=== PATIENT | male | born 1965 | race Caucasian/White ===

== ENCOUNTER 2020-04-19 10:26 | Outpatient (REF) | payer OTHER, SELFPAY ==
[2020-04-19 11:30] LABS: MANUAL DIFF FLAG NO
[2020-04-19 11:51] LABS: Basophils Percent Auto 0.1 % (0-2); Eosinophils Absolute Auto 0.1 X10*3/uL (0.0-0.4); Eosinophils Percent Auto 1.4 % (0-4); Hematocrit 49.8 % (42-52); Hemoglobin 15.8 g/dl (14.0-18.0); Imm Gran Abs Auto 0.02 X10*3/uL (0.00-0.03); Imm Gran Pct Auto 0.3 % (0.0-0.4); Lymphocytes Absolute Auto 1.7 X10*3/uL (1.2-4.9); Lymphocytes Percent Auto 22.6 % (20-40); Mean Corpuscular HGB Conc 31.7 g/dl (31.0-36.0); Mean Corpuscular Hemoglobin 29.2 pg (27.0-33.0); Mean Corpuscular Volume 92.1 fL (80-98); Mean Platelet Volume 9.7 fL (9.4-12.4); Monocytes Absolute Auto 0.6 X10*3/uL (0.1-1.2); Monocytes Percent Auto 7.6 % (2-11); Neutrophils Absolute Auto 5.2 X10*3/uL (2.0-8.3); Platelet Count 284 X10*3/uL (160-400); Red Blood Count 5.41 X10*6/uL (4.60-5.80); Red Cell Distribution Width 12.2 % (11.0-16.0); White Blood Count 7.6 X10*3/uL (4.8-10.8)
[2020-04-19 12:09] LABS: Carbon Dioxide 34 mmol/L (22-29); Chloride 99 mmol/L (96-108); Potassium 4.6 mmol/l (3.3-5.1); Sodium 143 mmol/L (135-145)
[2020-04-19 12:10] LABS: Alanine Aminotransferase 18 U/L (0-40); Albumin Level 4.7 g/dL (3.5-5.0); Alkaline Phosphatase 68 U/L (39-117); Anion Gap 15 (12-20); Aspartate Amino Transferase 19 U/L (5-37); Bilirubin Total 0.6 mg/dL (0.0-1.0); Blood Urea Nitrogen 17 mg/dL (9-16); Calcium 9.8 mg/dL (8.4-10.2); Cholesterol 154 mg/dL; Estimated Glomerular Filt Rate > 60; Glucose Fasting 105 mg/dL (60-99); HDL Cholesterol 36 mg/dL; LDL Cholesterol Calculated 100 mg/dl; Total Protein 7.4 g/dL (6.5-8.0); Triglycerides 94 mg/dL
== END 2020-04-19 10:27 | disposition home or self-care (01) ==
LOC: HO.LAB 10:26
PROVIDERS: PCP Internal Medicine; Visit Provider Internal Medicine
DX: R25.1 Tremor, unspecified (principal)
CPT/HCPCS: 36415; 80053; 80061; 85025

== ENCOUNTER 2021-02-10 11:17 | Outpatient (REF) | payer MEDICARE, SELFPAY ==
[2021-02-10 11:32] LABS: MANUAL DIFF FLAG NO
[2021-02-10 11:49] LABS: Basophils Percent Auto 0.1 % (0-2); Eosinophils Percent Auto 0.5 % (0-4); Hematocrit 48.4 % (42-52); Hemoglobin 15.8 g/dl (14.0-18.0); Imm Gran Abs Auto 0.04 X10*3/uL (0.00-0.03); Imm Gran Pct Auto 0.5 % (0.0-0.4); Lymphocytes Absolute Auto 1.1 X10*3/uL (1.2-4.9); Lymphocytes Percent Auto 12.9 % (20-40); Mean Corpuscular HGB Conc 32.6 g/dl (31.0-36.0); Mean Corpuscular Hemoglobin 29.6 pg (27.0-33.0); Mean Corpuscular Volume 90.8 fL (80-98); Mean Platelet Volume 9.8 fL (9.4-12.4); Monocytes Absolute Auto 0.6 X10*3/uL (0.1-1.2); Monocytes Percent Auto 7.5 % (2-11); Neutrophils Absolute Auto 6.6 X10*3/uL (2.0-8.3); Neutrophils Percent Auto 78.5 % (45-73); Platelet Count 255 X10*3/uL (160-400); Red Blood Count 5.33 X10*6/uL (4.60-5.80); Red Cell Distribution Width 12.5 % (11.0-16.0); White Blood Count 8.4 X10*3/uL (4.8-10.8)
[2021-02-10 12:06] LABS: Alanine Aminotransferase 26 U/L (0-40); Albumin Level 4.5 g/dL (3.5-5.0); Alkaline Phosphatase 61 U/L (39-117); Anion Gap 12 (12-20); Aspartate Amino Transferase 21 U/L (5-37); Bilirubin Total 0.3 mg/dL (0.0-1.0); Blood Urea Nitrogen 15 mg/dL (9-16); Calcium 10.2 mg/dL (8.4-10.2); Carbon Dioxide 32 mmol/L (22-29); Chloride 101 mmol/L (96-108); Cholesterol 219 mg/dL; Estimated Glomerular Filt Rate > 60; Glucose Fasting 135 mg/dL (60-99); HDL Cholesterol 41 mg/dL; LDL Cholesterol Calculated 161 mg/dl; Potassium 4.4 mmol/L (3.3-5.1); Sodium 141 mmol/L (135-145); Total Protein 7.3 g/dL (6.5-8.0); Triglycerides 86 mg/dL
== END 2021-02-10 11:18 | disposition home or self-care (01) ==
LOC: HO.LAB 11:17
PROVIDERS: PCP Internal Medicine; Visit Provider Internal Medicine
DX: Z00.00 Encounter for general adult medical examination without abnormal findings (principal); E11.9 Type 2 diabetes mellitus without complications; E03.9 Hypothyroidism, unspecified
CPT/HCPCS: 36415; 80053; 80061; 84443; 85025

== ENCOUNTER 2021-03-14 10:34 | Outpatient (REF) | payer MEDICARE, SELFPAY ==
--- NOTE | 2021-03-16 10:47 | MHC.AU.AHA ---
Adult Audiological Evaluation Date of Visit: 03/14/21 Reason for Appointment: History of hearing loss. Patient arrives today to determine if there has been a change in hearing. Previous Hearing Test Results: At this clinic on 12/22/2019- Mild sloping to moderate sensorineural hearing loss bilaterally Ear History: Recent Ear Drainage: None Reported Recent Ear Pain: None Reported Recent Ear Infections: None Reported History of Ear Wax Buildup: Both Ears Medical History: Medical History: Asthma, Developmental Disorder/Delay Hearing Instrument History- Right Ear: Lead Nitrate Processor: Phonak Model: CabbyGo B50-P Serial Number: [id number] Battery Size: 13 Repair Warranty: 04/15/2021 Loss and Damage Warranty: 04/15/2021 Dispensed By: [facility] Date of Fittin01/24/2018 Hearing Instrument History- Left Ear: Lead Nitrate Processor: Phonak Model: Mobyparkero B50-P Serial Number: [id number] Battery Size: 13 Warranty: 04/15/2021 Loss and Damage Warranty: 04/15/2021 Dispensed By: [facility] Date of Fittin01/24/2018 Otoscopy: Right Ear: Partially occluded with cerumen Left Ear: Partially occluded with cerumen Hearing Evaluation: Transducer(s) Used: Insert Earphones Method: Conventional Audiometry Stimuli Used: Pure Tones Right Ear: Description of Hearing: Mild to moderate sensorineural hearing loss Left Ear: Description of Hearing: Mild to moderate sensorineural hearing loss Speech Recognition Threshold (SRT): Method Used: Recorded Lists Stimuli Used: Spondee Words Right Ear: 30 dBHL Left Ear: 30 dBHL Word Discrimination: Method: Recorded Lists Word Lists Used: W-22 Right Ear: 88% at 70 dBHL Left Ear: 92% at 70 dBHL Most Comfortable Level (MCL): Right Ear: 70 dBHL Left Ear: 70 dBHL Comparison: Compared to the most recent evaluation: Hearing is stable. Recommendations: Audiological re-evaluation in one year. See Hearing Aid Follow-Up note for more information. Cerumen removal was performed prior to today's testing with a lighted disposable curette. No complications noted. Diagnosis: Primary Diagnosis: H90.3 Bilateral Sensorineural Hearing Loss Signature: Provider: Syeda Alcala, [facility]
--- NOTE | 2021-03-16 10:49 | MHC.AU.HFU ---
Hearing Instrument Follow-Up- Binaural Date of Visit: 03/14/21 Right Ear: Agricultural Services Director: Phonak Model: Bolero B50-P Serial Number: [id number] Repair Warranty: 04/15/2021 Loss and Damage Warranty: 04/15/2021 Battery Size: 13 Color: Silver Tubing: Size 2 slim tubes Type of Mold: Slim Tip #[id number] Dispensed By: [facility] Date of Fittin01/24/2018 Left Ear: Agricultural Services Director: Phonak Model: Bolero B50-P Serial Number: [id number] Repair Warranty: 04/15/2021 Loss and Damage Warranty: 04/15/2021 Battery Size: 13 Color: Silver Tubing: Size 2 slim tubes Type of Mold: Slim Tip #[id number] Dispensed By: [facility] Date of Fittin01/24/2018 Follow-Up Summary: Patient was seen for audiological evaluation (see separate report for details). Hearing aid maintenance performed. Slim tubes were clogged w/wax. Slim tubes were replaced and molds were cleaned. Microphones vacuumed. Battery compartments cleaned. Hearing aids are amplifying clearly after maintenance. No programming changes made today. Cerumen removal performed prior to today's evaluation. Both canals were partially occluded. A lighted disposable curette was used to remove cerumen bilaterally without incident. Recommendations: Recommendations: Hearing instrument follow-up or maintenance as needed. Diagnosis Code(s): Primary Diagnosis: H90.3 Bilateral Sensorineural Hearing Loss Signature: Provider: Syeda Alcala, [facility]
== END 2021-03-14 10:35 | disposition home or self-care (01) ==
LOC: HO.SH 10:34
PROVIDERS: Visit Provider Internal Medicine
DX: H90.3 Sensorineural hearing loss, bilateral (principal)
CPT/HCPCS: 92557; 92593; V5266

== ENCOUNTER 2021-12-30 13:50 | Outpatient (REF) | payer MEDICARE, SELFPAY ==
[2021-12-30 14:15] LABS: MANUAL DIFF FLAG NO
[2021-12-30 15:22] LABS: Basophils Percent Auto 0.2 % (0-2); Eosinophils Absolute Auto 0.1 X10*3/uL (0.0-0.4); Eosinophils Percent Auto 1.1 % (0-4); Hematocrit 47.6 % (42.0-52.0); Hemoglobin 15.5 g/dl (14.0-18.0); Imm Gran Abs Auto 0.02 X10*3/uL (0.00-0.03); Imm Gran Pct Auto 0.2 % (0.0-0.4); Lymphocytes Absolute Auto 1.4 X10*3/uL (1.2-4.9); Lymphocytes Percent Auto 17.8 % (20-40); Mean Corpuscular HGB Conc 32.6 g/dl (31.0-36.0); Mean Corpuscular Hemoglobin 29.4 pg (27.0-33.0); Mean Corpuscular Volume 90.2 fL (80.0-98.0); Mean Platelet Volume 10.5 fL (9.4-12.4); Monocytes Absolute Auto 0.7 X10*3/uL (0.1-1.2); Monocytes Percent Auto 8.2 % (2-11); Neutrophils Absolute Auto 5.9 x10*3/uL (2.0-8.3); Neutrophils Percent Auto 72.5 % (45-73); Platelet Count 255 X10*3/uL (160-400); Red Blood Count 5.28 X10*6/uL (4.60-5.80); Red Cell Distribution Width 12.8 % (11.0-16.0); White Blood Count 8.1 X10*3/uL (4.8-10.8)
[2021-12-30 15:37] LABS: Alanine Aminotransferase 15 U/L (0-40); Albumin Level 4.5 g/dL (3.5-5.0); Alkaline Phosphatase 53 U/L (39-117); Anion Gap 15 (12-20); Aspartate Amino Transferase 19 U/L (5-37); Bilirubin Total 0.6 mg/dL (0.0-1.0); Blood Urea Nitrogen 19 mg/dL (9-16); Calcium 9.6 mg/dL (8.4-10.2); Carbon Dioxide 31 mmol/L (22-29); Chloride 101 mmol/L (96-108); Cholesterol 209 mg/dL; Estimated Glomerular Filt Rate > 60; Glucose Fasting 108 mg/dL (60-99); HDL Cholesterol 41 mg/dL; LDL Cholesterol Calculated 155 mg/dl; Potassium 4.2 mmol/L (3.3-5.1); Sodium 143 mmol/L (135-145); Total Protein 7.3 g/dL (6.5-8.0); Triglycerides 69 mg/dL
[2021-12-30 15:40] LABS: Estimated Average Glucose 126 mg/dL
[2021-12-30 15:57] LABS: Thyroid Stimulating Hormone 0.87 uIU/mL (0.32-4.0)
== END 2021-12-30 13:51 | disposition home or self-care (01) ==
LOC: HO.LAB 13:50
PROVIDERS: PCP Internal Medicine; Visit Provider Internal Medicine
DX: Z00.00 Encounter for general adult medical examination without abnormal findings (principal); Z13.0 Encounter for screening for diseases of the blood and blood-forming organs and certain disorders involving the immune mechanism; E03.9 Hypothyroidism, unspecified; E11.9 Type 2 diabetes mellitus without complications
CPT/HCPCS: 36415; 80053; 80061; 83036; 84443; 85025

== ENCOUNTER 2022-01-05 16:04 | Emergency (ER) | payer MEDICARE, SELFPAY ==
[2022-01-05 16:36] VITALS: BP 202/108; PULSE 115; RESP 18; TEMP 36.9; O2SAT 98; BMI 34.9
[2022-01-05 22:34] VITALS: BP 145/106; PULSE 120; RESP 20; TEMP 35.9; O2SAT 92
--- NOTE | 2022-01-05 22:34 | ED_ITS ---
HPI - Male Genitourinary General Chief complaint: Urogenital-Male Stated complaint: unable to urinate Time Seen by Provider: 01/05/22 22:34 Source: patient Mode of arrival: ambulatory Limitations: no limitations History of Present Illness HPI Narrative: Patient is 56 years old with history of cognitive developmental delay, asthma, obesity, hyperlipidemia, white coat syndrome comes here for 2 days of dysuria and frequency, post voidal bladder scan done in the ER showed 173 cc of urine patient denies any fever or chills no cough no abdominal pain no hematuria Related Data Home Medications Medication Instructions Recorded Confirmed aripiprazole lauroxil 882 mg/3.2 mg IM 06/06/21 09/30/21 mL suspension, ext.rel. IM syringe (Aristada) paroxetine HCl 10 mg/5 mL oral mg PO 06/06/21 09/30/21 suspension (Paxil) Previous Rx's Medication Instructions Recorded atorvastatin 20 mg tablet 20 mg PO BEDTIME 90 days #90 tabs 09/30/21 blood sugar diagnostic (FreeStyle #100 ea 09/30/21 Test strips) blood-glucose meter (First Rate Medical TransportationTouch #1 ea 09/30/21 Ultra2 Meter) dulaglutide 0.75 mg/0.5 mL 0.75 mg (0.5 mL) subcut QWEEK #2 mL 09/30/21 subcutaneous [facility]or [facility]) fluticasone 250 mcg-salmeterol 50 1 inh inhalation Q12H #60 ea 09/30/21 mcg/dose blistr powdr for inhalation (Wixela Inhub) blood sugar diagnostic (OneTouch #50 ea 10/03/21 Ultra Test strips) lancets (First Rate Medical TransportationTouch UltraSoft #100 ea 10/18/21 Lancets) phenazopyridine 200 mg tablet 200 mg PO TID 2 days #5 tabs 01/05/22 (Pyridium) Allergies Allergy/AdvReac Type Severity Reaction Status Date / Time penicillin V Allergy Unknown vomiting Verified 09/30/21 13:45 Penicillins [PENICILLINS] Allergy Unknown vomitting Verified 09/30/21 13:45 Review of Systems Review of Systems: Yes all other systems are reviewed and are negative PMFSH Past Medical History Medical History Asthma Cognitive developmental delay Hyperlipidemia Obesity Surgical History History of foot surgery Meatal stenosis S/P TURP (status post transurethral resection of prostate) Family History Family History Father Cancer Mother COPD (chronic obstructive pulmonary disease) Hypertension Maternal Aunt Liver cancer Social History Social History Housing: Apartment Alcohol intake: never Patient Tobacco Use Status: Never used Tobacco e-Cigarette/Vaping Use: Never Used Second Hand Smoke Exposure: No Use of substances other than those prescribed or required for medical reasons: No Advance Directives: No Advance Directives Information Provided: No service: No Current occupational status: employed Cognitive needs: No Hearing needs: Yes (hearing aide) Vision needs: Yes (glasses) Physical Exam Vital Signs: Vital Signs: Last Vital Signs Temp 96.6 F L 01/05/22 22:34 Pulse 120 H 01/05/22 22:34 Resp 20 01/05/22 22:34 BP 145/106 H 01/05/22 22:34 Pulse Ox 92 01/05/22 22:34 O2 Del Method 01/05/22 22:34 BMI result Body Mass Index 34.9 Appearance: Alert. Oriented X3. No acute distress. Obese Eyes: PERRLA, ENT: Pharynx normal. Oral Mucosa moist Neck: Normal inspection. Neck supple. CVS: Normal heart rate and rhythm. Pulses normal. Respiratory: No respiratory distress. Equal air entry bilateral, no wheezing/rales/rhonchi Abdomen: Soft and nontender. Bowel sounds are present, no mass palpable, no CVA tenderness Skin: Skin warm and dry. Normal skin color. Normal skin turgor. Extremities: No lower extremity edema. No calf tenderness Neuro: Oriented X 3. No motor deficit. MDM - Male Genitourinary MDM Narrative Medical decision making narrative: UA is negative , PV bladder scan <200 cc likely patient dysuria of discharge patient on Pyridium Differential Diagnosis Differential diagnosis: Likely urinary tract infection Lab Data Attestation: I reviewed the patient's lab results. Labs: Lab Results 01/05/22 Range/Units 22:57 Urine Color Yellow Urine Appearance Clear Urine pH 5.5 (5.0-8.0) Ur Specific [place] <= 1.005 (1.005-1.025) Urine Protein Negative (Neg-Trace) mg/dL Urine Glucose (UA) Negative (Negative) mg/dL Urine Ketones Negative (Negative) mg/dL Urine Blood Negative (Negative) Urine Nitrite Negative (Negative) Ur Leukocyte Esterase Negative (Negative) Discharge Plan Discharge Clinical Impression: Dysuria Patient Disposition: Home, Self-Care Instructions: Dysuria (ED) Additional Instructions: No infection was seen in the urine Take medication for comfort as prescribed Drink plenty of fluids Follow with PCP if not better Prescriptions: New phenazopyridine [Pyridium] 200 mg tablet 200 mg PO TID 2 Days Qty: 5 0RF No Action (DME) OneTouch Ultra Test Strip See Rx Instructions .Route Qty: 50 0RF Rx Instructions: check blood glucose once a day ac (DME) lancets [OneTouch UltraSoft Lancets] Misc See Rx Instructions .Route Qty: 100 0RF Rx Instructions: check bood sugar once a day ac atorvastatin 20 mg tablet 20 mg PO BEDTIME 90 Days Qty: 90 3RF (DME) FreeStyle Test Strip See Rx Instructions .Route Qty: 100 8RF Rx Instructions: to check blood sugars once a day Trulicity 0.75 mg/0.5 mL pen injector 0.75 mg subcut QWEEK Qty: 2 8RF fluticasone propion-salmeterol [Wixela Inhub] 250-50 mcg/dose blister with device 1 inh inhalation Q12H Qty: 60 8RF (DME) blood-glucose meter [OneTouch Ultra2 Meter] Misc See Rx Instructions .ROUTE .MEDSUPPLY Qty: 1 0RF Rx Instructions: As directed paroxetine HCl [Paxil] 10 mg/5 mL suspension PO Aristada 882 mg/3.2 mL suspension,extended rel syring IM
--- NOTE | 2022-01-05 22:44 | PC.NURSE ---
Bladder scan was completed, Marilee was aware. Patient is cln culture.
[2022-01-05 23:11] LABS: Appearance Urine Clear; Color Urine Yellow; Glucose Urine UA Negative (Negative); Leukocyte Esterase Urine Negative (Negative); Nitrite Urine Negative (Negative); PH 5.5 (5.0-8.0); Specific Gravity - Urine <= 1.005 (1.005-1.025); Urine Blood Negative (Negative); Urine Ketones Negative (Negative); Urine Protein Negative (Neg-Trace)
[2022-01-05] MEDS: Phenazopyridine HCL 200 MG TABLET PO (23:42)
== END 2022-01-05 23:49 | disposition home or self-care (01) ==
PROVIDERS: Emergency Provider Internal Medicine; PCP Internal Medicine
DX: R30.0 Dysuria (principal); E78.5 Hyperlipidemia, unspecified; Z79.02 Long term (current) use of antithrombotics/antiplatelets; E66.9 Obesity, unspecified; Z68.34 Body mass index [BMI] 34.0-34.9, adult
CPT/HCPCS: 51798; 81003; 99283; 99284

== ENCOUNTER 2022-05-03 09:12 | Outpatient (REF) | payer MEDICARE, SELFPAY ==
[2022-05-03 09:23] LABS: MANUAL DIFF FLAG NO
[2022-05-03 09:40] LABS: Basophils Percent Auto 0.4 % (0-2); Eosinophils Absolute Auto 0.1 X10*3/uL (0.0-0.4); Eosinophils Percent Auto 1.4 % (0-4); Hemoglobin 15.6 g/dl (14.0-18.0); Imm Gran Abs Auto 0.02 X10*3/uL (0.00-0.03); Imm Gran Pct Auto 0.3 % (0.0-0.4); Lymphocytes Absolute Auto 2.2 X10*3/uL (1.2-4.9); Lymphocytes Percent Auto 30.3 % (20-40); Mean Corpuscular HGB Conc 31.8 g/dl (31.0-36.0); Mean Corpuscular Hemoglobin 29.3 pg (27.0-33.0); Mean Corpuscular Volume 92.1 fL (80.0-98.0); Mean Platelet Volume 9.8 fL (9.4-12.4); Monocytes Absolute Auto 0.7 X10*3/uL (0.1-1.2); Monocytes Percent Auto 9.7 % (2-11); Neutrophils Absolute Auto 4.2 x10*3/uL (2.0-8.3); Neutrophils Percent Auto 57.9 % (45-73); Platelet Count 260 X10*3/uL (160-400); Red Blood Count 5.32 X10*6/uL (4.60-5.80); Red Cell Distribution Width 12.7 % (11.0-16.0); White Blood Count 7.2 X10*3/uL (4.8-10.8)
[2022-05-03 11:27] LABS: Alanine Aminotransferase 19 U/L (0-40); Albumin Level 4.4 g/dL (3.5-5.0); Alkaline Phosphatase 58 U/L (39-117); Anion Gap 13 (12-20); Aspartate Amino Transferase 19 U/L (5-37); Bilirubin Total 0.6 mg/dL (0.0-1.0); Blood Urea Nitrogen 27 mg/dL (9-16); Calcium 10.1 mg/dL (8.4-10.2); Carbon Dioxide 32 mmol/L (22-29); Chloride 103 mmol/L (96-108); Cholesterol 198 mg/dL; Estimated Glomerular Filt Rate > 60; Glucose Fasting 135 mg/dL (60-99); HDL Cholesterol 37 mg/dL; LDL Cholesterol Calculated 143 mg/dl; Potassium 4.6 mmol/L (3.3-5.1); Prostate Specific Antigen Scr 1.66 ng/mL (<0.05-4.0); Sodium 143 mmol/L (135-145); Triglycerides 92 mg/dL
== END 2022-05-03 09:13 | disposition home or self-care (01) ==
LOC: HO.LAB 09:12
PROVIDERS: PCP Internal Medicine; Visit Provider Internal Medicine
DX: Z00.00 Encounter for general adult medical examination without abnormal findings (principal); Z13.0 Encounter for screening for diseases of the blood and blood-forming organs and certain disorders involving the immune mechanism; Z12.5 Encounter for screening for malignant neoplasm of prostate; N39.0 Urinary tract infection, site not specified; E78.5 Hyperlipidemia, unspecified; I10 Essential (primary) hypertension
CPT/HCPCS: 36415; 80053; 80061; 84153; 85025; 87086

== ENCOUNTER 2022-10-27 11:34 | Outpatient (REF) | payer MEDICARE, SELFPAY ==
[2022-10-27 13:37] LABS: Alanine Aminotransferase 14 U/L (0-40); Albumin Level 4.2 g/dL (3.5-5.0); Alkaline Phosphatase 59 U/L (39-117); Anion Gap 14 (12-20); Aspartate Amino Transferase 17 U/L (5-37); Bilirubin Total 0.7 mg/dL (0.0-1.0); Blood Urea Nitrogen 19 mg/dL (9-16); Calcium 9.9 mg/dL (8.4-10.2); Carbon Dioxide 31 mmol/L (22-29); Chloride 103 mmol/L (96-108); Cholesterol 202 mg/dL; Estimated Glomerular Filt Rate > 60; Glucose Fasting 112 mg/dL (60-99); HDL Cholesterol 38 mg/dL; LDL Cholesterol Calculated 148 mg/dl; Potassium 3.9 mmol/L (3.3-5.1); Sodium 144 mmol/L (135-145); Total Protein 7.2 g/dL (6.5-8.0); Triglycerides 80 mg/dL
[2022-10-27 13:38] LABS: Estimated Average Glucose 123 mg/dL; Hemoglobin A1c % 5.9 %
== END 2022-10-27 11:35 | disposition home or self-care (01) ==
LOC: HO.LAB 11:34
PROVIDERS: Visit Provider Internal Medicine
DX: R73.9 Hyperglycemia, unspecified (principal); N28.9 Disorder of kidney and ureter, unspecified; E78.5 Hyperlipidemia, unspecified
CPT/HCPCS: 36415; 80053; 80061; 83036

== ENCOUNTER 2023-04-30 09:23 | Outpatient (REF) | payer MEDICARE, SELFPAY ==
[2023-04-30 10:31] LABS: Estimated Average Glucose 131 mg/dL; Hemoglobin A1c % 6.2 % (<6.0)
[2023-04-30 10:32] LABS: Cholesterol 220 mg/dL (<200); Glucose Fasting 168 mg/dL (60-99); HDL Cholesterol 35 mg/dL (>40); LDL Cholesterol Calculated 160 mg/dL (<100); Triglycerides 126 mg/dL (<150)
== END 2023-04-30 09:24 | disposition home or self-care (01) ==
LOC: HO.LAB 09:23
PROVIDERS: PCP Internal Medicine; Visit Provider Internal Medicine
DX: E78.5 Hyperlipidemia, unspecified (principal); R73.9 Hyperglycemia, unspecified
CPT/HCPCS: 36415; 80061; 82947; 83036

== ENCOUNTER 2023-05-08 11:34 | Outpatient (AMB) | payer MEDICARE, SELFPAY ==
[2023-05-08 11:35] VITALS: BP 142/90; PULSE 127; O2SAT 94; BMI 36.4
--- NOTE | 2023-05-08 11:35 | A.OFFPC_ITS ---
Vital Signs 05/08/23 11:35 Height 5 ft 5 in Weight 219 lb 0.6 oz BMI 36.4 BP 142/90 H Blood Pressure Location Lt brachial Position Sitting Pulse 127 H Pulse Source Pulse Oximeter Pulse Oximetry (%) 94 Oxygen Delivery Method Room Air Intake Visit Reasons: 6mth f/u Food Tray Assembler Required: No Allergies penicillin V Allergy (Unknown, Verified 05/08/23 11:35) vomiting Penicillins [PENICILLINS] Allergy (Unknown, Verified 05/08/23 11:35) vomitting Medication List - Last Reconciled 05/08/23 by Tony Patton MD aripiprazole lauroxil ER (Aristada) mg IM atorvastatin 20 mg PO BEDTIME 90 days blood sugar diagnostic (FreeStyle Test strips) to check blood sugars once a day blood sugar diagnostic (OneTouch Ultra Test strips) USE 1 STRIP TO CHECK BLOOD GLUCOSE ONCE A DAY BEFORE A MEAL blood-glucose meter (OneTouch Ultra2 Meter) USE DIRECTED TO CHECK BLOOD GLUCOSE carbamide peroxide 6.5% (Murine Ear Wax Removal System) 5 drps otic (ear) left DAILY 4 days dulaglutide (Trulicity) 0.75 mg (0.5 mL) subcut QWEEK fluticasone propion-salmeterol 250-50 mcg/dose (Wixela Inhub) 1 inh inhalation Q12H isopropyl alcohol in glycerin 95-5 % (Debrox Swimmer's Ear) 5 drps otic (ears) DAILY lancets check bood sugar once a day ac lancets (FreeStyle Lancets) test daily paroxetine HCl (Paxil) mg PO paroxetine HCl 10 mg PO DAILY phenazopyridine (Pyridium) 200 mg PO TID 2 days Tobacco use date assessed: 05/08/23 HPI 6mth f/u HPI Details dm hyperlip and asthma; stable; doing well PFSH Medical History Asthma Cognitive developmental delay Hyperlipidemia Obesity Surgical History History of foot surgery Meatal stenosis S/P TURP (status post transurethral resection of prostate) Family History Father Cancer Mother COPD (chronic obstructive pulmonary disease) Hypertension Maternal Aunt Liver cancer Social History Housing: Apartment Alcohol intake: never Patient Tobacco Use Status: Never used Tobacco e-Cigarette/Vaping Use: Never Used Second Hand Smoke Exposure: No service: No Current occupational status: employed Cognitive needs: No Hearing needs: Yes (hearing aide) Vision needs: Yes (glasses) Questionnaire PHQ-9 Over the last 2 weeks, how often have you been bothered by any of the following problems? 1. Little interest or pleasure in doing things: not at all 2. Feeling down, depressed, or hopeless: not at all 3. Trouble falling or staying asleep, or sleeping too much: not at all 4. Feeling tired or having little energy: not at all 5. Poor appetite or overeating: not at all 6. Feeling bad about yourself - or that you are a failure or have let yourself or your family down: not at all 7. Trouble concentrating on things, such as reading the newspaper or watching television: not at all 8. Moving or speaking so slowly that other people could have noticed. Or the opposite - being so fidgety or restless that you have been moving around a lot more than usual: not at all 9. Thoughts that you would be better off or of hurting yourself in some way: not at all Total score: 0 Depression Screening Interpretation: Negative Depression Screening Done: Yes Source: Developed by Drs. Alexandre Navarro, Angela Hannah, Palomo Hill and colleagues, with an educational julio from [employer]. Thrive Questionnaire Date Thrive assessed: 05/08/23 I am a: Patient What is your living situation today?: I have a steady place to live Within the past 12 months, did the food you bought not last and you didn't have the money to get more?: Never true Within the past 12 months, did you worry whether your food would run out before you got money to buy more?: Never true Do you have trouble paying for medicines?: No Do you have trouble getting transportation to medical appointments?: No Do you have trouble paying your heating and electricity bill?: No Do you have trouble taking care of your child, family member or friend?: No Do you have trouble with day-to-day activities such as bathing, preparing meals, shopping, managing finances, etc.?: No Are you currently unemployed and looking for a job?: No Are you interested in more education?: No AUDIT C Alcohol Use Questionnaire (AUDIT-C) 1. How often do you have a drink containing alcohol?: Never Total Score: 0 Score Reviewed/Action Taken: No MAR-7 AMB Questionnaire MAR-7 Date MAR - 7 assessed: 05/08/23 Feeling nervous, anxious, or on edge: 0 = Not at all Not being able to stop or control worryin = Not at all Worrying too much about different things: 0 = Not at all Trouble relaxin = Not at all Being so restless that it is hard to sit still: 0 = Not at all Becoming easily annoyed or irritable: 0 = Not at all Feeling afraid as if something awful might happen: 0 = Not at all Total MAR-7 score (0-4 normal; 5-9 mild; 10-14 moderate; 15-21 severe): 0 Source: Developed by Drs. Alexandre Navarro, Angela Hannah, Palomo Hill and colleagues, with an educational julio from [employer]. Review of Systems Const Denies chills, Denies headache(s) and Denies weight loss ENT Denies headache(s) Card Denies chest pain, Denies syncope, Denies irregular heart rhythm and Denies dyspnea Resp Denies chest congestion, Denies cough and Denies dyspnea GI Denies abdominal pain, Denies change in stool character, Denies nausea and Denies vomiting Musc Denies deformity and Denies joint swelling Neuro Denies syncope and Denies headache(s) Physical exam (Primary Care) Vital Signs: Last Vital Signs Pulse 127 H 05/08/23 11:35 BP 142/90 H 05/08/23 11:35 Pulse Ox 94 05/08/23 11:35 Oxygen Delivery Method Room Air 05/08/23 11:35 BMI result Body Mass Index 36.4 Tobacco/Smoking Status: Tobacco use Status Tobacco use date assessed 05/08/23 05/08/23 11:37 Patient Tobacco Use Status Never used Tobacco 05/08/23 11:37 e-Cigarette/Vaping Use Never Used 05/08/23 11:37 PHQ-9: PHQ-9 Score PHQ-9: Total score 0 05/08/23 11:37 Depression Screening Interpretation: Negative Thrive Assessment: Date of Thrive Assessment Date Thrive assessed 05/08/23 05/08/23 11:37 Const General: cooperative, comfortable, no acute distress and alert Neck Neck: Yes no lymphadenopathy Thyroid: Thyroid normal Resp Effort & Inspection: normal respiratory effort Auscultation: clear to auscultation bilaterally Percussion: percussion normal Cardio Jugular venous distension: no JVD Palpation: normal PMI Rate: regular rate Rhythm: regular rhythm Heart sounds: S1 normal heart sound present and S2 normal heart sound present GI Inspection: Yes normal to inspection Palpation (GI): No hepatosplenomegaly present Skin General skin exam: no rashes or lesions noted Extrem General: Yes no clubbing, cyanosis or edema Assessment and Plan Assessment & Plan (1) Type 2 diabetes mellitus with hyperlipidemia: Code(s): E11.69 - Type 2 diabetes mellitus with other specified complication; E78.5 - Hyperlipidemia, unspecified Plan: stable; same rx (2) Asthma: Code(s): J45.909 - Unspecified asthma, uncomplicated Plan: stable ;same rx (3) Hyperlipidemia: Code(s): E78.5 - Hyperlipidemia, unspecified Plan: stable; same rx Orders: Orders Influenza [id number] Immunization Today Z23 - Encounter for immunization Microalbumin, Random (w Creat) Today E11.69 - Type 2 diabetes mellitus with other specified complication, E66.01 - Morbid (severe) obesity due to excess calories Lipid Panel Today E78.5 - Hyperlipidemia, unspecified Comprehensive [place]. Panel Fast Today N28.9 - Disorder of kidney and ureter, unspecified Complete Blood Count Auto Diff Today D64.9 - Anemia, unspecified Hemoglobin A1c Today R73.9 - Hyperglycemia, unspecified Medications: New flu vacc [id number] 6mos up(PF) 0.5 mL IM ONCE 0.5 mL 0RF Z23 - Encounter for immunization Coding Level of Care Code Est Pt Level 4 (32908) Diagnoses Type 2 diabetes mellitus with hyperlipidemia E11.69; E78.5 Asthma J45.909 Hyperlipidemia E78.5
== END 2023-05-08 11:59 | disposition home or self-care (01) ==
PROVIDERS: PCP Internal Medicine; Visit Provider Internal Medicine
DX: E11.69 Type 2 diabetes mellitus with other specified complication (principal); E78.5 Hyperlipidemia, unspecified; J45.909 Unspecified asthma, uncomplicated; Z23 Encounter for immunization
CPT/HCPCS: 90471; 90686; 99214

== ENCOUNTER 2023-10-24 09:14 | Outpatient (REF) | payer MEDICARE, SELFPAY ==
[2023-10-24 09:23] LABS: MANUAL DIFF FLAG NO
[2023-10-24 10:04] LABS: Basophils Percent Auto 0.3 % (0-2); Eosinophils Absolute Auto 0.1 X10*3/uL (0.0-0.4); Eosinophils Percent Auto 1.1 % (0-4); Hematocrit 48.6 % (42.0-52.0); Hemoglobin 16.2 g/dl (14.0-18.0); Imm Gran Abs Auto 0.02 X10*3/uL (0.00-0.03); Imm Gran Pct Auto 0.3 % (0.0-0.4); Lymphocytes Percent Auto 30.5 % (20-40); Mean Corpuscular HGB Conc 33.3 g/dl (31.0-36.0); Mean Corpuscular Hemoglobin 29.7 pg (27.0-33.0); Mean Platelet Volume 9.8 fL (9.4-12.4); Monocytes Absolute Auto 0.7 X10*3/uL (0.1-1.2); Monocytes Percent Auto 10.7 % (2-11); Neutrophils Absolute Auto 3.7 x10*3/uL (2.0-8.3); Neutrophils Percent Auto 57.1 % (45-73); Platelet Count 259 X10*3/uL (160-400); Red Blood Count 5.46 X10*6/uL (4.60-5.80); Red Cell Distribution Width 12.9 % (11.0-16.0); White Blood Count 6.5 X10*3/uL (4.8-10.8)
[2023-10-24 10:15] LABS: Estimated Average Glucose 131 mg/dL; Hemoglobin A1c % 6.2 % (<6.0)
[2023-10-24 10:39] LABS: Alanine Aminotransferase 18 U/L (0-40); Albumin Level 4.3 g/dL (3.5-5.0); Alkaline Phosphatase 59 U/L (39-117); Anion Gap 16 (12-20); Aspartate Amino Transferase 16 U/L (5-37); Bilirubin Total 0.4 mg/dL (0.0-1.0); Blood Urea Nitrogen 23 mg/dL (9-16); Calcium 9.8 mg/dL (8.4-10.2); Carbon Dioxide 27 mmol/L (22-29); Chloride 103 mmol/L (96-108); Cholesterol 189 mg/dL (<200); Estimated Glomerular Filt Rate > 60; Glucose Fasting 142 mg/dL (60-99); HDL Cholesterol 38 mg/dL (>40); LDL Cholesterol Calculated 131 mg/dL (<100); Sodium 142 mmol/L (135-145); Total Protein 7.3 g/dL (6.5-8.0); Triglycerides 101 mg/dL (<150)
[2023-10-24 13:17] LABS: Creatinine Urine 78.78 mg/dL; Microalbum/Creatinine Ratio Ur 10.1 ug/mg cr (<30)
== END 2023-10-24 09:15 | disposition home or self-care (01) ==
LOC: HO.LAB 09:14
PROVIDERS: PCP Internal Medicine; Visit Provider Internal Medicine
DX: N28.9 Disorder of kidney and ureter, unspecified (principal); E66.01 Morbid (severe) obesity due to excess calories; E78.5 Hyperlipidemia, unspecified; D64.9 Anemia, unspecified; R73.9 Hyperglycemia, unspecified
CPT/HCPCS: 36415; 80053; 80061; 82043; 82570; 83036; 85025

== ENCOUNTER 2023-11-08 13:24 | Outpatient (AMB) | payer MEDICARE, SELFPAY ==
[2023-11-08 13:31] VITALS: BP 130/78; PULSE 105; O2SAT 98; BMI 34.4
--- NOTE | 2023-11-08 13:31 | MHC.PC.OV ---
Vital Signs 11/08/23 13:31 Height 5 ft 5 in Weight 207 lb BMI 34.4 BP 130/78 Blood Pressure Location Lt brachial Position Sitting Pulse 105 H Pulse Source Pulse Oximeter Pulse Oximetry (%) 98 Oxygen Delivery Method Room Air Intake Visit Reasons: follow up (see comments) Commercial Leasing Manager Required: No Cytopathologist: Not Required per policy Accompanied by: Self / Same As Patient Allergies penicillin V Allergy (Unknown, Verified 11/08/23 13:31) vomiting Penicillins [PENICILLINS] Allergy (Unknown, Verified 11/08/23 13:31) vomitting Medication List - Last Reconciled 11/08/23 by Tony Patton MD aripiprazole lauroxil ER (Aristada) mg IM atorvastatin 20 mg PO BEDTIME 90 days blood sugar diagnostic (FreeStyle Test strips) to check blood sugars once a day blood sugar diagnostic (OneTouch Ultra Test strips) USE 1 STRIP TO CHECK BLOOD GLUCOSE ONCE A DAY BEFORE A MEAL blood-glucose meter (TeliAppTouch Ultra2 Meter) USE DIRECTED TO CHECK BLOOD GLUCOSE carbamide peroxide 6.5% (Murine Ear Wax Removal System) 5 drps otic (ear) left DAILY 4 days dulaglutide (Trulicity) 0.75 mg (0.5 mL) subcut QWEEK fluticasone propion-salmeterol 250-50 mcg/dose (Wixela Inhub) 1 inh inhalation Q12H isopropyl alcohol in glycerin 95-5 % (Debrox Swimmer's Ear) 5 drps otic (ears) DAILY lancets (FreeStyle Lancets) test daily lancets check bood sugar once a day ac paroxetine HCl (Paxil) mg PO paroxetine HCl 10 mg PO DAILY phenazopyridine (Pyridium) 200 mg PO TID 2 days Tobacco use date assessed: 11/08/23 Dental Screening Dental Screen Date: 11/08/23 Did you have a dental visit in the last 12 months?: No Did you have a dental problem in the last 6 months where you did not have access to dental care?: No Was dental information given to patient?: Patient has dentist HPI follow up (see comments) HPI Details asthma hyperlipidemia and diabetes; A1C ok; compliant with regimen PFSH Medical History Asthma Cognitive developmental delay Hyperlipidemia Obesity Surgical History History of foot surgery Meatal stenosis S/P TURP (status post transurethral resection of prostate) Family History Father Cancer Mother COPD (chronic obstructive pulmonary disease) Hypertension Maternal Aunt Liver cancer Social History Housing: Apartment Alcohol intake: never Patient Tobacco Use Status: Never used Tobacco e-Cigarette/Vaping Use: Never Used Second Hand Smoke Exposure: No service: No Current occupational status: employed Cognitive needs: No Hearing needs: Yes (hearing aide) Vision needs: Yes (glasses) Questionnaire PHQ-9 Over the last 2 weeks, how often have you been bothered by any of the following problems? 1. Little interest or pleasure in doing things: not at all 2. Feeling down, depressed, or hopeless: not at all 3. Trouble falling or staying asleep, or sleeping too much: not at all 4. Feeling tired or having little energy: not at all 5. Poor appetite or overeating: not at all 6. Feeling bad about yourself - or that you are a failure or have let yourself or your family down: not at all 7. Trouble concentrating on things, such as reading the newspaper or watching television: not at all 8. Moving or speaking so slowly that other people could have noticed. Or the opposite - being so fidgety or restless that you have been moving around a lot more than usual: not at all 9. Thoughts that you would be better off or of hurting yourself in some way: not at all Total score: 0 Depression Screening Interpretation: Negative Depression Screening Done: Yes Source: Developed by Drs. Alexandre Navarro, Angela Hannah, Palomo Hill and colleagues, with an educational julio from [employer]. Thrive Questionnaire Date Thrive assessed: 11/08/23 I am a: Patient What is your living situation today?: I have a steady place to live Within the past 12 months, did the food you bought not last and you didn't have the money to get more?: Never true Within the past 12 months, did you worry whether your food would run out before you got money to buy more?: Never true Do you have trouble paying for medicines?: No Do you have trouble getting transportation to medical appointments?: No Do you have trouble paying your heating and electricity bill?: No Do you have trouble taking care of your child, family member or friend?: No Do you have trouble with day-to-day activities such as bathing, preparing meals, shopping, managing finances, etc.?: No Are you currently unemployed and looking for a job?: No Are you interested in more education?: No Please select the resources that you would like help with: None THRIVE Score: 0 AUDIT C Alcohol Use Questionnaire (AUDIT-C) 1. How often do you have a drink containing alcohol?: Never Total Score: 0 Score Reviewed/Action Taken: No MAR-7 AMB Questionnaire MAR-7 Date MAR - 7 assessed: 11/08/23 Feeling nervous, anxious, or on edge: 0 = Not at all Not being able to stop or control worryin = Not at all Worrying too much about different things: 0 = Not at all Trouble relaxin = Not at all Being so restless that it is hard to sit still: 0 = Not at all Becoming easily annoyed or irritable: 0 = Not at all Feeling afraid as if something awful might happen: 0 = Not at all Total MAR-7 score (0-4 normal; 5-9 mild; 10-14 moderate; 15-21 severe): 0 Source: Developed by Drs. Alexandre Navarro, Angela Hannah, Palomo Hill and colleagues, with an educational julio from [employer]. Review of Systems Const Denies chills, Denies headache(s) and Denies weight loss ENT Denies headache(s) Card Denies chest pain, Denies syncope, Denies irregular heart rhythm and Denies dyspnea Resp Denies chest congestion, Denies cough and Denies dyspnea GI Denies abdominal pain, Denies change in stool character, Denies nausea and Denies vomiting Musc Denies deformity and Denies joint swelling Neuro Denies syncope and Denies headache(s) Physical exam (Primary Care) Vital Signs: Last Vital Signs Pulse 105 H 11/08/23 13:31 BP 130/78 11/08/23 13:31 Pulse Ox 98 11/08/23 13:31 Oxygen Delivery Method Room Air 11/08/23 13:31 BMI result Body Mass Index 34.4 Tobacco/Smoking Status: Tobacco use Status Tobacco use date assessed 11/08/23 11/08/23 13:32 Patient Tobacco Use Status Never used Tobacco 11/08/23 13:32 e-Cigarette/Vaping Use Never Used 11/08/23 13:32 PHQ-9: PHQ-9 Score PHQ-9: Total score 0 11/08/23 13:32 Depression Screening Interpretation: Negative Thrive Assessment: Date of Thrive Assessment Date Thrive assessed 11/08/23 11/08/23 13:32 Const General: cooperative, comfortable, no acute distress and alert Neck Neck: Yes no lymphadenopathy Thyroid: Thyroid normal Resp Effort & Inspection: normal respiratory effort Auscultation: clear to auscultation bilaterally Percussion: percussion normal Cardio Jugular venous distension: no JVD Palpation: normal PMI Rate: regular rate Rhythm: regular rhythm Heart sounds: S1 normal heart sound present and S2 normal heart sound present GI Inspection: Yes normal to inspection Palpation (GI): No hepatosplenomegaly present Skin General skin exam: no rashes or lesions noted Extrem General: Yes no clubbing, cyanosis or edema Assessment and Plan Assessment & Plan (1) Type 2 diabetes mellitus with hyperlipidemia: Code(s): E11.69 - Type 2 diabetes mellitus with other specified complication; E78.5 - Hyperlipidemia, unspecified Plan: stable; same rx (2) Hyperlipidemia: Code(s): E78.5 - Hyperlipidemia, unspecified Plan: stable; same rx (3) Asthma: Code(s): J45.909 - Unspecified asthma, uncomplicated Plan: stable; same rx Orders: Orders Lipid Panel Today Z13.220 - Encounter for screening for lipoid disorders Glucose Fasting Today R73.9 - Hyperglycemia, unspecified Hemoglobin A1c Today R73.9 - Hyperglycemia, unspecified Coding Level of Care Code Tele Est Pt Level 4 (28216) Diagnoses Type 2 diabetes mellitus with hyperlipidemia E11.69; E78.5 Hyperlipidemia E78.5 Asthma J45.909
== END 2023-11-08 13:44 | disposition home or self-care (01) ==
PROVIDERS: PCP Internal Medicine; Visit Provider Internal Medicine
DX: E11.69 Type 2 diabetes mellitus with other specified complication (principal); E78.5 Hyperlipidemia, unspecified; J45.909 Unspecified asthma, uncomplicated
CPT/HCPCS: 99214

== ENCOUNTER 2023-11-22 13:39 | Outpatient (AMB) | payer MEDICARE, SELFPAY ==
--- NOTE | 2023-11-22 13:40 | A.OFFPC_ITS ---
Vital Signs 11/22/23 13:42 Height 5 ft 1 in Weight 208 lb 6 oz BMI 39.4 BP 130/80 Blood Pressure Location Lt brachial Position Sitting Pulse 109 H Pulse Source Pulse Oximeter Pulse Oximetry (%) 94 Oxygen Delivery Method Room Air Intake Visit Reasons: ANNUAL Intake Note: Patient is here today for a physical. Avionics Electronics Technician Required: No Probation And Parole Officer: Not Required per policy Accompanied by: Self / Same As Patient Allergies penicillin V Allergy (Unknown, Verified 11/22/23 13:41) vomiting Penicillins [PENICILLINS] Allergy (Unknown, Verified 11/22/23 13:41) vomitting Medication List - Last Reconciled 11/26/23 by Tony Patton MD aripiprazole lauroxil ER (Aristada) mg IM atorvastatin 20 mg PO BEDTIME 90 days blood sugar diagnostic (FreeStyle Test strips) to check blood sugars once a day blood sugar diagnostic (OneTouch Ultra Test strips) USE 1 STRIP TO CHECK BLOOD GLUCOSE ONCE A DAY BEFORE A MEAL blood-glucose meter ([place]Touch Ultra2 Meter) USE DIRECTED TO CHECK BLOOD GLUCOSE carbamide peroxide 6.5% (Murine Ear Wax Removal System) 5 drps otic (ear) left DAILY 4 days dulaglutide (Trulicity) 0.75 mg (0.5 mL) subcut QWEEK fluticasone propion-salmeterol 250-50 mcg/dose (Wixela Inhub) 1 inh inhalation Q12H isopropyl alcohol in glycerin 95-5 % (Debrox Swimmer's Ear) 5 drps otic (ears) DAILY lancets (FreeStyle Lancets) test daily lancets check bood sugar once a day ac paroxetine HCl (Paxil) mg PO paroxetine HCl 10 mg PO DAILY phenazopyridine (Pyridium) 200 mg PO TID 2 days Tobacco use date assessed: 11/22/23 Dental Screening Dental Screen Date: 11/08/23 HPI ANNUAL HPI Details DM hyperlipidemia and cognitive delay; compliant and doing well [facility] Medical History Asthma Cognitive developmental delay Hyperlipidemia Obesity Surgical History Meatal stenosis S/P TURP (status post transurethral resection of prostate) History of foot surgery Family History Father Cancer Mother COPD (chronic obstructive pulmonary disease) Hypertension Maternal Aunt Liver cancer Social History Housing: Apartment Alcohol intake: never Patient Tobacco Use Status: Never used Tobacco e-Cigarette/Vaping Use: Never Used Second Hand Smoke Exposure: No service: No Current occupational status: employed Cognitive needs: No Hearing needs: Yes (hearing aide) Vision needs: Yes (glasses) Questionnaire Thrive Questionnaire Date Thrive assessed: 11/08/23 MAR-7 AMB Questionnaire MAR-7 Date MAR - 7 assessed: 11/08/23 Source: Developed by Drs. Alexandre Navarro, Angela Hannah, Palomo Hill and colleagues, with an educational julio from [employer]. Review of Systems Const Denies chills, Denies fatigue, Denies headache(s) and Denies weight loss Eyes Denies change in vision, Denies diplopia and Denies eye pain ENT Denies vertigo, Denies dizziness, Denies headache(s) and Denies nasal discharge Card Denies chest pain, Denies rapid heart rate and Denies dyspnea on exertion Resp Denies chest congestion, Denies cough, Denies pain with cough and Denies dyspnea on exertion GI Denies abdominal pain, Denies hematochezia and Denies change in bowel habits Musc Denies myalgias, Denies arthralgias and Denies joint swelling Skin/Breast Denies lesions and Denies unusual bruising Neuro Denies vertigo, Denies dizziness, Denies headache(s) and Denies focal weakness Endo Denies fatigue Physical exam (Primary Care) Vital Signs: Last Vital Signs Pulse 109 H 11/22/23 13:42 BP 130/80 11/22/23 13:42 Pulse Ox 94 11/22/23 13:42 Oxygen Delivery Method Room Air 11/22/23 13:42 BMI result Body Mass Index 39.4 Tobacco/Smoking Status: Tobacco use Status Tobacco use date assessed 11/22/23 11/22/23 13:45 Patient Tobacco Use Status Never used Tobacco 11/22/23 13:45 e-Cigarette/Vaping Use Never Used 11/22/23 13:45 Thrive Assessment: Date of Thrive Assessment Date Thrive assessed 11/08/23 11/22/23 13:45 Const General: cooperative, healthy appearing and no acute distress Orientation/consciousness: oriented to person, oriented to place and oriented to time HENMT Head: Yes normal to inspection, Yes normocephalic and Yes atraumatic Mouth: Normal oral and palatal mucosa present and tongue normal Throat: Yes posterior oropharynx normal and Yes uvula midline Eyes General: appearance normal, both eyes and all related structures Neck Neck: Yes normal visual inspection, Yes full ROM and Yes no lymphadenopathy Thyroid: Thyroid normal Carotids: normal carotid upstroke Chest Chest palpation & inspection: normal inspection of the chest Resp Effort & Inspection: normal respiratory effort and able to speak in complete sentences Auscultation: clear to auscultation bilaterally Cardio Jugular venous distension: no JVD Palpation: normal PMI Rate: regular rate Rhythm: regular rhythm Heart sounds: S1 normal heart sound present and S2 normal heart sound present GI Inspection: Yes normal to inspection Palpation (GI): Soft to palpation and No hepatosplenomegaly present Auscultation: normal bowel sounds General: Yes no CVA tenderness Back/Spine/Pelvis Back: no CVA tenderness Skin General skin exam: no rashes or lesions noted Neuro General: oriented to person, oriented to place and oriented to time Extrem General: Yes normal to inspection and Yes full ROM Assessment and Plan Assessment & Plan (1) Physical exam: Code(s): Z00.00 - Encounter for general adult medical examination without abnormal findings Plan: stable; do labs (2) Hyperlipidemia: Code(s): E78.5 - Hyperlipidemia, unspecified Plan: stable; do labs (3) Type 2 diabetes mellitus with hyperlipidemia: Code(s): E11.69 - Type 2 diabetes mellitus with other specified complication; E78.5 - Hyperlipidemia, unspecified Plan: stable; smae rx Coding Level of Care Code Est Pt Prev Care 40-64y(74920) Diagnoses Physical exam Z00.00 Hyperlipidemia E78.5 Type 2 diabetes mellitus with hyperlipidemia E11.69; E78.5
[2023-11-22 13:42] VITALS: BP 130/80; PULSE 109; O2SAT 94; BMI 39.4
== END 2023-11-22 13:56 | disposition home or self-care (01) ==
PROVIDERS: PCP Internal Medicine; Visit Provider Internal Medicine
DX: Z00.00 Encounter for general adult medical examination without abnormal findings (principal); E78.5 Hyperlipidemia, unspecified; E11.69 Type 2 diabetes mellitus with other specified complication
CPT/HCPCS: 99396

== ENCOUNTER 2023-12-06 18:35 | Emergency (ER) | payer MEDICARE, SELFPAY ==
--- NOTE | ~2023-12-06 | XR_ITS ---
EXAMINATION: CHEST 2 VIEWS CLINICAL INFORMATION: low O2 saturation. COMPARISON: 01/31/2019. TECHNIQUE: PA and lateral views of the chest obtained. FINDINGS: The lungs are hypoexpanded. No focal infiltrate, effusion, edema, or pneumothorax. Cardiac and mediastinal silhouettes are within normal limits for technique. No acute bony abnormality seen XR/XR chest 2V IMPRESSION: Hypoexpanded but otherwise no evidence of acute disease.
[2023-12-06 18:39] VITALS: BP 177/116; PULSE 141; RESP 18; TEMP 36.9; O2SAT 92; BMI 40.8
--- NOTE | 2023-12-06 18:40 | ED_ITS ---
HPI - Eye Problem General Chief complaint: General Medical Stated complaint: Left eye irritation Time Seen by Provider: 12/06/23 18:39 Source: patient Mode of arrival: ambulatory Limitations: no limitations History of Present Illness ED Provider: prateek EDMONDS Narrative: Patient comes here for 2 days of redness of the eyes with purulent discharge left more than the right no history of recurrent infection in the past patient noted to have high blood pressure on arrival later blood pressure improved Related Data Home Medications ?Medication ?Instructions ?Recorded ?Confirmed aripiprazole lauroxil 882 mg/3.2 mg IM 06/06/21 11/26/23 mL suspension, ext.rel. IM syringe (Aristada) paroxetine HCl 10 mg/5 mL oral mg PO 06/06/21 11/26/23 suspension (Paxil) Previous Rx's ?Medication ?Instructions ?Recorded fluticasone 250 mcg-salmeterol 50 1 inh inhalation Q12H #60 ea 09/30/21 mcg/dose blistr powdr for inhalation (Wixela Inhub) phenazopyridine 200 mg tablet 200 mg PO TID 2 days #5 tabs 01/05/22 (Pyridium) blood-glucose meter (OneTouch #1 ea 08/17/22 Ultra2 Meter) isopropyl alcohol 95 % in glycerin 5 drp otic (ears) DAILY #30 mL 10/30/22 5 % ear drops (Debrox Swimmer's Ear) carbamide peroxide 6.5 % ear drops 5 drp otic (ear) left DAILY 4 days 11/01/22 (Murine Ear Wax Removal System) #15 mL lancets 28 gauge (FreeStyle #100 ea 11/07/22 Lancets) blood sugar diagnostic (FreeStyle #100 ea 11/08/22 Test strips) paroxetine HCl 10 mg tablet 10 mg PO DAILY #60 tabs 05/04/23 atorvastatin 20 mg tablet 20 mg PO BEDTIME 90 days #90 tabs 11/02/23 dulaglutide 0.75 mg/0.5 mL 0.75 mg (0.5 mL) subcut QWEEK #2 mL 11/02/23 subcutaneous pen injector (Trulicity) blood sugar diagnostic (OneTouch #50 ea 11/07/23 Ultra Test strips) lancets #100 ea 11/07/23 tobramycin 0.3 % eye drops 2 drp ophthalmic (eye) Q4H #5 mL 12/06/23 Allergies Allergy/AdvReac Type Severity Reaction Status Date / Time penicillin V Allergy Unknown vomiting Verified 12/06/23 18:44 Penicillins [PENICILLINS] Allergy Unknown vomitting Verified 12/06/23 18:44 Review of Systems 2 Review of Systems: Yes all other systems are reviewed and are negative [facility] Past Medical History Medical History Cognitive developmental delay Obesity Asthma Hyperlipidemia Surgical History Meatal stenosis S/P TURP (status post transurethral resection of prostate) History of foot surgery Family History Family History Father Cancer Mother COPD (chronic obstructive pulmonary disease) Hypertension Maternal Aunt Liver cancer Social History Social History Housing: Apartment Alcohol intake: never Patient Tobacco Use Status: Never used Tobacco e-Cigarette/Vaping Use: Never Used Second Hand Smoke Exposure: No Advance Directives: Yes Advance Directives Information Provided: No Advance Directives on File: No Do you have a plan to hurt others: No Plan service: No Current occupational status: employed Cognitive needs: No Hearing needs: Yes (hearing aide) Vision needs: Yes (glasses) Physical Exam 2 Vital Signs: Vital Signs: Last Vital Signs Temp 97.8 F 12/06/23 20:41 Pulse 113 H 12/06/23 20:41 Resp 18 12/06/23 20:41 BP 144/90 H 12/06/23 20:41 Pulse Ox 92 12/06/23 20:41 O2 Del Method Room Air 12/06/23 20:41 BMI result Body Mass Index 40.8 Appearance: Alert. Oriented X3. No acute distress. Obese Eyes: Bilateral inflamed conjunctiva with purulent discharge anterior chamber normal ENT: Pharynx normal. Oral Mucosa moist Neck: Normal inspection. Neck supple. CVS: Normal heart rate and rhythm. Pulses normal. Respiratory: No respiratory distress. Equal air entry bilateral, Abdomen: Soft and nontender. Bowel sounds are present, no mass palpable, no CVA tenderness Skin: Skin warm and dry. Normal skin color. Normal skin turgor. Extremities: No lower extremity edema. No calf tenderness Neuro: Oriented X 3. Course Course Course Narrative: This is a rapid medical exam performed by Urszula Minor NP: Additional HPI, ROS, PE not included below will be deferred to primary provider. Patient is a 58-year-old male with history of T2DM, cognitive developmental delay, elevated BP with dx of HTN, asthma presenting to the ED with complaint of bilateral eye redness, itching and thick drainage. Patient noted to be tachycardic to 140 in triage with initial BP over 200 systolic, oxygen 92%ra. Plan: EKG, labs, CXR, visual acuity Medications Administered Discontinued Medications Generic Name Dose Route Start Last Admin Trade Name Freq PRN Reason Stop Dose Admin Tobramycin Sulfate 2 drop 12/06/23 21:32 12/06/23 22:04 Tobramycin Sulfate 0.3% Ruth Op 5 Ml Btl EYE-BOTH 12/06/23 21:33 2 drop ONCE ONE Administration Medical Decision Making Medical Decision Making [facility] Narrative: Patient with purulent conjunctivitis will prescribe tobramycin advised to follow with PCP regarding the blood pressure control likely white coat hypertension Lab Data [facility] Lab Attestation statement: I reviewed the patient's lab results. 12/06/23 19:16 12/06/23 19:16 Labs: Lab Results 12/06/23 Range/Units 19:16 WBC 9.4 (4.8-10.8) X10*3/uL RBC 5.53 (4.60-5.80) X10*6/uL Hgb 16.3 (14.0-18.0) g/dl Hct 48.6 (42.0-52.0) % MCV 87.9 (80.0-98.0) fL MCH 29.5 (27.0-33.0) pg MCHC 33.5 (31.0-36.0) g/dl RDW 12.7 (11.0-16.0) % Plt Count 282 (160-400) X10*3/uL MPV 9.5 (9.4-12.4) fL Immature Gran % (Auto) 0.3 (0.0-0.4) % Neut % (Auto) 72.0 (45-73) % Lymph % (Auto) 18.4 L (20-40) % [place] % (Auto) 8.6 (2-11) % Eos % (Auto) 0.5 (0-4) % Baso % (Auto) 0.2 (0-2) % Lymph # (Auto) 1.7 (1.2-4.9) X10*3/uL [place] # (Auto) 0.8 (0.1-1.2) X10*3/uL Eos # (Auto) 0.1 (0.0-0.4) X10*3/uL Baso # (Auto) 0.0 (0.0-0.2) X10*3/uL Abs Immat Gran (auto) 0.03 (0.00-0.03) X10*3/uL Absolute Neuts (auto) 6.8 (2.0-8.3) x10*3/uL Absolute Nucleated RBC 0.000 (0.0-0.012) X10*3/uL Nucleated RBC % (auto) 0.0 (0.0-0.2) /100WBC Sodium 146 H (135-145) mmol/L Potassium 3.8 (3.3-5.1) mmol/L Chloride 104 (96-108) mmol/L Carbon Dioxide 29 (22-29) mmol/L Anion Gap 17 (12-20) BUN 24 H (9-16) mg/dL Creatinine 1.17 (0.5-1.4) mg/dL Estim Creat Clear Calc 66.9 Estimated GFR > 60 Random Glucose 140 H (60-115) mg/dL Calcium 9.9 (8.4-10.2) mg/dL Total Bilirubin 0.4 (0.0-1.0) mg/dL AST 15 (5-37) U/L ALT 19 (0-40) U/L Alkaline Phosphatase 68 (39-117) U/L Troponin I High Sens 6.7 (<3.5-35.0) ng/L Total Protein 7.6 (6.5-8.0) g/dL Albumin 4.5 (3.5-5.0) g/dL Influenza Type A (PCR) NEGATIVE (Negative) Influenza Type B (PCR) NEGATIVE (Negative) RSV RNA Qual (PCR) NEGATIVE (Negative) SARS-CoV-2 RNA (RT-PCR) NEGATIVE (Negative) Discharge Plan Discharge Clinical Impression: Acute bacterial conjunctivitis Patient Disposition: Home, Self-Care Instructions: Conjunctivitis (ED) Additional Instructions: Use eyedrops as prescribed until gets better Report to PCP/ED if not better Prescriptions: New tobramycin 0.3 % drops 2 drp ophthalmic (eye) Q4H Qty: 5 0RF No Action (DME) blood-glucose meter [OneTouch Ultra2 Meter] Misc See Rx Instructions .ROUTE .COMPLEX Qty: 1 0RF Dose Instruction: USE DIRECTED TO CHECK BLOOD GLUCOSE Rx Instructions: USE DIRECTED TO CHECK BLOOD GLUCOSE Murine Ear Wax Removal System 6.5 % drops 5 drp otic (ear) left DAILY 4 Days Qty: 15 2RF (DME) FreeStyle Test Strip See Rx Instructions .Route Qty: 100 8RF Rx Instructions: to check blood sugars once a day paroxetine HCl 10 mg tablet 10 mg PO DAILY Qty: 60 8RF atorvastatin 20 mg tablet 20 mg PO BEDTIME 90 Days Qty: 90 3RF Trulicity 0.75 mg/0.5 mL pen injector 0.75 mg subcut QWEEK Qty: 2 0RF (DME) OneTouch Ultra Test Strip See Rx Instructions .ROUTE .COMPLEX Qty: 50 0RF Dose Instruction: USE 1 STRIP TO CHECK BLOOD GLUCOSE ONCE A DAY BEFORE A MEAL Rx Instructions: USE 1 STRIP TO CHECK BLOOD GLUCOSE ONCE A DAY BEFORE A MEAL (DME) lancets Misc See Rx Instructions .Route Qty: 100 0RF Rx Instructions: check bood sugar once a day ac phenazopyridine [Pyridium] 200 mg tablet 200 mg PO TID 2 Days Qty: 5 0RF fluticasone propion-salmeterol [Wixela Inhub] 250-50 mcg/dose blister with device 1 inh inhalation Q12H Qty: 60 8RF paroxetine HCl [Paxil] 10 mg/5 mL suspension PO Aristada 882 mg/3.2 mL suspension,extended rel syring IM Debrox Swimmer's Ear 95-5 % drops 5 drp otic (ears) DAILY Qty: 30 0RF (DME) lancets [FreeStyle Lancets] 28 gauge misc See Rx Instructions .MEDSUPPLY Qty: 100 2RF Rx Instructions: test daily Print Language: Syriac
--- NOTE | 2023-12-06 18:43 | ECG_ITS ---
Test Reason : IRRITATION Blood Pressure : / mmHG Vent. Rate : 125 BPM Atrial Rate : 125 BPM P-R Int : 162 ms QRS Dur : 090 ms QT Int : 312 ms P-R-T Axes : 055 -45 060 degrees QTc Int : 450 ms Sinus tachycardia Possible Left atrial enlargement Left anterior fascicular block Left ventricular hypertrophy ( R in aVL , Johnnie product ) Abnormal ECG When compared with ECG of 18-NOV-2018 22:39, No significant change was found Referred By: Renetta Minor Electronically Signed By:ESSIE REICH
[2023-12-06 19:20] VITALS: BP 186/111; PULSE 113; RESP 18; TEMP 36.6; O2SAT 95
[2023-12-06 19:21] LABS: MANUAL DIFF FLAG NO
[2023-12-06 19:22] LABS: Basophils Percent Auto 0.2 % (0-2); Eosinophils Absolute Auto 0.1 X10*3/uL (0.0-0.4); Eosinophils Percent Auto 0.5 % (0-4); Hematocrit 48.6 % (42.0-52.0); Hemoglobin 16.3 g/dl (14.0-18.0); Imm Gran Abs Auto 0.03 X10*3/uL (0.00-0.03); Imm Gran Pct Auto 0.3 % (0.0-0.4); Lymphocytes Absolute Auto 1.7 X10*3/uL (1.2-4.9); Lymphocytes Percent Auto 18.4 % (20-40); Mean Corpuscular HGB Conc 33.5 g/dl (31.0-36.0); Mean Corpuscular Hemoglobin 29.5 pg (27.0-33.0); Mean Corpuscular Volume 87.9 fL (80.0-98.0); Mean Platelet Volume 9.5 fL (9.4-12.4); Monocytes Absolute Auto 0.8 X10*3/uL (0.1-1.2); Monocytes Percent Auto 8.6 % (2-11); Neutrophils Absolute Auto 6.8 x10*3/uL (2.0-8.3); Platelet Count 282 X10*3/uL (160-400); Red Blood Count 5.53 X10*6/uL (4.60-5.80); Red Cell Distribution Width 12.7 % (11.0-16.0); White Blood Count 9.4 X10*3/uL (4.8-10.8)
[2023-12-06 19:49] LABS: Troponin-I High Sensitivity 6.7 ng/L (<3.5-35.0)
[2023-12-06 19:50] LABS: Alanine Aminotransferase 19 U/L (0-40); Albumin Level 4.5 g/dL (3.5-5.0); Alkaline Phosphatase 68 U/L (39-117); Anion Gap 17 (12-20); Aspartate Amino Transferase 15 U/L (5-37); Bilirubin Total 0.4 mg/dL (0.0-1.0); Blood Urea Nitrogen 24 mg/dL (9-16); Calcium 9.9 mg/dL (8.4-10.2); Carbon Dioxide 29 mmol/L (22-29); Chloride 104 mmol/L (96-108); Creatinine Clr Calc Pharmacy 66.9; Estimated Glomerular Filt Rate > 60; Glucose Random 140 mg/dL (60-115); Potassium 3.8 mmol/L (3.3-5.1); Sodium 146 mmol/L (135-145); Total Protein 7.6 g/dL (6.5-8.0)
[2023-12-06 20:03] LABS: Influenza A PCR NEGATIVE (Negative); Influenza B PCR NEGATIVE (Negative); Resp Syncy Virus RNA Qual PCR NEGATIVE (Negative); SARS COV2 PCR INHOUSE NEGATIVE (Negative)
[2023-12-06 20:41] VITALS: BP 144/90; PULSE 113; RESP 18; TEMP 36.6; O2SAT 92
[2023-12-06] MEDS: Tobramycin Sulfate 0.3% Sol Op 5 ML BTL 2 DROP EYE-BOTH (22:04)
--- NOTE | 2023-12-06 23:45 | PC.NURSE ---
PTs friend Chesher cameto pickpt up. Pt walked out to car per ED staff, pt in no acute distress.
== END 2023-12-06 23:46 | disposition home or self-care (01) ==
PROVIDERS: Registered Nurse Emergency; Emergency Provider Internal Medicine
DX: H10.32 Unspecified acute conjunctivitis, left eye (principal); R00.0 Tachycardia, unspecified; Z03.818 Encounter for observation for suspected exposure to other biological agents ruled out; Z79.899 Other long term (current) drug therapy
CPT/HCPCS: 0241U; 36415; 71046; 80053; 84484; 85025; 93005; 99283; 99284

== ENCOUNTER → 2023-12-06 18:43 | Outpatient (BNV) | payer MEDICARE, SELFPAY | PROVIDERS: Emergency Provider Internal Medicine; Visit Provider Internal Medicine | DX: R00.0 Tachycardia, unspecified (principal); I44.4 Left anterior fascicular block; R94.31 Abnormal electrocardiogram [ECG] [EKG] | CPT/HCPCS: 93010 ==

== ENCOUNTER 2024-03-07 09:29 | Outpatient (REF) | payer MEDICARE, SELFPAY ==
[2024-03-07 10:26] LABS: Estimated Average Glucose 131 mg/dL; Hemoglobin A1c % 6.2 % (<6.0); Total Hemoglobin (HGBA1C) 3997.6189 umol/L
[2024-03-07 10:44] LABS: Cholesterol 216 mg/dL (<200); Glucose Fasting 153 mg/dL (60-99); HDL Cholesterol 39 mg/dL (>40); LDL Cholesterol Calculated 152 mg/dL (<100); Triglycerides 129 mg/dL (<150)
== END 2024-03-07 09:30 | disposition home or self-care (01) ==
LOC: HO.LAB 09:29
PROVIDERS: PCP Internal Medicine; Visit Provider Internal Medicine
DX: Z13.220 Encounter for screening for lipoid disorders (principal); R73.9 Hyperglycemia, unspecified
CPT/HCPCS: 36415; 80061; 82947; 83036

== ENCOUNTER 2024-03-17 09:40 | Outpatient (AMB) | payer MEDICARE, SELFPAY ==
--- NOTE | 2024-03-17 10:07 | A.OFFPC_ITS ---
Vital Signs 03/17/24 10:09 Height 5 ft Weight 213 lb BMI 41.6 BP 144/90 H Blood Pressure Location Lt brachial Position Sitting Pulse 112 H Pulse Source Pulse Oximeter Pulse Oximetry (%) 90 L Oxygen Delivery Method Room Air Intake Visit Reasons: 4mth f/u Intake Note: Patient is here to follow up on DM, Asthma, HLD. Informatics Coordinator Required: No Studio Artist: Not Required per policy Accompanied by: Self / Same As Patient Allergies penicillin V Allergy (Unknown, Verified 03/17/24 10:08) vomiting Penicillins [PENICILLINS] Allergy (Unknown, Verified 03/17/24 10:08) vomitting Medication List - Last Reconciled 03/17/24 by Tony Patton MD aripiprazole lauroxil ER (Aristada) mg IM atorvastatin 20 mg PO BEDTIME 90 days blood sugar diagnostic (FreeStyle Test strips) to check blood sugars once a day blood sugar diagnostic (OneTouch Ultra Test strips) USE 1 STRIP TO CHECK BLOOD GLUCOSE ONCE A DAY BEFORE A MEAL blood-glucose meter ([employer]Touch Ultra2 Meter) USE DIRECTED TO CHECK BLOOD GLUCOSE carbamide peroxide 6.5% (Murine Ear Wax Removal System) 5 drps otic (ear) left DAILY 4 days dulaglutide (Trulicity) 0.75 mg (0.5 mL) subcut QWEEK fluticasone propion-salmeterol 250-50 mcg/dose (Wixela Inhub) 1 inh inhalation Q12H isopropyl alcohol in glycerin 95-5 % (Debrox Swimmer's Ear) 5 drps otic (ears) DAILY lancets (FreeStyle Lancets) test daily lancets check bood sugar once a day ac paroxetine HCl (Paxil) mg PO paroxetine HCl 10 mg PO DAILY phenazopyridine (Pyridium) 200 mg PO TID 2 days tobramycin 0.3% 2 drps ophthalmic (eye) Q4H Tobacco use date assessed: 03/17/24 Dental Screening Dental Screen Date: 11/08/23 HPI 4mth f/u HPI Details DM in good control; compliant [facility] Medical History Cognitive developmental delay Obesity Asthma Hyperlipidemia Surgical History Meatal stenosis S/P TURP (status post transurethral resection of prostate) History of foot surgery Family History Father Cancer Mother COPD (chronic obstructive pulmonary disease) Hypertension Maternal Aunt Liver cancer Social History Housing: Apartment Alcohol intake: never Patient Tobacco Use Status: Never used Tobacco e-Cigarette/Vaping Use: Never Used Second Hand Smoke Exposure: No service: No Current occupational status: employed Cognitive needs: No Hearing needs: Yes (hearing aide) Vision needs: Yes (glasses) Questionnaire Thrive Questionnaire Date Thrive assessed: 11/08/23 MAR-7 AMB Questionnaire MAR-7 Date MAR - 7 assessed: 11/08/23 Source: Developed by Drs. Alexandre Navarro, Angela Hannah, Palomo Hill and colleagues, with an educational julio from [employer]. Review of Systems Const Denies chills, Denies headache(s) and Denies weight loss ENT Denies headache(s) Card Denies chest pain, Denies syncope, Denies irregular heart rhythm and Denies dyspnea Resp Denies chest congestion, Denies cough and Denies dyspnea GI Denies abdominal pain, Denies change in stool character, Denies nausea and Denies vomiting Musc Denies deformity and Denies joint swelling Neuro Denies syncope and Denies headache(s) Physical exam (Primary Care) Vital Signs: Last Vital Signs Pulse 112 H 03/17/24 10:09 BP 144/90 H 03/17/24 10:09 Pulse Ox 90 L 03/17/24 10:09 Oxygen Delivery Method Room Air 03/17/24 10:09 BMI result Body Mass Index 41.6 Tobacco/Smoking Status: Tobacco use Status Tobacco use date assessed 03/17/24 03/17/24 10:15 Patient Tobacco Use Status Never used Tobacco 03/17/24 10:15 e-Cigarette/Vaping Use Never Used 03/17/24 10:15 Thrive Assessment: Date of Thrive Assessment Date Thrive assessed 11/08/23 03/17/24 10:15 Const General: cooperative, comfortable, no acute distress and alert Neck Neck: Yes no lymphadenopathy Thyroid: Thyroid normal Resp Effort & Inspection: normal respiratory effort Auscultation: clear to auscultation bilaterally Percussion: percussion normal Cardio Jugular venous distension: no JVD Palpation: normal PMI Rate: regular rate Rhythm: regular rhythm Heart sounds: S1 normal heart sound present and S2 normal heart sound present GI Inspection: Yes normal to inspection Palpation (GI): No hepatosplenomegaly present Skin General skin exam: no rashes or lesions noted Extrem General: Yes no clubbing, cyanosis or edema Coding Level of Care Code Est Pt Level 3 (61677) Diagnoses Type 2 diabetes mellitus with hyperlipidemia E11.69; E78.5 Assessment & Plan Assessment & Plan (1) Type 2 diabetes mellitus with hyperlipidemia: Code(s): E11.69 - Type 2 diabetes mellitus with other specified complication; E78.5 - Hyperlipidemia, unspecified Category: Medical Plan: stable; same rx Orders: Orders Lipid Panel Today Z13.220 - Encounter for screening for lipoid disorders Thyroid Stimulating Hormone Today Z13.29 - Encounter for screening for other suspected endocrine disorder Complete Blood Count Auto Diff Today Z13.0 - Encounter for screening for diseases of the blood and blood-forming organs and certain disorders involving the immune mechanism Comprehensive Chrisney. Panel Fast Today Z13.9 - Encounter for screening, unspecified Hemoglobin A1c Today R73.9 - Hyperglycemia, unspecified
[2024-03-17 10:09] VITALS: BP 144/90; PULSE 112; O2SAT 90; BMI 41.6
== END 2024-03-17 10:24 | disposition home or self-care (01) ==
LOC: HO.HMCH 09:40
PROVIDERS: Visit Provider Internal Medicine
DX: E11.69 Type 2 diabetes mellitus with other specified complication (principal); E78.5 Hyperlipidemia, unspecified; Z23 Encounter for immunization

== ENCOUNTER → 2024-03-17 09:40 | Outpatient (BNVA) | payer MEDICARE, SELFPAY | PROVIDERS: Visit Provider Internal Medicine | DX: Z23 Encounter for immunization (principal); E11.69 Type 2 diabetes mellitus with other specified complication; E78.5 Hyperlipidemia, unspecified | CPT/HCPCS: 90471; 90656; 99212 ==

== ENCOUNTER 2024-05-05 11:00 | Outpatient (AMB) | payer MEDICARE, SELFPAY ==
[2024-05-05 11:04] VITALS: BP 152/100; PULSE 126; O2SAT 94; BMI 39.6
--- NOTE | 2024-05-05 11:04 | A.OFFPC_ITS ---
Vital Signs 05/05/24 11:04 Height 5 ft Weight 203 lb BMI 39.6 BP 152/100 H Blood Pressure Location Lt brachial Position Sitting Pulse 126 H Pulse Source Pulse Oximeter Pulse Oximetry (%) 94 Oxygen Delivery Method Room Air Intake Visit Reasons: ear wax removal Allergies penicillin V Allergy (Unknown, Verified 05/05/24 13:14) vomiting Penicillins [PENICILLINS] Allergy (Unknown, Verified 05/05/24 13:14) vomitting Medication List - Last Reconciled 05/06/24 by Tony Patton MD aripiprazole lauroxil ER (Aristada) mg IM atorvastatin 20 mg PO BEDTIME 90 days blood sugar diagnostic (FreeStyle Test strips) to check blood sugars once a day blood sugar diagnostic (OneTouch Ultra Test strips) USE 1 STRIP TO CHECK BLOOD GLUCOSE ONCE A DAY BEFORE A MEAL blood-glucose meter ([employer] Ultra2 Meter) USE DIRECTED TO CHECK BLOOD GLUCOSE carbamide peroxide 6.5% (Murine Ear Wax Removal System) 5 drps otic (ear) left DAILY 4 days dulaglutide (Trulicity) 0.75 mg (0.5 mL) subcut QWEEK fluticasone propion-salmeterol 250-50 mcg/dose (Wixela Inhub) 1 inh inhalation Q12H isopropyl alcohol in glycerin 95-5 % (Debrox Swimmer's Ear) 5 drps otic (ears) DAILY lancets (FreeStyle Lancets) test daily lancets check bood sugar once a day ac paroxetine HCl (Paxil) mg PO paroxetine HCl 10 mg PO DAILY phenazopyridine (Pyridium) 200 mg PO TID 2 days tobramycin 0.3% 2 drps ophthalmic (eye) Q4H Tobacco use date assessed: 03/17/24 Dental Screening Dental Screen Date: 11/08/23 HPI ear wax removal HPI Details has cerumen impactions; has already been referred to ENT and has appt; patient unaware of this [facility] Medical History Cognitive developmental delay Obesity Asthma Hyperlipidemia Surgical History Meatal stenosis S/P TURP (status post transurethral resection of prostate) History of foot surgery Family History Father Cancer Mother COPD (chronic obstructive pulmonary disease) Hypertension Maternal Aunt Liver cancer Social History Housing: Apartment Alcohol intake: never Patient Tobacco Use Status: Never used Tobacco e-Cigarette/Vaping Use: Never Used Second Hand Smoke Exposure: No service: No Current occupational status: employed Cognitive needs: No Hearing needs: Yes (hearing aide) Vision needs: Yes (glasses) Questionnaire Thrive Questionnaire Date Thrive assessed: 11/08/23 MAR-7 AMB Questionnaire MAR-7 Date MAR - 7 assessed: 11/08/23 Source: Developed by Drs. Alexandre Navarro, Angela Hannah, Palomo Hill and colleagues, with an educational julio from [employer]. Review of Systems Const Denies chills, Denies headache(s) and Denies weight loss ENT Denies headache(s) Card Denies chest pain, Denies syncope, Denies irregular heart rhythm and Denies dyspnea Resp Denies chest congestion, Denies cough and Denies dyspnea GI Denies abdominal pain, Denies change in stool character, Denies nausea and Denies vomiting Musc Denies deformity and Denies joint swelling Neuro Denies syncope and Denies headache(s) Physical exam (Primary Care) Vital Signs: Last Vital Signs Pulse 126 H 05/05/24 11:04 BP 152/100 H 05/05/24 11:04 Pulse Ox 94 05/05/24 11:04 Oxygen Delivery Method Room Air 05/05/24 11:04 BMI result Body Mass Index 39.6 Tobacco/Smoking Status: Tobacco use Status Tobacco use date assessed 03/17/24 05/05/24 11:08 Patient Tobacco Use Status Never used Tobacco 05/05/24 11:08 e-Cigarette/Vaping Use Never Used 05/05/24 11:08 Thrive Assessment: Date of Thrive Assessment Date Thrive assessed 11/08/23 05/05/24 11:08 Const General: cooperative, comfortable, no acute distress and alert HENMT Other: bilat cerumen impactions Neck Neck: Yes no lymphadenopathy Thyroid: Thyroid normal Resp Effort & Inspection: normal respiratory effort Auscultation: clear to auscultation bilaterally Percussion: percussion normal Cardio Jugular venous distension: no JVD Palpation: normal PMI Rate: regular rate Rhythm: regular rhythm Heart sounds: S1 normal heart sound present and S2 normal heart sound present GI Inspection: Yes normal to inspection Palpation (GI): No hepatosplenomegaly present Skin General skin exam: no rashes or lesions noted Extrem General: Yes no clubbing, cyanosis or edema Coding Level of Care Code Est Pt Level 3 (72328) Diagnoses Impacted cerumen of both ears H61.23 Assessment & Plan Assessment & Plan (1) Impacted cerumen of both ears: Code(s): H61.23 - Impacted cerumen, bilateral Category: Medical Plan: to see ent
== END 2024-05-05 11:17 | disposition home or self-care (01) ==
PROVIDERS: Visit Provider Internal Medicine
DX: H61.23 Impacted cerumen, bilateral (principal)

== ENCOUNTER → 2024-05-05 11:00 | Outpatient (BNVA) | payer MEDICARE, SELFPAY | PROVIDERS: Visit Provider Internal Medicine | DX: H61.23 Impacted cerumen, bilateral (principal) | CPT/HCPCS: 69209; 99212 ==

== ENCOUNTER 2024-05-05 12:26 | Outpatient (AMB) | payer MEDICARE, SELFPAY ==
--- OUTSIDE RECORDS SUMMARY | 2024-05-05 12:28 | XMS_ITS ---
Author Organization [facility] Address [address] [facility] [place] [address] Care Team Providers Care Fur Ironer Name Role Phone Tony Patton MD Primary Care Provider Unavaila Alberto Hopkins Unavailable [phone] Allergies Allergen (clinical drug ingredient) Drug/Non Drug Allergy documented on EMR Reaction Allergy Type Onset Date Status Environmental (uncoded) watery eyes, congestion Allergy Active risperidone RisperDAL rash Drug Allergy Activ e Substance with penicillin structure and antibacterial mechanism of action (substance) Penicillins rash Drug Allergy Active REASON FOR VISIT At Risk Footcare, Painful Nail(s) aggrevated by shoes and causing difficulty standing/walking, Wart(s), Skin problem(s) Medications Medication SIG (Take, Route, Frequency, Duration) Notes Start Date End Date Status WartSTICK 40 % as directed External ly daily under occlusion for 30 days 08/28/2023 Active Atorvastatin Calcium 20 MG 1 tablet Oral ly Once a day Active Extra Depth Orthopedic Shoes, (1) Pair With (3) Pair Custom Heat Molded Multidensity Innersoles Dx: NIDDM/PVD(E11.51), Hammertoe Foot Deformity(M20.41,M20.42), Preulcerative Skin Lesion(s)(L85.1) Wear Daily for 365 days 08/28/2023 Active Subcutaneous Infusion Set Active Trulicity 0.75 MG/0.5ML as directed Subcutaneous Active Ammonium Lactate 12 % 1 application Exte rnally to feet except for between the toes Twice a day for 30 days Active Carbamide Peroxide 6.5 % 5 drops into af fected ear Otic Twice a day Active PARoxetine HCl 10 MG 1 tablet in the mor nirmala Orally Once a day Active Phenazopyridine HCl 200 MG 1 tablet afte r meals Orally Three times a day Active Blood Glucose Meter Active Social History Tobacco Use: Social History Observation Description Date Details (start date - stop date) Never Smoker NA - NA Tobacco Use/Smoking Question Answer Notes Are you a: nonsmoker Additional Findings: Tobacco Non-User Current no n-smoker Tobacco use other than smoking: Question Answer Notes Are you an other tobacco user? No Vital Signs Height 5ft2in in 01/15/2024 Weight 205 lbs 01/15/2024 BMI 37.49 kg/m2 01/15/2024 Procedures Procedure Date Ordered Date Performed Result Body Sit e 13434-STVGDTD NAIL, 6 OR MORE 01/15/2024 N/A 39477-Aiey Destruction, 1-14 01/15/2024 N/A 70948-IHSS SKIN LESIONS, 2 TO 4 01/15/2024 N/A Encounters Encounter Location Date Provider Diagnosis [facility] [address] [place] [address] 01/15/2024 Alberto Zambrano Type 2 diabetes mellitus with diabetic peripheral angiopathy without gangrene E11.51 ; Plantar wart B07.0 ; Tinea unguium B35.1 ; Pain in right toe(s) M79.674 ; Pain in left toe(s) M79.675 ; Left foot pain M79.672 and Xerosis of skin L85.3 Assessments Encounter Date Diagnosis (ICD Code) Assessment Notes Treatment Notes Treatment Clinical Notes Section Notes 01/15/2024 Type 2 diabetes mellitus with diabetic peripheral angiopathy without gangrene (ICD-10 - E11.51) 01/15/2024 Plantar wart (ICD-10 - B07.0) 01/15/2024 Tinea unguium (ICD-10 - B35.1) 01/15/2024 Pain in right toe(s) (ICD-10 - M79.674) 01/15/2024 Pain in left toe(s) (ICD-10 - M79.675) 01/15/2024 Left foot pain (ICD-10 - M79.672) 01/15/2024 Xerosis of skin (ICD-10 - L85.3) 01/15/2024 Other Plan Of Treatment Medication Medication Name Sig Start Date Stop Date Notes Ammonium Lactate 12 % 1 application Exte rnally to feet except for between the toes Twice a day for 30 days Pending Test Test Name Order Date 59580-ZXJTSAB NAIL, 6 OR MORE 01/15/2024 39552-Qtnk Destruction, 1-14 01/15/2024 66680-VFDO SKIN LESIONS, 2 TO 4 01/15/20 24 Next Appt Details Follow Up: 2 Months, Reason: Provider Name:Alberto Zambrano , 06/10/2024 10:00:00 AM, [address] [place], [address], Procedure Notes * Category Sub-Category Detail Notes Wart Treatment Procedure Verrucae were de brided to pin-point bleeding margins with sterile 15 surgical blade, silver nitrate chemocautery applied, recomm. immune-boosting meds such as zinc, recomm. follow up with topical chemosurgical agents, Pt defers any other forms of tx (22330) , recomm. pt to increase use of Wartstick 40 percent Salicylic acid application under occlusion as directed Debride Nail 6-10 Nail debridement Performance o f this nail treatment by a nonprofessional would put this patients foot and overall health at risk. Therefore, nail debridement was performed extensively to reduce/remove overall nail length, girth, thickness, subungual debris, and necrotic tissue, by manual and/or electrical means through the use of a nail nipper and/or dremel-type crystal flat grinder, to a more viable healthy nail plate or bed tissue 6-10. Silver nitrate used for any petechial bleeding as necessary. Definitive antifungal treatment options have been reviewed and discussed with the patient. The patient chooses, no pharmaceutical tx - 02080 Keratoma Treatment Parring or Cutting o f Benign Hyperkeratotic Lesion(s) 85351 ( 2-4 Lesions ) - The Benign hyperkeratotic lesions, as described above were pared, and/or cut utilizing a sterile 15 blade, tissue nippers, and/or dremel , Q8 Progress Notes * Be REYESDOB:1964 (58 yo M)Acc No.[id number]:01/15/2024 Progress Note Patient:?Be Reyes Provider:?Alberto Zambrano DPM :1965???Age:58 Y???Sex:Male Kevon e:01/15/2024 Address:[address], [address], [place] Pcp:Tony Patton MD Subjective: * Chief Complaints: * ???At Risk FootcarePainful N ail(s) aggrevated by shoes and causing difficulty standing/walkingWart(s)Skin problem(s) * HPI: ???At Risk footcare:?Pt States Last PCP Visit:?Date?12/21/2023 ???Skin problems:?Nature:?dryness , scaling.?Location:?B/L .?Duration:?several days.?Course:?worse.? * ROS:?General/Constitutional:?Nausea?denies.?Vomiting?denies.?Hunger Thirst?denies.?Loss appetite?denies.?Chills?denies.?Fatigue?denies.?Fever?denies.?Night Sweats?denies.?Unexplained weight loss?denies.?Unexplained weight gain?denies.?HEENTM:?Dentures?denies.?Dizziness?denies.?Glasses/contacts?admits.?Retinopathy?de nies.?Blurred/double vision?denies.?TMJ?denies.?Discharge/drainage?denies.?Implants?denies.?Sore throat?denies.?Dental implants?denies.?Hard of hearing ?denies.?Difficulty chewing/swallowing/speaking?denies.?Nose bleeds?denies.?Sore mouth?denies.?Respiratory:?On Oxygen?denies.?Pneumonia/pleurisy?denies.?Bronchitis?denies.?Emphysema?denies.?C oughing?denies.?Cough blood?denies.?Shortness of breath?denies.?Wheezing?denies.?Cardiovascular:?Pacemaker?denies.?MVP?denies.?WPW?denies.?CHF?denies.?Heart attack?denies.?Septal defect?denies.?Rapid beat?denies.?Chest pain ?denies.?Atrial Fib.?denies.?Murmur/Palpitations?denies.?Gastrointestinal:?Hemorrhoids?denies.?Stomach/Abdominal pain?denies.?Dark blood stool?denies.?Irritable bowel ?denies.?Constipation?denies.?Diarrhea?denies.?Hematology:?Swelling?denies.?Clots?denies.?Varicose Veins?admits.?Bruising?denies.?Bleeding problem?denies.?Genitourinary:?Blood urine?denies.?Frequent/Painfu/urination/bladder control?denies.?Kidney stones?denies.?Infection (UTI)?denies.?Nephropathy?denies.?sex trans dis (STD)?denies.?Prostate?denies.?Musculoskeletal:?Hammertoes?admits.?Bunions?denies.?Back Pain?denies.?Muscle Cramps/ Resting?denies.?Muscle cramps / walking?denies.?Generalized aches and pains?denies.?Weakness?denies.?Integ.:?Turpin?denies.?Scars?denies.?Corns/calluses?admits.?Ingrown nails?admits.?Painful nails?admits.?Open Sores?denies.?Rashes?denies.?Neurologic:?Difficulty sleeping?denies.?Brain disorder?denies.?Numbness?denies.?Balance trouble?denies.?Confusion?denies.?Fainting/blackouts?denies.?Tingling?denies.?Tr emors?denies.? * Medical History:? * Surgical History:?Denies Pas t Surgical History * Hospitalization/Major Diagno stic Procedure:?Denies Past Hospitalization * Family History:?Mother: dece ased.?Father: .? * Social History:?Tobacco Use:?Tobacco Use/Smoking?Are you a:?nonsmoker ?Additional Findings: Tobacco Non-User?Current non-smoker ?Tobacco use other than smoking?Are you an other tobacco user??No ???Miscellaneous:?Caffeine: yes, frequency: 1 soda per day. ?Exercise: bowling. ?Marital status: . ?Occupation: [employer]. * Medications:?TakingBlood Glu cose Meter Phenazopyridine HCl 200 MG Tablet 1 tablet after meals Orally Three times a dayCarbamide Peroxide 6.5 % Solution 5 drops into affected ear Otic Twice a dayPARoxetine HCl 10 MG Tablet 1 tablet in the morning Orally Once a daySubcutaneous Infusion Set Trulicity 0.75 MG/0.5ML Solution Pen-injector as directed Subcutaneous Atorvastatin Calcium 20 MG Tablet 1 tablet Orally Once a dayExtra Depth Orthopedic Shoes, (1) Pair With (3) Pair Custom Heat Molded Multidensity Innersoles . Dx: NIDDM/PVD(E11.51), Hammertoe Foot Deformity(M20.41,M20.42), Preulcerative Skin Lesion(s)(L85.1) Wear DailyWartSTICK 40 % Stick as directed Externally daily under occlusionMedication List reviewed and reconciled with the patientTaking Blood Glucose Meter Taking Phenazopyridine HCl 200 MG Tablet 1 tablet after meals Orally Three times a dayTaking Carbamide Peroxide 6.5 % Solution 5 drops into affected ear Otic Twice a dayTaking PARoxetine HCl 10 MG Tablet 1 tablet in the morning Orally Once a dayTaking Subcutaneous Infusion Set Taking Trulicity 0.75 MG/0.5ML Solution Pen-injector as directed Subcutaneous Taking Atorvastatin Calcium 20 MG Tablet 1 tablet Orally Once a dayTaking Extra Depth Orthopedic Shoes, (1) Pair With (3) Pair Custom Heat Molded Multidensity Innersoles . Dx: NIDDM/PVD(E11.51), Hammertoe Foot Deformity(M20.41,M20.42), Preulcerative Skin Lesion(s)(L85.1) Wear DailyTaking WartSTICK 40 % Stick as directed Externally daily under occlusionMedication List reviewed and reconciled with the patient * Allergies:?Penicillins: rash RisperDAL: rashEnvironmental: watery eyes, congestionyes[Allergies Verified] Objective: * Vitals:?Ht: 5ft2in, Wt:205, BMI:37.49, Shoe size: 9.5, BS: not taken, Ht-cm: 157.48 cm, Wt-k.99 kg. * ???Past Orders: ???Lab:HEMOGLOBIN A1C (GLYCO HEMOGLOBIN) (Order Date - 08/28/2023) (Collection Date - 06/14/2023) ? Value Reference Range ?HEMOGLOBIN A1C (HH) 7.0 * Examination: ???Vascular: ?DP PULSES:? 0/4, B/L.?PT PULSES:? 0/4, B/L.?CAPILLARY FILL TIME:? delayed, all digits, B/L.?SKIN TEMPERTURE GRADIENT OF THE LOWER EXTERMITIES:? decreased, cool to cool, proximal to distal, B/L.?HAIR GROWTH/TEXTURE/ELASTICITY/TURGOR:? decreased, B/L.?EDEMA:?absent, B/L.?CLAUDICATION:?denies, B/L.?REST PAIN:?denies, B/L.?Nails: ?NAILS are:?Elongated, overgrown, dystrophic, lytic, greater than 3mm thick, discolored and friable with crumbly malodorous subungual debris, with pain on palpation , 1-5 B/L.?Dermatologic: ?SKIN FINDINGS:?Skin exam reveals Keratotic lesion(s) located at , SUB MTH (s), 1, B/L, Heel(s) , B/L , Skin shows sign(s) of, dryness, scaling, in a stocking fashion, no fissure(s) present, B/L.?VERRUCA:?Reveals a Single , multi-loculated , mosaic-patterned, round, raised, flat-topped, petechial bleeding papule(s), with cauliflower appearance and interruption of skin lines, pain to lateral compression, and size estimated at 4mm diameter , plantar Forefoot , LEFT - relates inconsistent application of 40% Jh Acid.? Assessment: * Assessment: 1.?Type 2 diabetes mellitus with diabetic peripheral angiopathy without gangrene - E11.51?2.?Plantar wart - B07.0 (Primary), LEFT?3.?Tinea unguium - B35.1?4.?Pain in right toe(s) - M79.674?5.?Pain in left toe(s) - M79.675?6.?Left foot pain - M79.672?7.?Xerosis of skin - L85.3, Acute problem, Uncomplicated (3),Rx Management (4)? Plan: * Treatment: 2.?Type 2 diabetes mellitus with diabetic peripheral angiopathy without gangrene?Procedure: 75646-DRIZ SKIN LESIONS, 2 TO 4 3.?Tinea unguium?Procedure: 97855-INTSACG NAIL, 6 OR MORE 4.?Xerosis of skin? Start Ammonium Lactate Cream, 12 %, 1 application, Externally to feet except for between the toes, Twice a day, 30 days, 60, Refills 2.?? * Procedures:?Debride Nail 6-10:?Nail debridement?Performance of this nail treatment by a nonprofessional would put this patients foot and overall health at risk. Therefore, nail debridement was performed extensively to reduce/remove overall nail length, girth, thickness, subungual debris, and necrotic tissue, by manual and/or electrical means through the use of a nail nipper and/or dremel-type crystal flat grinder, to a more viable healthy nail plate or bed tissue 6-10. Silver nitrate used for any petechial bleeding as necessary. Definitive antifungal treatment options have been reviewed and discussed with the patient. The patient chooses, no pharmaceutical tx - 78649.?Keratoma Treatment:?Parring or Cutting of Benign Hyperkeratotic Lesion(s)?52408 ( 2-4 Lesions ) - The Benign hyperkeratotic lesions, as described above were pared, and/or cut utilizing a sterile 15 blade, tissue nippers, and/or dremel , Q8.?Wart Treatment:?Procedure?Verrucae were debrided to pin-point bleeding margins with sterile 15 surgical blade, silver nitrate chemocautery applied, recomm. immune-boosting meds such as zinc, recomm. follow up with topical chemosurgical agents, Pt defers any other forms of tx (98233) , recomm. pt to increase use of Wartstick 40 percent Salicylic acid application under occlusion as directed.? * Procedure Codes:?52384 DEBRI DE NAIL, 6 OR MORE, Modifiers: XS 33834 Wart Destruction, 1-14, Modifiers: XS 06997 TRIM SKIN LESIONS, 2 TO 4, Modifiers: XS , Q8 * Preventive Medicine:? ??Counseling:?Discussion:?-13: Office or other outpatient visit for the evaluation and management of an established patient, which required a medically appropriate history and/or examination and LOW level of DECISION MAKING for: 1 STABLE ACUTE UNCOMPLICATED PROBLEM, 2 OR MORE MINOR PROBLEMS, OR 1 STABLE CHRONIC PROBLEM, THAT POSE(S) A LOW RISK FOR MORBIDITY/MORTALITY. The visit on the day of the encounter encompassed interpreting the data and educating the patient as to the nature of their condition, treatment options available according to their individual PMH, meds, allergies, and overall health/living conditions, as well as any potential risks or complications that may occur from a failure to adhere to, and participate in, the recommended course of therapy. The discussion included a complete verbal, and/or written explanation of the examination results, any x-rays taken, the proposed diagnosis, and outline of the treatment plan. A schedule for future care needs was also explained. The patient verbalized an understanding of the instructions at this time and agreed to be an active participant in their treatment. If the patient should think of any questions or concerns after the visit, I have encouraged the patient to call the office.?Shoe Gear Counseling:?Patient to obtain shoes hopefully soon.?Xerosis:?The patient was counseled on the diagnosis, potential etiologies, and treatment options for their skin condition. We discussed the risks and benefits of each option from performing no treatment, to utilizing OTC topical skin creams/ointments, to utilizing prescription topical creams/ointments, to utilizing customized compounded topical medications and use of nocturnal occlusion with any/all previously detailed therapies. We discussed the advantages and disadvantages of each possible treatment and importance for adherence to all the recommended therapies for optimum success and avoid potential complications such as open sore/infection/possible hospitalization. We discussed the potential effectiveness of each topical preparation as well as each ones possible side effects and/or patient medication interactions. Patient questions re: use, dosage, successful outcomes, and application consistency were reviewed and the patient verbalized that all answers were clearly understood. The patient has decided to apply Rx skin creams to their feet save the interspaces while paying special attention to the heels. Such was sent to their pharmacy at the time of visit.? * Follow Up:?2 Months * Images: * Sign off status: Completed true * Provider:?Alberto Zambrano DPM Date:?2023 Generated for Willie west/Krista/Mohamud on:?05/05/2024 12:28 PM EST History and Physical Notes * HPI (History of Present Illness) Category Sub-Category Detail Notes Category Not es Skin problems Nature: dryness , scaling Location: B/L Duration: several days Course: worse At Risk footcare Pt States Last PCP Visit: Date: 4 Examination Category Sub-Category Detail Notes Category Not es Dermatologic SKIN FINDINGS: Skin exam reveal s Keratotic lesion(s) located at , SUB MTH (s), 1, B/L, Heel(s) , B/L , Skin shows sign(s) of, dryness, scaling, in a stocking fashion, no fissure(s) present, B/L VERRUCA: Reveals a Single , m ulti-loculated , mosaic-patterned, round, raised, flat-topped, petechial bleeding papule(s), with cauliflower appearance and interruption of skin lines, pain to lateral compression, and size estimated at 4mm diameter , plantar Forefoot , LEFT - relates inconsistent application of 40% Jh Acid Vascular DP PULSES (B): 0/4, B/L PT PULSES (B): 0/4, B/L CAPILLARY FILL TIME: delayed, all digits , B/L TEMPERTURE GRADIENT (C): decreased, cool to cool, proximal to distal, B/L TROPHIC CONDITION-TEXTURE/ELASTICITY/TURGOR/HAIR GROWTH (B): decreased, B/L EDEMA (C): absent, B/L CLAUDICATION (C): denies, B/L REST PAIN: denies, B/L Nails NAILS are: Elongated, overg rown, dystrophic, lytic, greater than 3mm thick, discolored and friable with crumbly malodorous subungual debris, with pain on palpation , 1-5 B/L
--- OUTSIDE RECORDS SUMMARY | 2024-05-05 12:28 | XMS_ITS ---
Author Organization [facility] Address [address] [place] [address] Care Team Providers Care Research Associate Quality Control Qc Name Role Phone Tony Patton MD Primary Care Provider Alberto Grissom Unavailable [phone] REASON FOR VISIT r/s 04/08 Encounters Encounter Location Date Provider Diagnosis [address] [address] 03/25/2024 Alberto Zambrano Plan Of Treatment Next Appt Details Provider Name:Alberto Zambrano , 06/10/2024 10:00:00 AM, [address] [place], [address], Progress Notes * Be REYESDOB:1964 (58 yo M)Acc No.[id number]:03/25/2024 Patient:?Be REYES :1965???Age:58 Y???Sex:Male Address:[address], [address], [place], [address] * true * Date:? Generated for Printi ng/Faxing/eTransmitting on:?05/05/2024 12:28 PM EST
--- OUTSIDE RECORDS SUMMARY | 2024-05-05 12:28 | XMS_ITS | Patient Health Record ---
Author Organization [facility] Address [address] [place] [address] Care Team Providers Care Ward Supervisor Name Role Phone Abdi HENDERSON, Tony Primary Care Provider Unavaila Alberto Hopkins Unavailable [phone] Allergies Allergen (clinical drug ingredient) Drug/Non Drug Allergy documented on EMR Reaction Allergy Type Onset Date Status Environmental (uncoded) watery eyes, congestion Allergy Active risperidone RisperDAL rash Drug Allergy Activ e Substance with penicillin structure and antibacterial mechanism of action (substance) Penicillins rash Drug Allergy Active Results Component Value Reference Range Notes HEMOGLOBIN A1C (GLYCOHEMOGLO BIN) Reviewed date:08/28/2023 10:36:09 AM Interpretation: Performing Lab: Notes/Report: HEMOGLOBIN A1C (HH) 7.0 Reason For Referral No Information Medications Medication SIG (Take, Route, Frequency, Duration) Notes Start Date End Date Status WartSTICK 40 % as directed External ly daily under occlusion for 30 days 08/28/2023 Active Ammonium Lactate 12 % 1 application Exte rnally to feet except for between the toes Twice a day for 30 days Active Atorvastatin Calcium 20 MG 1 tablet Oral ly Once a day Active Extra Depth Orthopedic Shoes, (1) Pair With (3) Pair Custom Heat Molded Multidensity Innersoles Dx: NIDDM/PVD(E11.51), Hammertoe Foot Deformity(M20.41,M20.42), Preulcerative Skin Lesion(s)(L85.1) Wear Daily for 365 days 08/28/2023 Active Subcutaneous Infusion Set Active Trulicity 0.75 MG/0.5ML as directed Subcutaneous Active Carbamide Peroxide 6.5 % 5 drops into af fected ear Otic Twice a day Active PARoxetine HCl 10 MG 1 tablet in the mor nirmala Orally Once a day Active Phenazopyridine HCl 200 MG 1 tablet afte r meals Orally Three times a day Active Blood Glucose Meter Active Immunizations Vaccine Route Administration Date Status Comme nts Influenza Unknown 01/12/2023 Administered Social History Tobacco Use: Social History Observation Description Date Details (start date - stop date) Never Smoker NA - NA Tobacco Use/Smoking Question Answer Notes Are you a: nonsmoker Additional Findings: Tobacco Non-User Current no n-smoker Alcohol Screen Question Answer Notes Did you have a drink containing alcohol in the p ast year? No Points 0 Interpretation Negative Tobacco use other than smoking: Question Answer Notes Are you an other tobacco user? No Problems Problem Type SNOMED Code ICD Code Onset Dates Problem Status W/U Status Risk Notes Problem Acquired hammer toe of right foot (62182583486836 05) Other hammer toe(s) (acquired), right foot (M20.41) Active confirmed Problem Type 2 diabetes mellitus with peripheral angiopathy (726253547) Type 2 diabetes mellitus with diabetic peripheral angiopathy without gangrene (E11.51) Active confirmed Problem Acquired hammer toe of left foot (08248510257890 03) Other hammer toe(s) (acquired), left foot (M20.42) Active confirmed Problem Plantar wart (81361401) Plantar wart (B07.0) Active confirmed Vital Signs Height 5ft2in in 01/15/2024 Weight 205 lbs 01/15/2024 BMI 37.49 kg/m2 01/15/2024 Procedures Procedure Date Ordered Date Performed Result Body Sit e 47230-QHRTGRM NAIL, 6 OR MORE 08/28/2023 N/A 51615-Riko Destruction, 1-14 08/28/2023 N/A 19889-TERD SKIN LESIONS, 2 TO 4 08/28/2023 N/A 56563-SBTFULF NAIL, 6 OR MORE 11/06/2023 N/A 40615-Rojq Destruction, 1-14 11/06/2023 N/A 07360-LPYY SKIN LESIONS, 2 TO 4 11/06/2023 N/A 57482-HPTIZKN NAIL, 6 OR MORE 01/15/2024 N/A 90678-Fkwh Destruction, 1-14 01/15/2024 N/A 98050-ZVVG SKIN LESIONS, 2 TO 4 01/15/2024 N/A Encounters Encounter Location Date Provider Diagnosis [address] [address] 08/28/2023 Alberto Zambrano Type 2 diabetes mellitus with diabetic peripheral angiopathy without gangrene E11.51 ; Plantar wart B07.0 ; Tinea unguium B35.1 ; Pain in right toe(s) M79.674 ; Pain in left toe(s) M79.675 ; Left foot pain M79.672 ; Other hammer toe(s) (acquired), right foot M20.41 and Other hammer toe(s) (acquired), left foot M20.[address] [address] 11/06/2023 Alberto Zambrano Type 2 diabetes mellitus with diabetic peripheral angiopathy without gangrene E11.51 ; Plantar wart B07.0 ; Tinea unguium B35.1 ; Pain in right toe(s) M79.674 ; Pain in left toe(s) M79.675 and Left foot pain M79.[address] [address] 01/15/2024 Alberto Zambrano Type 2 diabetes mellitus with diabetic peripheral angiopathy without gangrene E11.51 ; Plantar wart B07.0 ; Tinea unguium B35.1 ; Pain in right toe(s) M79.674 ; Pain in left toe(s) M79.675 ; Left foot pain M79.672 and Xerosis of skin L85.[address] [address] 03/25/2024 Alberto Zambrano Assessments Encounter Date Diagnosis (ICD Code) Assessment Notes Treatment Notes Treatment Clinical Notes Section Notes 08/28/2023 Type 2 diabetes mellitus with diabetic peripheral angiopathy without gangrene (ICD-10 - E11.51) 08/28/2023 Plantar wart (ICD-10 - B07.0) 11/06/2023 Type 2 diabetes mellitus with diabetic peripheral angiopathy without gangrene (ICD-10 - E11.51) 11/06/2023 Plantar wart (ICD-10 - B07.0) 01/15/2024 Type 2 diabetes mellitus with diabetic peripheral angiopathy without gangrene (ICD-10 - E11.51) 01/15/2024 Plantar wart (ICD-10 - B07.0) 01/15/2024 Tinea unguium (ICD-10 - B35.1) 11/06/2023 Tinea unguium (ICD-10 - B35.1) 08/28/2023 Tinea unguium (ICD-10 - B35.1) 08/28/2023 Pain in right toe(s) (ICD-10 - M79.674) 11/06/2023 Pain in right toe(s) (ICD-10 - M79.674) 01/15/2024 Pain in right toe(s) (ICD-10 - M79.674) 01/15/2024 Pain in left toe(s) (ICD-10 - M79.675) 08/28/2023 Pain in left toe(s) (ICD-10 - M79.675) 11/06/2023 Pain in left toe(s) (ICD-10 - M79.675) 11/06/2023 Left foot pain (ICD-10 - M79.672) 08/28/2023 Left foot pain (ICD-10 - M79.672) 01/15/2024 Left foot pain (ICD-10 - M79.672) 08/28/2023 Other hammer toe(s) (acquired), right foot (ICD-10 - M20.41) Patient Educated with: DIABETIC FOOT CARE INSTRUCTIONS.p df (DIABETIC FOOT CARE INSTRUCTIONS.p df) 01/15/2024 Xerosis of skin (ICD-10 - L85.3) 08/28/2023 Other hammer toe(s) (acquired), left foot (ICD-10 - M20.42) 11/06/2023 Other 01/15/2024 Other Plan Of Treatment Pending Test Test Name Order Date 99970-BOHGHQU NAIL, 6 OR MORE 08/28/2023 86853-UWFGWRA NAIL, 6 OR MORE 11/06/2023 91737-EBAYKBG NAIL, 6 OR MORE 01/15/2024 35784-Bcgf Destruction, 1-14 01/15/2024 52307-Ywgw Destruction, 1-14 11/06/2023 64852-Dcie Destruction, 1-14 08/28/2023 32126-XTVD SKIN LESIONS, 2 TO 4 08/28/19 57265-KARX SKIN LESIONS, 2 TO 4 11/06/19 52857-FZFT SKIN LESIONS, 2 TO 4 01/15/20 Next Appt Details Provider Name:Alberto Zambrano , 06/10/2024 10:00:00 AM, [address] [place], [address], Insurance Providers Payer Name Payer Address Payer Phone Subscriber Number Group Number Insured Name Patient Relationship to Insured Coverage Start Date Coverage End Date [facility] CCA SCO Claims [address] [place] [address] [id number] Be Minaya Self - patient is the insured Medical (General) History Medical History History ICD Code asthma High blood pressure Hyperlipidemia Cognitive developmental delay Obesity Surgical History Surgery Date(Month/Year)
--- NOTE | 2024-05-05 13:12 | MHC.OFFWIV ---
Intake Vital Signs 05/05/24 13:13 Weight 210 lb BP 150/100 H Blood Pressure Location Lt brachial Position Sitting Pulse 124 H Pulse Source Pulse Oximeter Pulse Oximetry (%) 90 L Oxygen Delivery Method Room Air Intake Visit Reasons: EP-ear wax removal Intake Note: Patient here for bilat ear blockage Patient Tobacco Use Status: Never used Tobacco Allergies penicillin V Allergy (Unknown, Verified 05/05/24 13:14) vomiting Penicillins [PENICILLINS] Allergy (Unknown, Verified 05/05/24 13:14) vomitting Do you need a note to return to daycare/school/sports/work: No HPI HPI Comments History of Present Illness Details History of Present Illness The patient is a 59-year-old male presenting with impacted cerumen in both ears. He reports the condition has persisted for a couple of weeks. The patient is scheduled for a hearing test at [facility], which he was unable to attend last due to this issue. He notes an absence of pain or fever, and the impacted cerumen affects both ears. There has been no prior attempt to remove the wax by the patient himself. There are no associated symptoms such as hearing loss or dizziness reported by the patient up to the time of consultation. Physical Exam General: Cooperative, healthy appearing, comfortable, no acute distress and well developed Orientation: Patient oriented x3 Limitations: No limitations Head: Normal to inspection Ears: TM blocked by cerumen bilaterally, hearing grossly normal bilaterally Nose: Normal external nose present Face and sinus: Normal facial exam Eyes: Appearance normal, both eyes and all related structures Neck: Normal visual inspection and Yes full ROM Respiratory: Normal respiratory effort and able to speak in complete sentences. Skin: No rashes or lesions noted Neuro: Patient oriented x3 Extremities: Normal to inspection [facility] Medical History Cognitive developmental delay Obesity Asthma Hyperlipidemia Surgical History Meatal stenosis S/P TURP (status post transurethral resection of prostate) History of foot surgery Family History Father Cancer Mother COPD (chronic obstructive pulmonary disease) Hypertension Maternal Aunt Liver cancer Social History (Reviewed 11/04/24 @ 10:08 by GIOVANNY Gomez Housing: Apartment Alcohol intake: never Patient Tobacco Use Status: Never used Tobacco e-Cigarette/Vaping Use: Never Used Second Hand Smoke Exposure: No service: No Current occupational status: employed Cognitive needs: No Hearing needs: Yes (hearing aide) Vision needs: Yes (glasses) Review of Systems Const All systems reviewed & are unremarkable except as noted in HPI and below Physical Exam Vital Signs: Last Vital Signs Pulse 124 H 05/05/24 13:13 BP 150/100 H 05/05/24 13:13 Pulse Ox 90 L 05/05/24 13:13 Oxygen Delivery Method Room Air 05/05/24 13:13 Office Procedures Cerumen Removal From which ear canal was the cerumen removed: bilateral Removal: irrigation Notes: patient tolerated procedure well, no complications and ear canal clear 75252-Cgt Irrigation/Lavage Assessment & Plan Assessment & Plan (1) Impacted cerumen of both ears: Code(s): H61.23 - Impacted cerumen, bilateral Plan: Plan - Impacted cerumen bilaterally, cleared with flushing Patient was informed and verbally consented to the use of an ambient scribe for clinic note documentation during this visit. Coding Level of Care Code Est Pt Level 4 (04117) Diagnoses Impacted cerumen of both ears H61.23 CPT Codes Office Procedure - CPT: 48988-Oyz Irrigation/Lavage ([id number])
[2024-05-05 13:13] VITALS: BP 150/100; PULSE 124; O2SAT 90
== END 2024-05-05 13:59 | disposition home or self-care (01) ==
PROVIDERS: Visit Provider Physician Assistant
DX: H61.23 Impacted cerumen, bilateral (principal)

== ENCOUNTER 2024-07-04 09:46 | Outpatient (REF) | payer MEDICARE, SELFPAY ==
[2024-07-04 10:04] LABS: MANUAL DIFF FLAG NO
--- OUTSIDE RECORDS SUMMARY | 2024-07-04 10:29 | XMS_ITS | Patient Health Record ---
Author Organization [facility] Address [address] [place] [address] Care Team Providers Care Flying Squad Salesperson Name Role Phone Abdi HENDERSON, Tony Primary Care Provider Unavaila Alberto Hopkins Unavailable [phone] Allergies Allergen (clinical drug ingredient) Drug/Non Drug Allergy documented on EMR Reaction Allergy Type Onset Date Status Environmental (uncoded) watery eyes, congestion Allergy Active risperidone RisperDAL rash Drug Allergy Activ e Substance with penicillin structure and antibacterial mechanism of action (substance) Penicillins rash Drug Allergy Active Results Component Value Reference Range Notes HEMOGLOBIN A1C (GLYCOHEMOGLO BIN) Reviewed date:06/10/2024 10:33:00 AM Interpretation: Performing Lab: Notes/Report: HEMOGLOBIN A1C % (HH) 7.0 HEMOGLOBIN A1C (GLYCOHEMOGLO BIN) Reviewed date:08/28/2023 10:36:09 AM Interpretation: Performing Lab: Notes/Report: HEMOGLOBIN A1C (HH) 7.0 Reason For Referral No Information Medications Medication SIG (Take, Route, Frequency, Duration) Notes Start Date End Date Status Subcutaneous Infusion Set Active PARoxetine HCl 10 MG 1 tablet in the mor nirmala Orally Once a day Active Atorvastatin Calcium 20 MG 1 tablet Oral ly Once a day Active Trulicity 0.75 MG/0.5ML as directed Subcutaneous Active WartSTICK 40 % as directed External ly daily under occlusion for 30 days 08/28/2023 Active Extra Depth Orthopedic Shoes, (1) Pair With (3) Pair Custom Heat Molded Multidensity Innersoles Dx: NIDDM/PVD(E11.51), Hammertoe Foot Deformity(M20.41,M20.42), Preulcerative Skin Lesion(s)(L85.1) Wear Daily for 365 days 08/28/2023 Active Ammonium Lactate 12 % 1 application Exte rnally to feet except for between the toes Twice a day for 30 days Active Blood Glucose Meter Active Carbamide Peroxide 6.5 % 5 drops into af fected ear Otic Twice a day Active Virasal 27.5 % 1 application to aff ected area Externally Once a day for 30 days 06/10/2024 Active Phenazopyridine HCl 200 MG 1 tablet afte r meals Orally Three times a day Active Immunizations Vaccine Route Administration Date Status Comme nts Influenza Unknown 01/12/2023 Administered Social History Tobacco Use: Social History Observation Description Date Details (start date - stop date) Never Smoker NA - NA Tobacco use other than smoking: Question Answer Notes Are you an other tobacco user? No Tobacco Control (Standard) Question Answer Notes Tobacco use: Nonsmoker Additional Findings: Tobacco non-user Current no nsmoker AUDIT-C (Standard) Question Answer Notes Did you have a drink containing alcohol in the p ast year? No Points 0 Interpretation Negative Problems Problem Type SNOMED Code ICD Code Onset Dates Problem Status W/U Status Risk Notes Problem Acquired hammer toe of right foot (29095184895934 05) Other hammer toe(s) (acquired), right foot (M20.41) Active confirmed Problem Type 2 diabetes mellitus with peripheral angiopathy (145233077) Type 2 diabetes mellitus with diabetic peripheral angiopathy without gangrene (E11.51) Active confirmed Problem Acquired hammer toe of left foot (93805155130362 03) Other hammer toe(s) (acquired), left foot (M20.42) Active confirmed Problem Plantar wart (25796600) Plantar wart (B07.0) Active confirmed Vital Signs Height 5ft2in in 06/10/2024 Weight 205 lbs 06/10/2024 BMI 37.49 kg/m2 06/10/2024 Procedures Procedure Date Ordered Date Performed Result Body Sit e 02707-FKESGQV NAIL, 6 OR MORE 08/28/2023 N/A 21529-Ddxj Destruction, 1-14 08/28/2023 N/A 30138-EVVC SKIN LESIONS, 2 TO 4 08/28/2023 N/A 61792-MCLPHJP NAIL, 6 OR MORE 11/06/2023 N/A 19812-Mheu Destruction, 1-14 11/06/2023 N/A 28233-THAF SKIN LESIONS, 2 TO 4 11/06/2023 N/A 79474-ATIGABV NAIL, 6 OR MORE 01/15/2024 N/A 15466-Vxcn Destruction, 1-14 01/15/2024 N/A 65868-VIXE SKIN LESIONS, 2 TO 4 01/15/2024 N/A 41916-RLHMIUJ NAIL, 6 OR MORE 06/10/2024 N/A 17954-Eedq Destruction, 1-14 06/10/2024 N/A 89966-NCNO SKIN LESIONS, 2 TO 4 06/10/2024 N/A Encounters Encounter Location Date Provider Diagnosis [address] [address] 08/28/2023 Alberto Weinsteinunier Type 2 diabetes mellitus with diabetic peripheral angiopathy without gangrene E11.51 ; Plantar wart B07.0 ; Tinea unguium B35.1 ; Pain in right toe(s) M79.674 ; Pain in left toe(s) M79.675 ; Left foot pain M79.672 ; Other hammer toe(s) (acquired), right foot M20.41 and Other hammer toe(s) (acquired), left foot M20.[address] [address] 11/06/2023 Alberto Weinsteinunier Type 2 diabetes mellitus with diabetic peripheral angiopathy without gangrene E11.51 ; Plantar wart B07.0 ; Tinea unguium B35.1 ; Pain in right toe(s) M79.674 ; Pain in left toe(s) M79.675 and Left foot pain M79.[address] [address] 01/15/2024 Albertochester Weinstein[place]ya Type 2 diabetes mellitus with diabetic peripheral angiopathy without gangrene E11.51 ; Plantar wart B07.0 ; Tinea unguium B35.1 ; Pain in right toe(s) M79.674 ; Pain in left toe(s) M79.675 ; Left foot pain M79.672 and Xerosis of skin L85.[address] [address] 06/10/2024 Alberto Zambrano Type 2 diabetes mellitus with diabetic peripheral angiopathy without gangrene E11.51 ; Plantar wart B07.0 ; Tinea unguium B35.1 ; Pain in right toe(s) M79.674 ; Pain in left toe(s) M79.675 ; Left foot pain M79.672 and Xerosis of skin L85.[address] [address] 03/25/2024 Alberto Zambrano Assessments Encounter Date Diagnosis [...] E11.51) 01/15/2024 Plantar wart (ICD-10 - B07.0) 06/10/2024 Type 2 diabetes mellitus with diabetic peripheral angiopathy without gangrene (ICD-10 - E11.51) 06/10/2024 Plantar wart (ICD-10 - B07.0) 06/10/2024 Tinea unguium (ICD-10 - B35.1) 01/15/2024 Tinea unguium (ICD-10 - B35.1) 11/06/2023 Tinea unguium (ICD-10 - B35.1) 08/28/2023 Tinea unguium (ICD-10 - B35.1) 08/28/2023 Pain in right toe(s) (ICD-10 - M79.674) 11/06/2023 Pain in right toe(s) (ICD-10 - M79.674) 01/15/2024 Pain in right toe(s) (ICD-10 - M79.674) 06/10/2024 Pain in right toe(s) (ICD-10 - M79.674) 06/10/2024 Pain in left toe(s) (ICD-10 - M79.675) 01/15/2024 Pain in left toe(s) (ICD-10 - M79.675) 08/28/2023 Pain in left toe(s) (ICD-10 - M79.675) 11/06/2023 Pain in left toe(s) (ICD-10 - M79.675) 11/06/2023 Left foot pain (ICD-10 - M79.672) 08/28/2023 Left foot pain (ICD-10 - M79.672) 01/15/2024 Left foot pain (ICD-10 - M79.672) 06/10/2024 Left foot pain (ICD-10 - M79.672) 06/10/2024 Xerosis of skin (ICD-10 - L85.3) 08/28/2023 Other hammer toe(s) (acquired), right foot (ICD-10 - M20.41) Patient Educated with: DIABETIC FOOT CARE INSTRUCTIONS.p df (DIABETIC FOOT CARE INSTRUCTIONS.p df) 01/15/2024 Xerosis of skin (ICD-10 - L85.3) 08/28/2023 Other hammer toe(s) (acquired), left foot (ICD-10 - M20.42) 11/06/2023 Other 01/15/2024 Other 06/10/2024 Other Plan Of Treatment Pending Test Test Name Order Date 06629-KGWEDOW NAIL, 6 OR MORE 08/28/2023 14377-ZUGCOLT NAIL, 6 OR MORE 11/06/2023 48252-NASGJWT NAIL, 6 OR MORE 01/15/2024 47861-WTLTYCP NAIL, 6 OR MORE 06/10/2024 77969-Bzic Destruction, 1-14 06/10/2024 83278-Qnra Destruction, 1-14 01/15/2024 34157-Euef Destruction, 1-14 11/06/2023 02998-Kqgg Destruction, 1-14 08/28/2023 13927-GWVW SKIN LESIONS, 2 TO 4 08/28/19 24 66566-RSPB SKIN LESIONS, 2 TO 4 11/06/19 24 43129-KWPS SKIN LESIONS, 2 TO 4 01/15/20 24 46627-HMIC SKIN LESIONS, 2 TO 4 06/10/19 Next Appt Details Provider Name:Alberto Zambrano , 09/12/2024 11:00:00 AM, [address] [place] [address], [address], Insurance Providers Payer Name Payer Address Payer Phone Subscriber Number Group Number Insured Name Patient Relationship to Insured Coverage Start Date Coverage End Date [facility] [employer] SCO Claims [address] [place] [address] [phone] [id number] Be Minaya Self - patient is the insured Medical (General) History Medical History History ICD Code asthma High blood pressure Hyperlipidemia Cognitive developmental delay Obesity Surgical History Surgery Date(Month/Year)
--- OUTSIDE RECORDS SUMMARY | 2024-07-04 10:30 | XMS_ITS ---
Author Organization [facility] Address [address] [place] [address] Care Team Providers Care Travel Trailer Components Assembler Name Role Phone Abdi HENDERSON, Tony Primary Care Provider Unavaila Alberto Hopkins Unavailable [phone] Encounters Encounter Location Date Provider Diagnosis [facility] [address] [place] [address] 04/08/2024 Alberto Zambrano Plan Of Treatment Next Appt Details Provider Name:Alberto Zambrano , 09/12/2024 11:00:00 AM, [address] [place], [address], Progress Notes * Be REYESDOB:1964 (59 yo M)Acc No.[id number]:04/08/2024 Progress Note Patient:?Be REYES Provider:?Alberto Zambrano DPM :1965???Age:58 Y???Sex:Male Kevon e:04/08/2024 Address:[address], [place] Pcp:Tony Patton MD Subjective: * Chief Complaints: * ??? * Medical History:? Objective: * Vitals:? Assessment: Plan: * Treatment: * Images: * The named appointment provid er may or may not be the originator of this progress note, and it is not deemed complete until electronically signed by the appointment provider. Sign off status: Pending * Provider:?Alberto Zambrano DPM Date:?2023 Generated for Willie west/Krista/Mohamud on:?07/04/2024 10:29 AM EST
--- OUTSIDE RECORDS SUMMARY | 2024-07-04 10:30 | XMS_ITS ---
Author Organization [facility] Address [address] [place] [address] Care Team Providers Care Emergency Room Technician Name Role Phone Tony Patton MD Primary Care Provider Unavaila Alberto Hopkins Unavailable [phone] Allergies Allergen (clinical drug ingredient) Drug/Non Drug [...] mor nirmala Orally Once a day Active Trulicity 0.75 MG/0.5ML as directed Subcutaneous Active Carbamide Peroxide 6.5 % 5 drops into af fected ear Otic Twice a day Active Phenazopyridine HCl 200 MG 1 tablet afte r meals Orally Three times a day Active WartSTICK 40 % as directed External [...] 30 days Active Blood Glucose Meter Active Virasal 27.5 % 1 application to aff ected area Externally Once a day for 30 days 06/10/2024 Active Atorvastatin Calcium 20 MG 1 tablet Oral ly Once a day Active Social History Tobacco Use: Social History [...] ast year? No Points 0 Interpretation Negative Vital Signs Height 5ft2in in 06/10/2024 Weight 205 lbs 06/10/2024 BMI 37.49 kg/m2 06/10/2024 Procedures Procedure Date Ordered Date Performed Result Body Sit e 89651-[id number] NAIL, 6 OR MORE 06/10/2024 N/A 04557-Xfnz Destruction, 1-14 06/10/2024 N/A 03667-UTIQ SKIN LESIONS, 2 TO 4 06/10/2024 N/A Encounters Encounter Location Date Provider Diagnosis [facility] [address] [place] [address] 06/10/2024 Alberto Zambrano Type 2 diabetes mellitus with diabetic peripheral angiopathy without gangrene E11.51 ; Plantar wart B07.0 ; Tinea unguium B35.1 ; Pain in right toe(s) M79.674 ; Pain in left toe(s) M79.675 ; Left foot pain M79.672 and Xerosis of skin L85.3 Assessments Encounter Date Diagnosis (ICD Code) Assessment Notes Treatment Notes Treatment Clinical Notes Section Notes 06/10/2024 Type 2 diabetes mellitus with diabetic peripheral angiopathy without gangrene (ICD-10 - E11.51) 06/10/2024 Plantar wart (ICD-10 - B07.0) 06/10/2024 Tinea unguium (ICD-10 - B35.1) 06/10/2024 Pain in right toe(s) (ICD-10 - M79.674) 06/10/2024 Pain in left toe(s) (ICD-10 - M79.675) 06/10/2024 Left foot pain (ICD-10 - M79.672) 06/10/2024 Xerosis of skin (ICD-10 - L85.3) 06/10/2024 Other Plan Of Treatment Medication Medication Name Sig Start Date Stop Date Notes Virasal 27.5 % 1 application to aff ected area Externally Once a day for 30 days 06/10/2024 Pending Test Test Name Order Date 31904-FUILFRC NAIL, 6 OR MORE 06/10/2024 70965-Ndbh Destruction, 1-14 06/10/2024 91130-QVWP SKIN LESIONS, 2 TO 4 06/10/19 25 Next Appt Details Follow Up: 3 Months, Reason: Provider Name:Alberto Zambrano , 09/12/2024 11:00:00 AM, [address] [place] [address], [id number], Procedure Notes * Category Sub-Category Detail Notes Wart Treatment Procedure Verruca, as desc ribed in exam, were debrided to pin-point bleeding margins with sterile 15 surgical blade, silver nitrate chemocautery applied, recomm. immune-boosting meds such as zinc, recomm. follow up with topical chemosurgical agents, recomm. Rx Virasal Salicylic acid application under occlusion as directed, Pt defers any other forms of tx - 38974 Debride Nail 6-10 Nail debridement Due to the cl inical pathology outlined in the exam findings, performance of this nail treatment is medically necessary as its management by an unskilled/untrained nonprofessional would put this patients foot and overall health at risk. Therefore, debridement to affected nail(s), as described in exam ( TA, T1, T2, T3, T4, T5, T6, T7, T8, T9 ), was performed exclusively by the physician of record to reduce/remove overall nail length, girth, thickness, subungual debris, and necrotic tissue, by manual and/or electrical means through the use of a nail nipper and/or dremel-type white lead grinder, to a more viable healthy nail plate or bed tissue 6-10 nails in total. Silver nitrate was used for any petechial bleeding as necessary. Definitive antifungal treatment options, both pharmaceutical and surgical, have been reviewed and discussed with the patient. The patient solely prefers the use of intermittent/as needed professional debridement services for their nail condition and understands the need for additional periodic treatments to maintain effectiveness in symptomatic relief - 98141 Keratoma Treatment Parring or Cutting o f Benign Hyperkeratotic Lesion(s) (-56) 2-4 Lesions - Due to the at risk nature of the patients medical condition as documented in the exam findings, performance of this keratoderma treatment is medically necessary as its management by an unskilled/untrained nonprofessional would put this patients foot and overall health at risk. Therefore, the benign hyperkeratotic lesions, ( 4 ) in total, locations as stated and described in the exam ( SUB MTH (s), 1, B/L, Plantar, Heel(s) , B/L ), were pared, and/or cut utilizing a sterile 15 blade, tissue nippers, and/or power dremel instrumentation by the physician of record - 06426, Q8 Progress Notes * Be REYESDOB:1964 (59 yo M)Acc No.[id number]:06/10/2024 Progress Note Patient:?Be REYES Provider:?Alberto Zambrano DPM :1965???Age:59 Y???Sex:Male Kevon e:06/10/2024 Address: [address], [address], [facility] Pcp:Tony Patton MD Subjective: * Chief Complaints: * ???At Risk FootcarePainful N ail(s) aggrevated by shoes and causing difficulty standing/walkingWart(s)Skin problem(s) * HPI: ???At Risk footcare:?Pt States Last PCP Visit:?Date?12/21/2023 ???Skin problems:?Treatments:?medication ( AM Lactin ), states adherence to recommended treatment application.? * ROS:?General/Constitutional:?Nausea?denies.?Vomiting?denies.?Hunger Thirst?denies.?Loss appetite?denies.?Chills?denies.?Fatigue?denies.?Fever?denies.?Night Sweats?denies.?Unexplained weight loss?denies.?Unexplained weight gain?denies.?HEENTM:?Dentures?denies.?Dizziness?denies.?Glasses/contacts?admits.?Retinopathy?den ies.?Blurred/double vision?denies.?TMJ?denies.?Discharge/drainage?denies.?Implants?denies.?Sore throat?denies.?Dental implants?denies.?Hard of hearing ?denies.?Difficulty chewing/swallowing/speaking?denies.?Nose bleeds?denies.?Sore mouth?denies.?Respiratory:?On O xygen?denies.?Pneumonia/pleurisy?denies.?Bronchitis?denies.?Emphysema?denies.?Co ughing?denies.?Cough blood?denies.?Shortness of breath?denies.?Wheezing?denies.?Cardiovascular:?Pacemaker?denies.?MVP?denies.?WPW?denies.?CHF?denies.?Heart attack?denies.?Septal defect?denies.?Rapid beat?denies.?Chest pain ?denies.?Atrial Fib.?denies.?Murmur/Palpitations?denies.?Gastrointestinal:?Hemorrhoids?denies.?Stomach/Abdominal pain?denies.?Dark blood stool?denies.?Irritable bowel ?denies.?Constipation?denies.?Diarrhea?denies.?Hematology:?Swelling?denies.?Clots?denies.?Varicose Veins?admits.?Bruising?denies.?Bleeding problem?denies.?Genitourinary:?Blood urine?denies.?Frequent/Painfu/urination/bladder control?denies.?Kidney stones?denies.?Infection (UTI)?denies.?Nephropathy?denies.?sex trans dis (STD)?denies.?Prostate?denies.?Musculoskeletal:?Hammertoes?admits.?Bunions?denies.?Back Pain?denies.?Muscle Cramps/ Resting?denies.?Muscle cramps / walking?denies.?Generalized aches and pains?denies.?Weakness?denies.?Integ.:?Turpin?denies.?Scars?denies.?Corns/calluses?admits.?Ingrown nails?admits.?Painful nails?admits.?Open Sores?denies.?Rashes?denies.?Neurologic:?Difficulty sleeping?denies.?Brain disorder?denies.?Numbness?denies.?Balance t rouble?denies.?Confusion?denies.?Fainting/blackouts?denies.?Tingling?denies.?Tomer mors?denies.? * Medical History:? * Surgical History:?Denies Pas t Surgical History * Hospitalization/Major Diagno stic Procedure:?Denies Past Hospitalization * Family History:?Mother: dece ased.?Father: .? * Social History:?Tobacco Use:?Tobacco use other than smoking?Are you an other tobacco user??No ?Tobacco Control (Standard)?Tobacco use:?Nonsmoker ?Additional Findings: Tobacco non-user?Current nonsmoker ???Drugs/Alcohol:?Drugs?Have you used drugs other than those for medical reasons in the past 12 months??No ???Miscellaneous:?Caffeine: yes, frequency: 1 soda per day. ?Exercise: bowling. ?Marital status: . ?Occupation: [employer]. ???Drug/Alcohol:?AUDIT-C (Standard)?Did you have a drink containing alcohol in the past year??No ?Points?0 ?Interpretation?Negative * Medications:?TakingBlood Glu cose Meter Phenazopyridine HCl 200 MG Tablet 1 tablet after meals Orally Three times a day Carbamide Peroxide 6.5 % Solution 5 drops into affected ear Otic Twice a day PARoxetine HCl 10 MG Tablet 1 tablet in the morning Orally Once a day Subcutaneous Infusion Set Trulicity 0.75 MG/0.5ML Solution Pen-injector as directed Subcutaneous Atorvastatin Calcium 20 MG Tablet 1 tablet Orally Once a day Extra Depth Orthopedic Shoes, (1) Pair With (3) Pair Custom Heat Molded Multidensity Innersoles . Dx: NIDDM/PVD(E11.51), Hammertoe Foot Deformity(M20.41,M20.42), Preulcerative Skin Lesion(s)(L85.1) Wear Daily WartSTICK 40 % Stick as directed Externally daily under occlusion Ammonium Lactate 12 % Cream 1 application Externally to feet except for between the toes Twice a day Medication List reviewed and reconciled with the patientTaking Blood Glucose Meter Taking Phenazopyridine HCl 200 MG Tablet 1 tablet after meals Orally Three times a day Taking Carbamide Peroxide 6.5 % Solution 5 drops into affected ear Otic Twice a day Taking PARoxetine HCl 10 MG Tablet 1 tablet in the morning Orally Once a day Taking Subcutaneous Infusion Set Taking Trulicity 0.75 MG/0.5ML Solution Pen-injector as directed Subcutaneous Taking Atorvastatin Calcium 20 MG Tablet 1 tablet Orally Once a day Taking Extra Depth Orthopedic Shoes, (1) Pair With (3) Pair Custom Heat Molded Multidensity Innersoles . Dx: NIDDM/PVD(E11.51), Hammertoe Foot Deformity(M20.41,M20.42), Preulcerative Skin Lesion(s)(L85.1) Wear Daily Taking WartSTICK 40 % Stick as directed Externally daily under occlusion Taking Ammonium Lactate 12 % Cream 1 application Externally to feet except for between the toes Twice a day Medication List reviewed and reconciled with the patient * Allergies:?Penicillins: rash RisperDAL: rashEnvironmental: watery eyes, congestionyes[Allergies Verified] Objective: * Vitals:?Ht:5ft2in, Wt:205, B PA:37.49, Shoe size:9.5, BS:126, Ht-cm: 157.48 cm, Wt-k.99 kg. * ???Past Orders: ???Lab:HEMOGLOBIN A1C (GLYCO HEMOGLOBIN) (Order Date - 10/15/2023) (Collection Date & Time - 04/14/2024 10:31 AM) ? Value Reference Range ?HEMOGLOBIN A1C % (HH) 7.0 * Examination: ???Ophthalmology Referral: ?DIABETES EYE EXAM?Vascular: ?DP PULSES (B):? 0/4, B/L.?PT PULSES (B):? 0/4, B/L.?CAPILLARY FILL TIME:? delayed, all digits, B/L.?TROPHIC CONDITION-TEXTURE/ELASTICITY/TURGOR/HAIR GROWTH (B):? decreased,?with sparse to absent hair growth, B/L.?TEMPERTURE GRADIENT (C):? decreased, cool to cool, proximal to distal, B/L.?PIGMENTATION:?rubrous, B/L.?EDEMA (C):?1/4, non-pitting, without aching pain, Leg(s), Ankle(s), B/L.?CLAUDICATION (C):?denies, B/L.?REST PAIN:?denies, B/L.?Nails: ?NAILS are:?Elongated, overgrown, dystrophic, lytic, greater than 3mm thick, discolored and friable with crumbly malodorous subungual debris, with pain on palpation, TA, T1, T2, T3, T4, T5, T6, T7, T8, T9.?Dermatologic: ?SKIN FINDINGS:?Skin exam reveals Keratotic lesion(s) located at , SUB MTH (s), 1, B/L, Plantar, Heel(s) , B/L , Skin shows approximately 50 percent LESS, sign(s) of, dryness, scaling, in a stocking fashion, no fissure(s) present, B/L.?VERRUCA:?Reveals a Single , multi-loculated , mosaic-patterned, round, raised, flat-topped, petechial bleeding papule(s), with cauliflower appearance and interruption of skin lines, pain to lateral compression, and size estimated at 4mm diameter , plantar Forefoot , TA,?LEFT - relates inconsistent application of 40% Jh Acid.? Assessment: * Assessment: 1.?Type 2 diabetes mellitus with diabetic peripheral angiopathy without gangrene - E11.51???2.?Plantar wart - B07.0 (Primary)???Specify :LEFT???3.?Tinea unguium - B35.1???4.?Pain in right toe(s) - M79.674???5.?Pain in left toe(s) - M79.675???6.?Left foot pain - M79.672???7.?Xerosis of skin - L85.3???Specify :Acute problem, Stable Response to treatment - Improvement??? Plan: * Treatment: 2.?Type 2 diabetes mellitus with diabetic peripheral angiopathy without gangrene?Procedure: 53756-AUKC SKIN LESIONS, 2 TO 4 3.?Tinea unguium?Procedure: 42110-TMBGAWB NAIL, 6 OR MORE * Procedures:?Debride Nail 6-10:?Nail debridement?Due to the clinical pathology outlined in the exam findings, performance of this nail treatment is medically necessary as its management by an unskilled/untrained nonprofessional would put this patients foot and overall health at risk. Therefore, debridement to affected nail(s), as described in exam (?TA, T1, T2, T3, T4, T5, T6, T7, T8, T9?), was performed exclusively by the physician of record to reduce/remove overall nail length, girth, thickness, subungual debris, and necrotic tissue, by manual and/or electrical means through the use of a nail nipper and/or dremel-type white lead grinder, to a more viable healthy nail plate or bed tissue 6- 10 nails in total. Silver nitrate was used for any petechial bleeding as necessary. Definitive antifungal treatment options, both pharmaceutical and surgical, have been reviewed and discussed with the patient. The patient solely prefers the use of intermittent/as needed professional debridement services for their nail condition and understands the need for additional periodic treatments to maintain effectiveness in symptomatic relief - 99523.?Keratoma Treatment:?Parring or Cutting of Benign Hyperkeratotic Lesion(s)?(-56) 2-4 Lesions - Due to the at risk nature of the patients medical condition as documented in the exam findings, performance of this keratoderma treatment is medically necessary as its management by an unskilled/untrained nonprofessional would put this patients foot and overall health at risk. Therefore, the benign hyperkeratotic lesions, ( 4 ) in total, locations as stated and described in the exam (?SUB MTH (s),?1,?B/L,?Plantar,?Heel(s)?,?B/L?), were pared, and/or cut utilizing a sterile 15 blade, tissue nippers, and/or power dremel instrumentation by the physician of record - 21716, Q8.?Wart Treatment:?Procedure?Verruca, as described in exam, were debrided to pin-point bleeding margins with sterile 15 surgical blade, silver nitrate chemocautery applied, recomm. immune-boosting meds such as zinc, recomm. follow up with topical chemosurgical agents, recomm. Rx Virasal Salicylic acid application under occlusion as directed, Pt defers any other forms of tx - 37845.? * Procedure Codes:?91574 DEBRI DE NAIL, 6 OR MORE, Modifiers: XS 69150 Wart Destruction, 1-14, Modifiers: XS 41378 TRIM SKIN LESIONS, 2 TO 4, Modifiers: XS , Q8 * Preventive Medicine:? ??Counseling:?Discussion:?-12: Office or other outpatient visit for the evaluation and management of an established patient, which required a medically appropriate history and/or examination and STRAIGHTFORWARD level of MEDICAL DECISION MAKING, 1 SELF-LIMITED OR MINOR PROBLEM, MINIMAL- NO AMOUNT/COMPLEXITY OF DATA TO BE REVIEWED/ANALYZED, AND MINIMAL RISK OF COMPLICATION/MORBIDITY. The visit on the day of the [...] have encouraged the patient to call the office.?Xerosis:?Given recent successful results to treatment, The patient is to cont the rx cream as directed.? ??Screening/Special Tests:?Fall Risk?Screening:?No falls in the past year ?FALLS: Screening for Future Fall Risk?Have you had any falls with injury in the past year??No * Follow Up:?3 Months * Images: * Sign off status: Completed true * Provider:?Alberto Zambrano DPM Date:?2024 Generated for Willie west/Krista/Yiselsmitting on:?07/04/2024 10:30 AM EST History and Physical Notes * HPI (History of Present Illness) Category Sub-Category Detail Notes Category Not es Skin problems Treatments: medication ( AM Lactin ), states adherence to recommended treatment application At Risk footcare Pt States Last PCP Visit: Date: 12/21/2023 Examination Category Sub-Category Detail Notes Category Not es Dermatologic SKIN FINDINGS: Skin exam reveal s Keratotic lesion(s) located at , SUB MTH (s), 1, B/L, Plantar, Heel(s) , B/L , Skin shows approximately 50 percent LESS, sign(s) of, dryness, scaling, in a stocking fashion, no fissure(s) present, B/L VERRUCA: Reveals a Single , m ulti-loculated , mosaic-patterned, round, raised, flat-topped, petechial bleeding papule(s), with cauliflower appearance and interruption of skin lines, pain to lateral compression, and size estimated at 4mm diameter , plantar Forefoot , TA, LEFT - relates inconsistent application of 40% Jh Acid Ophthalmology Referral DIABETES EYE EXAM Procedure Perform ed:: Yes ?Date of Exam Performed: 04/02/2024 Diabetic Retinopathy Screening:: Yes Findings of Diabetic Eye Exam:: no retin opathy Vascular DP PULSES (B): 0/4, B/L PT PULSES (B): 0/4, B/L CAPILLARY FILL TIME: delayed, all digits , B/L TEMPERTURE GRADIENT (C): decreased, cool to cool, proximal to distal, B/L TROPHIC CONDITION-TEXTURE/ELASTICITY/TURGOR/HAIR GROWTH (B): decreased, with sparse to absent hair gr owth, B/L EDEMA (C): 1/4, non-pitting, wi thout aching pain, Leg(s), Ankle(s), B/L CLAUDICATION (C): denies, B/L REST PAIN: denies, B/L PIGMENTATION: rubrous, B/L Nails NAILS are: Elongated, overg rown, dystrophic, lytic, greater than 3mm thick, discolored and friable with crumbly malodorous subungual debris, with pain on palpation, TA, T1, T2, T3, T4, T5, T6, T7, T8, T9
--- OUTSIDE RECORDS SUMMARY | 2024-07-04 10:30 | XMS_ITS | Clinical Summary ---
[facility] Organization [facility] Address [address] [place] [address] Care Team Providers Care Topology Professor Name Role Phone Becky Lobo DO Primary Care Provider + Medical History Medical History Date Comments Diabetes mellitus type 2, co ntrolled, with complications (CMS/HCC) DX:Diabetes mellitus type 2, controlled, with complications (HCC) Essential hypertension DX:Essent ial hypertension Asthma DX:Asthma Sleep apnea DX:Sleep apnea Hypercholesterolemia DX:Hypercho lesterolemia Family History Relation Name Status Comments Mother Social History Tobacco Use Types Packs/Day Years Used Date Smoking Tobacco: Never Alcohol Use Standard Drinks/Week Comments Not Asked 0 (1 standard drink = 0.6 oz pur e alcohol) Sex and Gender Information Value Date Recorded Sex Assigned at Not on file Legal Sex Male 1:17 PM EST Gender Identity Not on file Sexual Orientation Not on file Obstetrics History Plan of Treatment Health Maintenance Due Date Last Done Comments Diabetes: Annual GFR (Glomer ular Filtration Rate) 1966 Diabetes: Annual Foot Exam 1976 Diabetes: Annual Retina Eye Exam 1976 DTaP,Tdap,and Td Vaccines (1 - Tdap) 1985 Hepatitis B Vaccines (1 of 3 - 19+ 3-dose series) 1985 Pneumococcal Vaccine: 50+ Ye ars (1 of 2 - PCV) 1985 Pneumococcal Vaccine: Pediat rics (0 to 5 Years) and At-Risk Patients (6 to 64 Years) (1 of 2 - PCV) 1985 Zoster Vaccines (1 of 2) 2016 Cholesterol Screening (Lipid Panel) 04/11/2022 Colorectal Cancer Screening: Colonoscopy 04/11/2022 Depression Screening 04/11/2022 HIV Screening 04/11/2022 Hepatitis C Screening 04/11/2022 Social Influencers of Health Screening 04/11/2022 Diabetes: Annual Urine Albumin-Creatinine Ratio (uACR) 04/19/2022 Diabetes: Blood Sugar Contro l Test (HGBA1C) 04/19/2022 Hypertension/CHF/CAD Annual BMP Blood Test 04/19/2022 COVID-19 Vaccine ( - 2023-2 5 season) 2024 Influenza Vaccine (#1) 2024 HIB Vaccines Aged Out No longer eligi ble based on patient's age to complete this topic HPV Vaccines Aged Out No longer eligi ble based on patient's age to complete this topic Hepatitis A Vaccines Aged Out No long er eligible based on patient's age to complete this topic IPV Vaccines Aged Out No longer eligi ble based on patient's age to complete this topic MMR Vaccines Aged Out No longer eligi ble based on patient's age to complete this topic Meningococcal ACWY Vaccine Aged Out N o longer eligible based on patient's age to complete this topic Meningococcal B Vacine Aged Out No lo nger eligible based on patient's age to complete this topic RSV Immunization Patients Un shadia 20 months Aged Out No longer eligible b ased on patient's age to complete this topic Varicella Vaccines Aged Out No longer eligible based on patient's age to complete this topic Advance Directives Documents on File Type Date Recorded Patient Transportation Operations Manager Expl anation Health Care Decision (hx) 01/25/2016 AD HILL DIRECTIVE Health Care Decision (hx) 01/25/2016 AD HILL DIRECTIVE Care Teams Topology Professor Relationship Specialty Start Date End Date Becky Lobo DO [address] [facility] [address] [place] [address] PCP - General 10/04/15
--- OUTSIDE RECORDS SUMMARY | 2024-07-04 10:30 | XMS_ITS ---
Author Organization [facility] Address [address] [place] [address] Care Team Providers Care Collar Baster Name Role Phone Tony Patton MD Primary Care Provider Alberto Grissom Unavailable [phone] REASON FOR VISIT r/s 04/08 Encounters Encounter Location Date Provider Diagnosis [address] [address] 03/25/2024 Alberto Zambrano Plan Of Treatment Next Appt Details Provider Name:Alberto Zambrano , 09/12/2024 11:00:00 AM, [address] [place], [address], Progress Notes * Be REYESDOB:1964 (58 yo M)Acc No.[id number]:03/25/2024 Patient:?Be REYES :1965???Age:58 Y???Sex:Male Address:[address], [address], [place], [address] * true * Date:? Generated for Printi ng/Fajessicag/eTransmitting on:?07/04/2024 10:29 AM EST
[2024-07-04 10:34] LABS: Basophils Percent Auto 0.3 % (0-2); Eosinophils Absolute Auto 0.1 X10*3/uL (0.0-0.4); Eosinophils Percent Auto 1.3 % (0-4); Hematocrit 48.1 % (42.0-52.0); Hemoglobin 15.6 g/dl (14.0-18.0); Imm Gran Abs Auto 0.02 X10*3/uL (0.00-0.03); Imm Gran Pct Auto 0.3 % (0.0-0.4); Lymphocytes Absolute Auto 2.2 X10*3/uL (1.2-4.9); Lymphocytes Percent Auto 28.5 % (20-40); Mean Corpuscular HGB Conc 32.4 g/dl (31.0-36.0); Mean Corpuscular Hemoglobin 29.2 pg (27.0-33.0); Mean Corpuscular Volume 89.9 fL (80.0-98.0); Mean Platelet Volume 9.8 fL (9.4-12.4); Monocytes Absolute Auto 0.6 X10*3/uL (0.1-1.2); Monocytes Percent Auto 7.5 % (2-11); Neutrophils Absolute Auto 4.7 x10*3/uL (2.0-8.3); Neutrophils Percent Auto 62.1 % (45-73); Platelet Count 276 X10*3/uL (160-400); Red Blood Count 5.35 X10*6/uL (4.60-5.80); Red Cell Distribution Width 12.6 % (11.0-16.0); White Blood Count 7.6 X10*3/uL (4.8-10.8)
[2024-07-04 10:45] LABS: Estimated Average Glucose 134 mg/dL; Hemoglobin A1C 184.1614 umol/L; Hemoglobin A1c % 6.3 % (<6.0); Total Hemoglobin (HGBA1C) 4084.9434 umol/L
[2024-07-04 11:23] LABS: Alanine Aminotransferase 22 U/L (0-40); Albumin Level 4.2 g/dL (3.5-5.0); Alkaline Phosphatase 69 U/L (39-117); Anion Gap 12 (12-20); Aspartate Amino Transferase 22 U/L (5-37); Bilirubin Total 0.3 mg/dL (0.0-1.0); Blood Urea Nitrogen 19 mg/dL (9-16); Calcium 10.3 mg/dL (8.4-10.2); Carbon Dioxide 29 mmol/L (22-29); Chloride 104 mmol/L (96-108); Cholesterol 207 mg/dL (<200); Estimated Glomerular Filt Rate > 60; Glucose Fasting 153 mg/dL (60-99); HDL Cholesterol 39 mg/dL (>40); LDL Cholesterol Calculated 144 mg/dL (<100); Sodium 141 mmol/L (135-145); Thyroid Stimulating Hormone 1.12 uIU/mL (0.32-4.0); Total Protein 7.7 g/dL (6.5-8.0); Triglycerides 120 mg/dL (<150)
== END 2024-07-04 09:47 | disposition home or self-care (01) ==
LOC: HO.LAB 09:46
PROVIDERS: PCP Internal Medicine; Visit Provider Internal Medicine
DX: R73.9 Hyperglycemia, unspecified (principal); Z13.220 Encounter for screening for lipoid disorders; Z13.29 Encounter for screening for other suspected endocrine disorder; Z13.0 Encounter for screening for diseases of the blood and blood-forming organs and certain disorders involving the immune mechanism; Z13.6 Encounter for screening for cardiovascular disorders
CPT/HCPCS: 36415; 80053; 80061; 83036; 84443; 85025

== ENCOUNTER 2024-07-07 09:20 | Outpatient (AMB) | payer MEDICARE, SELFPAY ==
--- NOTE | 2024-07-07 09:32 | MHC.PC.OV ---
Vital Signs 07/07/24 09:34 Height 5 ft Weight 214 lb 6 oz BMI 41.9 BP 120/70 Blood Pressure Location Lt brachial Position Sitting Pulse 114 H Pulse Source Pulse Oximeter Temp 97.7 F Temp Source Temporal Artery Scan Pulse Oximetry (%) 93 Oxygen Delivery Method Room Air Intake Visit Reasons: Follow up Intake Note: Patient is here to follow up on DM, HLD, Asthma. Paper Reel Operator Required: No Level Glass Vial Filler: Not Required per policy Accompanied by: Self / Same As Patient Allergies penicillin V Allergy (Unknown, Verified 07/07/24 09:34) vomiting Penicillins [PENICILLINS] Allergy (Unknown, Verified 07/07/24 09:34) vomitting Medication List - Last Reconciled 07/07/24 by Tony Patton MD aripiprazole lauroxil ER (Aristada) mg IM atorvastatin 20 mg PO BEDTIME 90 days blood sugar diagnostic (FreeStyle Test strips) to check blood sugars once a day blood sugar diagnostic (OneTouch Ultra Test strips) USE 1 STRIP TO CHECK BLOOD GLUCOSE ONCE A DAY BEFORE A MEAL blood-glucose meter (Nerium BiotechnologyTouch Ultra2 Meter) USE DIRECTED TO CHECK BLOOD GLUCOSE carbamide peroxide 6.5% (Murine Ear Wax Removal System) 5 drps otic (ear) left DAILY 4 days dulaglutide (Trulicity) 0.75 mg (0.5 mL) subcut QWEEK fluticasone propion-salmeterol 250-50 mcg/dose (Wixela Inhub) 1 inh inhalation Q12H isopropyl alcohol in glycerin 95-5 % (Debrox Swimmer's Ear) 5 drps otic (ears) DAILY lancets (FreeStyle Lancets) test daily lancets check bood sugar once a day ac paroxetine HCl (Paxil) mg PO paroxetine HCl 10 mg PO DAILY phenazopyridine (Pyridium) 200 mg PO TID 2 days tobramycin 0.3% 2 drps ophthalmic (eye) Q4H Tobacco use date assessed: 07/07/24 Dental Screening Dental Screen Date: 07/07/24 Did you have a dental visit in the last 12 months?: Yes Did you have a dental problem in the last 6 months where you did not have access to dental care?: No Was dental information given to patient?: Patient has dentist HPI Follow up HPI Details developmental delay; has asthma; stable PFSH Medical History Cognitive developmental delay Obesity Asthma Hyperlipidemia Surgical History Meatal stenosis S/P TURP (status post transurethral resection of prostate) History of foot surgery Family History Father Cancer Mother COPD (chronic obstructive pulmonary disease) Hypertension Maternal Aunt Liver cancer Social History Housing: Apartment Alcohol intake: never Patient Tobacco Use Status: Never used Tobacco e-Cigarette/Vaping Use: Never Used Second Hand Smoke Exposure: No service: No Current occupational status: employed Cognitive needs: No Hearing needs: Yes (hearing aide) Vision needs: Yes (glasses) Questionnaire PHQ-9 Over the last 2 weeks, how often have you been bothered by any of the following problems? 1. Little interest or pleasure in doing things: not at all 2. Feeling down, depressed, or hopeless: not at all 3. Trouble falling or staying asleep, or sleeping too much: not at all 4. Feeling tired or having little energy: not at all 5. Poor appetite or overeating: not at all 6. Feeling bad about yourself - or that you are a failure or have let yourself or your family down: not at all 7. Trouble concentrating on things, such as reading the newspaper or watching television: not at all 8. Moving or speaking so slowly that other people could have noticed. Or the opposite - being so fidgety or restless that you have been moving around a lot more than usual: not at all 9. Thoughts that you would be better off or of hurting yourself in some way: not at all Total score: 0 Depression Screening Interpretation: Negative Depression Screening Done: Yes Source: Developed by Drs. Alexandre Navarro, Angela Hannah, Palomo Hill and colleagues, with an educational julio from [employer]. Thrive Questionnaire Date Thrive assessed: 07/07/24 I am a: Patient What is your living situation today?: I have a steady place to live Within the past 12 months, did the food you bought not last and you didn't have the money to get more?: Never true Within the past 12 months, did you worry whether your food would run out before you got money to buy more?: Never true Do you have trouble paying for medicines?: No Do you have trouble getting transportation to medical appointments?: No Do you have trouble paying your heating and electricity bill?: No Do you have trouble taking care of your child, family member or friend?: No Do you have trouble with day-to-day activities such as bathing, preparing meals, shopping, managing finances, etc.?: No Are you currently unemployed and looking for a job?: No Are you interested in more education?: No Please select the resources that you would like help with: None Currently or been in a relationship where the following occur: No concerns reported THRIVE Score: 0 AUDIT C Alcohol Use Questionnaire (AUDIT-C) 1. How often do you have a drink containing alcohol?: Never Total Score: 0 MAR-7 AMB Questionnaire MAR-7 Date MAR - 7 assessed: 07/07/24 Feeling nervous, anxious, or on edge: 0 = Not at all Not being able to stop or control worryin = Not at all Worrying too much about different things: 0 = Not at all Trouble relaxin = Not at all Being so restless that it is hard to sit still: 0 = Not at all Becoming easily annoyed or irritable: 0 = Not at all Feeling afraid as if something awful might happen: 0 = Not at all Total MAR-7 score (0-4 normal; 5-9 mild; 10-14 moderate; 15-21 severe): 0 Source: Developed by Drs. Alexandre Navarro, Angela Hannah, Palomo Hill and colleagues, with an educational julio from [employer]. Review of Systems Const Denies chills, Denies headache(s) and Denies weight loss ENT Denies headache(s) Card Denies chest pain, Denies syncope, Denies irregular heart rhythm and Denies dyspnea Resp Denies chest congestion, Denies cough and Denies dyspnea GI Denies abdominal pain, Denies change in stool character, Denies nausea and Denies vomiting Musc Denies deformity and Denies joint swelling Neuro Denies syncope and Denies headache(s) Physical exam (Primary Care) Vital Signs: Last Vital Signs Temp 97.7 F 07/07/24 09:34 Pulse 114 H 07/07/24 09:34 BP 120/70 07/07/24 09:34 Pulse Ox 93 07/07/24 09:34 Oxygen Delivery Method Room Air 07/07/24 09:34 BMI result Body Mass Index 41.9 Tobacco/Smoking Status: Tobacco use Status Tobacco use date assessed 07/07/24 07/07/24 09:39 Patient Tobacco Use Status Never used Tobacco 07/07/24 09:39 e-Cigarette/Vaping Use Never Used 07/07/24 09:39 PHQ-9: PHQ-9 Score PHQ-9: Total score 0 07/07/24 09:39 Depression Screening Interpretation: Negative Thrive Assessment: Date of Thrive Assessment Date Thrive assessed 07/07/24 07/07/24 09:39 Currently or been in a relationship where the following occur: No concerns reported Const General: cooperative, comfortable, no acute distress and alert Neck Neck: Yes no lymphadenopathy Thyroid: Thyroid normal Resp Effort & Inspection: normal respiratory effort Auscultation: clear to auscultation bilaterally Percussion: percussion normal Cardio Jugular venous distension: no JVD Palpation: normal PMI Rate: regular rate Rhythm: regular rhythm Heart sounds: S1 normal heart sound present and S2 normal heart sound present GI Inspection: Yes normal to inspection Palpation (GI): No hepatosplenomegaly present Skin General skin exam: no rashes or lesions noted Extrem General: Yes no clubbing, cyanosis or edema Coding Level of Care Code Est Pt Level 3 (10527) Diagnoses Asthma J45.909 Type 2 diabetes mellitus with hyperlipidemia E11.69; E78.5 Assessment & Plan Assessment & Plan (1) Asthma: Code(s): J45.909 - Unspecified asthma, uncomplicated Category: Medical Plan: stable; same rx (2) Type 2 diabetes mellitus with hyperlipidemia: Code(s): E11.69 - Type 2 diabetes mellitus with other specified complication; E78.5 - Hyperlipidemia, unspecified Category: Medical Plan: compliant; cont same rx
[2024-07-07 09:34] VITALS: BP 120/70; PULSE 114; TEMP 36.5; O2SAT 93; BMI 41.9
--- OUTSIDE RECORDS SUMMARY | 2024-07-07 09:59 | XMS_ITS | Clinical Summary ---
Author Organization [facility] Address [address] [place] [address] Care Team Providers Care Hogshead Stripper Name Role Phone Becky Lobo DO Primary [...] Documents on File Type Date Recorded Patient Vet Tech Expl anation Health Care Decision (hx) 01/25/2016 AD HILL DIRECTIVE Health Care Decision (hx) 01/25/2016 AD HILL DIRECTIVE Care Teams Hogshead Stripper Relationship Specialty Start Date End Date Becky Lobo DO [address] [facility] [address] [place] [address] PCP - General 10/04/15
== END 2024-07-07 09:50 | disposition home or self-care (01) ==
PROVIDERS: PCP Internal Medicine; Visit Provider Internal Medicine
DX: J45.909 Unspecified asthma, uncomplicated (principal); E11.69 Type 2 diabetes mellitus with other specified complication; E78.5 Hyperlipidemia, unspecified

== ENCOUNTER → 2024-07-07 09:20 | Outpatient (BNVA) | payer MEDICARE, SELFPAY | PROVIDERS: PCP Internal Medicine; Visit Provider Internal Medicine | DX: J45.909 Unspecified asthma, uncomplicated (principal); E11.69 Type 2 diabetes mellitus with other specified complication; E78.5 Hyperlipidemia, unspecified | CPT/HCPCS: 99212 ==

== ENCOUNTER 2024-09-08 15:41 | Outpatient (AMB) | payer MEDICARE, SELFPAY ==
--- NOTE | 2024-09-08 15:44 | MHC.OFFWIV ---
Intake Vital Signs 09/08/24 15:46 Weight 204 lb BP 140/98 H Blood Pressure Location Rt brachial Position Sitting Pulse 129 H Pulse Source Pulse Oximeter Pulse Oximetry (%) 92 Oxygen Delivery Method Room Air Intake Visit Reasons: EP face swollen on LT side and red Intake Note: Patient here for left side of face red and swelling that has been present for 1 day. Patient Tobacco Use Status: Never used Tobacco Allergies penicillin V Allergy (Unknown, Verified 09/08/24 15:47) vomiting Penicillins [PENICILLINS] Allergy (Unknown, Verified 09/08/24 15:47) vomitting Do you need a note to return to daycare/school/sports/work: No HPI HPI Comments History of Present Illness Details History of Present Illness - The patient is a 59-year-old male presenting with redness and discharge from the left eye. - The issue began that morning after waking, with redness localized to the left side. - There is noticeable green, goopy discharge, and crustiness noted upon waking. Not painful, no change in vision - The patient did not report any pain or contact lens use and has not attempted any treatment prior to this consultation. Physical Exam General: Cooperative, healthy appearing, comfortable, no acute distress and well developed Orientation: Patient oriented x3 Limitations: No limitations Head: Normal to inspection Ears: Hearing grossly normal bilaterally Nose: Normal External nose present Face and sinus: Normal facial exam Eyes: left eye injection, with green fluid noted, EOM intact Neck: Normal visual inspection and Yes full ROM Respiratory: Normal respiratory effort and able to speak in complete sentences. Skin: No rashes or lesions noted Neuro: Patient oriented x3 Extremities: Normal to inspection [facility] Medical History Cognitive developmental delay Obesity Asthma Hyperlipidemia Surgical History Meatal stenosis S/P TURP (status post transurethral resection of prostate) History of foot surgery Family History Father Cancer Mother COPD (chronic obstructive pulmonary disease) Hypertension Maternal Aunt Liver cancer Social History Housing: Apartment Alcohol intake: never Patient Tobacco Use Status: Never used Tobacco e-Cigarette/Vaping Use: Never Used Second Hand Smoke Exposure: No service: No Current occupational status: employed Cognitive needs: No Hearing needs: Yes (hearing aide) Vision needs: Yes (glasses) Review of Systems Const All systems reviewed & are unremarkable except as noted in HPI and below Physical Exam Vital Signs: Last Vital Signs Pulse 129 H 09/08/24 15:46 BP 140/98 H 09/08/24 15:46 Pulse Ox 92 09/08/24 15:46 Oxygen Delivery Method Room Air 09/08/24 15:46 Assessment & Plan Assessment & Plan (1) Bacterial conjunctivitis of left eye: Code(s): H10.9 - Unspecified conjunctivitis Plan: I have diagnosed the patient with bacterial conjunctivitis, based on the presentation of green discharge and redness in the left eye. Treatment will involve the application of an ophthalmic ointment, administered four times daily, which should be collected from the patient's selected [facility] pharmacy. Emphasis was placed on appropriate application technique and hand hygiene to prevent contralateral eye involvement. The expected outcome is improvement with consistent medication use. Patient was informed and verbally consented to the use of an ambient scribe for clinic note documentation during this visit. Medications: New erythromycin Apply to left eye 4 times a day while awake 0.5 inches ophthalmic (eye) QID 3.5 grams 0RF Coding Level of Care Code Est Pt Level 3 (93217) Diagnoses Bacterial conjunctivitis of left eye H10.9
[2024-09-08 15:46] VITALS: BP 140/98; PULSE 129; O2SAT 92
--- OUTSIDE RECORDS SUMMARY | 2024-09-08 18:28 | XMS_ITS ---
Author Organization [facility] Address [address] [place] [address] Care Team Providers Care Hand Router Operator Name Role Phone Tony Patton MD Primary Care Provider Alberto Grissom Unavailable [phone] REASON FOR VISIT r/s 04/08 Encounters Encounter Location Date Provider Diagnosis [address] [address] 03/25/2024 Alberto Zambrano Plan Of Treatment Next Appt Details Provider Name:Alberto Zambrano , 10/03/2024 10:15:00 AM, [address] [place], [address], Progress Notes * Be REYESDOB:1964 (58 yo M)Acc No.[id number]:03/25/2024 Patient:?Be REYES :1965???Age:58 Y???Sex:Male Address:[address], [address], [place], [address] * true * Date:? Generated for Printi ng/Faxing/eTransmitting on:?09/08/2024 06:28 PM EDT
--- OUTSIDE RECORDS SUMMARY | 2024-09-08 18:28 | XMS_ITS | Patient Health Record ---
Author Organization [facility] Address [address] [place] [address] Care Team Providers Care Catalyst Supervisor Name Role Phone Abdi HENDERSON, Tony Primary Care Provider Unavaila Alberto Hopkins Unavailable [phone] Allergies Allergen (clinical drug ingredient) Drug/Non Drug [...] Lab: Notes/Report: HEMOGLOBIN A1C % (HH) 7.0 Reason For Referral No Information [...] Problem Acquired hammer toe of right foot (37661934549585 05) Other hammer toe(s) (acquired), right foot (M20.41) Active confirmed Problem Type 2 diabetes mellitus with peripheral angiopathy (266174522) Type 2 diabetes mellitus with diabetic peripheral angiopathy without gangrene (E11.51) Active confirmed Problem Acquired hammer toe of left foot (84654495767835 03) Other hammer toe(s) (acquired), left foot (M20.42) Active confirmed Problem Plantar wart (13980839) Plantar wart (B07.0) Active confirmed Vital Signs Height 5ft2in in 06/10/2024 Weight 205 lbs 06/10/2024 BMI 37.49 kg/m2 06/10/2024 Procedures Procedure Date Ordered Date Performed Result Body Sit e 84007-DWSPCTN NAIL, 6 OR MORE 11/06/2023 N/A 29633-Bitr Destruction, 1-14 11/06/2023 N/A 83153-UGZY SKIN LESIONS, 2 TO 4 11/06/2023 N/A 74849-HNOQGUJ NAIL, 6 OR MORE 01/15/2024 N/A 34216-Iwqy Destruction, 1-14 01/15/2024 N/A 77169-TVWQ SKIN LESIONS, 2 TO 4 01/15/2024 N/A 48847-DXKIGNL NAIL, 6 OR MORE 06/10/2024 N/A 02769-Jjke Destruction, 1-14 06/10/2024 N/A 17203-TUXP SKIN LESIONS, 2 TO 4 06/10/2024 N/A Encounters Encounter Location Date Provider Diagnosis [address] [address] 11/06/2023 Alberto Zambrano Type 2 diabetes mellitus with diabetic peripheral angiopathy without gangrene E11.51 ; Plantar wart B07.0 ; Tinea unguium B35.1 ; Pain in right toe(s) M79.674 ; Pain in left toe(s) M79.675 and Left foot pain M79.[address] [address] 01/15/2024 Alberto Zambrano Type 2 diabetes mellitus with diabetic peripheral angiopathy without gangrene E11.51 ; Plantar wart B07.0 ; Tinea unguium B35.1 ; Pain in right toe(s) M79.674 ; Pain in left toe(s) M79.675 ; Left foot pain M79.672 and Xerosis of skin L85.[address] [address] 06/10/2024 Alberto Zambrano Type 2 diabetes mellitus with diabetic peripheral angiopathy without gangrene E11.51 ; Plantar wart B07.0 ; Tinea unguium B35.1 ; Pain in right toe(s) M79.674 ; Pain in left toe(s) M79.675 ; Left foot pain M79.672 and Xerosis of skin L85.[address] [address] 03/25/2024 Alberto Zambrano Assessments Encounter Date Diagnosis (ICD Code) Assessment Notes Treatment Notes Treatment Clinical Notes Section Notes 11/06/2023 Type 2 diabetes mellitus with diabetic peripheral angiopathy without gangrene (ICD-10 - E11.51) 11/06/2023 Plantar wart (ICD-10 - B07.0) 06/10/2024 Type 2 diabetes mellitus with diabetic peripheral angiopathy without gangrene (ICD-10 - E11.51) 06/10/2024 Plantar wart (ICD-10 - B07.0) 01/15/2024 Type 2 diabetes mellitus with diabetic peripheral angiopathy without gangrene (ICD-10 - E11.51) 01/15/2024 Plantar wart (ICD-10 - B07.0) 01/15/2024 Tinea unguium (ICD-10 - B35.1) 06/10/2024 Tinea unguium (ICD-10 - B35.1) 11/06/2023 Tinea unguium (ICD-10 - B35.1) 11/06/2023 Pain in right toe(s) (ICD-10 - M79.674) 06/10/2024 Pain in right toe(s) (ICD-10 - M79.674) 01/15/2024 Pain in right toe(s) (ICD-10 - M79.674) 01/15/2024 Pain in left toe(s) (ICD-10 - M79.675) 06/10/2024 Pain in left toe(s) (ICD-10 - M79.675) 11/06/2023 Pain in left toe(s) (ICD-10 - M79.675) 11/06/2023 Left foot pain (ICD-10 - M79.672) 06/10/2024 Left foot pain (ICD-10 - M79.672) 01/15/2024 Left foot pain (ICD-10 - M79.672) 06/10/2024 Xerosis of skin (ICD-10 - L85.3) 01/15/2024 Xerosis of skin (ICD-10 - L85.3) 11/06/2023 Other 01/15/2024 Other 06/10/2024 Other Plan Of Treatment Pending Test Test Name Order Date 86223-PVXPPLT NAIL, 6 OR MORE 08/28/2023 13814-JDFTYAI NAIL, 6 OR MORE 01/15/2024 58548-TGPEYTM NAIL, 6 OR MORE 06/10/2024 63699-FEVOIJD NAIL, 6 OR MORE 11/06/2023 36481-Jyqh Destruction, 1-14 11/06/2023 41438-Qkby Destruction, 1-14 06/10/2024 35678-Dtki Destruction, 1-14 01/15/2024 67399-Rgdx Destruction, 1-14 08/28/2023 19729-JIHZ SKIN LESIONS, 2 TO 4 08/28/19 21859-CWVH SKIN LESIONS, 2 TO 4 01/15/20 69507-STXF SKIN LESIONS, 2 TO 4 06/10/19 11066-XJIJ SKIN LESIONS, 2 TO 4 11/06/19 Next Appt Details Provider Name:Alberto Lisa Zambrano , 10/03/2024 10:15:00 AM, [address] [place] [address], [address], Insurance Providers Payer Name Payer Address Payer Phone Subscriber Number Group Number Insured Name Patient Relationship to Insured Coverage Start Date Coverage End Date [facility] [employer] Claims [address] [place] [id number] Be Minaya Self - patient is the insured Medical (General) History Medical History History ICD Code asthma High blood pressure Hyperlipidemia Cognitive developmental delay Obesity Surgical History Surgery Date(Month/Year)
--- OUTSIDE RECORDS SUMMARY | 2024-09-08 18:29 | XMS_ITS ---
Author Organization [facility] Address [address] [place] [address] Care Team Providers Care Landscaper Helper Name Role Phone Abdi HENDERSON, Tony Primary Care Provider Unavaila Alberto Hopkins Unavailable [phone] Encounters Encounter Location Date Provider Diagnosis [facility] [address] [place] [address] 04/08/2024 Alberto Zambrano Plan Of Treatment Next Appt Details Provider Name:Alberto Zambrano , 10/03/2024 10:15:00 AM, [address] [place], [address], Progress Notes * Be REYESDOB:1964 (59 yo M)Acc No.[id number]:04/08/2024 Progress Note Patient:?Be REYES Provider:?Alberto Zambrano DPM :1965???Age:58 Y???Sex:Male Kevon e:04/08/2024 Address:[address], [phone] Pcp:Tony Patton MD Subjective: * Chief Complaints: * ??? * Medical History:? Objective: * Vitals:? Assessment: Plan: * Treatment: * Images: * The named appointment provid er may or may not be the originator of this progress note, and it is not deemed complete until electronically signed by the appointment provider. Sign off status: Pending * Provider:?Alberto Zambraon DPM Date:?2023 Generated for Willie west/Krista/Mohamud on:?09/08/2024 06:28 PM EDT
--- OUTSIDE RECORDS SUMMARY | 2024-09-08 18:29 | XMS_ITS | Clinical Summary ---
Author Organization [facility] ity Address [address] [place] [address] Care Team Providers Care Director Of Business Services Name Role Phone Becky Lobo DO Primary Care Provider + Medical History Medical History Date Comments Diabetes mellitus type 2, co ntrolled, with complications (CMS/HCC V24, CMS/HCC V28) DX:Diabetes m ellitus type 2, controlled, with complications (HCC) Essential [...] Annual BMP Blood Test 04/19/2022 COVID-19 Vaccine (2023-2 5 season) 2024 Influenza Vaccine (Season Ended) 2025 HIB Vaccines Aged Out No longer eligi [...] age to complete this topic Meningococcal B Vaccine Aged Out No l onger eligible based on patient's age to complete this topic RSV Immunization Patients Un shadia 20 months Aged Out No longer eligible b ased on patient's age to complete this topic Varicella Vaccines Aged Out No longer eligible based on patient's age to complete this topic Advance Directives Documents on File Type Date Recorded Patient Rubber Goods Inspector Expl anation Health Care Decision (hx) 01/25/2016 AD HILL DIRECTIVE Health Care Decision (hx) 01/25/2016 AD HILL DIRECTIVE Care Teams Director Of Business Services Relationship Specialty Start Date End Date Becky Lobo DO [address] [facility] [address] [place] [address] PCP - General 10/04/15
--- OUTSIDE RECORDS SUMMARY | 2024-09-08 18:29 | XMS_ITS ---
Author Organization [facility] Address [address] [place] [address] Care Team Providers Care Personal Lines Account Executive Name Role Phone Tony Patton MD Primary Care Provider Unavaila Alberto Hopkins Unavailable [phone] Allergies Allergen (clinical drug ingredient) Drug/Non Drug [...] Ordered Date Performed Result Body Sit e 51570-IDJKRTE NAIL, 6 OR MORE 06/10/2024 N/A 36905-Mnyf Destruction, 1-14 06/10/2024 N/A 37993-UAOB SKIN LESIONS, 2 TO 4 06/10/2024 N/A Encounters Encounter Location Date Provider Diagnosis [facility] [place] [address] [place] [address] 06/10/2024 Alberto Zambrano Type 2 diabetes mellitus [...] 06/10/2024 Pending Test Test Name Order Date 03514-DUJMBWH NAIL, 6 OR MORE 06/10/2024 34561-Bjkw Destruction, 1-14 06/10/2024 11813-OVDV SKIN LESIONS, 2 TO 4 06/10/19 25 Next Appt Details Follow Up: 3 Months, Reason: Provider Name:Alberto Zambrano , 10/03/2024 10:15:00 AM, [address] [place] [address], [address], Procedure Notes * Category Sub-Category Detail Notes Wart Treatment Procedure Verruca, as desc ribed in exam, were debrided to pin-point bleeding margins with sterile 15 surgical blade, silver nitrate chemocautery applied, recomm. immune-boosting meds such as zinc, recomm. follow up with topical chemosurgical agents, recomm. Rx Virasal Salicylic acid application under occlusion as directed, Pt defers any other forms of tx - 95520 Debride Nail 6-10 Nail debridement Due to [...] use of a nail nipper and/or dremel-type grinder hand, to a more viable healthy nail plate [...] to maintain effectiveness in symptomatic relief - 30484 Keratoma Treatment Parring or Cutting o f [...] instrumentation by the physician of record - 14677, Q8 Progress Notes * Be REYESDOB:1964 (59 yo M)Acc No.[id number]:06/10/2024 Progress Note Patient:?Be REYES Provider:?Alberto Zambrano DPM :1965???Age:59 Y???Sex:Male Kevon e:06/10/2024 Address: [address], [facility] Pcp:Tony Patton MD Subjective: * Chief Complaints: [...] congestionyes[Allergies Verified] Objective: * Vitals:?Ht:5ft2in, Wt:205, B NV:37.49, Shoe size:9.5, BS:126, Ht-cm: 157.48 cm, Wt-k.99 kg. * ???Past Orders: ???Lab:HEMOGLOBIN A1C (GLYCO HEMOGLOBIN) (Order Date - 10/15/2023) (Collection Date & Time - 04/14/2024 10:31 AM) ? Value Reference Range ?HEMOGLOBIN A1C % (HH) 7.0 * Examination: ???Ophthalmology Referral: ?DIABETES EYE EXAM?Procedure Performed:?Yes ?Date of Exam Performed?04/02/2024 ?Diabetic Retinopathy Screening:?Yes ?Findings of Diabetic Eye Exam:?no retinopathy?Vascular: ?DP PULSES (B):? 0/4, B/L.?PT PULSES (B):? [...] mellitus with diabetic peripheral angiopathy without gangrene?Procedure: 45352-YLAE SKIN LESIONS, 2 TO 4 3.?Tinea unguium?Procedure: 63224-QYQGYBT NAIL, 6 OR MORE * Procedures:?Debride Nail [...] use of a nail nipper and/or dremel-type grinder hand, to a more viable healthy nail plate [...] to maintain effectiveness in symptomatic relief - 86794.?Keratoma Treatment:?Parring or Cutting of Benign Hyperkeratotic Lesion(s)?(-56) [...] instrumentation by the physician of record - 16501, Q8.?Wart Treatment:?Procedure?Verruca, as described in exam, were debrided to pin-point bleeding margins with sterile 15 surgical blade, silver nitrate chemocautery applied, recomm. immune-boosting meds such as zinc, recomm. follow up with topical chemosurgical agents, recomm. Rx Virasal Salicylic acid application under occlusion as directed, Pt defers any other forms of tx - 86830.? * Procedure Codes:?30840 DEBRI DE NAIL, 6 OR MORE, Modifiers: XS 90741 Wart Destruction, 1-14, Modifiers: XS 60534 TRIM SKIN LESIONS, 2 TO 4, Modifiers: [...] Provider:?Alberto Zambrano DPM Date:?2024 Generated for Willie west/Krista/Mohamud on:?09/08/2024 06:28 PM EDT History and Physical Notes * HPI (History [...]
== END 2024-09-08 16:18 | disposition home or self-care (01) ==
PROVIDERS: PCP Internal Medicine; Visit Provider Physician Assistant
DX: H10.9 Unspecified conjunctivitis (principal)

== ENCOUNTER → 2024-09-08 15:41 | Outpatient (BNVA) | payer OTHER, SELFPAY | PROVIDERS: PCP Internal Medicine; Visit Provider Physician Assistant | DX: H10.9 Unspecified conjunctivitis (principal) | CPT/HCPCS: 99212 ==

== ENCOUNTER 2024-09-25 09:50 | Inpatient (IN) | payer OTHER, SELFPAY ==
[2024-09-25] VITALS (12 sets, daily range): BP systolic 135–174; BP diastolic 80–121; PULSE 111–140; RESP 18–28; TEMP 36.3–36.8; O2SAT 90–98; BMI 33.3
--- NOTE | ~2024-09-25 | XR_ITS ---
EXAMINATION: XR CHEST CLINICAL INFORMATION: sob COMPARISON: 12/06/2023. TECHNIQUE: Frontal view of the chest was obtained. FINDINGS: The cardiac, hilar, and mediastinal contours are normal. The lungs are clear bilaterally. No pneumothorax or effusion. No focal osseous or soft tissue abnormality. XR/XR chest 1V IMPRESSION: No active pulmonary disease. Electronically signed by: Rosendo Priest MD 09/25/2024 10:44 AM EDT
--- NOTE | 2024-09-25 10:12 | ECG_ITS ---
Test Reason : TACHY Blood Pressure : */* mmHG Vent. Rate : 128 BPM Atrial Rate : 128 BPM P-R Int : 156 ms QRS Dur : 88 ms QT Int : 304 ms P-R-T Axes : 72 -54 78 degrees QTcB Int : 443 ms Sinus tachycardia Biatrial enlargement Pulmonary disease pattern Left anterior fascicular block Abnormal ECG When compared with ECG of 06-Dec-2023 19:03, No significant change was found Referred By: Generic ED Physician Electronically Signed By: PARIS ALONZO MD
--- NOTE | 2024-09-25 10:39 | ED_ITS ---
HPI - General Adult General Chief complaint: General Medical Stated complaint: ulcer shoulder l Time Seen by Provider: 09/25/24 10:39 Source: patient, RN notes reviewed and old records reviewed Mode of arrival: ambulatory History of Present Illness ED Provider: Enma Gasca PA-C HPI narrative: 59-year-old male with a past medical history of cognitive developmental delay, obesity, asthma, HLD presenting to the ED complaining of stage II pressure ulcer to left shoulder per Business Department Chair. History obtained from rn case management who states there was concern that patient has been waking up with pus/drainage on pillow. Patient reports some SOB. Denies cough, chest pain, pedal edema, fever, sick contacts. Patient is poor historian Related Data Home Medications ?Medication ?Instructions ?Recorded ?Confirmed albuterol sulfate 90 mcg/actuation 2 puff inhalation Q4H PRN SOB 09/25/24 09/25/24 aerosol inhaler aripiprazole lauroxil 882 mg/3.2 882 mg IM Q28D 09/25/24 09/25/24 mL suspension, ext.rel. IM syringe ([place]) dulaglutide 0.75 mg/0.5 mL 0.75 mg subcut WE 09/25/24 09/25/24 subcutaneous [facility] escitalopram oxalate 5 mg/5 mL 5 mg PO DAILY 09/25/24 09/25/24 oral solution Previous Rx's ?Medication ?Instructions ?Recorded fluticasone 250 mcg-salmeterol 50 1 inh inhalation Q12H #60 ea 09/30/21 mcg/dose blistr powdr for inhalation ([facility]) blood-glucose meter (OneTouch #1 ea 08/17/22 Ultra2 Meter) lancets 28 gauge (FreeStyle #100 ea 11/07/22 Lancets) blood sugar diagnostic (FreeStyle #100 ea 11/08/22 Test strips) atorvastatin 20 mg tablet 20 mg PO BEDTIME 90 days #90 tabs 11/02/23 blood sugar diagnostic (OneTouch #50 ea 11/07/23 Ultra Test strips) lancets #100 ea 11/07/23 Allergies Allergy/AdvReac Type Severity Reaction Status Date / Time penicillin V Allergy Unknown vomiting Verified 09/25/24 10:08 Penicillins [PENICILLINS] Allergy Unknown vomitting Verified 09/25/24 10:08 Review of Systems 2 Review of Systems: Yes all other systems are reviewed and are negative Constitutional: Constitutional: Reports as per [facility] Past Medical History Attestation statement: The following information was validated with the patient. Source: old records reviewed Medical History Cognitive developmental delay Obesity Asthma Hyperlipidemia Surgical History Meatal stenosis S/P TURP (status post transurethral resection of prostate) History of foot surgery Family History Family History Father Cancer Mother COPD (chronic obstructive pulmonary disease) Hypertension Maternal Aunt Liver cancer Social History Social History Housing: Apartment Alcohol intake: never Patient Tobacco Use Status: Never used Tobacco Smoked in Last 30 Days: No e-Cigarette/Vaping Use: Never Used Second Hand Smoke Exposure: No Use of substances other than those prescribed or required for medical reasons: No Advance Directives: No Advance Directives Information Provided: Yes service: No Current occupational status: employed Cognitive needs: No Hearing needs: Yes (hearing aide) Vision needs: Yes (glasses) Physical Exam ED Vital Signs: Vital Signs - 24 hr 09/25/24 10:06 09/25/24 10:20 09/25/24 10:33 Temperature 97.4 F 97.9 F Pulse Rate 140 H 129 H 120 H Respiratory Rate 18 28 H 22 H Blood Pressure 174/121 H 162/96 H 152/96 H Pulse Oximetry 92 90 L 96 Oxygen Delivery Method Room Air Room Air Nasal Cannula Nasal Cannula Oxygen Flow Rate 3 09/25/24 11:01 09/25/24 12:21 Temperature 97.7 F Pulse Rate 121 H 113 H Respiratory Rate 19 22 H Blood Pressure 168/94 H Pulse Oximetry 98 Oxygen Delivery Method Nasal Cannula Oxygen Flow Rate 3 BMI result Body Mass Index 33.3 Const General: cooperative, healthy appearing and no acute distress Orientation/consciousness: patient oriented x3 Limitations: no limitations HENMT Head: Yes normal to inspection and Yes atraumatic Ears: hearing grossly normal bilaterally General nose exam: Normal external nose present Face and sinus: Yes normal facial exam Eyes General: appearance normal, both eyes and all related structures EOM: EOMs intact bilaterally Neck Neck: Yes normal visual inspection and Yes no meningeal signs Resp Effort & Inspection: labored, no respiratory distress and tachypneic Auscultation: wheezes expiratory wheezes, inspiratory wheezes and throughout Cardio Rate: regular rate and tachycardic Heart sounds: S1 normal heart sound present and S2 normal heart sound present GI Inspection: Yes normal to inspection Palpation (GI): Soft to palpation, nontender, no guarding and not rigid General: Yes no CVA tenderness Back/Spine/Pelvis Back: no CVA tenderness Skin Other: Please refer to image above of superficial ulcer to left shoulder. No warmth. Nontender. No fluctuance/induration or active drainage. Rashes: no rashes Neuro General: patient oriented x3, tone normal and no meningeal signs Cranial nerves: Yes CN's II-XII intact bilaterally Gait exam (Neuro): Normal gait present Extrem General: Yes normal to inspection, Yes no pedal edema and Yes no calf tenderness Course Course Course Narrative: -1116--no leukocytosis. BUN chronically elevated. Lactic acid elevated 2.9 > likely from work of breathing XR chest 1V IMPRESSION: No active pulmonary disease. -1218--labs otherwise reassuring. On re-evaluation patient is still with diffuse expiratory wheeze. Will give IV magnesium and additional breathing treatment -viral testing negative > plan to admit for further management. 1315--case discussed with hospitalist Medications Administered Generic Name Dose Route Start Last Admin Trade Name Freq PRN Reason Stop Dose Admin Enoxaparin Sodium 40 mg 09/25/24 14:15 09/25/24 15:14 Enoxaparin Sodium 40 Mg/0.4 Ml Syringe SUBCUT 40 mg Q24H ALIYA Administration Insulin Human Lispro 0 unit 09/25/24 16:30 09/25/24 17:31 Insulin Lispro 100 Unit/Ml 3 Ml Vial SUBCUT 6 unit QIDACHS ALIYA Administration Protocol Sodium Chloride 3 ml 09/25/24 16:00 09/25/24 17:32 0.9 % Sodium Chloride Flush 3 Ml Syringe IVFLUSH 3 ml QSHIFT ALIYA Administration Discontinued Medications Generic Name Dose Route Start Last Admin Trade Name Freq PRN Reason Stop Dose Admin Ceftriaxone Sodium 1 gm 09/25/24 10:47 09/25/24 11:17 Ceftriaxone Sodium 1 Gm Vial IVPUSH 09/25/24 10:48 1 gm ONCE ONE Administration Sodium Chloride 1,000 mls @ 999 mls/hr 09/25/24 10:45 09/25/24 11:18 Ns IV 09/25/24 11:45 999 mls/hr .Q1H1M ALIYA Administration Magnesium Sulfate 2 gm in 50 mls @ 25 mls/hr 09/25/24 12:18 09/25/24 12:50 Magnesium Sulfate/H2o IV 09/25/24 14:17 25 mls/hr ONCE ONE Administration Levalbuterol HCl 2.5 mg 09/25/24 11:00 09/25/24 11:06 Levalbuterol Hcl 1.25 Mg/3 Ml Vial.Neb INHALE 09/25/24 11:01 2.5 mg ONCE ONE Administration Methylprednisolone Sodium Succinate 60 mg 09/25/24 10:45 09/25/24 11:17 Methylprednisolone Sod Succ 125 Mg Vial IVPUSH 09/25/24 10:46 60 mg ONCE ONE Administration Medical Decision Making Medical Decision Making MDM Narrative: 59-year-old male with a past medical history of cognitive developmental delay, obesity, asthma, HLD presenting to the ED complaining of stage II pressure ulcer to left shoulder per Business Department Chair. Patient reports some SOB. On exam hypertensive, tachycardic, tachypneic, diffuse inspiratory and expiratory wheeze appreciated. Pressure ulcer as depicted in picture above. Concern for asthma exacerbation vs viral illness vs pneumonia. Pressure ulcer superficial and without evidence of acute infection or abscess formation. Lower suspicion for ACS, CHF, dissection or osteomyelitis Plan: EKG, labs, CXR, viral testing, ED bronch protocol, IV Solu-Medrol, empiric Rocephin, re-evaluate, ED bronch protocol Please refer to course for remaining clinical decision making, interpretation of labs/imaging results, and discussions with consultants and/or family members. Differential Diagnosis Differential Diagnoses: The differential diagnosis associated with the presentation includes As above Admission/Observation Consideration of admission/observation: Escalation of care including admission/observation considered Lab Data [facility] Lab Attestation statement: I reviewed the patient's lab results. 09/25/24 10:32 09/25/24 10:32 Labs: Lab Results 09/25/24 09/25/24 09/25/24 Range/Units 10:32 11:01 11:12 WBC 10.2 (4.8-10.8) X10*3/uL RBC 5.87 H (4.60-5.80) X10*6/uL Hgb 17.2 (14.0-18.0) g/dl Hct 52.1 H (42.0-52.0) % MCV 88.8 (80.0-98.0) fL MCH 29.3 (27.0-33.0) pg MCHC 33.0 (31.0-36.0) g/dl RDW 12.6 (11.0-16.0) % Plt Count 277 (160-400) X10*3/uL MPV 10.1 (9.4-12.4) fL Immature Gran % (Auto) 0.5 H (0.0-0.4) % Neut % (Auto) 70.7 (45-73) % Lymph % (Auto) 21.2 (20-40) % Tate % (Auto) 6.3 (2-11) % Eos % (Auto) 1.1 (0-4) % Baso % (Auto) 0.2 (0-2) % Lymph # (Auto) 2.2 (1.2-4.9) X10*3/uL Tate # (Auto) 0.6 (0.1-1.2) X10*3/uL Eos # (Auto) 0.1 (0.0-0.4) X10*3/uL Baso # (Auto) 0.0 (0.0-0.2) X10*3/uL Abs Immat Gran (auto) 0.05 H (0.00-0.03) X10*3/uL Absolute Neuts (auto) 7.2 (2.0-8.3) x10*3/uL Absolute Nucleated RBC 0.000 (0.0-0.012) X10*3/uL Nucleated RBC % (auto) 0.0 (0.0-0.2) /100WBC PT 12.0 (10.9-12.4) SEC INR 1.0 (0.9-1.1) Sodium 144 (135-145) mmol/L Potassium 3.6 (3.3-5.1) mmol/L Chloride 103 (96-108) mmol/L Carbon Dioxide 28 (22-29) mmol/L Anion Gap 17 (12-20) BUN 24 H (9-16) mg/dL Creatinine 1.14 (0.5-1.4) mg/dL Estim Creat Clear Calc 73.1 Estimated GFR > 60 Random Glucose 199 H (60-115) mg/dL Lactic Acid 2.9 H* (0.5-2.0) mmol/L Lactic Acid F/U @ 2Hr (0.5-2.0) mmol/L Calcium 10.3 H (8.4-10.2) mg/dL Magnesium 1.7 (1.6-2.6) mg/dL Total Bilirubin 0.7 (0.0-1.0) mg/dL AST 32 (5-37) U/L ALT 33 (0-40) U/L Alkaline Phosphatase 66 (39-117) U/L Troponin I High Sens < 2.7 D (<3.5-35.0) ng/L B-Natriuretic Peptide < 10 (<100) pg/mL Total Protein 7.7 (6.5-8.0) g/dL Albumin 4.5 (3.5-5.0) g/dL Influenza Type A (PCR) NEGATIVE (Negative) Influenza Type B (PCR) NEGATIVE (Negative) RSV RNA Qual (PCR) NEGATIVE (Negative) SARS-CoV-2 RNA (RT-PCR) NEGATIVE (Negative) 09/25/24 Range/Units 14:07 WBC (4.8-10.8) X10*3/uL RBC (4.60-5.80) X10*6/uL Hgb (14.0-18.0) g/dl Hct (42.0-52.0) % MCV (80.0-98.0) fL MCH (27.0-33.0) pg MCHC (31.0-36.0) g/dl RDW (11.0-16.0) % Plt Count (160-400) X10*3/uL MPV (9.4-12.4) fL Immature Gran % (Auto) (0.0-0.4) % Neut % (Auto) (45-73) % Lymph % (Auto) (20-40) % Tate % (Auto) (2-11) % Eos % (Auto) (0-4) % Baso % (Auto) (0-2) % Lymph # (Auto) (1.2-4.9) X10*3/uL Tate # (Auto) (0.1-1.2) X10*3/uL Eos # (Auto) (0.0-0.4) X10*3/uL Baso # (Auto) (0.0-0.2) X10*3/uL Abs Immat Gran (auto) (0.00-0.03) X10*3/uL Absolute Neuts (auto) (2.0-8.3) x10*3/uL Absolute Nucleated RBC (0.0-0.012) X10*3/uL Nucleated RBC % (auto) (0.0-0.2) /100WBC PT (10.9-12.4) SEC INR (0.9-1.1) Sodium (135-145) mmol/L Potassium (3.3-5.1) mmol/L Chloride (96-108) mmol/L Carbon Dioxide (22-29) mmol/L Anion Gap (12-20) BUN (9-16) mg/dL Creatinine (0.5-1.4) mg/dL Estim Creat Clear Calc Estimated GFR Random Glucose (60-115) mg/dL Lactic Acid (0.5-2.0) mmol/L Lactic Acid F/U @ 2Hr 2.3 H* (0.5-2.0) mmol/L Calcium (8.4-10.2) mg/dL Magnesium (1.6-2.6) mg/dL Total Bilirubin (0.0-1.0) mg/dL AST (5-37) U/L ALT (0-40) U/L Alkaline Phosphatase (39-117) U/L Troponin I High Sens (<3.5-35.0) ng/L B-Natriuretic Peptide (<100) pg/mL Total Protein (6.5-8.0) g/dL Albumin (3.5-5.0) g/dL Influenza Type A (PCR) (Negative) Influenza Type B (PCR) (Negative) RSV RNA Qual (PCR) (Negative) SARS-CoV-2 RNA (RT-PCR) (Negative) Independent Interpretation I performed an independent interpretation of an: EKG and Plain X-Ray Radiology Impression Discussion of test interpretation with radiology: I have reviewed the radiologist's reading. Independent Historian Clinical information obtained from an independent historian. History obtained from or confirmed by: Other External Record Review External record reviewed: Inpatient record, Office record, Outpatient record, Prior outpatient labs, Prior outpatient radiology, Primary care record and Outside ED record Tests considered The following testing was considered but not selected: As above Prescription Management I considered prescription management with: Antibiotic and Other Chronic Conditions Patient?s care impacted by: Other Social Determinants Patient?s care significantly limited by Social Determinants of Health including: Other Social Determinant of Health Critical Care Time Critical Care Time Critical Care Time: Yes Total Critical Care Time: 45 Attestation: I have personally provided critical care time exclusive of time spent on separately billable procedures. Time includes review of lab data, radiology results, discussion with consultants, and monitoring for potential decompensation. Intervention performed as documented. Discharge Plan Discharge Clinical Impression: Pressure ulcer Asthma exacerbation Qualifiers: Asthma severity: unspecified severity Asthma persistence: unspecified Qualified Code(s): J45.901 - Unspecified asthma with (acute) exacerbation Patient Disposition: Admitted As Inpatient
[2024-09-25 10:44] LABS: MANUAL DIFF FLAG NO
[2024-09-25 10:54] LABS: Basophils Percent Auto 0.2 % (0-2); Eosinophils Absolute Auto 0.1 X10*3/uL (0.0-0.4); Eosinophils Percent Auto 1.1 % (0-4); Hematocrit 52.1 % (42.0-52.0); Hemoglobin 17.2 g/dl (14.0-18.0); Imm Gran Abs Auto 0.05 X10*3/uL (0.00-0.03); Imm Gran Pct Auto 0.5 % (0.0-0.4); Lymphocytes Absolute Auto 2.2 X10*3/uL (1.2-4.9); Lymphocytes Percent Auto 21.2 % (20-40); Mean Corpuscular Hemoglobin 29.3 pg (27.0-33.0); Mean Corpuscular Volume 88.8 fL (80.0-98.0); Mean Platelet Volume 10.1 fL (9.4-12.4); Monocytes Absolute Auto 0.6 X10*3/uL (0.1-1.2); Monocytes Percent Auto 6.3 % (2-11); Neutrophils Absolute Auto 7.2 x10*3/uL (2.0-8.3); Neutrophils Percent Auto 70.7 % (45-73); Platelet Count 277 X10*3/uL (160-400); Red Blood Count 5.87 X10*6/uL (4.60-5.80); Red Cell Distribution Width 12.6 % (11.0-16.0); White Blood Count 10.2 X10*3/uL (4.8-10.8)
[2024-09-25 11:06] LABS: Alanine Aminotransferase 33 U/L (0-40); Albumin Level 4.5 g/dL (3.5-5.0); Alkaline Phosphatase 66 U/L (39-117); Anion Gap 17 (12-20); Aspartate Amino Transferase 32 U/L (5-37); Bilirubin Total 0.7 mg/dL (0.0-1.0); Blood Urea Nitrogen 24 mg/dL (9-16); Calcium 10.3 mg/dL (8.4-10.2); Carbon Dioxide 28 mmol/L (22-29); Chloride 103 mmol/L (96-108); Creatinine Clr Calc Pharmacy 73.1; Estimated Glomerular Filt Rate > 60; Glucose Random 199 mg/dL (60-115); Potassium 3.6 mmol/L (3.3-5.1); Sodium 144 mmol/L (135-145); Total Protein 7.7 g/dL (6.5-8.0)
[2024-09-25] MEDS: levalbuterol HCL 1.25 MG/3 ML VIAL.NEB 2.5 MG INHALE (11:06)
[2024-09-25 11:09] LABS: Lactic Acid 2.9 mmol/L (0.5-2.0)
[2024-09-25] MEDS: cefTRIAXone sodium 1 GM VIAL IVPUSH (11:17)
[2024-09-25 11:18] LABS: Troponin-I High Sensitivity < 2.7 ng/L (<3.5-35.0)
[2024-09-25] MEDS: 0.9 % Sodium Chloride 1,000 ML 999 ML IV (11:18)
[2024-09-25 11:21] LABS: Magnesium 1.7 mg/dL (1.6-2.6)
[2024-09-25 11:27] LABS: B Type Natriuretic Peptide < 10 pg/mL (<100)
[2024-09-25 11:58] LABS: Influenza A PCR NEGATIVE (Negative); Influenza B PCR NEGATIVE (Negative); Resp Syncy Virus RNA Qual PCR NEGATIVE (Negative); SARS COV2 PCR INHOUSE NEGATIVE (Negative)
--- OUTSIDE RECORDS SUMMARY | 2024-09-25 12:23 | XMS_ITS | Clinical Summary ---
Author Organization [employer] [facility] ity Address [address] [place] [address] Care Team Providers Care Velvet Cutter Name Role Phone Becky Lobo DO Primary [...] Documents on File Type Date Recorded Patient Cafe Operator Expl anation Health Care Decision (hx) 01/25/2016 AD HILL DIRECTIVE Health Care Decision (hx) 01/25/2016 AD HILL DIRECTIVE Care Teams Velvet Cutter Relationship Specialty Start Date End Date Becky Lobo DO [address] [facility] [address] [place] [address] PCP - General 10/04/15
--- OUTSIDE RECORDS SUMMARY | 2024-09-25 12:23 | XMS_ITS ---
Author Organization [facility] Address [address] [facility] [place] [address] Care Team Providers Care Elevator Technician Name Role Phone Tony Patton MD Primary Care Provider Unavaila Alberto Hopkins Unavailable [phone] Allergies Allergen (clinical drug ingredient) Drug/Non Drug [...] Ordered Date Performed Result Body Sit e 21087-YSTFRRS NAIL, 6 OR MORE 06/10/2024 N/A 06197-Qvgv Destruction, 1-14 06/10/2024 N/A 27935-BWBA SKIN LESIONS, 2 TO 4 06/10/2024 N/A Encounters Encounter Location Date Provider Diagnosis [facility] [place] [address] [place] [address] 06/10/2024 Alberto Zambrano Type 2 diabetes mellitus [...] 06/10/2024 Pending Test Test Name Order Date 46824-TUXURRV NAIL, 6 OR MORE 06/10/2024 13977-Icka Destruction, 1-14 06/10/2024 14466-KNAC SKIN LESIONS, 2 TO 4 06/10/19 25 Next Appt Details Follow Up: 3 Months, Reason: Provider Name:Alberto Zambrano , 10/03/2024 10:15:00 AM, [address] [place] [address], [address], Procedure Notes * Category Sub-Category Detail Notes Wart Treatment Procedure Verruca, as desc ribed in exam, were debrided to pin-point bleeding margins with sterile 15 surgical blade, silver nitrate chemocautery applied, recomm. immune-boosting meds such as zinc, recomm. follow up with topical chemosurgical agents, recomm. Rx Virasal Salicylic acid application under occlusion as directed, Pt defers any other forms of tx - 99260 Debride Nail 6-10 Nail debridement Due to [...] use of a nail nipper and/or dremel-type level vial inside grinder, to a more viable healthy nail [...] to maintain effectiveness in symptomatic relief - 08763 Keratoma Treatment Parring or Cutting o f [...] instrumentation by the physician of record - 35925, Q8 Progress Notes * Be REYESDOB:1964 (59 yo M)Acc No.[id number]:06/10/2024 Progress Note Patient:?Be REYES Provider:?Alberto Zambrano DPM :1965???Age:59 Y???Sex:Male Kevon e:06/10/2024 Address: [address], [facility] Pcp:Tony Patton MD Subjective: * Chief Complaints: [...] congestionyes[Allergies Verified] Objective: * Vitals:?Ht:5ft2in, Wt:205, B ND:37.49, Shoe size:9.5, BS:126, Ht-cm: 157.48 cm, Wt-k.99 [...] mellitus with diabetic peripheral angiopathy without gangrene?Procedure: 74991-VXGS SKIN LESIONS, 2 TO 4 3.?Tinea unguium?Procedure: 92319-LPFMLHE NAIL, 6 OR MORE * Procedures:?Debride Nail [...] use of a nail nipper and/or dremel-type level vial inside grinder, to a more viable healthy nail [...] to maintain effectiveness in symptomatic relief - 73632.?Keratoma Treatment:?Parring or Cutting of Benign Hyperkeratotic Lesion(s)?(-56) [...] instrumentation by the physician of record - 89623, Q8.?Wart Treatment:?Procedure?Verruca, as described in exam, were debrided to pin-point bleeding margins with sterile 15 surgical blade, silver nitrate chemocautery applied, recomm. immune-boosting meds such as zinc, recomm. follow up with topical chemosurgical agents, recomm. Rx Virasal Salicylic acid application under occlusion as directed, Pt defers any other forms of tx - 53511.? * Procedure Codes:?89166 DEBRI DE NAIL, 6 OR MORE, Modifiers: XS 05598 Wart Destruction, 1-14, Modifiers: XS 39789 TRIM SKIN LESIONS, 2 TO 4, Modifiers: [...] Zambrano DPM Date:?2024 Generated for Willie west/Krista/Mohamud on:?09/25/2024 12:22 PM EDT History and Physical Notes * [...]
--- OUTSIDE RECORDS SUMMARY | 2024-09-25 12:23 | XMS_ITS | Patient Health Record ---
Author Organization [facility] Address [address] [place] [address] Care Team Providers Care Shaker Operator Name Role Phone Abdi HENDERSON, Tony Primary Care Provider Unavaila Alberto Hopkins Unavailable [phone] Allergies Allergen (clinical drug ingredient) Drug/Non Drug [...] Problem Acquired hammer toe of right foot (36446393573233 05) Other hammer toe(s) (acquired), right foot (M20.41) Active confirmed Problem Type 2 diabetes mellitus with peripheral angiopathy (828513875) Type 2 diabetes mellitus with diabetic peripheral angiopathy without gangrene (E11.51) Active confirmed Problem Acquired hammer toe of left foot (52390625156072 03) Other hammer toe(s) (acquired), left foot (M20.42) Active confirmed Problem Plantar wart (35266799) Plantar wart (B07.0) Active confirmed Vital Signs Height 5ft2in in 06/10/2024 Weight 205 lbs 06/10/2024 BMI 37.49 kg/m2 06/10/2024 Procedures Procedure Date Ordered Date Performed Result Body Sit e 39656-KOFBFNL NAIL, 6 OR MORE 11/06/2023 N/A 74636-Ipdv Destruction, 1-14 11/06/2023 N/A 66180-QUFM SKIN LESIONS, 2 TO 4 11/06/2023 N/A 62978-NSNULNT NAIL, 6 OR MORE 01/15/2024 N/A 92134-Uvyg Destruction, 1-14 01/15/2024 N/A 45476-BUUO SKIN LESIONS, 2 TO 4 01/15/2024 N/A 28273-HORGELY NAIL, 6 OR MORE 06/10/2024 N/A 51349-Pqyu Destruction, 1-14 06/10/2024 N/A 96754-RYKZ SKIN LESIONS, 2 TO 4 06/10/2024 N/A Encounters Encounter Location Date Provider Diagnosis [address] [address] 11/06/2023 Alberto Zambrano Type 2 diabetes mellitus with diabetic peripheral angiopathy without gangrene E11.51 ; Plantar wart B07.0 ; Tinea unguium B35.1 ; Pain in right toe(s) M79.674 ; Pain in left toe(s) M79.675 and Left foot pain M79.[address] [address] 01/15/2024 Alberto Zambrano Type 2 diabetes mellitus with diabetic peripheral angiopathy without gangrene E11.51 ; Plantar wart B07.0 ; Tinea unguium B35.1 ; Pain in right toe(s) M79.674 ; Pain in left toe(s) M79.675 ; Left foot pain M79.672 and Xerosis of skin L85.[address] [address] 06/10/2024 Alberto Zambrano Type 2 diabetes mellitus with diabetic peripheral angiopathy without gangrene E11.51 ; Plantar wart B07.0 ; Tinea unguium B35.1 ; Pain in right toe(s) M79.674 ; Pain in left toe(s) M79.675 ; Left foot pain M79.672 and Xerosis of skin L85.[address] [address] 03/25/2024 Alberto Zambrano Assessments Encounter Date Diagnosis [...] 11/06/2023 Left foot pain (ICD-10 - M79.672) 01/15/2024 Left foot pain (ICD-10 - M79.672) 06/10/2024 Left foot pain (ICD-10 - M79.672) 06/10/2024 Xerosis of skin (ICD-10 - L85.3) 01/15/2024 Xerosis of skin (ICD-10 - L85.3) 11/06/2023 Other 01/15/2024 Other 06/10/2024 Other Plan Of Treatment Pending Test Test Name Order Date 29935-AOQIFME NAIL, 6 OR MORE 08/28/2023 33352-ZDLTQZB NAIL, 6 OR MORE 11/06/2023 46701-TVWTRJK NAIL, 6 OR MORE 01/15/2024 86421-VJAUQCK NAIL, 6 OR MORE 06/10/2024 51010-Yfun Destruction, 1-14 06/10/2024 66961-Tzgb Destruction, 1-14 01/15/2024 74130-Zxoc Destruction, 1-14 11/06/2023 14948-Csab Destruction, 1-14 08/28/2023 97029-KSNZ SKIN LESIONS, 2 TO 4 08/28/19 62287-CTOA SKIN LESIONS, 2 TO 4 11/06/19 54062-DXEO SKIN LESIONS, 2 TO 4 01/15/20 24568-HNTN SKIN LESIONS, 2 TO 4 06/10/19 Next Appt Details Provider Name:Alberto Zambrano , 10/03/2024 10:15:00 AM, [address] [place] [address], [phone], Insurance Providers Payer Name Payer Address Payer Phone Subscriber Number Group Number Insured Name Patient Relationship to Insured Coverage Start Date Coverage End Date [facility] [employer] Claims [address] [place] [id number] Be Minaya Self - patient is the insured Medical (General) History Medical History History ICD Code asthma High blood pressure Hyperlipidemia Cognitive developmental delay Obesity Surgical History Surgery Date(Month/Year)
--- OUTSIDE RECORDS SUMMARY | 2024-09-25 12:23 | XMS_ITS ---
Author Organization [facility] Address [address] [place] [address] Care Team Providers Care Manager Of Community Relations Name Role Phone Abdi HENDERSON, Tony Primary Care Provider Unavaila Alberto Hopkins Unavailable [phone] Encounters Encounter Location Date Provider Diagnosis [facility] [address] [place] [address] 04/08/2024 Alberto Zambrano Plan Of Treatment Next Appt Details Provider Name:Alberto Zambrano , 10/03/2024 10:15:00 AM, [address] [place], [address], Progress Notes * Be REYESDOB:1964 (59 yo M)Acc No.[id number]:04/08/2024 Progress Note Patient:?Be REYES Provider:?Alberto Zambrano DPM :1965???Age:58 Y???Sex:Male Kevon e:04/08/2024 Address:[address], [place] Pcp:Tony Patton MD Subjective: * Chief Complaints: [...] Zambrano DPM Date:?2023 Generated for Willie west/Krista/Mohamud on:?09/25/2024 12:22 PM EDT
--- OUTSIDE RECORDS SUMMARY | 2024-09-25 12:23 | XMS_ITS ---
Author Organization [facility] Address [address] [place] [address] Care Team Providers Care Dobby Loom Chain Pegger Name Role Phone Abdi HENDERSON, Tony Primary Care Provider Unavaila Alberto Hopkins Unavailable [phone] Grewal Encounters Encounter Location Date Provider Diagnosis [address] [address] 09/12/2024 Alberto Zambrano Plan Of Treatment Next Appt Details Provider Name:Alberto Zambrano , 10/03/2024 10:15:00 AM, [address] [place], [address], Progress Notes * Be REYESDOB:1964 (59 yo M)Acc No.[id number]:09/12/2024 Progress Note Patient:?Be REYES Provider:?Alberto Zambrano DPM :1965???Age:59 Y???Sex:Male Kevon e:09/12/2024 Address:[address], [id number] Pcp:Tony Patton MD Subjective: * Chief Complaints: * ???1. Dr Grewal. * Medical History:? Objective: * Vitals:? Assessment: Plan: * Treatment: * Images: * The named appointment provid er may or may not be the originator of this progress note, and it is not deemed complete until electronically signed by the appointment provider. Sign off status: Pending * Provider:?Alberto Zambrano DPM Date:?2024 Generated for Willie west/Krista/Mohamud on:?09/25/2024 12:22 PM EDT
[2024-09-25 12:41] LABS: Reflex Lactate? Lactic Acid Added
[2024-09-25] MEDS: Magnesium Sulfate/H2O 2 GM/50 ML PIGGYBACK IV (12:50)
--- NOTE | 2024-09-25 14:08 | P.HPHOSP_ITS ---
History of Present Illness Date of Service: 09/25/24 <Pretty Jimenez DNP - Last Filed: 09/25/24 15:23> Attending physician on admission: Miguel Dooley <Pretty Jimenez DNP - Last Filed: 09/25/24 15:23> Chief Complaint: Admission H&P <Pretty Jimenez DNP - Last Filed: 09/25/24 15:23> 59-year-old male with a past medical history of cognitive developmental delay, obesity, asthma and hyperlipidemia initially presented to the ED reporting a stage II pressure ulcer to his left shoulder, found to be in asthma exacerbation. His WBC is 10.4, no anemia, magnesium level 1.7. Negative flu, RSV and COVID. Chest x-ray demonstrates no active disease. Lactic acid 2.9, repeat pending. Liver function within normal limits. Ca+ 10.3, similar in Jun. Random glucose level 199. BUN 24/1.14. In the ED he received a L of normal saline, Solu-Medrol, a dose of Rocephin, Xopenex inhaler as well as a dose of magnesium. On exam he is hypertensive, tachycardic, slightly tachypneic, but he reports that he is feeling slightly better. Wears 02 at home at night per his report. Lives alone in apartment with caregivers. <Pretty Jimenez DNP - Last Filed: 09/25/24 15:23> Review of Systems 2 Review of Systems: Reports mild shortness of breath, No chest pain, dizziness, lightheadedness, abdominal pain or discomfort, nausea vomiting or diarrhea <Pretty Jimenez DNP - Last Filed: 09/25/24 15:23> [facility] Medical History: Medical History Cognitive developmental delay Obesity Asthma Hyperlipidemia <Pretty Jimenez DNP - Last Filed: 09/25/24 15:23> Family History: Family History Father Cancer Mother COPD (chronic obstructive pulmonary disease) Hypertension Maternal Aunt Liver cancer <Pretty Jimenez DNP - Last Filed: 09/25/24 15:23> Surgical History: Surgical History Meatal stenosis S/P TURP (status post transurethral resection of prostate) History of foot surgery <Pretty Jimenez DNP - Last Filed: 09/25/24 15:23> Social History: Social History Housing: Apartment Alcohol intake: never Patient Tobacco Use Status: Never used Tobacco Smoked in Last 30 Days: No e-Cigarette/Vaping Use: Never Used Second Hand Smoke Exposure: No Use of substances other than those prescribed or required for medical reasons: No Advance Directives: No Advance Directives Information Provided: Yes service: No Current occupational status: employed Cognitive needs: No Hearing needs: Yes (hearing aide) Vision needs: Yes (glasses) <Pretty Jimenez DNP - Last Filed: 09/25/24 15:23> Meds Allergies/Adverse reactions: Allergies Allergy/AdvReac Type Severity Reaction Status Date / Time penicillin V Allergy Unknown vomiting Verified 09/25/24 10:08 Penicillins [PENICILLINS] Allergy Unknown vomitting Verified 09/25/24 10:08 <Pretty Jimenez DNP - Last Filed: 09/25/24 15:23> Active Medications: Current Medications Magnesium Sulfate (Magnesium Sulfate/H2o) 2 gm in 50 mls @ 25 mls/hr IV ONCE ONE Stop: 09/25/24 14:17 Last Admin: 09/25/24 12:50 Dose: 25 mls/hr <Pretty Jimenez DNP - Last Filed: 09/25/24 15:23> Home medications: Home Medications ?Medication ?Instructions ?Recorded ?Confirmed ?Last Taken ?Type albuterol sulfate 90 mcg/actuation 2 puff inhalation Q4H PRN SOB 09/25/24 09/25/24 Unknown History aerosol inhaler aripiprazole lauroxil 882 mg/3.2 882 mg IM Q28D 09/25/24 09/25/24 09/05/24 History mL suspension, ext.rel. IM syringe (Aristada) dulaglutide 0.75 mg/0.5 mL 0.75 mg subcut WE 09/25/24 09/25/24 09/24/24 History subcutaneous pen injector (Trulicity) escitalopram oxalate 5 mg/5 mL 5 mg PO DAILY 09/25/24 09/25/2425 History oral solution <Pretty Jimenez DNP - Last Filed: 09/25/24 15:23> Physical Exam 2 Vital Signs and Narrative: Vital Signs: Last Vital Signs Temp 97.7 F 09/25/24 12:21 Pulse 113 H 09/25/24 12:21 Resp 22 H 09/25/24 12:21 BP 168/94 H 09/25/24 12:21 Pulse Ox 98 09/25/24 12:21 O2 Del Method Nasal Cannula 09/25/24 12:21 O2 Flow Rate 3 09/25/24 12:21 BMI result Body Mass Index 33.3 <Pretty Jimenez DNP - Last Filed: 09/25/24 15:23> Alert and oriented X3, able to give good history. Neuro: CN II-X11 intact, no deficits, visual acuity intact EYES: PERRLA, EOM intact ENT: hearing intact Cardiac: S1 S2 RRR, no edema in Lower ext Pulmonary: Bilateral lungs with inspiratory and expiratory wheezing throughout. Slight increase WOB, speaking in full sentences. . Abdominal: BS active in all 4 quadrants, no guarding, tenderness, rebounding, obesity MSK: Strength 5/5 upper and lower extremities : no CVA tenderness no bladder distension Extremities: no edema in lower extremities Psych: mood stable, cooperative alert Skin: Warm and dry, no cyanosis. Small open area to shoulder, no warmth, no redness. Wound base pink. No drainage. <Pretty Jimenez DNP - Last Filed: 09/25/24 15:23> Results Labs CBC and Chem 7: 09/25/24 10:32 09/25/24 10:32 <Pretty Jimenez DNP - Last Filed: 09/25/24 15:23> Labs: Laboratory Results - last 24 hr 09/25/24 09/25/24 09/25/24 10:32 11:01 11:12 MCV 88.8 MCH 29.3 MCHC 33.0 RDW 12.6 Plt Count 277 MPV 10.1 Immature Gran % (Auto) 0.5 H Neut % (Auto) 70.7 Lymph % (Auto) 21.2 [place] % (Auto) 6.3 Eos % (Auto) 1.1 Baso % (Auto) 0.2 Lymph # (Auto) 2.2 [place] # (Auto) 0.6 Eos # (Auto) 0.1 Baso # (Auto) 0.0 Abs Immat Gran (auto) 0.05 H Absolute Neuts (auto) 7.2 Absolute Nucleated RBC 0.000 Nucleated RBC % (auto) 0.0 PT 12.0 INR 1.0 Anion Gap 17 Estim Creat Clear Calc 73.1 Estimated GFR > 60 Random Glucose 199 H Lactic Acid 2.9 H* Calcium 10.3 H Magnesium 1.7 Total Bilirubin 0.7 AST 32 ALT 33 Alkaline Phosphatase 66 B-Natriuretic Peptide < 10 Total Protein 7.7 Albumin 4.5 Influenza Type A (PCR) NEGATIVE Influenza Type B (PCR) NEGATIVE RSV RNA Qual (PCR) NEGATIVE SARS-CoV-2 RNA (RT-PCR) NEGATIVE <Pretty Jimenez DNP - Last Filed: 09/25/24 15:23> Imaging Radiologist's Impressions: Impressions Chest X-Ray 09/25/24 10:35 IMPRESSION: No active pulmonary disease. Electronically signed by: Rosendo Priest MD 09/25/2024 10:44 AM EDT RP <Pretty Jimenez DNP - Last Filed: 09/25/24 15:23> Assessment and Plan (1) Asthma exacerbation: Qualifiers: Asthma persistence: unspecified Asthma severity: u nspecified severity Qualified Code(s): J45.901 - Unspecified asthma with (acute) exacerbation <Pretty Jimenez DNP - Last Filed: 09/25/24 15:23> Status: Acute <Pretty Jimenez DNP - Last Filed: 09/25/24 15:23> (2) Acute lactic acidosis: Status: Acute <Pretty Jimenez DNP - Last Filed: 09/25/24 15:23> (3) Hypercalcemia: Status: Acute <Pretty Jimenez DNP - Last Filed: 09/25/24 15:23> 59-year-old male initially presented to the ED for reports of left shoulder wound. Reported some shortness of breath and found to be in an asthma exacerbation. Acute hypoxic respiratory failure in setting of Asthma exacerbation Requiring oxygen to maintain Sats greater than 90%, not on 02 during the day at baseline. Continue oxygen per protocol Received a dose of Rocephin. Little to no concern for PNA, continue Zithromax for 3 days for pleiotrophic effect. Continue Solu-Medrol 40 mg b.i.d. Respiratory therapy to follow Duonebs Q 6hours while awake. Acute Lactic acidosis Most likely due to hypoxia, not sepsis. Received 1 Liter NS. Cognitive Developmental delay/Schizophrenia Continue with home medication regime Aristada Monthly, Escitalopram. Type 2 DM with HLD. Continue Trulicity, Lispro sliding scale Wound Left shoulder No evidence of infection. Wound nurse consult Patient requires inpatient stay due to hypoxic respiratory failure, asthma exacerbation. <Pretty Jimenez DNP - Last Filed: 09/25/24 15:23> 59-year-old male initially presented to the ED for reports of left shoulder wound. Reported some shortness of breath and found to be in an asthma exacerbation. Acute hypoxic respiratory failure in setting of Asthma exacerbation Requiring oxygen to maintain Sats greater than 90%, not on 02 during the day at baseline. Continue oxygen per protocol Received a dose of Rocephin. Little to no concern for PNA, continue Zithromax for 3 days for pleiotrophic effect. Continue Solu-Medrol 40 mg b.i.d. Respiratory therapy to follow Duonebs Q 6hours while awake. Acute Lactic acidosis Most likely due to hypoxia, not sepsis. Received 1 Liter NS. Cognitive Developmental delay/Schizophrenia Continue with home medication regime Aristada Monthly, Escitalopram. Type 2 DM with HLD. Continue Trulicity, Lispro sliding scale Wound Left shoulder No evidence of infection. Wound nurse consult DVT PPx lovenox <Miguel Dooley MD - Last Filed: 09/25/24 17:50> Quality Stroke Does the patient have a stroke diagnosis?: No <Pretty Jimenez DNP - Last Filed: 09/25/24 15:23> VTE Prior VTE?: No <Pretty Jimenez DNP - Last Filed: 09/25/24 15:23> VTE Risk Level:: Medical - moderate - high <Pretty Jimenez DNP - Last Filed: 09/25/24 15:23> VTE Device Contraindication: Treatment Not Indicated <Pretty Jimenez DNP - Last Filed: 09/25/24 15:23> VTE Drug Contraindication: N/A - Med Ordered <Pretty Jimenez DNP - Last Filed: 09/25/24 15:23>
[2024-09-25 14:38] LABS: ~Lactic Acid-LAB USE ONLY 2.3 mmol/L (0.5-2.0)
[2024-09-25 15:13] LABS: Cancel Lactic Acid Canceled
[2024-09-25] MEDS: Enoxaparin Sodium 40 MG/0.4 ML SYRINGE SUBCUT (15:14)
--- NOTE | 2024-09-25 16:18 | PHA.MEDREC ---
Addendum entered by Deana Dihllon RPh 09/25/24 16:44: reviewed by [facility]. Original Note: Pharmacy Consult ? Medication Reconciliation Pharmacy has completed the medication reconciliation. Spoke didn't know his medications so he called his behavioral health case manager to confirm med list. Spoke to patient behavioral health case manager Myles over the phone and he was able to confirm all of patient medications. Myles confirmed Aristada 822 mg q28 days, Atorvastatin 20 mg, Escitalopram 5 mg , Proair and Fluticasone 250 mcg-salmeterol 50 mcg, Trulicity 0.75 mg every Sunday , last dose 09/24/24.
[2024-09-25 16:45] LABS: Glucose, Whole Blood 259 mg/dL (60-115)
[2024-09-25] MEDS: Insulin Lispro 100 UNIT/ML 3 ML VIAL SUBCUT ×2 (17:31→21:29)
[2024-09-25] MEDS: 0.9 % Sodium Chloride Flush 3 ML SYRINGE IVFLUSH (17:32)
[2024-09-25] MEDS: levalbuterol HCL 1.25 MG, Ipratropium Bromide 0.5 MG INHALE (19:52)
[2024-09-25 21:14] LABS: Glucose, Whole Blood 275 mg/dL (60-115)
[2024-09-25] MEDS: Atorvastatin Calcium 20 MG TABLET PO (21:31)
[2024-09-25] MEDS: methylPREDNISolone Sod Succ 40 MG/ML VIAL IV (21:31)
[2024-09-26] VITALS (9 sets, daily range): BP systolic 123–143; BP diastolic 77–90; PULSE 83–140; RESP 16–118; TEMP 36.2–36.9; O2SAT 88–96; BMI 33.3
[2024-09-26] MEDS: 0.9 % Sodium Chloride Flush 3 ML SYRINGE IVFLUSH ×4 (05:08→22:32)
--- NOTE | 2024-09-26 05:26 | PC.NURSE ---
pt sleeping most of the evening, pt out of bed with assistance, no sign of distress.
--- NOTE | 2024-09-26 05:37 | PC.NURSE ---
per Dr. Gay, no repeat Lactic. no sign of respiratory distress. pt resting comfortable.
[2024-09-26 07:33] LABS: Glucose, Whole Blood 230 mg/dL (60-115)
[2024-09-26] MEDS: Insulin Lispro 100 UNIT/ML 3 ML VIAL SUBCUT ×4 (07:36→22:31)
[2024-09-26] MEDS: levalbuterol HCL 1.25 MG, Ipratropium Bromide 0.5 MG INHALE ×4 (07:46→19:36)
[2024-09-26] MEDS: methylPREDNISolone Sod Succ 40 MG/ML VIAL IV ×2 (08:37→22:32)
[2024-09-26] MEDS: Escitalopram Oxalate 5 MG TABLET PO (08:37)
[2024-09-26 08:52] LABS: Anion Gap 19 (12-20); Blood Urea Nitrogen 26 mg/dL (9-16); Calcium 9.7 mg/dL (8.4-10.2); Carbon Dioxide 27 mmol/L (22-29); Chloride 103 mmol/L (96-108); Creatinine Clr Calc Pharmacy 90.5; Estimated Glomerular Filt Rate > 60; Glucose Random 195 mg/dL (60-115); Magnesium 2.1 mg/dL (1.6-2.6); Potassium 3.8 mmol/L (3.3-5.1); Sodium 145 mmol/L (135-145)
[2024-09-26] MEDS: Azithromycin 500 MG TABLET PO (09:07)
[2024-09-26] MEDS: Fluticasone/Vilanterol 100/25 BLST.W.DEV 1 PUFF INHALE (10:06)
--- NOTE | 2024-09-26 10:23 | PC.NURSE ---
pt still wheezy, short of breath. Hospitalist removed O2 for trial. tech went to do ambulation trial and pt was 88% on RA. Tech put oxygen back on and did not trial ambulate pt.
--- NOTE | 2024-09-26 11:11 | ECG_ITS ---
Test Reason : tachycardia Blood Pressure : */* mmHG Vent. Rate : 108 BPM Atrial Rate : 108 BPM P-R Int : 168 ms QRS Dur : 90 ms QT Int : 344 ms P-R-T Axes : 61 -27 53 degrees QTcB Int : 460 ms Sinus tachycardia Minimal voltage criteria for LVH, may be normal variant ( R in aVL ) Borderline ECG When compared with ECG of 25-Sep-2024 10:16, No significant change was found Referred By: Miguel Dooley Electronically Signed By: PARIS ALONZO MD
--- NOTE | 2024-09-26 11:43 | MHC.EDTECH ---
Pt is admitted EKG done. Not able to ammend due to pt being admitted, RN aware.
[2024-09-26 13:13] LABS: Glucose, Whole Blood 234 mg/dL (60-115)
[2024-09-26] MEDS: Enoxaparin Sodium 40 MG/0.4 ML SYRINGE SUBCUT (14:14)
--- NOTE | 2024-09-26 15:19 | P.PNIM_ITS ---
Subjective Subjective Date of Service: 09/26/24 Interval History: Seen and evaluated this morning still wheezy, O2 drops to 80s on room air tachycardia no other events Review of Systems Review of Systems: Yes all other systems are reviewed and are negative Physical Exam 2 Vital Signs: Vital Signs: Last Vital Signs Temp 98.4 F 09/26/24 06:16 Pulse 109 H 09/26/24 11:19 Resp 19 09/26/24 11:19 BP 131/81 09/26/24 06:16 Pulse Ox 96 09/26/24 10:55 O2 Del Method Room Air 09/26/24 10:55 O2 Flow Rate 3 09/26/24 06:16 BMI result Body Mass Index 33.3 Const: Other: Constitutional : Awake, interactive, in mild respiratory distress Neck : Normal inspection, Supple Cardiovascular : RRR, no JVP, no lower extremity edema Respiratory : decreased bilateral air entry, no crackles, bilateral expiratory wheezes Gastrointestinal: soft, lax, Normal bowel sounds, Non tender Skin : Warm, Dry Neurological : Alert & oriented x3, No focal deficit Objective Data Active Medications Acetaminophen (Acetaminophen 325 Mg Tablet) 650 mg PO Q6H PRN PRN Reason: Pain, Mild 1-3,fever,headache Atorvastatin Calcium (Atorvastatin Calcium 20 Mg Tablet) 20 mg PO BEDTIME [facility] Last Admin: 09/25/24 21:31 Dose: 20 mg Documented By: GURJIT Azithromycin (Azithromycin 500 Mg Tablet) 500 mg PO Q24H [facility] Stop: 09/29/24 09:59 Last Admin: 09/26/24 09:07 Dose: 500 mg Documented By: JOSE Calcium Carbonate (Calcium Carbonate 750 Mg Tab.Chew) 750 mg PO Q4H PRN PRN Reason: Heartburn Levalbuterol HCl 1.25 mg/ (Ipratropium [place] 0.5 mg) 0 mg INHALE RQID [facility] Last Admin: 09/26/24 11:17 Dose: 1 dose Documented By: JULIANA Dextrose (Dextrose 50 % 25 Gm/50 Ml Syringe) 25 gm IVPUSH Q15M PRN; Protocol PRN Reason: per Hypoglycemia Standing Ord. Enoxaparin Sodium (Enoxaparin Sodium 40 Mg/0.4 Ml Syringe) 40 mg SUBCUT Q24H [facility] Last Admin: 09/26/24 14:14 Dose: 40 mg Documented By: JOSE Escitalopram Oxalate (Escitalopram Oxalate 5 Mg Tablet) 5 mg PO DAILY [facility] Last Admin: 09/26/24 08:37 Dose: 5 mg Documented By: JOSE Fluticasone/Vilanterol (Fluticasone/Vilanterol 100/25 Blst.W.Dev) 1 puff INHALE RDAILY [facility] Last Admin: 09/26/24 10:06 Dose: 1 puff Documented By: JOSE Glucose (Glucose Gel 15 Gm Gel..Gram.) 15 gm PO Q15M PRN; Protocol PRN Reason: per Hypoglycemia Standing Ord. Insulin Human Lispro (Insulin Lispro 100 Unit/Ml 3 Ml Vial) 0 unit SUBCUT QIDACHS [facility]; Protocol Last Admin: 09/26/24 12:57 Dose: 4 unit Documented By: JOSE Levalbuterol HCl (Levalbuterol Hcl 1.25 Mg/3 Ml Vial.Neb) 1.25 mg INHALE Q4H PRN PRN Reason: Shortness of Breath/Wheezing Magnesium Hydroxide (Milk Of Magnesia 30 Ml Oral.Susp) 30 ml PO DAILY PRN PRN Reason: Constipation Melatonin (Melatonin 3 Mg Tablet) 6 mg PO BEDTIME PRN PRN Reason: Insomnia Methylprednisolone Sodium Succinate (Methylprednisolone Sod Succ 40 Mg/Ml Vial) 40 mg IV BID [facility] Last Admin: 09/26/24 08:37 Dose: 40 mg Documented By: JOSE Sodium Chloride (0.9 % Sodium Chloride Flush 3 Ml Syringe) 3 ml IVFLUSH QSHIFT [facility] Last Admin: 09/26/24 08:38 Dose: 3 ml Documented By: JOSE Labs 09/25/24 10:32 09/26/24 07:35 Labs: Laboratory Results - last 24 hr 09/25/24 09/25/24 09/26/24 16:41 21:08 07:25 Anion Gap Estim Creat Clear Calc Estimated GFR POC Glucose 259 H 275 H 230 H Random Glucose Calcium Magnesium 09/26/24 09/26/24 07:35 11:57 Anion Gap 19 Estim Creat Clear Calc 90.5 Estimated GFR > 60 POC Glucose 234 H Random Glucose 195 H Calcium 9.7 Magnesium 2.1 Microbiology Microbiology Results: Microbiology 09/25/24 11:13 Blood Culture - Preliminary Blood - Venous No growth after 24 hours. 09/25/24 10:59 Blood Culture - Preliminary Blood - Venous No growth after 24 hours. Assessment and Plan (1) Hypercalcemia: Status: Acute (2) Acute lactic acidosis: Status: Acute (3) Asthma exacerbation: Status: Acute (4) Acute respiratory failure with hypoxia: Status: Acute Plan 59-year-old male initially presented to the ED for reports of left shoulder wound. Reported some shortness of breath and found to be in an asthma exacerbation. Acute hypoxic respiratory failure in setting of Asthma exacerbation dropped to 88% on RA Continue oxygen per protocol continue Zithromax for 3 days for pleiotrophic effect. Continue Solu-Medrol 40 mg b.i.d. Xopenex nebs Respiratory therapy to follow Sinus tachycardia reactive to hypoxia and nebulizers monitor Acute Lactic acidosis Most likely due to hypoxia, not sepsis. Received 1 Liter NS. Cognitive Developmental delay/Schizophrenia Continue with home medication regime Aristada Monthly, Escitalopram. Type 2 DM with HLD. Continue Trulicity, Lispro sliding scale Wound Left shoulder No evidence of infection. Wound nurse consult DVT PPx lovenox Quality Stroke Does the patient have a stroke diagnosis?: No VTE Prior VTE?: No VTE Risk Level:: Medical - moderate - high VTE Device Contraindication: Treatment Not Indicated VTE Drug Contraindication: N/A - Med Ordered
--- NOTE | 2024-09-26 16:14 | HO.WOUND ---
Wound Consult: Initial 59yr old? admitted to [facility] on 09/25/24 - See progress notes and H&P for detailed history.? Wound consult placed for Left Shoulder.?Chart reviewed and photo reviewed and topical recommendations made based on information. Left Shoulder Etiology: ?Unclear Etiology at this time ?Present on Admission Wound Bed: yellow wound bed Drainage / Odor: unknonw however wound edge is rolled and appears macerated in photo Edges: ? Epibole Dodie wound: maceration and dark hyperpigmentation Goals of Treatment: ? Moisture management with Durafiber AG Recommendations: 1. Turn and Reposition every 2 hours and as needed for patient comfort.? Use pillows or wedges to support off loading positions. 2. Off Load all bony prominences with use of pillows and heel boots if needed.? Apply Preventative foams where needed. ? 3. Monitor for incontinence and moisture control, use barrier creams when needed for prevention and treatment. 4. Provide adequate and supplemental nutrition.? 5. When applicable maintain blood glucose levels per Providers order. Left Shoulder - Off Load Pressure with Q2 hr turns and use of pillows Cleanse and irrigate with NS, Pat dry.? Apply barrier to periwound, lightly pack with Durafiber AG, be sure to leave a wick to easy removal.? Cover with Foam dressing.? Change every other day. Re-consult wound care Nurse for wound deterioration or wound changes.
[2024-09-26 17:28] LABS: Glucose, Whole Blood 208 mg/dL (60-115)
[2024-09-26 21:23] LABS: Glucose, Whole Blood 202 mg/dL (60-115)
[2024-09-26] MEDS: Atorvastatin Calcium 20 MG TABLET PO (22:31)
[2024-09-27] VITALS (10 sets, daily range): BP systolic 117–149; BP diastolic 60–95; PULSE 77–122; RESP 17–18; TEMP 36.3–37.3; O2SAT 91–97
[2024-09-27 07:12] LABS: Glucose, Whole Blood 202 mg/dL (60-115)
[2024-09-27] MEDS: levalbuterol HCL 1.25 MG, Ipratropium Bromide 0.5 MG INHALE ×4 (08:01→20:55)
[2024-09-27] MEDS: Fluticasone/Vilanterol 100/25 BLST.W.DEV 1 PUFF INHALE (08:03)
[2024-09-27] MEDS: 0.9 % Sodium Chloride Flush 3 ML SYRINGE IVFLUSH ×3 (08:25→23:44)
[2024-09-27] MEDS: Insulin Lispro 100 UNIT/ML 3 ML VIAL SUBCUT ×4 (08:26→22:11)
[2024-09-27] MEDS: methylPREDNISolone Sod Succ 40 MG/ML VIAL IV ×2 (08:28→22:10)
[2024-09-27] MEDS: Escitalopram Oxalate 5 MG TABLET PO (08:28)
[2024-09-27] MEDS: Azithromycin 500 MG TABLET PO (10:52)
--- NOTE | 2024-09-27 10:52 | MHC.CM.PN ---
arlen 09/27/24, Pt. lives in his own apt. and takes care of himself, and has administrative support manager to assist him, he said he has a nurse, and Myles, who helps him and will come pick him up at [place]. He is his own guardian, and said that his HCP is his uncle Maximus. He uses [facility], no other DME. His PCP was Dr. Patton, he said he has to find a new MD now. DCP: home, resume his supportive services. CM to follow for DC needs.
[2024-09-27 11:33] LABS: Glucose, Whole Blood 226 mg/dL (60-115)
--- NOTE | 2024-09-27 11:53 | HO.PM.IMPN ---
Subjective Subjective Date of Service: 09/27/24 Interval History: Seen and evaluated this morning still wheezy, O2 drops to 80s on room air tachycardia no other events Physical Exam Vital Signs: Vital Signs: Last Vital Signs Temp 98.9 F 09/27/24 11:31 Pulse 114 H 09/27/24 11:31 Resp 17 09/27/24 11:31 BP 145/82 H 09/27/24 11:31 Pulse Ox 94 09/27/24 11:31 O2 Del Method Room Air 09/27/24 11:31 O2 Flow Rate 3 09/27/24 07:43 BMI result Body Mass Index 33.3 Const: Other: Constitutional : Awake, interactive, in mild respiratory distress Neck : Normal inspection, Supple Cardiovascular : RRR, no JVP, no lower extremity edema, tachycardia Respiratory : decreased bilateral air entry, no crackles, bilateral expiratory wheezes on O2 supplement Gastrointestinal: soft, lax, Normal bowel sounds, Non tender Skin : Warm, Dry Neurological : Alert & oriented x3, No focal deficit Objective Data Active Medications Acetaminophen (Acetaminophen 325 Mg Tablet) 650 mg PO Q6H PRN PRN Reason: Pain, Mild 1-3,fever,headache Atorvastatin Calcium (Atorvastatin Calcium 20 Mg Tablet) 20 mg PO BEDTIME [facility] Last Admin: 09/26/24 22:31 Dose: 20 mg Documented By: AKANKSHA Azithromycin (Azithromycin 500 Mg Tablet) 500 mg PO Q24H [facility] Stop: 09/29/24 09:59 Last Admin: 09/27/24 10:52 Dose: 500 mg Documented By: SUSHIL Calcium Carbonate (Calcium Carbonate 750 Mg Tab.Chew) 750 mg PO Q4H PRN PRN Reason: Heartburn Levalbuterol HCl 1.25 mg/ (Ipratropium [place] 0.5 mg) 0 mg INHALE RQID [facility] Last Admin: 09/27/24 11:20 Dose: 1 dose Documented By: OSVALDO Dextrose (Dextrose 50 % 25 Gm/50 Ml Syringe) 25 gm IVPUSH Q15M PRN; Protocol PRN Reason: per Hypoglycemia Standing Ord. Enoxaparin Sodium (Enoxaparin Sodium 40 Mg/0.4 Ml Syringe) 40 mg SUBCUT Q24H [facility] Last Admin: 09/26/24 14:14 Dose: 40 mg Documented By: JOSE Escitalopram Oxalate (Escitalopram Oxalate 5 Mg Tablet) 5 mg PO DAILY [facility] Last Admin: 09/27/24 08:28 Dose: 5 mg Documented By: SUSHIL Fluticasone/Vilanterol (Fluticasone/Vilanterol 100/25 Blst.W.Dev) 1 puff INHALE RDAILY [facility] Last Admin: 09/27/24 08:03 Dose: 1 puff Documented By: OSVALDO Glucose (Glucose Gel 15 Gm Gel..Gram.) 15 gm PO Q15M PRN; Protocol PRN Reason: per Hypoglycemia Standing Ord. Insulin Human Lispro (Insulin Lispro 100 Unit/Ml 3 Ml Vial) 0 unit SUBCUT QIDACHS [facility]; Protocol Last Admin: 09/27/24 08:26 Dose: 4 unit Documented By: SUSHIL Levalbuterol HCl (Levalbuterol Hcl 1.25 Mg/3 Ml Vial.Neb) 1.25 mg INHALE Q4H PRN PRN Reason: Shortness of Breath/Wheezing Magnesium Hydroxide (Milk Of Magnesia 30 Ml Oral.Susp) 30 ml PO DAILY PRN PRN Reason: Constipation Melatonin (Melatonin 3 Mg Tablet) 6 mg PO BEDTIME PRN PRN Reason: Insomnia Methylprednisolone Sodium Succinate (Methylprednisolone Sod Succ 40 Mg/Ml Vial) 40 mg IV BID [facility] Last Admin: 09/27/24 08:28 Dose: 40 mg Documented By: SUSHIL Sodium Chloride (0.9 % Sodium Chloride Flush 3 Ml Syringe) 3 ml IVFLUSH QSHIFT [facility] Last Admin: 09/27/24 08:25 Dose: 3 ml Documented By: SUSHIL Labs 09/25/24 10:32 09/26/24 07:35 Labs: Laboratory Results - last 24 hr 09/26/24 09/26/24 09/26/24 11:57 17:23 21:10 POC Glucose 234 H 208 H 202 H 09/27/24 09/27/24 07:06 11:30 POC Glucose 202 H 226 H Microbiology Microbiology Results: Microbiology 09/25/24 11:13 Blood Culture - Preliminary Blood - Venous No growth after 24 hours. 09/25/24 10:59 Blood Culture - Preliminary Blood - Venous No growth after 24 hours. Assessment and Plan (1) Acute respiratory failure with hypoxia: Status: Acute (2) Hypercalcemia: Status: Acute (3) Acute lactic acidosis: Status: Acute (4) Asthma exacerbation: Status: Acute Plan 59-year-old male initially presented to the ED for reports of left shoulder wound. Reported some shortness of breath and found to be in an asthma exacerbation. Acute hypoxic respiratory failure in setting of Asthma exacerbation dropped to 88% on RA, tachycardia at 140s with minimal exertion Continue oxygen per protocol continue Zithromax for pleiotrophic effect. Continue Solu-Medrol 40 mg b.i.d. Xopenex nebs Respiratory therapy to follow Sinus tachycardia reactive to hypoxia and nebulizers monitor Acute Lactic acidosis Most likely due to hypoxia, not sepsis. Received 1 Liter NS. Cognitive Developmental delay/Schizophrenia Continue with home medication regime Aristada Monthly, Escitalopram. Type 2 DM with HLD. Continue Trulicity, Lispro sliding scale Wound Left shoulder No evidence of infection. Wound nurse consult DVT PPx lovenox The patient will need overnight hospital stay for treatment of hypoxia secondary to asthma exacerbation on IV steroids and nebulizers treatment Quality Stroke Does the patient have a stroke diagnosis?: No VTE Prior VTE?: No VTE Risk Level:: Medical - moderate - high VTE Device Contraindication: Treatment Not Indicated VTE Drug Contraindication: N/A - Med Ordered
--- OUTSIDE RECORDS SUMMARY | 2024-09-27 12:03 | XMS_ITS | Clinical Summary ---
Author Organization [facility] ity Address [address] [place] [address] Care Team Providers Care Animal Shelter Clerk Name Role Phone Becky Lobo DO Primary [...] Documents on File Type Date Recorded Patient Composition Weatherboard Applier Expl anation Health Care Decision (hx) 01/25/2016 AD HILL DIRECTIVE Health Care Decision (hx) 01/25/2016 AD HILL DIRECTIVE Care Teams Animal Shelter Clerk Relationship Specialty Start Date End Date Becky Lobo DO [address] [facility] [address] [place] [address] PCP - General 10/04/15
--- OUTSIDE RECORDS SUMMARY | 2024-09-27 12:03 | XMS_ITS ---
Author Organization [facility] Address [address] [place] [address] Care Team Providers Care Surveillance Monitor Name Role Phone Abdi HENDERSON, Tony Primary Care Provider Unavaila Alberto Hopkins Unavailable [phone] Encounters Encounter Location Date Provider Diagnosis [facility] [address] [place] [address] 04/08/2024 Alberto Zambrano Plan Of Treatment Next Appt Details Provider Name:Alberto Zambrano , 10/03/2024 10:15:00 AM, [address] [place], [address], Progress Notes * Be REYESDOB:1964 (59 yo M)Acc No.[id number]:04/08/2024 Progress Note Patient:?Be REYES Provider:?Alberto Zambrano DPM :1965???Age:58 Y???Sex:Male Kevon e:04/08/2024 Address:[address], [id number] Pcp:Tony Patton MD Subjective: * Chief Complaints: [...] Zambrano DPM Date:?2023 Generated for Willie west/Krista/Mohamud on:?09/27/2024 12:02 PM EDT
--- OUTSIDE RECORDS SUMMARY | 2024-09-27 12:03 | XMS_ITS ---
Author Organization [facility] Address [address] [place] [address] Care Team Providers Care Securities Dealer Name Role Phone Abdi HENDERSON, Tony Primary Care Provider Unavaila Alberto Hopkins Unavailable [phone] Grewal Encounters Encounter Location Date Provider Diagnosis [address] [address] 09/12/2024 Alberto Zambrano Plan Of Treatment Next Appt Details Provider Name:Alberto Zambrano , 10/03/2024 10:15:00 AM, [address] [place], [address], Progress Notes * Be REYESDOB:1964 (59 yo M)Acc No.[id number]:09/12/2024 Progress Note Patient:?Be REYES Provider:?Alberto Zambrano DPM :1965???Age:59 Y???Sex:Male Kevon e:09/12/2024 Address:[address], [id number] Pcp:Tony Patton MD Subjective: * Chief Complaints: [...] Zambrano DPM Date:?2024 Generated for Willie west/Krista/Mohamud on:?09/27/2024 12:02 PM EDT
--- OUTSIDE RECORDS SUMMARY | 2024-09-27 12:03 | XMS_ITS ---
Author Organization [facility] Address [address] [place] [address] Care Team Providers Care Data Collection Technician Name Role Phone Tony Patton MD Primary Care Provider Unavaila Alberto Hopkins Unavailable [phone] Allergies Allergen (clinical drug ingredient) Drug/Non Drug [...] Ordered Date Performed Result Body Sit e 46646-RUVOHJW NAIL, 6 OR MORE 06/10/2024 N/A 31066-Nrsf Destruction, 1-14 06/10/2024 N/A 62749-VEET SKIN LESIONS, 2 TO 4 06/10/2024 N/A Encounters Encounter Location Date Provider Diagnosis [facility] [address] [place] [address] 06/10/2024 Alberto Zambrano Type 2 diabetes mellitus [...] 06/10/2024 Pending Test Test Name Order Date 65449-[id number] NAIL, 6 OR MORE 06/10/2024 39216-Buzl Destruction, 1-14 06/10/2024 06354-IYOF SKIN LESIONS, 2 TO 4 06/10/19 25 Next Appt Details Follow Up: 3 Months, Reason: Provider Name:Alberto Zambrano , 10/03/2024 10:15:00 AM, [address] [place] [address], [address], Procedure Notes * Category Sub-Category Detail Notes Wart Treatment Procedure Verruca, as desc ribed in exam, were debrided to pin-point bleeding margins with sterile 15 surgical blade, silver nitrate chemocautery applied, recomm. immune-boosting meds such as zinc, recomm. follow up with topical chemosurgical agents, recomm. Rx Virasal Salicylic acid application under occlusion as directed, Pt defers any other forms of tx - 20584 Debride Nail 6-10 Nail debridement Due to [...] use of a nail nipper and/or dremel-type knife grinder, to a more viable healthy nail [...] to maintain effectiveness in symptomatic relief - 36475 Keratoma Treatment Parring or Cutting o f [...] instrumentation by the physician of record - 03933, Q8 Progress Notes * Be REYESDOB:1964 (59 yo M)Acc No.[id number]:06/10/2024 Progress Note Patient:?Be REYES Provider:?Alberto Zambrano DPM :1965???Age:59 Y???Sex:Male Kevon e:06/10/2024 Address: [address], [id number] Pcp:Tony Patton MD Subjective: * Chief Complaints: [...] congestionyes[Allergies Verified] Objective: * Vitals:?Ht:5ft2in, Wt:205, B ID:37.49, Shoe size:9.5, BS:126, Ht-cm: 157.48 cm, Wt-k.99 [...] mellitus with diabetic peripheral angiopathy without gangrene?Procedure: 71613-FQWH SKIN LESIONS, 2 TO 4 3.?Tinea unguium?Procedure: 12235-HSXZGGI NAIL, 6 OR MORE * Procedures:?Debride Nail [...] use of a nail nipper and/or dremel-type knife grinder, to a more viable healthy nail [...] to maintain effectiveness in symptomatic relief - 39564.?Keratoma Treatment:?Parring or Cutting of Benign Hyperkeratotic Lesion(s)?(-56) [...] instrumentation by the physician of record - 85968, Q8.?Wart Treatment:?Procedure?Verruca, as described in exam, were debrided to pin-point bleeding margins with sterile 15 surgical blade, silver nitrate chemocautery applied, recomm. immune-boosting meds such as zinc, recomm. follow up with topical chemosurgical agents, recomm. Rx Virasal Salicylic acid application under occlusion as directed, Pt defers any other forms of tx - 15661.? * Procedure Codes:?29435 DEBRI DE NAIL, 6 OR MORE, Modifiers: XS 58934 Wart Destruction, 1-14, Modifiers: XS 41466 TRIM SKIN LESIONS, 2 TO 4, Modifiers: [...] DPM Date:?2024 Generated for Willie west/Krista/Mohamud on:?09/27/2024 12:03 PM EDT History and Physical Notes * [...]
--- NOTE | 2024-09-27 13:38 | PC.NURSE ---
Ambulated on the hallway with the walker on 2L O2 via NC. HR 140 on ambulation , oxygen saturation 89-91% on ambulation. Pt denied SOB, no chest pain, DR Dooley was notified about the above
[2024-09-27] MEDS: Enoxaparin Sodium 40 MG/0.4 ML SYRINGE SUBCUT (14:08)
[2024-09-27 16:39] LABS: Glucose, Whole Blood 222 mg/dL (60-115)
[2024-09-27 20:36] LABS: Glucose, Whole Blood 192 mg/dL (60-115)
[2024-09-27] MEDS: Atorvastatin Calcium 20 MG TABLET PO (22:10)
[2024-09-28] VITALS (11 sets, daily range): BP systolic 128–159; BP diastolic 66–83; PULSE 85–130; RESP 16–20; TEMP 36.2–36.9; O2SAT 91–98
[2024-09-28 07:35] LABS: Glucose, Whole Blood 181 mg/dL (60-115)
[2024-09-28] MEDS: 0.9 % Sodium Chloride Flush 3 ML SYRINGE IVFLUSH ×3 (08:09→20:42)
[2024-09-28] MEDS: Insulin Lispro 100 UNIT/ML 3 ML VIAL SUBCUT ×4 (08:09→20:41)
[2024-09-28] MEDS: levalbuterol HCL 1.25 MG, Ipratropium Bromide 0.5 MG INHALE ×4 (08:26→19:43)
[2024-09-28] MEDS: Fluticasone/Vilanterol 100/25 BLST.W.DEV 1 PUFF INHALE (08:27)
[2024-09-28] MEDS: Escitalopram Oxalate 5 MG TABLET PO (09:23)
[2024-09-28] MEDS: Azithromycin 500 MG TABLET PO (09:23)
[2024-09-28] MEDS: methylPREDNISolone Sod Succ 40 MG/ML VIAL IV ×2 (09:23→20:41)
[2024-09-28 12:00] LABS: Glucose, Whole Blood 242 mg/dL (60-115)
--- NOTE | 2024-09-28 12:33 | PC.NURSE ---
heart rate 84 at rest , heart rate 105 at rest , heart rate 122 on ambulation. oxygen saturation 91 % on 1 l Nc at rest , oxygen saturation 88% on ambulation on 1 l nc , no SOB , no respiratory distress
[2024-09-28] MEDS: Enoxaparin Sodium 40 MG/0.4 ML SYRINGE SUBCUT (14:18)
--- NOTE | 2024-09-28 14:44 | P.PNIM_ITS ---
Subjective Subjective Date of Service: 09/28/24 Interval History: Seen and evaluated this morning still wheezy, O2 drops to 80s on room air with ambulation on Oxygen tachycardia in 120s no other events Review of Systems Review of Systems: Yes all other systems are reviewed and are negative Physical Exam 2 Vital Signs: Vital Signs: Last Vital Signs Temp 98 F 09/28/24 11:36 Pulse 105 H 09/28/24 12:50 Resp 20 09/28/24 12:50 BP 155/83 H 09/28/24 11:36 Pulse Ox 92 09/28/24 11:36 O2 Del Method Nasal Cannula 09/28/24 11:36 O2 Flow Rate 2 09/28/24 11:36 BMI result Body Mass Index 33.3 Const: Other: Constitutional : Awake, interactive, in mild respiratory distress Neck : Normal inspection, Supple Cardiovascular : RRR, no JVP, no lower extremity edema, tachycardia Respiratory : decreased bilateral air entry, no crackles, bilateral expiratory wheezes on O2 supplement, drops to 80s Gastrointestinal: soft, lax, Normal bowel sounds, Non tender Skin : Warm, Dry Neurological : Alert & oriented x3, No focal deficit Objective Data Active Medications Acetaminophen (Acetaminophen 325 Mg Tablet) 650 mg PO Q6H PRN PRN Reason: Pain, Mild 1-3,fever,headache Atorvastatin Calcium (Atorvastatin Calcium 20 Mg Tablet) 20 mg PO BEDTIME [facility] Last Admin: 09/27/24 22:10 Dose: 20 mg Documented By: SUZANNE Azithromycin (Azithromycin 500 Mg Tablet) 500 mg PO Q24H [facility] Stop: 09/29/24 09:59 Last Admin: 09/28/24 09:23 Dose: 500 mg Documented By: SUSHIL Calcium Carbonate (Calcium Carbonate 750 Mg Tab.Chew) 750 mg PO Q4H PRN PRN Reason: Heartburn Levalbuterol HCl 1.25 mg/ (Ipratropium [place] 0.5 mg) 0 mg INHALE RQID [facility] Last Admin: 09/28/24 12:48 Dose: 5 dose Documented By: IVET Dextrose (Dextrose 50 % 25 Gm/50 Ml Syringe) 25 gm IVPUSH Q15M PRN; Protocol PRN Reason: per Hypoglycemia Standing Ord. Enoxaparin Sodium (Enoxaparin Sodium 40 Mg/0.4 Ml Syringe) 40 mg SUBCUT Q24H [facility] Last Admin: 09/28/24 14:18 Dose: 40 mg Documented By: SUSHIL Escitalopram Oxalate (Escitalopram Oxalate 5 Mg Tablet) 5 mg PO DAILY [facility] Last Admin: 09/28/24 09:23 Dose: 5 mg Documented By: SUSHIL Fluticasone/Vilanterol (Fluticasone/Vilanterol 100/25 Blst.W.Dev) 1 puff INHALE RDAILY [facility] Last Admin: 09/28/24 08:27 Dose: 1 puff Documented By: IVET Glucose (Glucose Gel 15 Gm Gel..Gram.) 15 gm PO Q15M PRN; Protocol PRN Reason: per Hypoglycemia Standing Ord. Insulin Human Lispro (Insulin Lispro 100 Unit/Ml 3 Ml Vial) 0 unit SUBCUT QIDACHS [facility]; Protocol Last Admin: 09/28/24 12:19 Dose: 4 unit Documented By: SUSHIL Levalbuterol HCl (Levalbuterol Hcl 1.25 Mg/3 Ml Vial.Neb) 1.25 mg INHALE Q4H PRN PRN Reason: Shortness of Breath/Wheezing Magnesium Hydroxide (Milk Of Magnesia 30 Ml Oral.Susp) 30 ml PO DAILY PRN PRN Reason: Constipation Melatonin (Melatonin 3 Mg Tablet) 6 mg PO BEDTIME PRN PRN Reason: Insomnia Methylprednisolone Sodium Succinate (Methylprednisolone Sod Succ 40 Mg/Ml Vial) 40 mg IV BID [facility] Last Admin: 09/28/24 09:23 Dose: 40 mg Documented By: SUSHIL Sodium Chloride (0.9 % Sodium Chloride Flush 3 Ml Syringe) 3 ml IVFLUSH QSHIFT [facility] Last Admin: 09/28/24 14:19 Dose: 3 ml Documented By: SUSHIL Labs 09/25/24 10:32 09/26/24 07:35 Labs: Laboratory Results - last 24 hr 09/27/24 09/27/24 09/28/24 16:36 20:26 07:32 POC Glucose 222 H 192 H 181 H 09/28/24 11:56 POC Glucose 242 H Microbiology Microbiology Results: Microbiology 09/25/24 11:13 Blood Culture - Preliminary Blood - Venous No growth after 48 hours. 09/25/24 10:59 Blood Culture - Preliminary Blood - Venous No growth after 48 hours. Assessment and Plan (1) Acute respiratory failure with hypoxia: Status: Acute (2) Acute lactic acidosis: Status: Acute (3) Hypercalcemia: Status: Acute (4) Asthma exacerbation: Status: Acute Plan 59-year-old male initially presented to the ED for reports of left shoulder wound. Reported some shortness of breath and found to be in an asthma exacerbation. Acute hypoxic respiratory failure in setting of Asthma exacerbation improving slowly dropped to 88% on O2 with ambulation, tachycardia at 140s with minimal exertion Continue oxygen per protocol continue Zithromax for pleiotrophic effect. Continue Solu-Medrol 40 mg b.i.d. Xopenex nebs Respiratory therapy to follow Sinus tachycardia reactive to hypoxia and nebulizers monitor Acute Lactic acidosis Most likely due to hypoxia, not sepsis. Received 1 Liter NS. Cognitive Developmental delay/Schizophrenia Continue with home medication regime Aristada Monthly, Escitalopram. Type 2 DM with HLD. Continue Trulicity, Lispro sliding scale Wound Left shoulder No evidence of infection. Wound nurse consult DVT PPx lovenox The patient will need overnight hospital stay for treatment of hypoxia secondary to asthma exacerbation on IV steroids and nebulizers treatment Quality Stroke Does the patient have a stroke diagnosis?: No VTE Prior VTE?: No VTE Risk Level:: Medical - moderate - high VTE Device Contraindication: Treatment Not Indicated VTE Drug Contraindication: N/A - Med Ordered
[2024-09-28 15:35] LABS: Glucose, Whole Blood 233 mg/dL (60-115)
[2024-09-28 20:31] LABS: Glucose, Whole Blood 208 mg/dL (60-115)
[2024-09-28] MEDS: Atorvastatin Calcium 20 MG TABLET PO (20:41)
[2024-09-29 03:36] VITALS: BP 154/84; PULSE 98; RESP 18; TEMP 36.6; O2SAT 94
[2024-09-29 06:54] LABS: Anion Gap 12 (12-20); Blood Urea Nitrogen 28 mg/dL (9-16); Carbon Dioxide 28 mmol/L (22-29); Chloride 104 mmol/L (96-108); Creatinine Clr Calc Pharmacy 102.8; Estimated Glomerular Filt Rate > 60; Glucose Random 275 mg/dL (60-115); Potassium 4.1 mmol/L (3.3-5.1); Sodium 140 mmol/L (135-145)
[2024-09-29 07:22] LABS: Glucose, Whole Blood 212 mg/dL (60-115)
[2024-09-29 07:26] VITALS: BP 140/92; PULSE 82; RESP 17; TEMP 36.2; O2SAT 96
[2024-09-29] MEDS: Fluticasone/Vilanterol 100/25 BLST.W.DEV 1 PUFF INHALE (07:50)
[2024-09-29] MEDS: levalbuterol HCL 1.25 MG, Ipratropium Bromide 0.5 MG INHALE (07:50)
[2024-09-29 07:52] VITALS: PULSE 82; RESP 17; O2SAT 93
[2024-09-29] MEDS: Insulin Lispro 100 UNIT/ML 3 ML VIAL SUBCUT ×2 (08:00→12:11)
[2024-09-29] MEDS: methylPREDNISolone Sod Succ 40 MG/ML VIAL IV (08:00)
[2024-09-29] MEDS: 0.9 % Sodium Chloride Flush 3 ML SYRINGE IVFLUSH (08:00)
[2024-09-29] MEDS: Escitalopram Oxalate 5 MG TABLET PO (08:00)
[2024-09-29 11:11] VITALS: PULSE 105; PULSE 113; O2SAT 88; O2SAT 91
--- NOTE | 2024-09-29 11:12 | PC.RT ---
Pt does not qualify for O2, SATs >88% on RA resting and with ambulation.
[2024-09-29 12:11] LABS: Glucose, Whole Blood 254 mg/dL (60-115)
--- NOTE | 2024-09-29 12:36 | MHC.CM.PN ---
IMM DELIVERED TO BEDSIDE, PT MEDICALLY CLEARED FOR DC W/NEW COMFORT PLUS FOR CUSTODIAL FOR WOUND CARE/MED RECONCILLIATION, RESUMP OF [facility] ATTORNEY AND [facility] FOR DAILY MED REMINDERS. PT'S CECILIO CANDELARIA WILL TRNAPSORT AT APPROX 1:30PM
--- NOTE | 2024-09-29 13:28 | PM.DS ---
DS: Providers Provider Date of Service: 09/29/24 Date of admission: 09/25/24 14:31 Date of discharge: 09/29/24 Primary care physician: FLAKITO Meaz Consults: 09/25/24 15:19 Consult to Wound Care Routine Reason for consultation: Left shoulder wound DS: Diagnosis Discharge Diagnosis (1) Acute respiratory failure with hypoxia: Status: Acute (2) Acute lactic acidosis: Status: Acute (3) Hypercalcemia: Status: Acute (4) Asthma exacerbation: Status: Acute DS: Summary Hospital Course Hospital Course: Admission note HPI 59-year-old male with a past medical history of cognitive developmental delay, obesity, asthma and hyperlipidemia initially presented to the ED reporting a stage II pressure ulcer to his left shoulder, found to be in asthma exacerbation. His WBC is 10.4, no anemia, magnesium level 1.7. Negative flu, RSV and COVID. Chest x-ray demonstrates no active disease. Lactic acid 2.9, repeat pending. Liver function within normal limits. Ca+ 10.3, similar in Feb. Random glucose level 199. BUN 24/1.14. In the ED he received a L of normal saline, Solu-Medrol, a dose of Rocephin, Xopenex inhaler as well as a dose of magnesium. On exam he is hypertensive, tachycardic, slightly tachypneic, but he reports that he is feeling slightly better. Wears 02 at home at night per his report. Lives alone in apartment with caregivers. Hospital course # Acute hypoxic respiratory failure in setting of Asthma exacerbation. improved slowly over the course of hospital stay. dropped to 88% on O2 with ambulation, tachycardia at 140s with minimal exertion for few days during the hospital stay as he was treated with 5 days of Zithromax, Bronchodilator nebulizers and IV Solu-Medrol 40 mg b.i.d. Had home O2 evaluation and maintained O2 > 88%. Xopenex nebs prescribed on discharge. PRednisone tapering dose. To be followed by [facility] at home. # Sinus tachycardia reactive to hypoxia and nebulizers, monitored and improved. # Acute Lactic acidosis Most likely due to hypoxia and bronchodilators. # Cognitive Developmental delay/Schizophrenia. Continue with home medication regime of Aristada Monthly, Escitalopram. # Type 2 DM with HLD. Continue Trulicity, Lispro sliding scale # Wound Left shoulder pressure ulcer w No evidence of infection. Wound nurse consulted and recommended as below Discharge plan apply barrier to periwound, lightly pack with Durafiber AG, be sure to leave a wick to easy removal.? Cover with Foam dressing.? Change every other day. Time Attestation Discharge Coordination Time (in mins): 41 Quality: Safe Use of Opioids Does Pt have an Active Cancer Diagnosis on the Problem List?: No Quality: Stroke Does the patient have a stroke diagnosis?: No Physical Exam Vital Signs: Vital Signs: Last Vital Signs Temp 97.1 F 09/29/24 07:26 Pulse 82 09/29/24 07:52 Resp 17 09/29/24 07:52 BP 140/92 H 09/29/24 07:26 Pulse Ox 96 09/29/24 07:26 O2 Del Method Nasal Cannula 09/29/24 07:26 O2 Flow Rate 2 09/29/24 07:26 BMI result Body Mass Index 33.3 Const: Other: Constitutional : Awake, interactive, not in respiratory distress Neck : Normal inspection, Supple Cardiovascular : RRR, no JVP, no lower extremity edema, tachycardia Respiratory : improved bilateral air entry, no crackles, no significant wheezes bilaterally on O2 supplement Gastrointestinal: soft, lax, Normal bowel sounds, Non tender Skin : Warm, Dry, left shoulder pressure ulcer Neurological : Alert & oriented x3, No focal deficit DS: Data Data Completed and Pending Labs on day of discharge: Laboratory Results - last 24 hr 09/28/24 09/28/24 09/29/24 15:07 20:27 05:55 Sodium 140 Potassium 4.1 Chloride 104 Carbon Dioxide 28 Anion Gap 12 BUN 28 H Creatinine 0.81 Estim Creat Clear Calc 102.8 Estimated GFR > 60 POC Glucose 233 H 208 H Random Glucose 275 H Calcium 9.0 D 09/29/24 09/29/24 07:16 12:08 Sodium Potassium Chloride Carbon Dioxide Anion Gap BUN Creatinine Estim Creat Clear Calc Estimated GFR POC Glucose 212 H 254 H Random Glucose Calcium Preliminary micro results at discharge 09/25/24 11:13 Blood Culture - Preliminary Blood - Venous No growth after 48 hours. 09/25/24 10:59 Blood Culture - Preliminary Blood - Venous No growth after 48 hours. Imaging Chest x-ray: Radiologist's impression: ITS Impressions Chest X-Ray 09/25/24 10:35 IMPRESSION: No active pulmonary disease. Electronically signed by: Rosendo Priest MD 09/25/2024 10:44 AM EDT RP Additional Comments Additional comments: Wound care recommendations: 1. Turn and Reposition every 2 hours and as needed for patient comfort.? Use pillows or wedges to support off loading positions. 2. Off Load all bony prominences with use of pillows and heel boots if needed.? Apply Preventative foams where needed. ? 3. Monitor for incontinence and moisture control, use barrier creams when needed for prevention and treatment. 4. Provide adequate and supplemental nutrition.? 5. When applicable maintain blood glucose levels per Providers order. Left Shoulder - Off Load Pressure with Q2 hr turns and use of pillows Cleanse and irrigate with NS, Pat dry.? Apply barrier to periwound, lightly pack with Durafiber AG, be sure to leave a wick to easy removal.? Cover with Foam dressing.? Change every other day. Discharge Plan Discharge Anticipated Discharge Date/Time: 09/29/24 13:20 Patient Disposition: Home Health Service Discharge Diagnosis: Asthma exacerbation Pressure ulcer Referrals: [facility] [Other] - 1 Day (DAILY MED REMINDERS ) [facility] [Outside] - 1 Day (RESIDENTIAL) Crescencio Gary FNP-C [Primary Care Provider] - 1 Week Discharge Medications: New levalbuterol HCl 1.25 mg/3 mL Solution For Nebulization 1.25 mg inhalation Q4H PRN (Reason: Shortness Of Breath/Wheezing) Qty: 75 0RF prednisone 10 mg tablet See Taper PO DIRECTED Qty: 30 0RF Taper: Prednisone 40 mg daily for 3 Days and 0 Hour 30 mg daily for 3 Days and 0 Hour 20 mg daily for 3 Days and 0 Hour 10 mg daily for 3 Days and 0 Hour Rx Instructions: see taper instructions Continued (DME) blood-glucose meter [OneTouch Ultra2 Meter] [facility] See Rx Instructions .ROUTE .COMPLEX Qty: 1 0RF Dose Instruction: USE DIRECTED TO CHECK BLOOD GLUCOSE Rx Instructions: USE DIRECTED TO CHECK BLOOD GLUCOSE (DME) FreeStyle Test Strip See Rx Instructions .Route Qty: 100 8RF Rx Instructions: to check blood sugars once a day atorvastatin 20 mg tablet 20 mg PO BEDTIME 90 Days Qty: 90 3RF (DME) OneTouch Ultra Test Strip See Rx Instructions .ROUTE .COMPLEX Qty: 50 0RF Dose Instruction: USE 1 STRIP TO CHECK BLOOD GLUCOSE ONCE A DAY BEFORE A MEAL Rx Instructions: USE 1 STRIP TO CHECK BLOOD GLUCOSE ONCE A DAY BEFORE A MEAL (DME) lancets Misc See Rx Instructions .Route Qty: 100 0RF Rx Instructions: check bood sugar once a day ac escitalopram oxalate 5 mg/5 mL solution 5 mg PO DAILY Aristada 882 mg/3.2 mL suspension,extended rel syring 882 mg IM Q28D Trulicity 0.75 mg/0.5 mL pen injector 0.75 mg subcut WE albuterol sulfate 90 mcg/actuation Hfa Aerosol Inhaler 2 puff INHALATION Q4H PRN (Reason: SOB) Qty: 6.7 0RF fluticasone propion-salmeterol [Wixela Inhub] 250-50 mcg/dose blister with device 1 inh inhalation Q12H Qty: 60 8RF (DME) lancets [FreeStyle Lancets] 28 gauge misc See Rx Instructions .MEDSUPPLY Qty: 100 2RF Rx Instructions: test daily Discharge Orders: Discharge Order (Routine); Ordered 09/29/24 Ordered By: Miguel Dooley Diet: Advance to usual diet Activity on Discharge: As tolerated Stand Alone Forms: Patient Portal Discharge page Print Language: Greek Care Plan Goals: As needed Xopenex nebulizer, use it 3-4 times a day for the next 3 days Prednisone tapering dose as prescribed Use Oxygen at bedtime and with exertion, wean down as tolerated Visiting nurses to follow for wound care management Health Concerns: ASthma exacerbation with hypoxia Plan of Treatment: PRednisone Nebulizer Assessment: as above
--- NOTE | 2024-09-29 14:20 | P.F2F_ITS ---
Service Date Service Date: 09/29/24 Encounter Date of encounter: 09/29/24 Reasons for Services Signs and symptoms assessed: PRessure ulcer Day time Oxygen evaluation Reason for intermediate: wound care (Left Shoulder - Off Load Pressure with Q2 hr turns and use of pillows Cleanse and irrigate with NS, Pat dry. Apply barrier to periwound, lightly pack with Durafiber AG, be sure to leave a wick to easy removal. Cover with Foam dressing. Change every other day. ), medication management and teach disease management Homebound: Leaving the home is medically contraindicated at this time without the asist of a device and/or another person due th the listed conditions above and below. Reason homebound: unable to drive Certification: Based on the above findings, I certify that this patient is confined to the home and needs intermittent intermediate care, physical therapy and/or speech therapy, or continues to need occupational therapy. The patient is under my care, and I have initiated the establishment of the plan of care. The patient will be followed by a physician who will periodically review the plan of care. Time Spent With Patient Time: Total time managing care of this patient today ____ minutes.
--- NOTE | 2024-09-30 15:28 | P.CDIM_ITS ---
PROVIDER RESPONSE TEXT: To clarify, the appropriate diagnosis supported by the clinical indicators: Mild intermittent: acute exacerbation QUERY TEXT: PHYSICIAN'S DOCUMENTATION REQUEST Date of Query: 09/29/2024 10:59 AM EDT Patient Name: Be Washington Admit Date: 09/25/2024 Dear Miguel Dooley MD, A review of the medical record indicates additional documentation may be needed. Please review below and update the documentation accordingly. The diagnosis of asthma was documented in the record on 09/28/24 . Additional clinical indicators from the record include: wheeze SAT 80s room air oxygen, Zithromax, Solu-Medrol, Xopenex nebs Respiratory therapy service Based on the above, please clarify in the Progress Notes further specificity regarding the type and a cuity of the asthma: Mild intermittent Please specify if with or without acute exacerbation or status asthmaticus Mild persistent Please specify if with or without acute exacerbation or status asthmaticus Moderate persistent Please specify if with or without acute exacerbation or status asthmaticus Severe persistent Please specify if with or without acute exacerbation or status asthmaticus Exercise induced Please specify if with or without acute exacerbation or status asthmaticus Chronic obstructive asthma and indicate if with acute lower respiratory infection Please specify if with or without acute exacerbation or status asthmaticus Asthma with underlying COPD and indicate if with acute lower respiratory infection Please specify if with or without acute exacerbation or status asthmaticus Other (explain) Clinically unable to determine (explain) Thank you, Jasmyne Quiroga RN Use of terms such as suspected, likely, concern for, or probable (associated with a specific diagnosi s that is being evaluated, monitored, or treated as if it exists) are acceptable and can be coded in the inpatient se tting, when documented at the time of discharge. Please use your independent medical judgment in providing your response. THIS QUERY IS PART OF THE PERMANENT MEDICAL RECORD
== END 2024-09-29 14:18 | disposition home health service (06) | DRG 202 ==
LOC: HO.ED 14:07 → HO.EDOVER 09-26 16:32 → HO.IMC 09-27 12:01
PROVIDERS: Nurse Practitioner Family; Physician Assistant; Admitting Provider Student in an Organized Health Care Education/Training Program; Emergency Provider Emergency Medicine; Visit Provider Student in an Organized Health Care Education/Training Program
DX: J45.21 Mild intermittent asthma with (acute) exacerbation (principal); J96.01 Acute respiratory failure with hypoxia; E87.21 Acute metabolic acidosis; F20.9 Schizophrenia, unspecified; L89.899 Pressure ulcer of other site, unspecified stage; E83.52 Hypercalcemia; R00.0 Tachycardia, unspecified; R62.50 Unspecified lack of expected normal physiological development in childhood; E11.9 Type 2 diabetes mellitus without complications; E78.5 Hyperlipidemia, unspecified; Z20.822 Contact with and (suspected) exposure to COVID-19; Z79.51 Long term (current) use of inhaled steroids; Z79.899 Other long term (current) drug therapy
CPT/HCPCS: 0241U; 36415; 71045; 80048; 80053; 82947; 83605; 83735; 83880; 84484; 85025; 85610; 87040; 93005; 94640; 99285; J0696; J1650; J2919; J3475

== ENCOUNTER → 2024-09-25 10:12 | Outpatient (BNV) | payer OTHER, SELFPAY | PROVIDERS: Admitting Provider Student in an Organized Health Care Education/Training Program; Emergency Provider Emergency Medicine; Visit Provider Internal Medicine Cardiovascular Disease | DX: I44.7 Left bundle-branch block, unspecified (principal); I51.7 Cardiomegaly; J98.4 Other disorders of lung; R00.0 Tachycardia, unspecified | CPT/HCPCS: 93010 ==

== ENCOUNTER → 2024-09-25 10:35 | Outpatient (BNV) | payer OTHER, SELFPAY | PROVIDERS: Visit Provider Radiology Diagnostic Radiology | DX: R06.02 Shortness of breath (principal) | CPT/HCPCS: 71045 ==

== ENCOUNTER 2024-09-25 14:31 | Outpatient (BNV) | payer OTHER, SELFPAY | END 2024-09-26 11:11 | PROVIDERS: Admitting Provider Student in an Organized Health Care Education/Training Program; Emergency Provider Emergency Medicine; Visit Provider Internal Medicine Cardiovascular Disease | DX: R07.9 Chest pain, unspecified (principal) | CPT/HCPCS: 93010 ==

== ENCOUNTER → 2024-09-25 14:31 | Outpatient (BNV) | payer OTHER, SELFPAY | PROVIDERS: Admitting Provider Student in an Organized Health Care Education/Training Program; Emergency Provider Emergency Medicine; Visit Provider Nurse Practitioner Family | DX: E83.52 Hypercalcemia (principal); E87.21 Acute metabolic acidosis; J45.901 Unspecified asthma with (acute) exacerbation; J96.01 Acute respiratory failure with hypoxia | CPT/HCPCS: 99223; 99232; 99239; G0180 ==

== ENCOUNTER 2024-10-07 09:47 | Outpatient (AMB) | payer OTHER, SELFPAY ==
--- NOTE | 2024-10-07 09:52 | MHC.PC.OV ---
Vital Signs 10/07/24 09:54 Height 5 ft Weight 200 lb 2 oz BMI 39.1 BP 136/70 Blood Pressure Location Lt brachial Position Sitting Pulse 126 H Pulse Source Pulse Oximeter Temp 97.1 F Temp Source Temporal Artery Scan Pulse Oximetry (%) 94 Oxygen Delivery Method Room Air Intake Visit Re[place] [facility] [place] on arm Intake Note: Patient is here to follow-up after a visit the [place] [facility] [place] Traffic Attendant Required: No Curing Bin Operator: Present Allergies penicillin V Allergy (Unknown, Verified 10/07/24 10:22) vomiting Penicillins [PENICILLINS] Allergy (Unknown, Verified 10/07/24 10:22) vomitting Medication List - Last Reconciled 10/07/24 by FLAKITO Meza albuterol sulfate 90 mcg/actuation 2 puffs inhalation Q4H PRN aripiprazole lauroxil ER (Aristada) 882 mg IM Q28D atorvastatin 20 mg PO BEDTIME 90 days blood sugar diagnostic (FreeStyle Test strips) to check blood sugars once a day blood sugar diagnostic (OneTouch Ultra Test strips) USE 1 STRIP TO CHECK BLOOD GLUCOSE ONCE A DAY BEFORE A MEAL blood-glucose meter (OneTouch Ultra2 Meter) USE DIRECTED TO CHECK BLOOD GLUCOSE dulaglutide (Trulicity) 0.75 mg (0.5 mL) subcut QWEEK escitalopram oxalate 5 mg PO DAILY fluticasone propion-salmeterol 250-50 mcg/dose (Wixela Inhub) 1 inh inhalation Q12H lancets (FreeStyle Lancets) test daily lancets check bood sugar once a day ac levalbuterol HCl 1.25 mg (3 mL) inhalation Q4H PRN prednisone See Taper mg PO DIRECTED Tobacco use date assessed: 10/07/24 Dental Screening Dental Screen Date: 07/07/24 HPI [facility] [place] HPI Details The patient is a 59-year-old male with past medical history of cognitive developmental delay, obesity, asthma, DM, HLD. Patient presenting today for post [facility] [place] for left upper arm wound and asthma exacerbation. Chest x-ray in the hospital demonstrated no active disease. The patient lactate was 2.9, fluids given with positive effects. Asthma exacerbation the patient was given Solu-Medrol, a dose of Rocephin, Xopenex inhaler. In the hospital the patient was hypertensive and tachycardic with slight tachypnea. The patient wears oxygen at home at night, he lives alone and has a nurse coming in weekly. States that he take care of himself for the most part. Cognitive delay/schizophrenia. Reports that he sees a therapist once a month and a psychiatrist every 3 month at the [facility] in [place]. He is on Aristada 882MG IM Q 28 days and escitalopram 5 mg. Diabetes: A1c in office 6.9% slight increase from what it was last checked. Currently on Trulicity 0.75 mg subQ weekly Asthma: Lungs are clear in office, heart rate continues to be tachy at 124. States that he feels fine and it is related to walking in here. He is on albuterol sulfate 90 mcg/actuation 2 puffs inhalation Q 4 p.r.n., fluticasone propion-salmeterol 250-50 mcg dose 1 inhalation q.12 hours. The patient also has levalbuterol HCI 1.25 mg (3 ml) q.4 via nebulizer. The patient is also finishing up prednisone tapered. HLD: Multiple recent labs showed LDL continues to be elevated. The patient is on atorvastatin 20 mg we will increase this to 40 mg. Recommended that the patient to follow up sooner than his regular every six-month. The patient was emotional about this idea and said he would like to keep it every 6 months and that he is doing fine [facility] Medical History Pressure ulcer Cognitive developmental delay Obesity Asthma Hyperlipidemia Surgical History Meatal stenosis S/P TURP (status post transurethral resection of prostate) History of foot surgery Family History Father Cancer Mother COPD (chronic obstructive pulmonary disease) Hypertension Maternal Aunt Liver cancer Social History Household Members: None Housing: Apartment Do you presently have visiting nurse or other home services: Yes ([facility]NA 1x/wk) Alcohol intake: never Patient Tobacco Use Status: Never used Tobacco e-Cigarette/Vaping Use: Never Used Second Hand Smoke Exposure: No service: No Current occupational status: employed Cognitive needs: No Hearing needs: Yes (hearing aide) Vision needs: Yes (glasses) Questionnaire Thrive Questionnaire Date Thrive assessed: 09/27/24 MAR-7 AMB Questionnaire MAR-7 Date MAR - 7 assessed: 07/07/24 Source: Developed by Drs. Alexandre Navarro, Angela Hannah, Palomo Hill and colleagues, with an educational julio from [employer]. Review of Systems Const Denies headache(s) Eyes Denies loss of vision ENT Denies vertigo, Denies dizziness, Denies headache(s) and Denies sore throat Card Denies chest pain, Denies leg edema and Denies lightheadedness Resp Denies cough, Denies hemoptysis and Denies wheezing GI Denies abdominal pain, Denies melena, Denies constipation, Denies diarrhea and Denies vomiting Denies dysuria, Denies urinary frequency and Denies urinary urgency Musc Denies arthralgias, Denies joint swelling, Denies numbness and Denies tingling Neuro Denies Abnormal speech present, Denies behavioral changes, Denies vertigo, Denies dizziness, Denies headache(s), Denies loss of vision, Denies memory loss, Denies numbness and Denies tingling Psych Denies anxiety, Denies behavioral changes, Denies depression, Denies memory loss and Denies panic attacks Enmanuel/Lymph Denies easy bleeding and Denies easy bruising Aller/Immun Denies wheezing Physical exam (Primary Care) Vital Signs: Last Vital Signs Temp 97.1 F 10/07/24 09:54 Pulse 126 H 10/07/24 09:54 BP 136/70 10/07/24 09:54 Pulse Ox 94 10/07/24 09:54 Oxygen Delivery Method Room Air 10/07/24 09:54 BMI result Body Mass Index 39.1 Tobacco/Smoking Status: Tobacco use Status Tobacco use date assessed 10/07/24 10/07/24 09:58 Patient Tobacco Use Status Never used Tobacco 10/07/24 09:58 e-Cigarette/Vaping Use Never Used 10/07/24 09:58 Thrive Assessment: Date of Thrive Assessment Date Thrive assessed 09/27/24 10/07/24 09:58 Const General: healthy appearing, no acute distress, alert and awake Nutritional Appearance: well nourished Orientation/consciousness: oriented to person, oriented to place and oriented to time HENMT Ears: TM's normal bilaterally General nose exam: Normal nasal mucous membranes and turbinates present Eyes Conjunctivae: conjunctivae normal Sclerae: sclerae normal Pupils: Equal, round and reactive pupils present Neck Neck: Yes no lymphadenopathy and Yes no JVD Thyroid: Thyroid normal Carotids: no bruits Resp Effort & Inspection: normal respiratory effort and not tachypneic Auscultation: no crackles, no rales, no rhonchi and no wheezes Cardio Rate: regular rate Rhythm: regular rhythm Heart sounds: no murmurs and normal S1 and S2 GI Palpation (GI): Soft to palpation, nontender, no hepatomegaly and no splenomegaly Auscultation: normal bowel sounds Skin General skin exam: dry skin Wounds: wounds noted (left upper arm wound-without s/sx of infection DSD intact) Neuro General: oriented to person, oriented to place and oriented to time Cranial nerves: Yes Equal, round and reactive pupils present Speech: No Abnormal speech present Gait exam (Neuro): Normal gait present Motor exam (neuro): no tremor noted Extrem Right upper extremity: full ROM Left upper extremity: full ROM Right lower extremity: full ROM; no edema Left lower extremity: full ROM; no edema Psych Mental Status: mental status grossly normal Speech and movement: Normal speech and movement present Affect: normal affect Attitude: cooperative Thought process: Normal thought process present Results AMB Hemoglobin A1c AMB Hemoglobin A1c 6.9 % Last Edit by CALEB Gomez on 10/07/24 10:50 Results Reviewed Results Reviewed: Laboratory Last Values Hgb A1c (Clinic) 6.9 % (4.0-6.0) H 10/07/24 10:35 Coding Level of Care Code Est Pt Level 4 (07947) Diagnoses Type 2 diabetes mellitus with hyperlipidemia E11.69; E78.5 Cognitive developmental delay F81.9 Obesity, unspecified class, unspecified obesity type, unspecified whether serious comorbidity present E66.9 Obesity type: unspecified obesity type Obesity classification: unspecified obesity classification Serious obesity comorbidity presence: unspecified whether serious comorbidity present Elevated BP without diagnosis of hypertension R03.0 Pure hypercholesterolemia E78.00 Hyperlipidemia type: pure hypercholesterolemia Time Spent (min) 41 Assessment & Plan Assessment & Plan (1) Type 2 diabetes mellitus with hyperlipidemia: Code(s): E11.69 - Type 2 diabetes mellitus with other specified complication; E78.5 - Hyperlipidemia, unspecified Category: Medical Plan: A1c checked in office was 6.9% within goal. However discussed with the patient that his A1c has slightly increased since last checked. Reinforced low sugar/carbohydrate diet and activity as tolerated Continue Trulicity 0.75 mg subQ q.week (2) Cognitive developmental delay: Code(s): F81.9 - Developmental disorder of scholastic skills, unspecified Category: Medical Plan: Encouraged the patient to maintain regular physical activity and to socially engage in group activities (3) Obesity: Code(s): E66.9 - Obesity, unspecified Category: Medical Qualifiers: Obesity type: unspecified obesity type Obesity classification: unspecified obesity classification Serious obesity comorbidity presence: unspecified whether serious comorbidity present Qualified Code(s): E66.9 - Obesity, unspecified Plan: Encouraged low-cholesterol diet and activity as tolerated (4) Elevated BP without diagnosis of hypertension: Comment: 20 min reviewing chart eval patient and documenting Code(s): R03.0 - Elevated blood-pressure reading, without diagnosis of hypertension Category: Medical Plan: Reinforced low-salt diet Continue monitoring blood pressure at home. Make sure blood pressure is checked by nurse weekly. Contact the office with elevated or decreased blood pressures (5) Hyperlipidemia: Code(s): E78.5 - Hyperlipidemia, unspecified Category: Medical Qualifiers: Hyperlipidemia type: pure hypercholesterolemia Qualified Code(s): E78.00 - Pure hypercholesterolemia, unspecified Plan: Last lipid panel was checked on 07/04/2024. Total cholesterol 207, LDL 144, HDL 39 Increase atorvastatin from 20 mg to 40 mg at bedtime Encouraged low-cholesterol diet and activity as tolerated Lipid panel in ordered for the patient to repeat in 6 months due to the patient adamantly refusing to be seen earlier. Plan Patient to return in six-month for evaluation of chronic conditions. Orders: Orders AMB Hemoglobin A1c Today E11.69 - Type 2 diabetes mellitus with other specified complication, E78.5 - Hyperlipidemia, unspecified Comprehensive [place]. Panel Fast 6 Months E11.69 - Type 2 diabetes mellitus with other specified complication, E66.9 - Obesity, unspecified, E78.5 - Hyperlipidemia, unspecified, F81.9 - Developmental disorder of scholastic skills, unspecified, J45.909 - Unspecified asthma, uncomplicated TSH reflex Free T4 6 Months E11. - Type 2 diabetes mellitus with other specified complication, E66.9 - Obesity, unspecified, E78.5 - Hyperlipidemia, unspecified, F81.9 - Developmental disorder of scholastic skills, unspecified, J45.909 - Unspecified asthma, uncomplicated Hemoglobin A1c 6 Months E11. - Type 2 diabetes mellitus with other specified complication, E66.9 - Obesity, unspecified, E78.5 - Hyperlipidemia, unspecified, F81.9 - Developmental disorder of scholastic skills, unspecified, J45.909 - Unspecified asthma, uncomplicated Complete Blood Count Auto Diff 6 Months E11. - Type 2 diabetes mellitus with other specified complication, E66.9 - Obesity, unspecified, E78.5 - Hyperlipidemia, unspecified, F81.9 - Developmental disorder of scholastic skills, unspecified, J45.909 - Unspecified asthma, uncomplicated Lipid Panel 6 Months E11. - Type 2 diabetes mellitus with other specified complication, E66.9 - Obesity, unspecified, E78.5 - Hyperlipidemia, unspecified, F81.9 - Developmental disorder of scholastic skills, unspecified, J45.909 - Unspecified asthma, uncomplicated UA CC w/rflx Micro + Cult 6 Months E11. - Type 2 diabetes mellitus with other specified complication, E66.9 - Obesity, unspecified, E78.5 - Hyperlipidemia, unspecified, F81.9 - Developmental disorder of scholastic skills, unspecified, J45.909 - Unspecified asthma, uncomplicated Vitamin D 25-OH Total 6 Months E11. - Type 2 diabetes mellitus with other specified complication, E66.9 - Obesity, unspecified, E78.5 - Hyperlipidemia, unspecified, F81.9 - Developmental disorder of scholastic skills, unspecified, J45.909 - Unspecified asthma, uncomplicated Medications: New atorvastatin 40 mg PO BEDTIME 90 tabs 3RF Discontinued atorvastatin Discontinued Reason: Doctor's Order 20 mg PO BEDTIME 90 days 90 tabs 3RF
[2024-10-07 09:54] VITALS: BP 136/70; PULSE 126; TEMP 36.2; O2SAT 94; BMI 39.1
--- OUTSIDE RECORDS SUMMARY | 2024-10-07 10:24 | XMS_ITS | Patient Health Record ---
Author Organization [facility] Address [address] [place] [facility] [place] [address] Care Team Providers Care [employer] Finisher Name Role Phone Abdi HENDERSON, Tony Primary Care Provider Unavaila Alberto Hopkins Unavailable [phone] Allergies Allergen (clinical drug ingredient) Drug/Non Drug [...] Wear Daily for 365 days 08/28/2023 Active WartSTICK 40 % as directed External ly daily under occlusion for 30 days 08/28/2023 Active Atorvastatin Calcium 20 MG 1 tablet Oral ly Once a day Active Subcutaneous Infusion Set Active Trulicity 0.75 MG/0.5ML as directed Subcutaneous Active Carbamide Peroxide 6.5 % 5 drops into af fected ear Otic Twice a day Active PARoxetine HCl 10 MG 1 tablet in the mor nirmala Orally Once a day Active Blood Glucose Meter Active Phenazopyridine HCl 200 MG 1 tablet afte r meals Orally Three times a day Active Ammonium Lactate 12 % 1 application Exte rnally to feet except for between the toes Twice a day for 30 days Active Virasal 27.5 % 1 application to aff ected area Externally Once a day for 30 days 06/10/2024 Active Virasal 27.5 % 1 application to aff ected area Externally Once a day for 30 days 06/10/2024 Active Immunizations Vaccine Route Administration Date Status [...] Problem Acquired hammer toe of right foot (95865972879694 05) Other hammer toe(s) (acquired), right foot (M20.41) Active confirmed Problem Type 2 diabetes mellitus with peripheral angiopathy (959334806) Type 2 diabetes mellitus with diabetic peripheral angiopathy without gangrene (E11.51) Active confirmed Problem Acquired hammer toe of left foot ([id number] 03) Other hammer toe(s) (acquired), left foot (M20.42) Active confirmed Problem Plantar wart (76786044) Plantar wart (B07.0) Active confirmed Vital Signs Height 5ft2in in 06/10/2024 Weight 205 lbs 06/10/2024 BMI 37.49 kg/m2 06/10/2024 Procedures Procedure Date Ordered Date Performed Result Body Sit e 18367-HKFMTDH NAIL, 6 OR MORE 11/06/2023 N/A 95908-Xfcz Destruction, 1-14 11/06/2023 N/A 93491-DWOD SKIN LESIONS, 2 TO 4 11/06/2023 N/A 46082-FYBWCCX NAIL, 6 OR MORE 01/15/2024 N/A 34129-Rcer Destruction, 1-14 01/15/2024 N/A 36037-TGGO SKIN LESIONS, 2 TO 4 01/15/2024 N/A 34433-JVRO SKIN LESIONS, 2 TO 4 06/10/2024 N/A 89457-Vrfl Destruction, 1-14 06/10/2024 N/A 97790-CWHWLDJ NAIL, 6 OR MORE 06/10/2024 N/A Encounters Encounter Location Date Provider Diagnosis [address] [address] 11/06/2023 Alberto Zambrano Type 2 diabetes mellitus with diabetic peripheral angiopathy without gangrene E11.51 ; Plantar wart B07.0 ; Tinea unguium B35.1 ; Pain in right toe(s) M79.674 ; Pain in left toe(s) M79.675 and Left foot pain M79.[address] [address] 01/15/2024 Alberto Zambrano Type 2 diabetes mellitus with diabetic peripheral angiopathy without gangrene E11.51 ; Plantar wart B07.0 ; Tinea unguium B35.1 ; Pain in right toe(s) M79.674 ; Pain in left toe(s) M79.675 ; Left foot pain M79.672 and Xerosis of skin L85.[address] [address] 06/10/2024 Alberto Zambrano Type 2 diabetes mellitus with diabetic peripheral angiopathy without gangrene E11.51 ; Plantar wart B07.0 ; Tinea unguium B35.1 ; Pain in right toe(s) M79.674 ; Pain in left toe(s) M79.675 ; Left foot pain M79.672 and Xerosis of skin L85.[address] [address] 03/25/2024 Alberto Zambrano [address] [address] 10/01/2024 Alberto Zambrano Assessments Encounter Date Diagnosis (ICD [...] Treatment Pending Test Test Name Order Date 40871-SNTSWTO NAIL, 6 OR MORE 08/28/2023 95667-SZHXFVI NAIL, 6 OR MORE 11/06/2023 37879-NXBGNFI NAIL, 6 OR MORE 01/15/2024 82205-UWAFQZB NAIL, 6 OR MORE 06/10/2024 96555-Ikpe Destruction, 1-14 06/10/2024 08868-Suvu Destruction, 1-14 01/15/2024 19912-Tdau Destruction, 1-14 11/06/2023 94050-Fllh Destruction, 1-14 08/28/2023 44213-MCBB SKIN LESIONS, 2 TO 4 08/28/19 02494-ZETU SKIN LESIONS, 2 TO 4 11/06/19 41367-HHYX SKIN LESIONS, 2 TO 4 01/15/20 82585-VXEJ SKIN LESIONS, 2 TO 4 06/10/19 Next Appt Details Provider Name:Alberto Zambrano , 01/09/2025 10:00:00 AM, [address] [place] [address], [phone], Insurance Providers Payer Name Payer Address Payer Phone Subscriber Number Group Number Insured Name Patient Relationship to Insured Coverage Start Date Coverage End Date [facility] [employer] Claims [address] [place] [id number] Be Minaya Self - patient is the insured Medical (General) History Medical History History ICD Code asthma High blood pressure Hyperlipidemia Cognitive developmental delay Obesity Surgical History Surgery Date(Month/Year)
== END 2024-10-07 10:49 | disposition home or self-care (01) ==
LOC: HO.HMCH 09:47
DX: E11.69 Type 2 diabetes mellitus with other specified complication (principal); E78.5 Hyperlipidemia, unspecified

== ENCOUNTER → 2024-10-07 09:47 | Outpatient (BNVA) | payer OTHER, SELFPAY | DX: R03.0 Elevated blood-pressure reading, without diagnosis of hypertension (principal); E11.69 Type 2 diabetes mellitus with other specified complication; E66.9 Obesity, unspecified; J45.909 Unspecified asthma, uncomplicated; F81.9 Developmental disorder of scholastic skills, unspecified; E78.00 Pure hypercholesterolemia, unspecified; Z68.39 Body mass index [BMI] 39.0-39.9, adult | CPT/HCPCS: 83036; 99212 ==

== ENCOUNTER 2024-11-30 13:46 | Inpatient (IN) | payer OTHER, SELFPAY ==
[2024-11-30] VITALS (10 sets, daily range): BP systolic 143–187; BP diastolic 80–103; PULSE 92–136; RESP 19–26; TEMP 36.6–37.9; O2SAT 89–98; BMI 35.0
--- NOTE | ~2024-11-30 | XR_ITS ---
CLINICAL HISTORY: dizziness 2 view chest x-ray Comparison: CR/SR - XR CHEST 1V - 09/25/24 10:34 EDT Findings: The lungs are clear. No effusion or pneumothorax. Normal size heart. No acute fracture. Diffuse idiopathic skeletal hyperostosis of the thoracic spine. IMPRESSION: 1. No acute findings. This document has been electronically signed by: Wing Bailey MD on 11/30/2024 14:56:36
--- NOTE | 2024-11-30 13:56 | ECG_ITS ---
Test Reason : tachy Blood Pressure : */* mmHG Vent. Rate : 130 BPM Atrial Rate : 130 BPM P-R Int : 154 ms QRS Dur : 90 ms QT Int : 302 ms P-R-T Axes : 64 -53 72 degrees QTcB Int : 444 ms Sinus tachycardia Possible Left atrial enlargement Pulmonary disease pattern Left anterior fascicular block Abnormal ECG When compared with ECG of 26-Sep-2024 11:11, No significant change was found Referred By: Xiomy Boo Electronically Signed By: Jose Robert
--- NOTE | 2024-11-30 14:42 | PC.NURSE ---
Addendum entered by Chelsi Olsen RN 11/30/24 14:43: Patient is a 59-year-old male with past medical history of cognitive developmental delay, obesity, asthma, DM, [place] with vague symptoms. EMS states dizziness and lightheadedness and patient states he was shaky but symptoms resolved prior to arrival. Patient noted to be hypoxic in the 80's by EMS and placed on l2 therapy at 4L. Patient denies any resp complaints. Patient alert and cooperative, speech difficult to understand appears garbled. [facility] at the bedside. Placed on environmental monitoring specialist and stach noted in the 120's. Lungs diminished with fine BBR. Respirations even and non-labored. POX noted at 90% on room air and patient placed on 02 therapy at 2L via NC. Abdomen large, soft, non-tender with positive bowel sounds. No LE edema noted at this time. Original Note: Medical History Pressure ulcer Cognitive developmental delay Obesity Asthma Hyperlipidemia
--- NOTE | 2024-11-30 14:58 | ED_ITS ---
HPI - General Adult General Chief complaint: Dyspnea Stated complaint: DIZZINESS,LIGHTHEADENESS,RESOLVED PER EMS Time Seen by Provider: 11/30/24 13:56 Source: patient and EMS Mode of arrival: EMS Limitations: no limitations History of Present Illness ED Provider: Xiomy Boo NP HPI narrative: Patient is a 59-year-old male with past medical history of cognitive delay, obesity, asthma, hyperlipidemia who presents emergency department via EMS for evaluation, his caregiver/home health aide ingris is present. Evidently, they had a late breakfast this morning/closer to noon time, when patient was noted to have shakiness to the bilateral upper extremities that persisted for about 30 minutes to 1 hour. They attempted to go to the mall but symptoms persisted and thus they were concern in called for EMS. On EMS evaluation he was noted to be hypoxic in the 80s, not endorsing any shortness of breath or difficulty breathing, he does state that he wears oxygen typically at night. He was placed on O2 via nasal cannula at 2 L with improvement in O2 saturation. When asked, he denies headache, dizziness, lightheadedness, vision changes, neck pain, shortness of breath, difficulty breathing, chest pain, nausea, vomiting, abdominal pain, diarrhea, constipation, hematochezia, melena, dysuria, frequency/urgency/hesitancy. There was initial report to EMS that he was experiencing dizziness and lightheadedness but this had resolved before EMS arrived. When asked, he states he has not been having any dizziness today. His livestock caretaker states that he had not complained of any dizziness or lightheadedness. Related Data Home Medications ?Medication ?Instructions ?Recorded ?Confirmed aripiprazole lauroxil 882 mg/3.2 882 mg IM Q28D 10/07/24 mL suspension, ext.rel. IM syringe ([place]) escitalopram oxalate 5 mg/5 mL 5 mg PO DAILY 09/25/24 10/07/24 oral solution Previous Rx's ?Medication ?Instructions ?Recorded fluticasone 250 mcg-salmeterol 50 1 inh inhalation Q12 H #60 ea 09/30/21 mcg/dose blistr powdr for inhalation ([place]ela Inhub) blood-glucose meter (OneTouch #1 ea 08/17/22 Ultra2 Meter) lancets 28 gauge (FreeStyle #100 ea 11/07/22 Lancets) blood sugar diagnostic (FreeStyle #100 ea 11/08/22 Test strips) blood sugar diagnostic (OneTouch #50 ea 11/07/23 Ultra Test strips) lancets #100 ea 11/07/23 albuterol sulfate 90 mcg/actuation 2 puff inhalation Q 4H PRN SOB #6.7 09/29/24 aerosol inhaler grams levalbuterol HCl 1.25 mg/3 mL 1.25 mg (3 mL) inhalatio n Q4H PRN 09/29/24 solution for nebulization Shortness Of Breath/Wheezing #75 mL prednisone 10 mg tablet See Taper PO DIRECTED #30 tabs 09/29/24 dulaglutide 0.75 mg/0.5 mL 0.75 mg (0.5 mL) subcut QWE EK #2 mL 09/30/24 subcutaneous pen injector (Trulicity) atorvastatin 40 mg tablet 40 mg PO BEDTIME #90 tabs Allergies Allergy/AdvReac Type Severity Reaction Status Date / Time penicillin V Allergy Unknown vomiting Verified 11/30/24 13:58 Penicillins (PENICILLINS) Allergy Unknown vomitting Verified 11/30/24 13:58 Review of Systems 2 Review of Systems: Yes all other systems are reviewed and are negative [facility] Past Medical History Attestation statement: The following information was validated with the patient. Source: old records reviewed Medical History Pressure ulcer Cognitive developmental delay Obesity Asthma Hyperlipidemia Surgical History Meatal stenosis S/P TURP (status post transurethral resection of prostate) History of foot surgery Family History Family History Father Cancer Mother COPD (chronic obstructive pulmonary disease) Hypertension Maternal Aunt Liver cancer Social History Social History Household Members: None Housing: House Do you presently have visiting nurse or other home services: Yes Alcohol intake: never Patient Tobacco Use Status: Never used Tobacco Smoked in Last 30 Days: No e-Cigarette/Vaping Use: Never Used Second Hand Smoke Exposure: No Have you been hit, kicked, punched, or otherwise hurt by someone within the past year? If so, by whom?: No Do you feel safe in your current relationship?: No Is there a partner from a previous relationship who is making you feel unsafe now?: No Are you made to feel afraid or neglected: No Advance Directives: No Advance Directives Information Provided: Yes Recently lost weight without trying: No Nutrition Risks: No Nutritional Risk service: No Current occupational status: employed Cognitive needs: No Hearing needs: Yes (hearing aide) Vision needs: Yes (glasses) Physical Exam ED Exam Exam: Appearance: Alert.?Oriented to person, place and time. No acute distress.?Normal affect. Eyes: Pupils equal, round and reactive to light.? ENT: Pharynx normal.?? Neck: Normal inspection.? Neck supple.?? CVS: Heart sounds normal. Tachycardic? Pulses normal.?? Respiratory: No respiratory distress.? Lung sounds clear to auscultation bilaterally?? Abdomen: Soft and non-tender. Normoactive bowel sounds. ? Skin: Skin warm and dry.? Normal skin color.? Extremities: No lower extremity edema.? No calf ttp? Neuro: Moves all extremities spontaneously. Sensation intact bilaterally. No tremors noted. No focal neuro deficits. Ambulates with normal steady gait. Vital Signs: Vital Signs - 24 hr 11/30/24 13:54 11/30/24 14:00 11/30/24 14:00 Temperature 97.9 F 100.3 F Pulse Rate 136 H Pulse Rate [Monitor] 132 H Respiratory Rate 26 H Blood Pressure 187/100 H Pulse Oximetry 93 Oxygen Delivery Method Room Air Oxygen Flow Rate 11/30/24 15:15 11/30/24 15:33 11/30/24 16:00 Temperature 97.8 F Pulse Rate 114 H 108 H 93 Pulse Rate [Monitor] Respiratory Rate 20 22 H 19 Blood Pressure 152/93 H 146/86 H 160/85 H Pulse Oximetry 97 97 97 Oxygen Delivery Method Nasal Cannula Nasal Cannula Nasal Cannula Oxygen Flow Rate 2 3 3 11/30/24 16:09 11/30/24 17:17 11/30/24 17:27 Temperature 99.1 F 99.2 F Pulse Rate 92 104 H 100 Pulse Rate [Monitor] Respiratory Rate 19 21 H 20 Blood Pressure 151/80 H 143/98 H Pulse Oximetry 98 98 Oxygen Delivery Method Nasal Cannula Nasal Cannula Oxygen Flow Rate 3 3 11/30/24 17:58 11/30/24 17:58 11/30/24 17:59 Temperature Pulse Rate 107 H 108 H Pulse Rate [Monitor] Respiratory Rate Blood Pressure 147/90 H 163/103 H Pulse Oximetry 92 Oxygen Delivery Method Room Air Oxygen Flow Rate 11/30/24 17:59 Temperature Pulse Rate 109 H Pulse Rate [Monitor] Respiratory Rate Blood Pressure 145/100 H Pulse Oximetry Oxygen Delivery Method Oxygen Flow Rate BMI result Body Mass Index 35.0 Course Reevaluation(s) Reevaluation #1: I Isa Martines PA-C have accepted care of the patient and signed out pending labs, reassessment and final disposition. On exam, the patient's lung sounds are diminished, he is 88% RA, I am placing him on 2 L. I am adding an additional updraft. We will then ambulate the patient and see where his oxygenation is at. Reevaluation #2: Repeat lactic acid 1.6, blood gas is appropriate, viral panel negative We ambulated the patient again, his oxygen drops to 88%, he became profoundly tachycardic, we will be admitting him. Medications Administered Generic Name Dose Route Start Last Admin Trade Name Freq PRN Reason Stop Dose Admin Acetaminophen 650 mg 11/30/24 22:02 12/01/24 09:49 Acetaminophen 325 Mg Tablet PO 650 mg Q6H PRN Administration Pain, Mild 1-3,fever,headache Azithromycin 500 mg 11/30/24 23:00 11/30/24 22:19 Azithromycin 500 Mg Tablet PO 500 mg Q24H ALIYA Administration Enoxaparin Sodium 40 mg 11/30/24 23:00 11/30/24 22:19 Enoxaparin Sodium 40 Mg/0.4 Ml Syringe SUBCUT 40 mg Q24H ALIYA Administration Insulin Human Lispro 0 unit 12/01/24 07:30 12/01/24 07:48 Insulin Lispro 100 Unit/Ml 3 Ml Vial SUBCUT 2 unit QIDACHS ALIYA Administration Protocol Methylprednisolone Sodium Succinate 40 mg 12/01/24 00:00 12/01/24 07:47 Methylprednisolone Sod Succ 40 Mg/Ml Vial IVPUSH 40 mg Q8H ALIYA Administration Sodium Chloride 3 ml 12/01/24 00:00 12/01/24 07:48 0.9 % Sodium Chloride Flush 3 Ml Syringe IVFLUSH 3 ml QSHIFT ALIYA Administration Discontinued Medications Generic Name Dose Route Start Last Admin Trade Name Juvencio PRPeyton Reason Stop Dose Admin Acetaminophen 975 mg 11/30/24 14:53 11/30/24 15:09 Acetaminophen 325 Mg Tablet PO 11/30/24 14:54 975 mg ONCE ONE Administration Albuterol/Ipratropium 3 ml 11/30/24 16:09 11/30/24 16:12 Albuterol/Iprat 2.5/0.5mg 3 Ml Ampul.Neb INHALE 11/30/24 16:10 3 ml ONCE ONE Administration Albuterol/Ipratropium 3 ml 12/01/24 08:00 12/01/24 07:46 Albuterol/Iprat 2.5/0.5mg 3 Ml Ampul.Neb INHALE 3 ml RQ4H WHILE AWAKE ALIYA Administration Ceftriaxone Sodium 1 gm 11/30/24 14:53 11/30/24 15:13 Ceftriaxone Sodium 1 Gm Vial IVPUSH 11/30/24 14:54 1 gm ONCE ONE Administration Sodium Chloride 1,845 mls @ 1,845 mls/hr 11/30/24 14:53 11/30/24 17:00 Ns IV 11/30/24 15:52 Infused .Q1H STA Infusion Magnesium Sulfate 2 gm in 50 mls @ 25 mls/hr 11/30/24 18:26 11/30/24 21:59 Magnesium Sulfate/H2o IV 11/30/24 20:25 Infused ONCE ONE Infusion Methylprednisolone Sodium Succinate 80 mg 11/30/24 15:53 11/30/24 16:08 Methylprednisolone Sod Succ 125 Mg/2 Ml Vial IVPUSH 11/30/24 15:54 80 mg ONCE ONE Administration Medical Decision Making Medical Decision Making MDM Narrative: Patient is a 59-year-old male with past medical history of cognitive delay, obesity, asthma, hyperlipidemia who presents emergency department via EMS for evaluation, his caregiver/home health aide ingris is present seeking evaluation for shakiness to the bilateral upper extremities as per HPI. He arrives to emergency department tachycardic in the 130s, mildly tachypneic but no overt increased work of breathing, LS CTA, feeling warm to the touch. Temperature obtained and not noted to be febrile. 14:55 - rectal temperature of 100.3 degrees sepsis alert called, blood cultures and lactic acid to be obtained, sepsis fluid bolus ordered based on ideal body weight secondary to obesity, for total of 1,845 mL, covering with Rocephin with concern for him air at all respiratory etiology. He had [place] [facility] [place] secondary to acute hypoxic respiratory failure thought to be due to asthma exacerbation. 15:39 critical lactic acid of 2.4, no hypotension, responding well to fluid resuscitation, pulses down to 110 after receiving 250 mL normal saline. CBC is without leukocytosis he does however have a slight left shift, no anemia or thrombocytopenia. VBG was obtained, he is not acidotic, pCO2 is 60, bicarb of 35. He is minimally hyponatremic with sodium of 146, otherwise no significant electrolyte derangement. No AUGIE. Non-anion gap hyperglycemia with a glucose of 157. High sensitive troponin within normal range, ECG revealing sinus tachycardia with a ventricular rate of 130, normal DENEEN, QTC 444, no ST- elevation. BNP nondetectable, clinically without signs of fluid volume overload to suggest CHF. Chest x-ray without consolidation infiltrate to suggest pneumonia, no pulmonary vascular congestion. It appears as though his hospital admission in September of 2024 presented similarly with unrelated complaint found to have acute exacerbates of asthma, lactic acidosis similarly room-air hypoxia. Is known to be a poor historian. Remains without increased work of breathing and expiratory wheezing, given his history, will trial patient to receive albuterol nebulizer as well as IV Solu-Medrol at this time, we will attempt re- attempt ambulatory O2 trial. 17:45 repeat lactic acid of 1.6. Orthostatic vital signs are negative. Urinalysis is pending. No room-air hypoxia at rest attempt planning ambulatory O2 trial, without respiratory distress. d-dimer is pending. signed out to Antonio MCKINNON Differential Diagnosis Differential Diagnoses: The differential diagnosis associated with the presentation includes (See narrative above) Admission/Observation Consideration of admission/observation: Escalation of care including admission/observation considered Lab Data MDM Lab Attestation statement: I reviewed the patient's lab results. (See narrative above) 12/01/24 03:57 12/01/24 03:57 Labs: Lab Results 11/30/24 11/30/24 11/30/24 Range/Units 15:07 15:08 15:16 WBC 8.6 (4.8-10.8) X10*3/uL RBC 5.18 (4.60-5.80) X10*6/uL Hgb 15.6 (14.0-18.0) g/dl Hct 46.7 (42.0-52.0) % MCV 90.2 (80.0-98.0) fL MCH 30.1 (27.0-33.0) pg MCHC 33.4 (31.0-36.0) g/dl RDW 12.9 (11.0-16.0) % Plt Count 272 (160-400) X10*3/uL MPV 9.9 (9.4-12.4) fL Immature Gran % (Auto) 0.2 (0.0-0.4) % Neut % (Auto) 76.0 H (45-73) % Lymph % (Auto) 15.1 L (20-40) % Mayes % (Auto) 7.9 (2-11) % Eos % (Auto) 0.4 (0-4) % Baso % (Auto) 0.4 (0-2) % Lymph # (Auto) 1.3 (1.2-4.9) X10*3/uL Mayes # (Auto) 0.7 (0.1-1.2) X10*3/uL Eos # (Auto) 0.0 (0.0-0.4) X10*3/uL Baso # (Auto) 0.0 (0.0-0.2) X10*3/uL Abs Immat Gran (auto) 0.02 (0.00-0.03) X10*3/uL Absolute Neuts (auto) 6.5 (2.0-8.3) x10*3/uL Absolute Nucleated RBC 0.000 (0.0-0.012) X10*3/uL Nucleated RBC % (auto) 0.0 (0.0-0.2) /100WBC D-Dimer High Sensitivty NG/ML VBG pH 7.37 (7.32-7.43) VBG pCO2 60 mmHg VBG pO2 45 mmHg VBG HCO3 35 H (22-26) mmol/L VBG O2 Saturation 71.0 % VBG Base Excess 7.7 mmol/L Sodium 146 H (135-145) mmol/L Potassium 4.4 (3.3-5.1) mmol/L Chloride 108 (96-108) mmol/L Carbon Dioxide 30 H (22-29) mmol/L Anion Gap 12 (12-20) BUN 22 H (9-16) mg/dL Creatinine 1.01 (0.5-1.4) mg/dL Estim Creat Clear Calc 84.6 Estimated GFR > 60 Random Glucose 157 H (60-115) mg/dL Lactic Acid 2.4 H* (0.5-2.0) mmol/L Lactic Acid F/U @ 2Hr (0.5-2.0) mmol/L Calcium 9.8 D (8.4-10.2) mg/dL Magnesium 1.8 (1.6-2.6) mg/dL Total Bilirubin 0.3 (0.0-1.0) mg/dL AST 24 (5-37) U/L ALT 21 (0-40) U/L Alkaline Phosphatase 59 (39-117) U/L Troponin I High Sens 3.2 (<3.5-35.0) ng/L B-Natriuretic Peptide < 10 (<100) pg/mL Total Protein 7.4 (6.5-8.0) g/dL Albumin 4.5 (3.5-5.0) g/dL Urine Color Urine Appearance Urine pH (5.0-9.0) Ur Specific [place] (1.005-1.025) Urine Protein (Neg-Trace) mg/dL Urine Glucose (UA) (Negative) mg/dL Urine Ketones (Negative) mg/dL Urine Blood (Negative) Urine Nitrite (Negative) Ur Leukocyte Esterase (Negative) Urine RBC (0-2) /HPF Urine WBC (0-5) /HPF Ur Squamous Epith Cells (0-2) /HPF Urine Bacteria (None Seen) Hyaline Casts (0-2) /LPF Influenza Type A (PCR) (Negative) Influenza Type B (PCR) (Negative) RSV RNA Qual (PCR) (Negative) SARS-CoV-2 RNA (RT-PCR) (Negative) 11/30/24 11/30/24 11/30/24 Range/Units 16:10 17:25 17:38 WBC (4.8-10.8) X10*3/uL RBC (4.60-5.80) X10*6/uL Hgb (14.0-18.0) g/dl Hct (42.0-52.0) % MCV (80.0-98.0) fL MCH (27.0-33.0) pg MCHC (31.0-36.0) g/dl RDW (11.0-16.0) % Plt Count (160-400) X10*3/uL MPV (9.4-12.4) fL Immature Gran % (Auto) (0.0-0.4) % Neut % (Auto) (45-73) % Lymph % (Auto) (20-40) % Mayes % (Auto) (2-11) % Eos % (Auto) (0-4) % Baso % (Auto) (0-2) % Lymph # (Auto) (1.2-4.9) X10*3/uL Mayes # (Auto) (0.1-1.2) X10*3/uL Eos # (Auto) (0.0-0.4) X10*3/uL Baso # (Auto) (0.0-0.2) X10*3/uL Abs Immat Gran (auto) (0.00-0.03) X10*3/uL Absolute Neuts (auto) (2.0-8.3) x10*3/uL Absolute Nucleated RBC (0.0-0.012) X10*3/uL Nucleated RBC % (auto) (0.0-0.2) /100WBC D-Dimer High Sensitivty NG/ML VBG pH (7.32-7.43) VBG pCO2 mmHg VBG pO2 mmHg VBG HCO3 (22-26) mmol/L VBG O2 Saturation % VBG Base Excess mmol/L Sodium (135-145) mmol/L Potassium (3.3-5.1) mmol/L Chloride (96-108) mmol/L Carbon Dioxide (22-29) mmol/L Anion Gap (12-20) BUN (9-16) mg/dL Creatinine (0.5-1.4) mg/dL Estim Creat Clear Calc Estimated GFR Random Glucose (60-115) mg/dL Lactic Acid (0.5-2.0) mmol/L Lactic Acid F/U @ 2Hr 1.6 (0.5-2.0) mmol/L Calcium (8.4-10.2) mg/dL Magnesium (1.6-2.6) mg/dL Total Bilirubin (0.0-1.0) mg/dL AST (5-37) U/L ALT (0-40) U/L Alkaline Phosphatase (39-117) U/L Troponin I High Sens (<3.5-35.0) ng/L B-Natriuretic Peptide (<100) pg/mL Total Protein (6.5-8.0) g/dL Albumin (3.5-5.0) g/dL Urine Color Yellow Urine Appearance Clear Urine pH 5.0 (5.0-9.0) Ur Specific [place] >= 1.030 H (1.005-1.025) Urine Protein Trace (Neg-Trace) mg/dL Urine Glucose (UA) Negative (Negative) mg/dL Urine Ketones Trace (Negative) mg/dL Urine Blood Negative (Negative) Urine Nitrite Negative (Negative) Ur Leukocyte Esterase Trace H (Negative) Urine RBC 0-2 (0-2) /HPF Urine WBC 0-5 (0-5) /HPF Ur Squamous Epith Cells 0-2 (0-2) /HPF Urine Bacteria None Seen (None Seen) Hyaline Casts 0-2 (0-2) /LPF Influenza Type A (PCR) NEGATIVE (Negative) Influenza Type B (PCR) NEGATIVE (Negative) RSV RNA Qual (PCR) NEGATIVE (Negative) SARS-CoV-2 RNA (RT-PCR) NEGATIVE (Negative) 11/30/24 Range/Units 18:38 WBC (4.8-10.8) X10*3/uL RBC (4.60-5.80) X10*6/uL Hgb (14.0-18.0) g/dl Hct (42.0-52.0) % MCV (80.0-98.0) fL MCH (27.0-33.0) pg MCHC (31.0-36.0) g/dl RDW (11.0-16.0) % Plt Count (160-400) X10*3/uL MPV (9.4-12.4) fL Immature Gran % (Auto) (0.0-0.4) % Neut % (Auto) (45-73) % Lymph % (Auto) (20-40) % Mayes % (Auto) (2-11) % Eos % (Auto) (0-4) % Baso % (Auto) (0-2) % Lymph # (Auto) (1.2-4.9) X10*3/uL Mayes # (Auto) (0.1-1.2) X10*3/uL Eos # (Auto) (0.0-0.4) X10*3/uL Baso # (Auto) (0.0-0.2) X10*3/uL Abs Immat Gran (auto) (0.00-0.03) X10*3/uL Absolute Neuts (auto) (2.0-8.3) x10*3/uL Absolute Nucleated RBC (0.0-0.012) X10*3/uL Nucleated RBC % (auto) (0.0-0.2) /100WBC D-Dimer High Sensitivty < 150 NG/ML VBG pH (7.32-7.43) VBG pCO2 mmHg VBG pO2 mmHg VBG HCO3 (22-26) mmol/L VBG O2 Saturation % VBG Base Excess mmol/L Sodium (135-145) mmol/L Potassium (3.3-5.1) mmol/L Chloride (96-108) mmol/L Carbon Dioxide (22-29) mmol/L Anion Gap (12-20) BUN (9-16) mg/dL Creatinine (0.5-1.4) mg/dL Estim Creat Clear Calc Estimated GFR Random Glucose (60-115) mg/dL Lactic Acid (0.5-2.0) mmol/L Lactic Acid F/U @ 2Hr (0.5-2.0) mmol/L Calcium (8.4-10.2) mg/dL Magnesium (1.6-2.6) mg/dL Total Bilirubin (0.0-1.0) mg/dL AST (5-37) U/L ALT (0-40) U/L Alkaline Phosphatase (39-117) U/L Troponin I High Sens (<3.5-35.0) ng/L B-Natriuretic Peptide (<100) pg/mL Total Protein (6.5-8.0) g/dL Albumin (3.5-5.0) g/dL Urine Color Urine Appearance Urine pH (5.0-9.0) Ur Specific [place] (1.005-1.025) Urine Protein (Neg-Trace) mg/dL Urine Glucose (UA) (Negative) mg/dL Urine Ketones (Negative) mg/dL Urine Blood (Negative) Urine Nitrite (Negative) Ur Leukocyte Esterase (Negative) Urine RBC (0-2) /HPF Urine WBC (0-5) /HPF Ur Squamous Epith Cells (0-2) /HPF Urine Bacteria (None Seen) Hyaline Casts (0-2) /LPF Influenza Type A (PCR) (Negative) Influenza Type B (PCR) (Negative) RSV RNA Qual (PCR) (Negative) SARS-CoV-2 RNA (RT-PCR) (Negative) Independent Interpretation I performed an independent interpretation of an: EKG (See narrative above) and Plain X-Ray (See narrative above) Radiology Impression Discussion of test interpretation with radiology: I have reviewed the radiologist's reading. Radiologist Impression: 2 view chest x-ray Comparison: CR/SR - XR CHEST 1V - 09/25/24 10:34 EDT Findings: The lungs are clear. No effusion or pneumothorax. Normal size heart. No acute fracture. Diffuse idiopathic skeletal hyperostosis of the thoracic spine. IMPRESSION: 1. No acute findings. Independent Historian Clinical information obtained from an independent historian. History obtained from or confirmed by: Other (See HPI) External Record Review External record reviewed: Outpatient record Chronic Conditions Patient?s care impacted by: Other (See narrative above) Critical Care Time Critical Care Time Critical Care Time: Yes Total Critical Care Time: 40 Attestation: Time is exclusive of separately billable procedures. Time includes: direct patient care, patient reassessment, coordination of patient care, interpretation of data (laboratory data, pulse oximetry, venous blood gases and chest xrays), review of patient's medical records, medical consultation and documentation of patient care. Procedures excluded from critical care time: central intravenous line placement and electrocardiography. Discharge Plan Discharge Clinical Impression: Bronchitis, Fever, Hypoxia Patient Disposition: Admitted As Inpatient Interventions: Admission Worksheet (ED) Last Done: 12/01/24 08:05 Discharge Date/Time: 12/01/24 09:10
[2024-11-30] MEDS: 0.9 % Sodium Chloride 1,845 ML 1845 ML IV (15:10)
[2024-11-30 15:16] LABS: MANUAL DIFF FLAG NO
[2024-11-30 15:17] LABS: Hematocrit 46.7 % (42.0-52.0); Hemoglobin 15.6 g/dl (14.0-18.0); Imm Gran Abs Auto 0.02 X10*3/uL (0.00-0.03); Imm Gran Pct Auto 0.2 % (0.0-0.4); Lymphocytes Absolute Auto 1.3 X10*3/uL (1.2-4.9); Mean Corpuscular HGB Conc 33.4 g/dl (31.0-36.0); Mean Corpuscular Hemoglobin 30.1 pg (27.0-33.0); Mean Corpuscular Volume 90.2 fL (80.0-98.0); NRBC Abs Auto 0.000 X10*3/uL (0.0-0.012); NRBC Pct Auto 0.0 /100WBC (0.0-0.2); Platelet Count 272 X10*3/uL (160-400); Red Blood Count 5.18 X10*6/uL (4.60-5.80); White Blood Count 8.6 X10*3/uL (4.8-10.8)
[2024-11-30 15:19] LABS: VBG HCO3 35 mmol/L (22-26); VBG O2 % Saturation 71.0 %
[2024-11-30 15:20] LABS: Venous Blood Gas Refer to POC result
[2024-11-30 15:32] LABS: Magnesium 1.8 mg/dL (1.6-2.6)
[2024-11-30 15:33] LABS: Alanine Aminotransferase 21 U/L (0-40); Albumin Level 4.5 g/dL (3.5-5.0); Alkaline Phosphatase 59 U/L (39-117); Anion Gap 12 (12-20); Aspartate Amino Transferase 24 U/L (5-37); Blood Urea Nitrogen 22 mg/dL (9-16); Calcium 9.8 mg/dL (8.4-10.2); Carbon Dioxide 30 mmol/L (22-29); Chloride 108 mmol/L (96-108); Creatinine Clr Calc Pharmacy 84.6; Estimated Glomerular Filt Rate > 60; Potassium 4.4 mmol/L (3.3-5.1); Sodium 146 mmol/L (135-145); Total Protein 7.4 g/dL (6.5-8.0)
[2024-11-30 15:39] LABS: B Type Natriuretic Peptide < 10 pg/mL (<100)
[2024-11-30 15:41] LABS: Troponin-I High Sensitivity 3.2 ng/L (<3.5-35.0)
[2024-11-30] MEDS: Albuterol/Iprat 2.5/0.5MG 3 ML AMPUL.NEB INHALE (16:12)
--- NOTE | 2024-11-30 16:20 | MHC.EDTECH ---
This tech ttook over care of pt at 1600, rounded and introduced self to pt, Sars/Flu/RSV obtained and sent to lab
[2024-11-30 16:50] LABS: Resp Syncy Virus RNA Qual PCR NEGATIVE (Negative); SARS COV2 PCR INHOUSE NEGATIVE (Negative)
[2024-11-30 17:14] LABS: Reflex Lactate? Lactic Acid Added
[2024-11-30 17:43] LABS: ~Lactic Acid-LAB USE ONLY 1.6 mmol/L (0.5-2.0)
[2024-11-30 17:44] LABS: Appearance Urine Clear; Glucose Urine UA Negative (Negative); PH 5.0 (5.0-9.0); Specific Gravity - Urine >= 1.030 (1.005-1.025); UMIC TRIGGER UACC YES
--- NOTE | 2024-11-30 18:01 | MHC.EDTECH ---
Repeat lactic drawn and sent to lab, rectal temp taken and in 99.2, patient urinated 200MLS in urinal,urine sample collected and sent to lab. Ortho static vitals taken,provider made aware, patient ambulated with a steady gait,pt has tremors,walking O2 sat of 90 to 93%.
[2024-11-30 18:54] LABS: D Dimer High Sensitivity < 150 NG/ML
[2024-11-30] MEDS: Magnesium Sulfate/H2O 2 GM/50 ML PIGGYBACK IV (19:00)
--- NOTE | 2024-11-30 20:46 | MHC.EDTECH ---
pt O2 sat from 89%-90% during ambulation trial dipping down to 88% and getting up 92% briefly.
--- NOTE | 2024-11-30 22:06 | PM.IMHP ---
History of Present Illness Date of Service: 11/30/24 Chief Complaint: shaking 59-year-old male with a past medical history of hyperlipidemia, asthma, cognitive impairment, obesity presented to the hospital with a chief complaint of shaking. Denies any nausea or vomiting. Reports occasional cough. Denies any chest pain or palpitations. Denies any swallowing difficulties. Denies any GI or symptoms. Review of all other systems is negative except mentioned above ER course: Per ER team comprehension initially reported bilateral upper extremity she had concern for chills/rigors. Patient was febrile to 100.3 F. viral panel negative. Chest x-ray showed no acute cardiopulmonary process. UA negative. Patient has diminished lung sounds. Patient was hypoxic to 87%. Concern for possible asthma exacerbation. Given nebulizations and steroids. Patient also received dose of ceftriaxone. D-dimer negative. [facility] Medical History Pressure ulcer Cognitive developmental delay Obesity Asthma Hyperlipidemia Family History Father Cancer Mother COPD (chronic obstructive pulmonary disease) Hypertension Maternal Aunt Liver cancer Surgical History Meatal stenosis S/P TURP (status post transurethral resection of prostate) History of foot surgery Social History Household Members: None Housing: Apartment Do you presently have visiting nurse or other home services: Yes (VNA 1x/wk) Alcohol intake: never Patient Tobacco Use Status: Never used Tobacco Smoked in Last 30 Days: No e-Cigarette/Vaping Use: Never Used Second Hand Smoke Exposure: No Advance Directives: No Advance Directives Information Provided: Yes service: No Current occupational status: employed Cognitive needs: No Hearing needs: Yes (hearing aide) Vision needs: Yes (glasses) Meds Allergies Allergy/AdvReac Type Severity Reaction Status Date / Time penicillin V Allergy Unknown vomiting Verified 11/30/24 13:58 Penicillins (PENICILLINS) Allergy Unknown vomitting Verified 11/30/24 13:58 Active Medications: Current Medications Acetaminophen (Acetaminophen 325 Mg Tablet) 650 mg PO Q6H PRN PRN Reason: Pain, Mild 1-3,fever,headache Albuterol/Ipratropium (Albuterol/Iprat 2.5/0.5mg 3 Ml Ampul.Neb) 3 ml INHALE Q4H PRN PRN Reason: Shortness of Breath/Wheezing Albuterol/Ipratropium (Albuterol/Iprat 2.5/0.5mg 3 Ml Ampul.Neb) 3 ml INHALE RQ4H WHILE AWAKE [facility] Azithromycin (Azithromycin 500 Mg Tablet) 500 mg PO Q24H [facility] Calcium Carbonate (Calcium Carbonate 750 Mg Tab.Chew) 750 mg PO Q4H PRN PRN Reason: Heartburn Enoxaparin Sodium (Enoxaparin Sodium 40 Mg/0.4 Ml Syringe) 40 mg SUBCUT Q24H [facility] Glucose (Glucose Gel 15 Gm Gel..Gram.) 15 gm PO Q15M PRN; Protocol PRN Reason: per Hypoglycemia Standing Ord. Magnesium Hydroxide (Milk Of Magnesia 30 Ml Oral.Susp) 30 ml PO DAILY PRN PRN Reason: Constipation Melatonin (Melatonin 3 Mg Tablet) 6 mg PO BEDTIME PRN PRN Reason: Insomnia Methylprednisolone Sodium Succinate (Methylprednisolone Sod Succ 40 Mg/Ml Vial) 40 mg IVPUSH Q8H [facility] Sodium Chloride (0.9 % Sodium Chloride Flush 3 Ml Syringe) 3 ml IVFLUSH QSHIFT [facility] Home Medications ?Medication ?Instructions ?Recorded ?Confirmed ?Last Taken ?Type aripiprazole lauroxil 882 mg/3.2 882 mg IM Q28D 09/25/24 10/07/24 09/05/24 History mL suspension, ext.rel. IM syringe (Aristada) escitalopram oxalate 5 mg/5 mL 5 mg PO DAILY 09/25/24 10/07/24 09/24/24 History oral solution Physical Exam Vital Signs and Narrative: Vital Signs: Last Vital Signs Temp 99.2 F 11/30/24 17:27 Pulse 109 H 11/30/24 17:59 Resp 20 11/30/24 17:27 BP 145/100 H 11/30/24 17:59 Pulse Ox 92 11/30/24 17:59 O2 Del Method Room Air 11/30/24 17:59 O2 Flow Rate 3 11/30/24 17:27 BMI result Body Mass Index 35.0 Gen: Appears be in no acute distress HEENT: NCAT, Moist mucosa. Pulmonary: Coarse breath sounds CVS: Normal S1-S2 Abdomen: BS+, Soft, Nontender Extremities: Warm well perfused Neuro: Alert and awake. Results Labs 11/30/24 15:08 11/30/24 15:07 Labs: Laboratory Results - last 24 hr 11/30/24 11/30/24 11/30/24 15:07 15:08 15:16 MCV 90.2 MCH 30.1 MCHC 33.4 RDW 12.9 Plt Count 272 MPV 9.9 Immature Gran % (Auto) 0.2 Neut % (Auto) 76.0 H Lymph % (Auto) 15.1 L [place] % (Auto) 7.9 Eos % (Auto) 0.4 Baso % (Auto) 0.4 Lymph # (Auto) 1.3 [place] # (Auto) 0.7 Eos # (Auto) 0.0 Baso # (Auto) 0.0 Abs Immat Gran (auto) 0.02 Absolute Neuts (auto) 6.5 Absolute Nucleated RBC 0.000 Nucleated RBC % (auto) 0.0 D-Dimer High Sensitivty VBG pH 7.37 VBG pCO2 60 VBG pO2 45 VBG HCO3 35 H VBG O2 Saturation 71.0 VBG Base Excess 7.7 Anion Gap 12 Estim Creat Clear Calc 84.6 Estimated GFR > 60 Random Glucose 157 H Lactic Acid 2.4 H* Lactic Acid F/U @ 2Hr Calcium 9.8 D Magnesium 1.8 Total Bilirubin 0.3 AST 24 ALT 21 Alkaline Phosphatase 59 B-Natriuretic Peptide < 10 Total Protein 7.4 Albumin 4.5 Urine Color Urine Appearance Urine pH Ur Specific [place] Urine Protein Urine Glucose (UA) Urine Ketones Urine Blood Urine Nitrite Ur Leukocyte Esterase Urine RBC Urine WBC Ur Squamous Epith Cells Urine Bacteria Hyaline Casts Influenza Type A (PCR) Influenza Type B (PCR) RSV RNA Qual (PCR) SARS-CoV-2 RNA (RT-PCR) 11/30/24 11/30/24 11/30/24 16:10 17:25 17:38 MCV MCH MCHC RDW Plt Count MPV Immature Gran % (Auto) Neut % (Auto) Lymph % (Auto) [place] % (Auto) Eos % (Auto) Baso % (Auto) Lymph # (Auto) [place] # (Auto) Eos # (Auto) Baso # (Auto) Abs Immat Gran (auto) Absolute Neuts (auto) Absolute Nucleated RBC Nucleated RBC % (auto) D-Dimer High Sensitivty VBG pH VBG pCO2 VBG pO2 VBG HCO3 VBG O2 Saturation VBG Base Excess Anion Gap Estim Creat Clear Calc Estimated GFR Random Glucose Lactic Acid Lactic Acid F/U @ 2Hr 1.6 Calcium Magnesium Total Bilirubin AST ALT Alkaline Phosphatase B-Natriuretic Peptide Total Protein Albumin Urine Color Yellow Urine Appearance Clear Urine pH 5.0 Ur Specific [place] >= 1.030 H Urine Protein Trace Urine Glucose (UA) Negative Urine Ketones Trace Urine Blood Negative Urine Nitrite Negative Ur Leukocyte Esterase Trace H Urine RBC 0-2 Urine WBC 0-5 Ur Squamous Epith Cells 0-2 Urine Bacteria None Seen Hyaline Casts 0-2 Influenza Type A (PCR) NEGATIVE Influenza Type B (PCR) NEGATIVE RSV RNA Qual (PCR) NEGATIVE SARS-CoV-2 RNA (RT-PCR) NEGATIVE 11/30/24 18:38 MCV MCH MCHC RDW Plt Count MPV Immature Gran % (Auto) Neut % (Auto) Lymph % (Auto) [place] % (Auto) Eos % (Auto) Baso % (Auto) Lymph # (Auto) [place] # (Auto) Eos # (Auto) Baso # (Auto) Abs Immat Gran (auto) Absolute Neuts (auto) Absolute Nucleated RBC Nucleated RBC % (auto) D-Dimer High Sensitivty < 150 VBG pH VBG pCO2 VBG pO2 VBG HCO3 VBG O2 Saturation VBG Base Excess Anion Gap Estim Creat Clear Calc Estimated GFR Random Glucose Lactic Acid Lactic Acid F/U @ 2Hr Calcium Magnesium Total Bilirubin AST ALT Alkaline Phosphatase B-Natriuretic Peptide Total Protein Albumin Urine Color Urine Appearance Urine pH Ur Specific [place] Urine Protein Urine Glucose (UA) Urine Ketones Urine Blood Urine Nitrite Ur Leukocyte Esterase Urine RBC Urine WBC Ur Squamous Epith Cells Urine Bacteria Hyaline Casts Influenza Type A (PCR) Influenza Type B (PCR) RSV RNA Qual (PCR) SARS-CoV-2 RNA (RT-PCR) Assessment and Plan (1) Hypoxia: Status: Acute Plan 59-year-old male with a past medical history of hyperlipidemia, diabetes, asthma, cognitive impairment, obesity presented to the hospital with a chief complaint of shaking chills. Noted hypoxia. Concern for exacerbation. Asthma Exacerbation: Acute Hypoxic respiratory failure: Bronchitis: Continue supplemental oxygen. Continue nebulizations stranding and. Fentanyl Solu-Medrol Continue azithromycin Follow up cultures. Diabetes: insulin sliding scale DVT prophylaxis: Lovenox Code status: Full code Quality Stroke Does the patient have a stroke diagnosis?: No VTE Prior VTE?: No VTE Risk Level:: Medical - moderate - high VTE Device Contraindication: Treatment Not Indicated VTE Drug Contraindication: N/A - Med Ordered
--- NOTE | 2024-11-30 22:26 | PC.NURSE ---
pt refused to change brief at this time, pt repositioned in bed for comfort.
[2024-12-01] VITALS (17 sets, daily range): BP systolic 128–156; BP diastolic 64–91; PULSE 88–128; RESP 16–24; TEMP 36.5–38.2; O2SAT 84–97; BMI 32.8
[2024-12-01] MEDS: 0.9 % Sodium Chloride Flush 3 ML SYRINGE IVFLUSH ×4 (00:04→23:59)
--- NOTE | 2024-12-01 00:08 | PC.NURSE ---
pt medicated per mar, pt resting quietly. pt on bedside monitor.
--- NOTE | 2024-12-01 01:35 | PC.NURSE ---
pt oob to bathroom, pt reported having a bowel movement.
[2024-12-01 04:36] LABS: MANUAL DIFF FLAG NO
[2024-12-01 04:38] LABS: Hematocrit 45.1 % (42.0-52.0); Hemoglobin 14.6 g/dl (14.0-18.0); Imm Gran Abs Auto 0.02 X10*3/uL (0.00-0.03); Imm Gran Pct Auto 0.3 % (0.0-0.4); Lymphocytes Absolute Auto 0.7 X10*3/uL (1.2-4.9); Mean Corpuscular HGB Conc 32.4 g/dl (31.0-36.0); Mean Corpuscular Hemoglobin 29.6 pg (27.0-33.0); Mean Corpuscular Volume 91.3 fL (80.0-98.0); NRBC Abs Auto 0.000 X10*3/uL (0.0-0.012); NRBC Pct Auto 0.0 /100WBC (0.0-0.2); Platelet Count 253 X10*3/uL (160-400); Red Blood Count 4.94 X10*6/uL (4.60-5.80); White Blood Count 6.0 X10*3/uL (4.8-10.8)
[2024-12-01 04:54] LABS: Anion Gap 15 (12-20); Blood Urea Nitrogen 22 mg/dL (9-16); Calcium 9.1 mg/dL (8.4-10.2); Carbon Dioxide 28 mmol/L (22-29); Chloride 107 mmol/L (96-108); Creatinine Clr Calc Pharmacy 105.5; Estimated Glomerular Filt Rate > 60; Potassium 4.8 mmol/L (3.3-5.1); Sodium 145 mmol/L (135-145)
--- NOTE | 2024-12-01 05:59 | PC.NURSE ---
pt sleeping at this time, no sign of distress.
[2024-12-01 07:44] LABS: Glucose, Whole Blood 200 mg/dL (60-115)
[2024-12-01] MEDS: Albuterol/Iprat 2.5/0.5MG 3 ML AMPUL.NEB INHALE (07:46)
[2024-12-01 09:17] LABS: Glucose, Whole Blood 291 mg/dL (60-115)
--- NOTE | 2024-12-01 09:40 | MHC.CM.PN ---
Addendum entered by Renetta Leija 12/01/24 09:53: This CM placed call to [facility] office, they informed this CM that pt is now with PCP/[facility], Crescencio Gary. Addendum entered by Renetta Leija 12/01/24 09:51: Return call received from [facility] Transitions of care nurse Rodrigo Boyer. Steve Wallace, has a IP NETWORK ARCHITECT 21.5 hrs/week, and is active with [email or web address] VNA services. Steve Wallace, he only has retired PCP Dr. Tony Patton on file. Original Note: IMM 12/01. Pt with cognitive impairment and appears to be a poor historian, no HCP on file. This CM met with pt to complete CM intake assessment. Pt states he lives alone at home and is his own HCP. Pt states he has a IP NETWORK ARCHITECT who will transport him home at discharge. Pt states he has a nurse that comes to his home, unsure of the VNA agency. Pt states he has a walker but doesn't use it. Pt stating he needs to return home tomorrow, because his nurse will be there and he needs to be out of here by 1pm tomorrow. PCP: Unsure of PCP's name, he had Dr. Tony Patton, but he is retired now. Call placed to [facility] Transitions of Care Nurse to inquire about further information, voicemail left, awaiting return call.
--- NOTE | 2024-12-01 11:06 | P.PNIM_ITS ---
Subjective Subjective Date of Service: 12/01/24 Interval History: Seen and evaluated today. Reports feeling better and wants to go home. Denies pain, shortness of breath or palpitations, still having intermittent shakiness. Review of Systems Review of Systems: Yes all other systems are reviewed and are negative Respiratory Respiratory: Reports cough Neurologic shakey hands Physical Exam 2 Exam: Exam: Constitutional: Alert, oriented, cognitive delay, in no acute distress, overweight. Visibly anxious Mental Status: Oriented to person, place and time. Forgetful, anxious Eyes: Pupils are equal, round and reactive to light. Ear, Nose and Throat: mucous membranes moist. Ears and nose without deformities. Trachea midline. Respiratory: expiratory wheeze bilateral upper lobes, slight fine crackle RML. On 3L 02 via NC. Productive intermittent cough Cardiovascular: S1 S2 regular. No murmurs, rubs or gallops. Gastrointestinal: Abdomen semi-firm, large and distended, non-tender. Normal bowel sounds.? Neurologic: Cranial nerves II-XII grossly intact. No focal neurological deficits. Moves all extremities spontaneously.? Skin: No rashes or lesions.? Musculoskeletal: No cyanosis or clubbing. Psychiatric: Denies feeling anxious, is fumbling phone wanting to call social media marketing manager, and discuss going home. Repeating himself? Vital Signs: Vital Signs: Last Vital Signs Temp 99.8 F 12/01/24 09:52 Pulse 117 H 12/01/24 09:52 Resp 16 12/01/24 09:52 BP 138/81 12/01/24 09:52 Pulse Ox 94 12/01/24 09:52 O2 Del Method Room Air 12/01/24 09:52 O2 Flow Rate 3 12/01/24 08:19 BMI result Body Mass Index 32.8 Objective Data Active Medications Acetaminophen (Acetaminophen 325 Mg Tablet) 650 mg PO Q6H PRN PRN Reason: Pain, Mild 1-3,fever,headache Last Admin: 12/01/24 09:49 Dose: 650 mg Documented By: ADI Azithromycin (Azithromycin 500 Mg Tablet) 500 mg PO Q24H [facility] Last Admin: 11/30/24 22:19 Dose: 500 mg Documented By: GABRIEL Calcium Carbonate (Calcium Carbonate 750 Mg Tab.Chew) 750 mg PO Q4H PRN PRN Reason: Heartburn Levalbuterol HCl 2.5 mg/ (Ipratropium [place] 0.5 mg) 0 mg INHALE RQ4H WHILE AWAKE [facility] Dextrose (Dextrose 50 % 25 Gm/50 Ml Syringe) 25 gm IVPUSH Q15M PRN; Protocol PRN Reason: per Hypoglycemia Standing Ord. Enoxaparin Sodium (Enoxaparin Sodium 40 Mg/0.4 Ml Syringe) 40 mg SUBCUT Q24H [facility] Last Admin: 11/30/24 22:19 Dose: 40 mg Documented By: GABRIEL Glucose (Glucose Gel 15 Gm Gel..Gram.) 15 gm PO Q15M PRN; Protocol PRN Reason: per Hypoglycemia Standing Ord. Insulin Human Lispro (Insulin Lispro 100 Unit/Ml 3 Ml Vial) 0 unit SUBCUT QIDACHS [facility]; Protocol Last Admin: 12/01/24 07:48 Dose: 2 unit Documented By: SONAM Comments: poc 200 Levalbuterol HCl (Levalbuterol Hcl 1.25 Mg/3 Ml Vial.Neb) 1.25 mg INHALE Q2H PRN PRN Reason: Shortness of Breath/Wheezing Magnesium Hydroxide (Milk Of Magnesia 30 Ml Oral.Susp) 30 ml PO DAILY PRN PRN Reason: Constipation Melatonin (Melatonin 3 Mg Tablet) 6 mg PO BEDTIME PRN PRN Reason: Insomnia Methylprednisolone Sodium Succinate (Methylprednisolone Sod Succ 40 Mg/Ml Vial) 40 mg IVPUSH Q8H [facility] Last Admin: 12/01/24 07:47 Dose: 40 mg Documented By: SONAM Sodium Chloride (0.9 % Sodium Chloride Flush 3 Ml Syringe) 3 ml IVFLUSH QSHIFT [facility] Last Admin: 12/01/24 07:48 Dose: 3 ml Documented By: SONAM Labs 12/01/24 03:57 12/01/24 03:57 Labs: Laboratory Results - last 24 hr 11/30/24 11/30/24 11/30/24 15:07 15:08 15:16 MCV 90.2 MCH 30.1 MCHC 33.4 RDW 12.9 Plt Count 272 MPV 9.9 Immature Gran % (Auto) 0.2 Neut % (Auto) 76.0 H Lymph % (Auto) 15.1 L Moore % (Auto) 7.9 Eos % (Auto) 0.4 Baso % (Auto) 0.4 Lymph # (Auto) 1.3 Moore # (Auto) 0.7 Eos # (Auto) 0.0 Baso # (Auto) 0.0 Abs Immat Gran (auto) 0.02 Absolute Neuts (auto) 6.5 Absolute Nucleated RBC 0.000 Nucleated RBC % (auto) 0.0 D-Dimer High Sensitivty VBG pH 7.37 VBG pCO2 60 VBG pO2 45 VBG HCO3 35 H VBG O2 Saturation 71.0 VBG Base Excess 7.7 Anion Gap 12 Estim Creat Clear Calc 84.6 Estimated GFR > 60 POC Glucose Random Glucose 157 H Lactic Acid 2.4 H* Lactic Acid F/U @ 2Hr Calcium 9.8 D Magnesium 1.8 Total Bilirubin 0.3 AST 24 ALT 21 Alkaline Phosphatase 59 B-Natriuretic Peptide < 10 Total Protein 7.4 Albumin 4.5 Urine Color Urine Appearance Urine pH Ur Specific [place] Urine Protein Urine Glucose (UA) Urine Ketones Urine Blood Urine Nitrite Ur Leukocyte Esterase Urine RBC Urine WBC Ur Squamous Epith Cells Urine Bacteria Hyaline Casts Influenza Type A (PCR) Influenza Type B (PCR) RSV RNA Qual (PCR) SARS-CoV-2 RNA (RT-PCR) 11/30/24 11/30/24 11/30/24 16:10 17:25 17:38 MCV MCH MCHC RDW Plt Count MPV Immature Gran % (Auto) Neut % (Auto) Lymph % (Auto) Moore % (Auto) Eos % (Auto) Baso % (Auto) Lymph # (Auto) Moore # (Auto) Eos # (Auto) Baso # (Auto) Abs Immat Gran (auto) Absolute Neuts (auto) Absolute Nucleated RBC Nucleated RBC % (auto) D-Dimer High Sensitivty VBG pH VBG pCO2 VBG pO2 VBG HCO3 VBG O2 Saturation VBG Base Excess Anion Gap Estim Creat Clear Calc Estimated GFR POC Glucose Random Glucose Lactic Acid Lactic Acid F/U @ 2Hr 1.6 Calcium Magnesium Total Bilirubin AST ALT Alkaline Phosphatase B-Natriuretic Peptide Total Protein Albumin Urine Color Yellow Urine Appearance Clear Urine pH 5.0 Ur Specific [place] >= 1.030 H Urine Protein Trace Urine Glucose (UA) Negative Urine Ketones Trace Urine Blood Negative Urine Nitrite Negative Ur Leukocyte Esterase Trace H Urine RBC 0-2 Urine WBC 0-5 Ur Squamous Epith Cells 0-2 Urine Bacteria None Seen Hyaline Casts 0-2 Influenza Type A (PCR) NEGATIVE Influenza Type B (PCR) NEGATIVE RSV RNA Qual (PCR) NEGATIVE SARS-CoV-2 RNA (RT-PCR) NEGATIVE 11/30/24 12/01/24 12/01/24 18:38 03:57 07:40 MCV 91.3 MCH 29.6 MCHC 32.4 RDW 13.0 Plt Count 253 MPV 10.3 Immature Gran % (Auto) 0.3 Neut % (Auto) 87.4 H Lymph % (Auto) 11.6 L [place] % (Auto) 0.7 L Eos % (Auto) 0.0 Baso % (Auto) 0.0 Lymph # (Auto) 0.7 L [place] # (Auto) 0.0 L Eos # (Auto) 0.0 Baso # (Auto) 0.0 Abs Immat Gran (auto) 0.02 Absolute Neuts (auto) 5.3 Absolute Nucleated RBC 0.000 Nucleated RBC % (auto) 0.0 D-Dimer High Sensitivty < 150 VBG pH VBG pCO2 VBG pO2 VBG HCO3 VBG O2 Saturation VBG Base Excess Anion Gap 15 Estim Creat Clear Calc 105.5 Estimated GFR > 60 POC Glucose 200 H Random Glucose 171 H Lactic Acid Lactic Acid F/U @ 2Hr Calcium 9.1 D Magnesium Total Bilirubin AST ALT Alkaline Phosphatase B-Natriuretic Peptide Total Protein Albumin Urine Color Urine Appearance Urine pH Ur Specific [place] Urine Protein Urine Glucose (UA) Urine Ketones Urine Blood Urine Nitrite Ur Leukocyte Esterase Urine RBC Urine WBC Ur Squamous Epith Cells Urine Bacteria Hyaline Casts Influenza Type A (PCR) Influenza Type B (PCR) RSV RNA Qual (PCR) SARS-CoV-2 RNA (RT-PCR) 12/01/24 09:12 MCV MCH MCHC RDW Plt Count MPV Immature Gran % (Auto) Neut % (Auto) Lymph % (Auto) [place] % (Auto) Eos % (Auto) Baso % (Auto) Lymph # (Auto) [place] # (Auto) Eos # (Auto) Baso # (Auto) Abs Immat Gran (auto) Absolute Neuts (auto) Absolute Nucleated RBC Nucleated RBC % (auto) D-Dimer High Sensitivty VBG pH VBG pCO2 VBG pO2 VBG HCO3 VBG O2 Saturation VBG Base Excess Anion Gap Estim Creat Clear Calc Estimated GFR POC Glucose 291 H Random Glucose Lactic Acid Lactic Acid F/U @ 2Hr Calcium Magnesium Total Bilirubin AST ALT Alkaline Phosphatase B-Natriuretic Peptide Total Protein Albumin Urine Color Urine Appearance Urine pH Ur Specific [place] Urine Protein Urine Glucose (UA) Urine Ketones Urine Blood Urine Nitrite Ur Leukocyte Esterase Urine RBC Urine WBC Ur Squamous Epith Cells Urine Bacteria Hyaline Casts Influenza Type A (PCR) Influenza Type B (PCR) RSV RNA Qual (PCR) SARS-CoV-2 RNA (RT-PCR) Assessment and Plan (1) Asthma: Status: Acute Plan 59-year-old male with a past medical history of hyperlipidemia, diabetes, asthma, cognitive impairment, obesity presented to the hospital with a chief complaint of shaking chills. Noted hypoxia. Concern for exacerbation vs bronchitis. Afebrile. Lactic acid 2.4, 2-hr follow up 1.6. Anxious and restless about going home. Bronchitis with asthma exacerbation, acute hypoxic resp failure 02 goal >90% Nebulizer treatments, solu-medrol, and azithromycin repeat oxygenation ambulation trial Follow up cultures Acute lactic acidosis due to hypoxia not sepsis- resolved Sinus tachycardia due anxiety, albuterol, replace albuterol with xopenex Diabetes- insulin sliding scale, last A1C 6.5 Hyperlipedemia- continue atorvastatin Cognitive Developmental delay/Schizophrenia Continue with home medication regime Aristada Monthly, Escitalopram. Obesity- encourage weight management DVT prophylaxis: Lovenox Code status: Full code Quality Stroke Does the patient have a stroke diagnosis?: No VTE Prior VTE?: No VTE Risk Level:: Medical - moderate - high VTE Device Contraindication: Treatment Not Indicated VTE Drug Contraindication: N/A - Med Ordered
[2024-12-01 11:36] LABS: Glucose, Whole Blood 205 mg/dL (60-115)
--- NOTE | 2024-12-01 13:40 | PHA.MEDREC ---
Addendum entered by Scott Robledo PharmD 12/01/24 13:47: reviewed Original Note: Pharmacy Consult ? Medication Reconciliation Pharmacy has completed the medication reconciliation. Patient is a poor historian, however he gave his case workers number. Spoke to case filler Alyx [phone] she reported that patient has VNA services through [employer] [phone]. called and left voicemail. I also looked up [email or web address] Phone number [phone] left message as well. Utilized claims and discharge note from 09/1524 to confirm med list. Will update with any changes if/when VNA calls.
[2024-12-01] MEDS: levalbuterol HCL 2.5 MG, Ipratropium Bromide 0.5 MG INHALE ×2 (15:38→19:41)
[2024-12-01 16:20] LABS: Glucose, Whole Blood 171 mg/dL (60-115)
[2024-12-01 20:52] LABS: Glucose, Whole Blood 257 mg/dL (60-115)
[2024-12-02] VITALS (9 sets, daily range): BP systolic 134–169; BP diastolic 63–90; PULSE 82–113; RESP 16–20; TEMP 36–37.1; O2SAT 92–97
[2024-12-02 07:32] LABS: Glucose, Whole Blood 152 mg/dL (60-115)
[2024-12-02] MEDS: levalbuterol HCL 2.5 MG, Ipratropium Bromide 0.5 MG INHALE ×3 (08:28→19:17)
[2024-12-02] MEDS: 0.9 % Sodium Chloride Flush 3 ML SYRINGE IVFLUSH ×3 (08:34→21:50)
[2024-12-02 11:19] LABS: Glucose, Whole Blood 250 mg/dL (60-115)
[2024-12-02 16:03] LABS: Glucose, Whole Blood 211 mg/dL (60-115)
--- NOTE | 2024-12-02 17:45 | P.PNIM_ITS ---
Subjective Subjective Date of Service: 12/02/24 Interval History: bronchitis/asthma execerbation Review of Systems sob seems improving taper oxygen Review of Systems: Yes all other systems are reviewed and are negative Physical Exam 2 Exam: Exam: Appearance: Alert.? Oriented cvs: [id number], [id number] . res: air entry imrpoving ,has whwzing b/l abd: no rebound or guarding ,nt, bs present. ext pulses present , no cyanosis ,Gait well balanced well coordinated. neuro: nonfocal. Vital Signs: Vital Signs: Last Vital Signs Temp 97.6 F 12/02/24 15:52 Pulse 85 12/02/24 15:52 Resp 18 12/02/24 15:52 BP 134/63 12/02/24 15:52 Pulse Ox 95 12/02/24 15:52 O2 Del Method Nasal Cannula 12/02/24 15:52 O2 Flow Rate 2 12/02/24 15:52 BMI result Body Mass Index 32.8 Objective Data Active Medications Acetaminophen (Acetaminophen 325 Mg Tablet) 650 mg PO Q6H PRN PRN Reason: Pain, Mild 1-3,fever,headache Last Admin: 12/01/24 09:49 Dose: 650 mg Documented By: ADI Azithromycin (Azithromycin 250 Mg Tablet) 250 mg PO Q24H [facility] Last Admin: 12/01/24 21:23 Dose: 250 mg Documented By: NOLAN Calcium Carbonate (Calcium Carbonate 750 Mg Tab.Chew) 750 mg PO Q4H PRN PRN Reason: Heartburn Levalbuterol HCl 2.5 mg/ (Ipratropium Commercial [place] 0.5 mg) 0 mg INHALE RQ4H WHILE AWAKE [facility] Last Admin: 12/02/24 15:13 Dose: Not Given Documented By: TRE Non-Admin Reason: Patient Asleep Dextrose (Dextrose 50 % 25 Gm/50 Ml Syringe) 25 gm IVPUSH Q15M PRN; Protocol PRN Reason: per Hypoglycemia Standing Ord. Enoxaparin Sodium (Enoxaparin Sodium 40 Mg/0.4 Ml Syringe) 40 mg SUBCUT Q24H [facility] Last Admin: 12/01/24 23:58 Dose: 40 mg Documented By: NOLAN Escitalopram Oxalate (Escitalopram Oxalate 5 Mg Tablet) 5 mg PO DAILY [facility] Last Admin: 12/02/24 08:40 Dose: 5 mg Documented By: ANTIONETTE Fluticasone/Vilanterol (Fluticasone/Vilanterol 200/25 Blst.W.Dev) 1 puff INHALE RDAILY [facility] Last Admin: 12/02/24 11:10 Dose: Not Given Documented By: TRE Non-Admin Reason: Med Not Available Glucose (Glucose Gel 15 Gm Gel..Gram.) 15 gm PO Q15M PRN; Protocol PRN Reason: per Hypoglycemia Standing Ord. Insulin Human Lispro (Insulin Lispro 100 Unit/Ml 3 Ml Vial) 0 unit SUBCUT QIDACHS [facility]; Protocol Last Admin: 12/02/24 16:38 Dose: 4 unit Documented By: ANTIONETTE Levalbuterol HCl (Levalbuterol Hcl 1.25 Mg/3 Ml Vial.Neb) 1.25 mg INHALE Q2H PRN PRN Reason: Shortness of Breath/Wheezing Magnesium Hydroxide (Milk Of Magnesia 30 Ml Oral.Susp) 30 ml PO DAILY PRN PRN Reason: Constipation Melatonin (Melatonin 3 Mg Tablet) 6 mg PO BEDTIME PRN PRN Reason: Insomnia Methylprednisolone Sodium Succinate (Methylprednisolone Sod Succ 40 Mg/Ml Vial) 40 mg IVPUSH Q8H [facility] Last Admin: 12/02/24 16:38 Dose: 40 mg Documented By: ANTIONETTE Sodium Chloride (0.9 % Sodium Chloride Flush 3 Ml Syringe) 3 ml IVFLUSH QSHIFT [facility] Last Admin: 12/02/24 16:39 Dose: 3 ml Documented By: ANTIONETTE Labs 12/01/24 03:57 12/01/24 03:57 Labs: Laboratory Results - last 24 hr 12/01/24 12/02/24 12/02/24 20:49 07:29 11:15 POC Glucose 257 H 152 H 250 H 12/02/24 15:58 POC Glucose 211 H Microbiology Microbiology Results: Microbiology 11/30/24 15:11 Blood Culture - Preliminary Blood - Venous No growth after 48 hours. 11/30/24 15:07 Blood Culture - Preliminary Blood - Venous No growth after 48 hours. Assessment and Plan (1) Asthma: Status: Acute (2) Bronchitis: Status: Acute Plan 59-year-old male with a past medical history of hyperlipidemia, diabetes, asthma, cognitive impairment, obesity presented to the hospital with a chief complaint of shaking chills. Noted hypoxia. Concern for exacerbation vs bronchitis. Afebrile. Lactic acid 2.4, 2-hr follow up 1.6. Anxious and restless about going home. Bronchitis with asthma exacerbation, acute hypoxic resp failure 02 goal >90% Nebulizer treatments, solu-medrol, and azithromycin repeat oxygenation ambulation trial ,taper oxygen during the day since patient uses oxygen only at night At home. Follow up cultures Acute lactic acidosis due to hypoxia not sepsis- resolved Sinus tachycardia due anxiety, albuterol, replace albuterol with xopenex Diabetes- insulin sliding scale, last A1C 6.5 Hyperlipedemia- continue atorvastatin Cognitive Developmental delay/Schizophrenia Continue with home medication regime Aristada Monthly, Escitalopram. Obesity- encourage weight management DVT prophylaxis: Lovenox Code status: Full code Quality Stroke Does the patient have a stroke diagnosis?: No VTE Prior VTE?: No VTE Risk Level:: Medical - moderate - high VTE Device Contraindication: Treatment Not Indicated VTE Drug Contraindication: N/A - Med Ordered
[2024-12-02 20:10] LABS: Glucose, Whole Blood 232 mg/dL (60-115)
[2024-12-03] VITALS (7 sets, daily range): BP systolic 125–161; BP diastolic 77–91; PULSE 80–103; RESP 18; TEMP 36.4–37; O2SAT 90–95
[2024-12-03 07:28] LABS: Glucose, Whole Blood 164 mg/dL (60-115)
[2024-12-03] MEDS: levalbuterol HCL 2.5 MG, Ipratropium Bromide 0.5 MG INHALE ×2 (07:35→11:26)
[2024-12-03] MEDS: Fluticasone/Vilanterol 200/25 BLST.W.DEV 1 PUFF INHALE (08:58)
[2024-12-03] MEDS: 0.9 % Sodium Chloride Flush 3 ML SYRINGE IVFLUSH (09:01)
[2024-12-03 11:26] LABS: Glucose, Whole Blood 237 mg/dL (60-115)
--- NOTE | 2024-12-03 14:57 | PM.DS ---
DS: Providers Provider Date of Service: 12/03/24 Date of admission: 11/30/24 22:02 Date of discharge: 12/03/24 Primary care physician: FLAKITO Meza Attending physician on discharge: Sanaz Maciel Discharging clinician: Sanaz Maciel DS: Diagnosis Discharge Diagnosis (1) Asthma: Status: Acute (2) Bronchitis: Status: Acute DS: Summary Hospital Course Hospital Course: HPI:Chief Complaint: shaking 59-year-old male with a past medical history of hyperlipidemia, asthma, cognitive impairment, obesity presented to the hospital with a chief complaint of shaking. Denies any nausea or vomiting. Reports occasional cough. Denies any chest pain or palpitations. Denies any swallowing difficulties. Denies any GI or symptoms. Review of all other systems is negative except mentioned above ER course: Per ER team comprehension initially reported bilateral upper extremity she had concern for chills/rigors. Patient was febrile to 100.3 F. viral panel negative. Chest x-ray showed no acute cardiopulmonary process. UA negative. Patient has diminished lung sounds. Patient was hypoxic to 87%. Concern for possible asthma exacerbation. Given nebulizations and steroids. Patient also received dose of ceftriaxone. D-dimer negative. hospital course: Patient was admitted for acute hypoxemic respiratory failure secondary to possible bronchitis and asthma exacerbation: Given nebs, steroids, antibiotics seems to be improved, blood culture negative.cxr negative ,Patient will be going home with p.o. azithromycin 250 mg daily for 1 day, prednisone 40 mg for 3 more days. not hypoxic. uses oxygen at night at baseline per patient. mild tachycardia -seems to be improved significantly -possibly related to nebs, anxiety. Of note patient has fluctuating heart rate at baseline when reviewed from previous admissions. If any new symptoms shortness of breath cough or phlegm or fever or any new symptoms go to nearest emergency room for further evaluation. plan :asabove. Above management discussed with the patient in detail length he understand and in agreement with the above plan, patient tick eradicator were also present. All questions answered. Total time spent 40 minute. Time Attestation Total time managing care of this patient today: 40 mintues. Discharge Coordination Time (in mins): 40 min Quality: Safe Use of Opioids Does Pt have an Active Cancer Diagnosis on the Problem List?: No Quality: Stroke Does the patient have a stroke diagnosis?: No Physical Exam Exam: Exam: Appearance: Alert.? Oriented X3. cvs: [id number], [id number]. res: clear to auscultation ,no rhonchii or wheezing abd: no rebound or guarding ,nt, bs present. ext pulses present , no cyanosis . neuro: nonfocal. Vital Signs: Vital Signs: Last Vital Signs Temp 97.5 F 12/03/24 11:31 Pulse 103 H 12/03/24 11:31 Resp 18 12/03/24 11:31 BP 158/77 H 12/03/24 11:31 Pulse Ox 92 12/03/24 11:31 O2 Del Method Room Air 12/03/24 11:31 O2 Flow Rate 1 12/03/24 06:59 BMI result Body Mass Index 32.8 DS: Data Data Completed and Pending Labs on day of discharge: Laboratory Results - last 24 hr 12/02/24 12/02/24 12/03/24 15:58 20:02 07:03 POC Glucose 211 H 232 H 164 H 12/03/24 11:19 POC Glucose 237 H Preliminary micro results at discharge 11/30/24 15:11 Blood Culture - Preliminary Blood - Venous No growth after 48 hours. 11/30/24 15:07 Blood Culture - Preliminary Blood - Venous No growth after 48 hours. Imaging Chest x-ray: My impression: cxr: No acute findings. Discharge Plan Discharge Anticipated Discharge Date/Time: 12/03/24 14:49 Patient Disposition: Home, Self-Care Discharge Diagnosis: Bronchitis with asthma exacerbation, acute hypoxic resp failure Referrals: Crescencio Gary FNP-C [Primary Care Provider, Internal Medicine] - 1 Week Discharge Medications: New azithromycin 250 mg Tablet 250 mg PO Q24H Qty: 1 0RF prednisone 20 mg Tablet 40 mg PO DAILY Qty: 3 0RF Continued (DME) blood-glucose meter [OneTouch Ultra2 Meter] [facility] See Rx Instructions .ROUTE .COMPLEX Qty: 1 0RF Dose Instruction: USE DIRECTED TO CHECK BLOOD GLUCOSE Rx Instructions: USE DIRECTED TO CHECK BLOOD GLUCOSE (DME) FreeStyle Test Strip See Rx Instructions .Route Qty: 100 8RF Rx Instructions: to check blood sugars once a day (DME) OneTouch Ultra Test Strip See Rx Instructions .ROUTE .COMPLEX Qty: 50 0RF Dose Instruction: USE 1 STRIP TO CHECK BLOOD GLUCOSE ONCE A DAY BEFORE A MEAL Rx Instructions: USE 1 STRIP TO CHECK BLOOD GLUCOSE ONCE A DAY BEFORE A MEAL (DME) lancets [facility] See Rx Instructions .Route Qty: 100 0RF Rx Instructions: check bood sugar once a day ac escitalopram oxalate 5 mg/5 mL solution 5 mg PO DAILY Aristada 882 mg/3.2 mL suspension,extended rel syring 882 mg IM Q28D levalbuterol HCl 1.25 mg/3 mL Solution For Nebulization 1.25 mg inhalation Q4H PRN (Reason: Shortness Of Breath/Wheezing) Qty: 75 0RF albuterol sulfate 90 mcg/actuation Hfa Aerosol Inhaler 2 puff INHALATION Q4H PRN (Reason: SOB) Qty: 6.7 0RF Trulicity 0.75 mg/0.5 mL pen injector 0.75 mg subcut WE fluticasone propion-salmeterol [Wixela Inhub] 250-50 mcg/dose blister with device 1 inh inhalation Q12H Qty: 60 8RF (DME) lancets [FreeStyle Lancets] 28 gauge [facility] See Rx Instructions .MEDSUPPLY Qty: 100 2RF Rx Instructions: test daily atorvastatin 40 mg tablet 40 mg PO BEDTIME Qty: 90 3RF Discharge Orders: Discharge Order (Routine); Ordered 12/03/24 Ordered By: Sanaz Maciel Diet: Advance to usual diet Activity on Discharge: As tolerated Stand Alone Forms: Patient Portal Discharge page Print Language: Citizen Of [place] Care Plan Goals: Patient was admitted for acute hypoxemic respiratory failure secondary to possible bronchitis and asthma exacerbation: Given nebs, steroids, antibiotics seems to be improved, blood culture negative.cxr negative ,Patient will be going home with p.o. azithromycin 250 mg daily for 1 day, prednisone 40 mg for 3 more days. not hypoxic. uses oxygen at night at baseline per patient. mild tachycardia -seems to be improved significantly -possibly related to nebs, anxiety. Of note patient has fluctuating heart rate at baseline when reviewed from previous admissions. If any new symptoms shortness of breath cough or phlegm or fever or any new symptoms go to nearest emergency room for further evaluation. Health Concerns: As above. Plan of Treatment: As above. Assessment: As above. Discharge Date/Time: 12/03/24 16:28
--- NOTE | 2024-12-03 15:49 | MHC.CM.PN ---
Pt is medically cleared for discharge home with resumptions of previous [facility] services, pt will transport home via lyft ride.
--- NOTE | 2024-12-03 16:42 | P.CDIM_ITS ---
PROVIDER RESPONSE TEXT: To clarify, the appropriate diagnosis supported by the clinical indicators: Acute QUERY TEXT: PHYSICIAN'S DOCUMENTATION REQUEST Date of Query: 12/03/2024 01:16 PM EDT Patient Name: Be Washington Admit Date: 12/01/2024 Dear Sanaz Maciel MD, A review of the medical record indicates additional documentation may be needed. Please review below and update the documentation accordingly. Clinical Indicators: diagnosis Bronchitis/Asthma exacerbation oxygen, nebulizer, steroid, antibiotic Clarify which of the following accurately represents the acuity of the Bronchitis. Possible options might include: Acute Acute on chronic Compensated Chronic stable condition Remission Other (explain) Clinically unable to determine (explain) Thank you, Jasmyne Quiroga RN Use of terms such as suspected, likely, concern for, or probable (associated with a specific diagnosis that is being evaluated, monitored, or treated as if it exists) are acceptable and can be coded in the inpatient setting, when documented at the time of discharge. Please use your independent medical judgment in providing your response. THIS QUERY IS PART OF THE PERMANENT MEDICAL RECORD
--- NOTE | 2024-12-03 16:42 | P.CDIM_ITS ---
PROVIDER RESPONSE TEXT: To clarify, the appropriate diagnosis supported by the clinical indicators: Mild intermittent: mild intermittent asthma excerebation QUERY TEXT: PHYSICIAN'S DOCUMENTATION REQUEST Date of Query: 12/03/2024 01:13 PM EDT Patient Name: Be Washington Admit Date: 12/01/2024 Dear Sanaz Maciel MD, A review of the medical record indicates additional documentation may be needed. Please review below and update the documentation accordingly. The diagnosis of asthma was documented in the record on 12/02/24. Additional clinical indicators from the record include: Bronchitis with asthma exacerbation, acute hypoxic respiratory failure Nebulizer treatments, IV Solu-Medrol, and PO Azithromycin Based on the above, please clarify in the Progress Notes further specificity regarding the type and acuity of the asthma: Mild intermittent Please specify if with or without acute exacerbation or status asthmaticus Mild persistent Please specify if with or without acute exacerbation or status asthmaticus Moderate persistent Please specify if with or without acute exacerbation or status asthmaticus Severe persistent Please specify if with or without acute exacerbation or status asthmaticus Exercise induced Please specify if with or without acute exacerbation or status asthmaticus Chronic obstructive asthma and indicate if with acute lower respiratory infection Please specify if with or without acute exacerbation or status asthmaticus Asthma with underlying COPD and indicate if with acute lower respiratory infection Please specify if with or without acute exacerbation or status asthmaticus Other (explain) Clinically unable to determine (explain) Thank you, Jasmyne Quiroga RN Use of terms such as suspected, likely, concern for, or probable (associated with a specific diagnosis that is being evaluated, monitored, or treated as if it exists) are acceptable and can be coded in the inpatient setting, when documented at the time of discharge. Please use your independent medical judgment in providing your response. THIS QUERY IS PART OF THE PERMANENT MEDICAL RECORD
== END 2024-12-03 16:28 | disposition home or self-care (01) | DRG 202 ==
LOC: HO.ED 21:43 → HO.EDOVER 22:49 → HO.IMC 12-01 07:38
PROVIDERS: Internal Medicine; Nurse Practitioner Family; Admitting Provider Hospitalist; Emergency Provider Emergency Medicine; Visit Provider Internal Medicine
DX: J45.21 Mild intermittent asthma with (acute) exacerbation (principal); J96.01 Acute respiratory failure with hypoxia; E87.21 Acute metabolic acidosis; J20.9 Acute bronchitis, unspecified; E11.9 Type 2 diabetes mellitus without complications; E66.9 Obesity, unspecified; Z68.32 Body mass index [BMI] 32.0-32.9, adult; Z71.3 Dietary counseling and surveillance; F41.9 Anxiety disorder, unspecified; R00.0 Tachycardia, unspecified; T48.6X5A Adverse effect of antiasthmatics, initial encounter; Z20.822 Contact with and (suspected) exposure to COVID-19; Z79.51 Long term (current) use of inhaled steroids; Z79.85 Long-term (current) use of injectable non-insulin antidiabetic drugs; Z79.899 Other long term (current) drug therapy
CPT/HCPCS: 36415; 71046; 80048; 80053; 81001; 82803; 82947; 83605; 83735; 83880; 84484; 85025; 85379; 87040; 87637; 93005; 94640; 99285; J0696; J1650; J2919; J3475

== ENCOUNTER → 2024-11-30 13:56 | Outpatient (BNV) | payer OTHER, SELFPAY | PROVIDERS: Admitting Provider Hospitalist; Emergency Provider Emergency Medicine; Visit Provider Internal Medicine Cardiovascular Disease | DX: I44.4 Left anterior fascicular block (principal); R00.0 Tachycardia, unspecified; J98.4 Other disorders of lung | CPT/HCPCS: 93010 ==

== ENCOUNTER → 2024-11-30 14:19 | Outpatient (BNV) | payer OTHER, SELFPAY | PROVIDERS: Visit Provider Radiology Diagnostic Radiology | DX: R42 Dizziness and giddiness (principal) | CPT/HCPCS: 71046 ==

== ENCOUNTER → 2024-11-30 22:02 | Outpatient (BNV) | payer OTHER, SELFPAY | PROVIDERS: Admitting Provider Hospitalist; Emergency Provider Emergency Medicine; Visit Provider Internal Medicine | DX: J45.909 Unspecified asthma, uncomplicated (principal) | CPT/HCPCS: 99223; 99231; 99232; 99239 ==

== ENCOUNTER 2024-12-26 08:18 | Outpatient (AMB) | payer OTHER, SELFPAY ==
--- OUTSIDE RECORDS SUMMARY | 2024-12-26 08:21 | XMS_ITS | Clinical Summary ---
Author Organization [address] [facility] Address [address] [place] [address] Phone Care Team Providers Care Financial Planning Assistant Name Role Phone Becky Lobo DO Primary Care Provider + Allergies No known active allergies Medications fluticasone propionate (Flovent Diskus) 250 mcg/actuation diskus inhaler Inhale 1 puff by mouth 2 (two) times a day. Rinse mouth with water after use to reduce aftertaste and incidence of candidiasis. Do not swallow. Active ipratropium-alb uteroL (COMBIVENT RESPIMAT) 20-100 mcg/actuation inhaler Inhale 1 puff by mouth 4 (four) times a day. Active budesonide-form oteroL (SYMBICORT) 160-4.5 mcg/actuation inhaler Inhale 2 puffs by mouth 2 (two) times a day. Rinse mouth with water after use to reduce aftertaste and incidence of candidiasis. Do not swallow. Active albuterol HFA (PROAIR HFA ; PROVENTIL HFA ; VENTOLIN HFA) 90 mcg/actuation inhaler Inhale 2 puffs by mouth every 6 (six) hours if needed for wheezing. Active ipratropium-alb uteroL (DUONEB) 0.5-2.5 mg/3 mL nebulizer solution Take 3 mL by nebulization every 6 (six) hours. Active Active Problems Problem Noted Date Diagnosed Date Diabetes mellitus ([facility] V24, [facility] V28) Hypercholesterolemia 10/05/2015 Hypertension 10/05/2015 Asthma 10/05/2015 Sleep apnea 10/05/2015 Encounters Date Type Department Care Team Description 11/06/2024 10:30 AM EDT [facility] [address] [place] [address] Char Sullivan MD Moderate asthma, unspecified whether complicated, unspecified whether persistent (Primary Dx); Obstructive sleep apnea; Nocturnal hypoxemia; Morbid obesity due to excess calories ([facility] V24, [facility] V28) from Last 3 Months Medical History Medical History Date Comments Diabetes mellitus type 2, co ntrolled, with complications ([facility] V24, [facility] V28) DX:Diabetes m ellitus type 2, controlled, with complications ([facility]) Essential hypertension DX:Essent ial hypertension Asthma DX:Asthma Sleep apnea DX:Sleep apnea Hypercholesterolemia DX:Hypercho lesterolemia Family History Relation Name Status Comments Mother Social History Tobacco Use Types Packs/Day Years Used Date Smoking Tobacco: Never Passive Smoke Exposure: Never Smokeless Tobacco: Never Alcohol Use Standard Drinks/Week Comments Not Asked 0 (1 standard drink = 0.6 oz pur e alcohol) Sex and Gender Information Value Date Recorded Sex Assigned at Not on file Legal Sex Male 1:17 PM EST Gender Identity Not on file Sexual Orientation Not on file Obstetrics History Last Filed Vital Signs Vital Sign Reading Time Taken Comments Blood Pressure 170/101 11/06/2024 10:21 AM EDT Pulse 121 11/06/2024 10:21 AM EDT Temperature 36.1 C (97 F) 11/06/2024 10:21 AM EDT Respiratory Rate 18 11/06/2024 10:21 AM EDT Oxygen Saturation 93% 11/06/2024 10:21 AM EDT Inhaled Oxygen Concentration - - Weight 94.6 kg (208 lb 9.6 oz) 11/06/2024 10:21 AM EDT Height 165.1 cm (5' 5 ) 11/06/2024 10:21 AM EDT Body Mass Index 34.71 11/06/2024 10:21 AM EDT Plan of Treatment Upcoming Encounters Date Type Department Care Team (Late st Contact Info) Description 04/30/2025 10:30 AM EST Office Visit Pulmonolgy [address] [place] [id number] Char Sullivan MD [address] [place] [id number] Health Maintenance Due Date Last Done Comments Diabetes: Annual Foot Exam 1976 Diabetes: Annual Retina Eye Exam 1976 Hepatitis B Vaccines (1 of 3 - 19+ 3-dose series) 1985 Pneumococcal Vaccine: 50+ Years (2 of 2 - PCV) 02/11/2016 02/10/2015, 12/25/2013 Zoster Vaccines (1 of 2) 2016 Diabetes: Annual GFR (Glomerular Filtration Rate) 11/26/2019 11/25/2018 Cholesterol Screening (Lipid Panel) 04/11/2022 Colorectal Cancer Screening: Colonoscopy 04/11/2022 HIV Screening 04/11/2022 Hepatitis C Screening 04/11/2022 Social Influencers of Health Screening 04/11/2022 Diabetes: Annual Urine Albumin-Creatinine Ratio (uACR) 04/19/2022 Diabetes: Blood Sugar Control Test (HGBA1C) 04/19/2022 Hypertension/CHF/CAD Annual BMP Blood Test 04/19/2022 11/25/2018 COVID-19 Vaccine ( season) 2024 03/15/2021, 07/15/2020, 06/17/2020 Depression Screening 05/14/2024 Influenza Vaccine (#1) 2025 , 05/08/2023, 03/15/2021, Additional history exists DTaP,Tdap,and Td Vaccines (3 - Td or Tdap) 11/13/2026 11/13/2016, 03/13/2016 HIB Vaccines Aged Out No longer eligi [...] to complete this topic RSV Immunization Patients Under 20 months Aged Out No longer eligible based on patient's age to complete this topic Varicella Vaccines Aged Out No longer eligible based on patient's age to complete this topic Insurance [facility] Member Subscriber Plan / Payer (Ef fective 2018-Present) Name:LISA REYES Relation to Subscriber:Self Name:Lisa Reyes Payer ID:[id number] Group ID:[id number] Type:Not on file Address: [place] [address] [place] [id number] Advance Directives Documents on File Type Date Recorded Patient Financial Examiner Expl anation Health Care Decision (hx) 01/25/2016 AD HILL DIRECTIVE Health Care Decision (hx) 01/25/2016 AD HILL DIRECTIVE Care Teams Financial Planning Assistant Relationship Specialty Start Date End Date Becky Lobo DO [address] [address] PCP - General 10/04/15
--- NOTE | 2024-12-26 08:50 | A.OFFPC_ITS ---
Vital Signs 12/26/24 08:51 Height 5 ft 5 in Weight 206 lb BMI 34.3 BP 160/82 H Blood Pressure Location Lt brachial Position Sitting Respiration 18 Pulse 107 H Pulse Source Pulse Oximeter Temp Source Temporal Artery Scan Pulse Oximetry (%) 92 Oxygen Delivery Method Room Air Intake Visit Reasons: [facility] 12/03 hypoxia Process Validation Engineer Required: No Accompanied by: Self / Same As Patient Allergies penicillin V Allergy (Unknown, Verified 12/26/24 08:51) vomiting Penicillins (PENICILLINS) Allergy (Unknown, Verified 12/26/24 08:51) vomitting Tobacco use date assessed: 12/26/24 Dental Screening Dental Screen Date: 12/26/24 Did you have a dental visit in the last 12 months?: Yes Did you have a dental problem in the last 6 months where you did not have access to dental care?: No Was dental information given to patient?: Patient has dentist HPI HPI Comments History of Present Illness Details 59 y/o Male patient who presents to the clinic today for EDF. He was admitted at [facility] on 11/30 - 12/03 for an evaluation and treatment of Acute Exacerbation of Asthma. He was discharged home in stable condition. Today denies any symptoms. No further concerns. [facility] Medical History Pressure ulcer Cognitive developmental delay Obesity Asthma Hyperlipidemia Surgical History Meatal stenosis S/P TURP (status post transurethral resection of prostate) History of foot surgery Family History Father Cancer Mother COPD (chronic obstructive pulmonary disease) Hypertension Maternal Aunt Liver cancer Social History Household Members: None Housing: House Do you presently have visiting nurse or other home services: Yes Alcohol intake: never Patient Tobacco Use Status: Never used Tobacco e-Cigarette/Vaping Use: Never Used Second Hand Smoke Exposure: No service: No Current occupational status: employed Cognitive needs: No Hearing needs: Yes (hearing aide) Vision needs: Yes (glasses) Questionnaire PHQ-9 Over the last 2 weeks, how often have you been bothered by any of the following problems? 1. Little interest or pleasure in doing things: not at all 2. Feeling down, depressed, or hopeless: not at all 3. Trouble falling or staying asleep, or sleeping too much: not at all 4. Feeling tired or having little energy: not at all 5. Poor appetite or overeating: not at all 6. Feeling bad about yourself - or that you are a failure or have let yourself or your family down: not at all 7. Trouble concentrating on things, such as reading the newspaper or watching television: not at all 8. Moving or speaking so slowly that other people could have noticed. Or the opposite - being so fidgety or restless that you have been moving around a lot more than usual: not at all 9. Thoughts that you would be better off or of hurting yourself in some way: not at all Total score: 0 Source: Developed by Drs. Alexandre Navarro, Angela Hannah, Palomo Hill and colleagues, with an educational julio from [employer]. Thrive Questionnaire Date Thrive assessed: 12/26/24 I am a: Patient What is your living situation today?: I have a steady place to live Within the past 12 months, did the food you bought not last and you didn't have the money to get more?: Never true Within the past 12 months, did you worry whether your food would run out before you got money to buy more?: Never true Do you have trouble paying for medicines?: No Do you have trouble getting transportation to medical appointments?: No Do you have trouble paying your heating and electricity bill?: No Do you have trouble taking care of your child, family member or friend?: No Do you have trouble with day-to-day activities such as bathing, preparing meals, shopping, managing finances, etc.?: No Are you currently unemployed and looking for a job?: Yes Are you interested in more education?: No Please select the resources that you would like help with: None Currently or been in a relationship where the following occur: No concerns reported THRIVE Score: 0 AUDIT C Alcohol Use Questionnaire (AUDIT-C) 1. How often do you have a drink containing alcohol?: Never Total Score: 0 MAR-7 AMB Questionnaire MAR-7 Date MAR - 7 assessed: 12/26/24 Feeling nervous, anxious, or on edge: 0 = Not at all Not being able to stop or control worryin = Not at all Worrying too much about different things: 0 = Not at all Trouble relaxin = Not at all Being so restless that it is hard to sit still: 0 = Not at all Becoming easily annoyed or irritable: 0 = Not at all Feeling afraid as if something awful might happen: 0 = Not at all Total MAR-7 score (0-4 normal; 5-9 mild; 10-14 moderate; 15-21 severe): 0 Source: Developed by Drs. Alexandre Navarro, Angela Hannah, Palomo Hill and colleagues, with an educational julio from [employer]. Review of Systems Const All systems reviewed & are unremarkable except as noted in HPI and below Physical exam (Primary Care) Vital Signs: Last Vital Signs Pulse 107 H 12/26/24 08:51 Resp 18 12/26/24 08:51 BP 160/82 H 12/26/24 08:51 Pulse Ox 92 12/26/24 08:51 Oxygen Delivery Method Room Air 12/26/24 08:51 BMI result Body Mass Index 34.3 Tobacco/Smoking Status: Tobacco use Status Tobacco use date assessed 12/26/24 12/26/24 08:53 Patient Tobacco Use Status Never used Tobacco 12/26/24 08:53 e-Cigarette/Vaping Use Never Used 12/26/24 08:53 PHQ-9: PHQ-9 Score PHQ-9: Total score 0 12/26/24 09:21 Thrive Assessment: Date of Thrive Assessment Date Thrive assessed 12/26/24 12/26/24 08:53 Currently or been in a relationship where the following occur: No concerns reported Const General: no acute distress Nutritional Appearance: obese Orientation/consciousness: patient oriented x3 Resp Effort & Inspection: normal respiratory effort, able to speak in complete sentences, no audible wheezes and no cough Auscultation: clear to auscultation bilaterally, no crackles, no rales, no rhonchi and no wheezes Cardio Heart sounds: S1 normal heart sound present and S2 normal heart sound present Neuro General: patient oriented x3 Coding Level of Care Code Est Pt Level 4 (37959) Diagnoses Severe persistent asthma with acute exacerbation J45.51 Asthma severity: severe Asthma persistence: persistent Asthma complication type: with acute exacerbation Time Spent (min) 20 Assessment & Plan Assessment & Plan (1) Asthma: Code(s): J45.909 - Unspecified asthma, uncomplicated Category: Medical Qualifiers: Asthma severity: severe Asthma persistence: persistent Asthma complication type: with acute exacerbation Qualified Code(s): J45.51 - Severe persistent asthma with (acute) exacerbation Plan: Stable. Continue on current regiment.
[2024-12-26 08:51] VITALS: BP 160/82; PULSE 107; RESP 18; O2SAT 92; BMI 34.3
== END 2024-12-26 10:43 | disposition home or self-care (01) ==
LOC: HO.HMCH 08:19
PROVIDERS: Visit Provider Nurse Practitioner Family
DX: J45.51 Severe persistent asthma with (acute) exacerbation (principal)

== ENCOUNTER → 2024-12-26 08:18 | Outpatient (BNVA) | payer OTHER, SELFPAY | PROVIDERS: Visit Provider Nurse Practitioner Family | DX: J45.51 Severe persistent asthma with (acute) exacerbation (principal) | CPT/HCPCS: 96127; 99212 ==

== ENCOUNTER 2025-03-02 17:43 | Emergency (ER) | payer OTHER, SELFPAY ==
--- OUTSIDE RECORDS SUMMARY | 2024-04-08 05:00 | XMS_ITS ---
Author Organization [facility] Address [address] [place] [address] Care Team Providers Care Folder And Notcher Name Role Phone Abdi HENDERSON, Tony Primary Care Provider UnavailAlberto Erickson Unavailable [phone] Encounters Encounter Location Date Provider Diagnosis [facility] [address] [place] [address] 04/08/2024 Alberto Zambrano Plan Of Treatment Next Appt Details Provider Name:Alberto Zambrano , 04/13/2025 03:15:00 PM, [address] [facility], [address] [facility], [place], [address], Progress Notes * Be REYESDOB:1964 (59 yo M)Acc No.[id number]:04/08/2024 Progress Note Patient: Nely HUANGBe BOGGS Provider: Bonny Zambrano DPM :1965 A ge:58 Y S ex:Male Date:04/08/2024 Address:[address], [id number] Pcp:Tony Patton MD Subjective: * Chief Complaints: * * Medical History: Objective: * Vitals: Assessment: Plan: * Treatment: * Images: * The named appointment provid er may or may not be the originator of this progress note, and it is not deemed complete until electronically signed by the appointment provider. Sign off status: Pending * Provider: Bonny Zambrano DPM Date: 06/08/2023 Generated for Willie west/Krista/Mohamud on: 1 08:59 PM EDT
--- OUTSIDE RECORDS SUMMARY | 2024-09-12 07:00 | XMS_ITS ---
Author Organization [facility] Address [address] [place] [address] Care Team Providers Care Sales Correspondent Name Role Phone Abdi HENDERSON, Tony Primary Care Provider Unavaila Alberto Hopkins Unavailable [phone] Grewal Encounters Encounter Location Date Provider Diagnosis [facility] [address] [place] [address] 09/12/2024 Alberto Zambrano Plan Of Treatment Next Appt Details Provider Name:Alberto Zambrano , 04/13/2025 03:15:00 PM, [address] [facility], [address] [facility], [place], [address], Progress Notes * Be REYESDOB:1964 (59 yo M)Acc No.[id number]:09/12/2024 Progress Note Patient: Nely RANDALLBe STEIN Provider: Bonny Zambrano DPM :1965 A ge:59 Y S ex:Male Date:09/12/2024 Address:[address], [place] Pcp:Tony Patton MD Subjective: * Chief Complaints: [...] 09/12/2024 Generated for Willie west/Krista/Mohamud on: 1 08:59 PM EDT
--- OUTSIDE RECORDS SUMMARY | 2024-10-03 06:15 | XMS_ITS ---
Author Organization [facility] Address [address] [place] [address] Care Team Providers Care Wedding Makeup Artist Name Role Phone Tony Patton MD Primary Care Provider Unavaila Alberto Hopkins Unavailable [phone] Allergies Allergen (clinical drug ingredient) Drug/Non Drug Allergy documented on EMR Reaction Allergy Type Onset Date Status Environmental (uncoded) watery eyes, congestion Allergy Active risperidone RisperDAL rash Drug Allergy Activ e Substance with penicillin structure and antibacterial mechanism of action (substance) Penicillins rash Drug Allergy Active Medications Medication SIG (Take, Route, Frequency, Duration) Notes Start Date End Date Status Extra Depth Orthopedic Shoes, (1) Pair With (3) Pair Custom Heat Molded Multidensity Innersoles Dx: NIDDM/PVD(E11.51), Hammertoe Foot Deformity(M20.41,M20.42), Preulcerative Skin Lesion(s)(L85.1) Wear Daily; Duration: 365 days 08/28/2023 Active WartSTICK 40 % as directed External ly daily under occlusion; Duration: 30 days 08/28/2023 Active Atorvastatin Calcium 20 MG 1 tablet Oral ly Once a day Active Ammonium Lactate 12 % 1 application Exte rnally to feet except for between the toes Twice a day; Duration: 30 days Active Virasal 27.5 % 1 application to aff ected area Externally Once a day; Duration: 30 days 06/10/2024 Active Subcutaneous Infusion Set Active Trulicity 0.75 MG/0.5ML as directed Subcutaneous Active Carbamide Peroxide 6.5 % 5 drops into af fected ear Otic Twice a day Active PARoxetine HCl 10 MG 1 tablet in the mor nirmala Orally Once a day Active Phenazopyridine HCl 200 MG 1 tablet afte r meals Orally Three times a day Active Blood Glucose Meter Active Encounters Encounter Location Date Provider Diagnosis [facility] [address] [place] [address] 10/03/2024 Alberto Zambrano Plan Of Treatment Next Appt Details Provider Name:Alberto Zambrano , 04/13/2025 03:15:00 PM, [address], [address], [place], [address], Progress Notes * Be REYESDOB:1964 (59 yo M)Acc No.[id number]:10/03/2024 Progress Note Patient: Nely RANDALLEMIL Be Provider: Bonny Zambrano DPM :1965 A ge:59 Y S ex:Male Date:10/03/2024 [facility] [address] [address] [facility] Pcp:Tony Patton MD Subjective: * Chief Complaints: * * Medical History: A sthma, High blood pressure, Hyperlipidemia, Cognitive developmental delay, Obesity. * Medications: T aking Blood Glucose Meter , Taking Phenazopyridine HCl 200 MG Tablet 1 tablet after meals Orally Three times a day , Taking Carbamide Peroxide 6.5 % Solution 5 drops into affected ear Otic Twice a day , Taking PARoxetine HCl 10 MG Tablet 1 tablet in the morning Orally Once a day , Taking Subcutaneous Infusion Set , Taking Trulicity 0.75 MG/0.5ML Solution Pen-injector as directed Subcutaneous , Taking Atorvastatin Calcium 20 MG Tablet 1 tablet Orally Once a day , Taking Extra Depth Orthopedic Shoes, (1) Pair With (3) Pair Custom Heat Molded Multidensity Innersoles . Dx: NIDDM/PVD(E11.51), Hammertoe Foot Deformity(M20.41,M20.42), Preulcerative Skin Lesion(s)(L85.1) Wear Daily , Taking WartSTICK 40 % Stick as directed Externally daily under occlusion , Taking Ammonium Lactate 12 % Cream 1 application Externally to feet except for between the toes Twice a day , Taking Virasal 27.5 % Liquid 1 application to affected area Externally Once a day * Allergies: P enicillins: rash, RisperDAL: rash, Environmental: watery eyes, congestion. Objective: * Vitals: Assessment: Plan: * Treatment: * Images: * The named appointment provid er may or may not be the originator of this progress note, and it is not deemed complete until electronically signed by the appointment provider. Sign off status: Pending * Provider: Bonny Zambrano DPM Date: 0 10/03/2024 Generated for Willie west/Krista/Mohamud on: 08:59 PM EDT
--- OUTSIDE RECORDS SUMMARY | 2025-01-09 06:00 | XMS_ITS ---
Author Organization [facility] Address [address] [place] [address] Care Team Providers Care Retail Event Assistant Name Role Phone Abdi HENDERSON, Tony Primary Care Provider UnavailAlberto Erickson Unavailable [phone] Encounters Encounter Location Date Provider Diagnosis [facility] [address] [place] [address] 01/09/2025 Alberto Zambrano Plan Of Treatment Next Appt Details Provider Name:Alberto Zambrano , 04/13/2025 03:15:00 PM, [address] [facility], [address] [facility], [place], [address], Progress Notes * Be REYESDOB:1964 (59 yo M)Acc No.[id number]:01/09/2025 Progress Note Patient: Nely RANDALLBe STEIN Provider: Bonny Zambrano DPM :1965 A ge:59 Y S ex:Male Date:01/09/2025 Address:[address], [id number] Pcp:Tony Patton MD Subjective: * Chief Complaints: [...] 01/09/2025 Generated for Willie west/Krista/Mohamud on: 1 08:59 PM EDT
[2025-03-02 18:10] VITALS: BP 172/80; PULSE 110; RESP 16; TEMP 36.6; O2SAT 90; BMI 33.6
--- NOTE | 2025-03-02 18:12 | ED.GENADULT ---
HPI - General Adult General Chief complaint: General Medical Stated complaint: red spots on back and feet Time Seen by Provider: 03/02/25 18:12 Source: patient, family (caregiver), RN notes reviewed and old records reviewed Mode of arrival: ambulatory Limitations: no limitations History of Present Illness ED Provider: Anne HPI narrative: 59-year-old male with a past medical history significant for diabetes, cognitive delay, obesity, asthma presents for evaluation of red spots on his back. ? The patient's caregiver reports that she 1st noted this is spots on the top of his back last night. She noticed a few bumps on his legs. The patient denies any pain, he denies any itching. Denies any fevers, chills. No other complaints or concerns at this time His oxygen is 90% on room air but the patient reports that he does use oxygen at night due to hypoxia. He denies any chest pain, shortness of breath or legs no Related Data Home Medications ?Medication ?Instructions ?Recorded ?Confirmed aripiprazole lauroxil 882 mg/3.2 882 mg IM Q28D 09/25/24 12/01/24 mL suspension, ext.rel. IM syringe (Aristada) escitalopram oxalate 5 mg/5 mL 5 mg PO DAILY 09/25/24 12/01/24 oral solution Previous Rx's ?Medication ?Instructions ?Recorded fluticasone 250 mcg-salmeterol 50 1 inh inhalation Q12H #60 ea 09/30/21 mcg/dose blistr powdr for inhalation (Wixela Inhub) blood-glucose meter (OneTouch #1 ea 08/17/22 Ultra2 Meter) lancets 28 gauge (FreeStyle #100 ea 11/07/22 Lancets) blood sugar diagnostic (FreeStyle #100 ea 11/08/22 Test strips) blood sugar diagnostic (OneTouch #50 ea 11/07/23 Ultra Test strips) lancets #100 ea 11/07/23 albuterol sulfate 90 mcg/actuation 2 puff inhalation Q4H PRN SOB #6.7 09/29/24 aerosol inhaler grams levalbuterol HCl 1.25 mg/3 mL 1.25 mg (3 mL) inhalation Q4H PRN 09/29/24 solution for nebulization Shortness Of Breath/Wheezing #75 mL atorvastatin 40 mg tablet 40 mg PO BEDTIME #90 tabs 10/07/24 azithromycin 250 mg tablet 250 mg PO Q24H #1 tab 12/03/24 prednisone 20 mg tablet 40 mg (2 x 20 mg) PO DAILY #3 tabs 12/03/24 dulaglutide 0.75 mg/0.5 mL 0.75 mg (0.5 mL) subcut QWEEK #2 mL 12/24/24 subcutaneous pen injector (Trulicity) Allergies Allergy/AdvReac Type Severity Reaction Status Date / Time penicillin V Allergy Unknown vomiting Verified 03/02/25 18:12 Penicillins (PENICILLINS) Allergy Unknown vomitting Verified 03/02/25 18:12 Review of Systems Constitutional: Constitutional: Denies body ache(s), Denies chills, Denies fever(s) and Denies headache(s) Eyes: Eyes: Denies blurry vision ENT: Denies vertigo, Denies dizziness and Denies headache(s) Cardiovascular: Cardiovascular: Denies chest pain, Denies dyspnea and Denies dyspnea on exertion Respiratory: Respiratory: Denies cough, Denies dyspnea and Denies dyspnea on exertion Gastrointestinal: Gastrointestinal: Denies abdominal pain, Denies nausea and Denies vomiting Musculoskeletal: Musculoskeletal: Denies back pain Integumentary/Breasts: Skin/Breast: Reports rash Neurologic: Denies vertigo, Denies dizziness and Denies headache(s) [facility] Past Medical History Medical History Pressure ulcer Cognitive developmental delay Obesity Asthma Hyperlipidemia Surgical History Meatal stenosis S/P TURP (status post transurethral resection of prostate) History of foot surgery Family History Family History Father Cancer Mother COPD (chronic obstructive pulmonary disease) Hypertension Maternal Aunt Liver cancer Social History Social History Household Members: None Housing: House Do you presently have visiting nurse or other home services: Yes Alcohol intake: never Patient Tobacco Use Status: Never used Tobacco e-Cigarette/Vaping Use: Never Used Second Hand Smoke Exposure: No Advance Directives: Yes Advance Directives Information Provided: Yes Advance Directives on File: No Do you have a plan to hurt others: No Plan service: No Current occupational status: employed Cognitive needs: No Hearing needs: Yes (hearing aide) Vision needs: Yes (glasses) Physical Exam ED Vital Signs: Vital Signs - 24 hr 03/02/25 18:10 Temperature 98 F Pulse Rate 110 H Respiratory Rate 16 Blood Pressure 172/80 H Pulse Oximetry 90 L Oxygen Delivery Method Room Air BMI result Body Mass Index 33.6 Const General: healthy appearing, comfortable, no acute distress, alert and awake Nutritional Appearance: well nourished Orientation/consciousness: patient oriented x3 HENMT Head: Yes normocephalic and Yes atraumatic Eyes Eyelids: Yes eyelids normal Conjunctivae: conjunctivae normal Sclerae: sclerae normal Corneas: corneas normal Pupils: Equal, round and reactive pupils present EOM: EOMs intact bilaterally Neck Neck: Yes full ROM Resp Effort & Inspection: normal respiratory effort, able to speak in complete sentences and not labored GI Inspection: No distended Palpation (GI): Soft to palpation, not firm, nontender, no guarding and not rigid Skin Other: The patient has an area of erythematous macules and papules to the back of the neck and top of the back. No vesicles. No beefy red erythema, no fluctuance or induration. General skin exam: elasticity normal Neuro General: patient oriented x3 Cranial nerves: Yes Equal, round and reactive pupils present and Yes Bilaterally intact EOM present Cognition (Neuro): normal cognition Extrem Other: Moving all extremities well without any obvious deformities Medical Decision Making Medical Decision Making MDM Narrative: The patient has history exam is consistent with a mild dermatitis or mild folliculitis. This does not appear consistent with cellulitis. The patient has no itching, no pain. We will treat conservatively. He denies any shortness of breath, chest pain, cough. He is noted to be hypoxic but it Versed at baseline based in his last few visits his low 90s. Differential Diagnosis Differential Diagnoses: The differential diagnosis associated with the presentation includes Folliculitis Dermatitis Cellulitis Bronchitis Viral syndrome Viral exanthem Discharge Plan Discharge Clinical Impression: Dermatitis Patient Disposition: Home, Self-Care Instructions: Dermatitis (ED) Additional Instructions: Your symptoms are consistent with a mild dermatitis or possibly mild folliculitis. You may apply warm compresses. Return for new or worsening symptoms, if the rash appears to be spreading or if you develop fevers Follow up with your primary doctor Prescriptions: No Action (DME) blood-glucose meter [OneTouch Ultra2 Meter] Misc See Rx Instructions .ROUTE .COMPLEX Qty: 1 0RF Dose Instruction: USE DIRECTED TO CHECK BLOOD GLUCOSE Rx Instructions: USE DIRECTED TO CHECK BLOOD GLUCOSE (DME) FreeStyle Test Strip See Rx Instructions .Route Qty: 100 8RF Rx Instructions: to check blood sugars once a day (DME) OneTouch Ultra Test Strip See Rx Instructions .ROUTE .COMPLEX Qty: 50 0RF Dose Instruction: USE 1 STRIP TO CHECK BLOOD GLUCOSE ONCE A DAY BEFORE A MEAL Rx Instructions: USE 1 STRIP TO CHECK BLOOD GLUCOSE ONCE A DAY BEFORE A MEAL (DME) lancets Misc See Rx Instructions .Route Qty: 100 0RF Rx Instructions: check bood sugar once a day ac Trulicity 0.75 mg/0.5 mL pen injector 0.75 mg subcut QWEEK Qty: 2 2RF escitalopram oxalate 5 mg/5 mL solution 5 mg PO DAILY Aristada 882 mg/3.2 mL suspension,extended rel syring 882 mg IM Q28D levalbuterol HCl 1.25 mg/3 mL Solution For Nebulization 1.25 mg inhalation Q4H PRN (Reason: Shortness Of Breath/Wheezing) Qty: 75 0RF albuterol sulfate 90 mcg/actuation Hfa Aerosol Inhaler 2 puff INHALATION Q4H PRN (Reason: SOB) Qty: 6.7 0RF azithromycin 250 mg Tablet 250 mg PO Q24H Qty: 1 0RF prednisone 20 mg Tablet 40 mg PO DAILY Qty: 3 0RF fluticasone propion-salmeterol [Wixela Inhub] 250-50 mcg/dose blister with device 1 inh inhalation Q12H Qty: 60 8RF (DME) lancets [FreeStyle Lancets] 28 gauge misc See Rx Instructions .MEDSUPPLY Qty: 100 2RF Rx Instructions: test daily atorvastatin 40 mg tablet 40 mg PO BEDTIME Qty: 90 3RF Print Language: Kazakh
--- OUTSIDE RECORDS SUMMARY | 2025-03-02 20:59 | XMS_ITS | Patient Health Record ---
Author Organization [facility] Address [address] [place] [address] Care Team Providers Care Sales And Marketing Professional Name Role Phone Abdi HENDERSON, Tony Primary Care Provider Unavaila Alberto Hopkins Unavailable [phone] Allergies Allergen (clinical drug ingredient) Drug/Non Drug Allergy documented on EMR Reaction Allergy Type Onset Date Status Environmental (uncoded) watery eyes, congestion Allergy Active risperidone RisperDAL rash Drug Allergy Activ e Substance with penicillin structure and antibacterial mechanism of action (substance) Penicillins rash Drug Allergy Active Reason For Referral No Information Medications Medication [...] a day; Duration: 30 days 06/10/2024 Active Virasal 27.5 % 1 application to aff ected area Externally Once a day; Duration: 30 days 06/10/2024 Active Immunizations Vaccine Route [...] Problem Acquired hammer toe of right foot (43948565503805 05) Other hammer toe(s) (acquired), right foot (M20.41) Active confirmed Problem Type 2 diabetes mellitus with peripheral angiopathy (311945806) Type 2 diabetes mellitus with diabetic peripheral angiopathy without gangrene (E11.51) Active confirmed Problem Acquired hammer toe of left foot (10367759098485 03) Other hammer toe(s) (acquired), left foot (M20.42) Active confirmed Problem Plantar wart (68110674) Plantar wart (B07.0) Active confirmed Vital Signs Height 5ft2in in 06/10/2024 Weight 205 lbs 06/10/2024 BMI 37.49 kg/m2 06/10/2024 Procedures Procedure Date Ordered Date Performed Result Body Sit e 41588-[id number] NAIL, 6 OR MORE 06/10/2024 N/A 50512-Ptro Destruction, 1-14 06/10/2024 N/A 03265-TSMA SKIN LESIONS, 2 TO 4 06/10/2024 N/A Encounters Encounter Location Date Provider Diagnosis [facility] [address] [place] [address] 06/10/2024 Alberto Zambrano Type 2 diabetes mellitus with diabetic peripheral angiopathy without gangrene E11.51 ; Plantar wart B07.0 ; Tinea unguium B35.1 ; Pain in right toe(s) M79.674 ; Pain in left toe(s) M79.675 ; Left foot pain M79.672 and Xerosis of skin L85.[address] [facility] [address] 03/25/2024 Alberto Zambrano [facility] [address] 10/01/2024 Albertochester Zambrano [facility] [address] 01/07/2025 Alberto Zambrano Assessments Encounter Date Diagnosis (ICD [...] - L85.3) 06/10/2024 Other Plan Of Treatment Pending Test Test Name Order Date [id number]-[id number] NAIL, 6 OR MORE 08/28/2023 65262-MAIUHLJ NAIL, 6 OR MORE 11/06/2023 12097-LOJPODF NAIL, 6 OR MORE 01/15/2024 62158-CNXQDCA NAIL, 6 OR MORE 06/10/2024 35264-Uccp Destruction, 1-14 06/10/2024 44706-Tgeq Destruction, 1-14 01/15/2024 91834-Kreg Destruction, 1-14 11/06/2023 95038-Rkeo Destruction, 1-14 08/28/2023 56819-OASN SKIN LESIONS, 2 TO 4 08/28/19 99623-MDKS SKIN LESIONS, 2 TO 4 11/06/19 77917-MUUC SKIN LESIONS, 2 TO 4 01/15/20 24 20575-TTBY SKIN LESIONS, 2 TO 4 06/10/19 25 Next Appt Details Provider Name:Alberto Zambrano , 04/13/2025 03:15:00 PM, [address] [facility], [address], [place], [address], Insurance Providers Payer Name Payer Address Payer Phone Subscriber Number Group Number Insured Name Patient Relationship to Insured Coverage Start Date Coverage End Date [facility] [employer] Claims [address] [place] [id number] Be Minaya Self - patient is the insured Medical (General) History Medical History History ICD Code asthma High blood pressure Hyperlipidemia Cognitive developmental delay Obesity Surgical History Surgery Date(Month/Year)
== END 2025-03-02 21:18 | disposition home or self-care (01) ==
PROVIDERS: Emergency Provider Student in an Organized Health Care Education/Training Program
DX: L30.9 Dermatitis, unspecified (principal); J45.909 Unspecified asthma, uncomplicated
CPT/HCPCS: 99281

== ENCOUNTER 2025-03-12 09:30 | Outpatient (REF) | payer MEDICARE, SELFPAY ==
--- OUTSIDE RECORDS SUMMARY | 2024-04-08 05:00 | XMS_ITS ---
Author Organization [facility] Address [address] [place] [address] Care Team Providers Care Aqua Ammonia Operator Name Role Phone Abdi HENDERSON, Tony Primary Care Provider UnavailAlberto Erickson Unavailable [phone] Encounters Encounter Location Date Provider Diagnosis [facility] [address] [place] [address] 04/08/2024 Alberto Zambrano Plan Of Treatment Next Appt Details Provider Name:Alberto Zambrano , 04/13/2025 03:15:00 PM, [address] [facility], [address] [facility], [place], [address], Progress Notes * Be REYESDOB:1964 (59 yo M)Acc No.[id number]:04/08/2024 Progress Note Patient: Nely HUANGBe BOGGS Provider: Bonny Zambrano DPM :1965 A ge:58 Y S ex:Male Date:04/08/2024 Address:[address], [id number] Pcp:Tony Patton MD Subjective: * Chief Complaints: [...] 06/08/2023 Generated for Willie west/Krista/Mohamud on: 1 11:00 AM EDT
--- OUTSIDE RECORDS SUMMARY | 2024-09-12 07:00 | XMS_ITS ---
Author Organization [facility] Address [address] [place] [address] Care Team Providers Care Executive Account Manager Name Role Phone Abdi HENDERSON, Tony Primary Care Provider Unavaila Alberto Hopkins Unavailable [phone] Grewal Encounters Encounter Location Date Provider Diagnosis [facility] [address] [place] [address] 09/12/2024 Alberto Zambrano Plan Of Treatment Next Appt Details Provider Name:Alberto Zambrano , 04/13/2025 03:15:00 PM, [address] [facility], [address] [facility], [place], [address], Progress Notes * Be REYESDOB:1964 (59 yo M)Acc No.[id number]:09/12/2024 Progress Note Patient: Nely RANDALLBe STEIN Provider: Bonny Zambrano DPM :1965 A ge:59 Y S ex:Male Date:09/12/2024 Address:[address], [address], [place] Pcp:Tony Patton MD Subjective: * Chief Complaints: * [address] Grewal. * Medical History: Objective: * Vitals: Assessment: Plan: * Treatment: * Images: * The named appointment provid er may or may not be the originator of this progress note, and it is not deemed complete until electronically signed by the appointment provider. Sign off status: Pending * Provider: Bonny Zambrano DPM Date: 0 09/12/2024 Generated for Willie west/Krista/Mohamud on: 1 11:00 AM EDT
--- OUTSIDE RECORDS SUMMARY | 2024-10-03 06:15 | XMS_ITS ---
Author Organization [facility] Address [address] [place] [address] Care Team Providers Care Tech Intern Name Role Phone Tony Patton MD Primary Care Provider Unavaila Alberto Hopkins Unavailable [phone] Allergies Allergen (clinical drug ingredient) Drug/Non Drug [...] Active Encounters Encounter Location Date Provider Diagnosis [facility] [place] [address] [place] [address] 10/03/2024 Alberto Zambrano Plan Of Treatment Next Appt Details Provider Name:Alberto Zambrano , 04/13/2025 03:15:00 PM, [address], [address], [place], [address], Progress Notes * Be REYESDOB:1964 (59 yo M)Acc No.[id number]:10/03/2024 Progress Note Patient: Nely RANDALLEMIL Be Provider: Bonny Zambrano DPM :1965 A ge:59 Y S ex:Male Date:10/03/2024 [facility] [address] [facility] Pcp:Tony Patton MD Subjective: * Chief Complaints: [...] 0 10/03/2024 Generated for Willie west/Krista/Mohamud on: 11:00 AM EDT
--- OUTSIDE RECORDS SUMMARY | 2025-01-09 06:00 | XMS_ITS ---
Author Organization [facility] Address [address] [place] [address] Care Team Providers Care Appointment Manager Name Role Phone Abdi HENDERSON, Tony Primary Care Provider UnavailAlberto Erickson Unavailable [phone] Encounters Encounter Location Date Provider Diagnosis [facility] [address] [place] [address] 01/09/2025 Alberto Zambrano Plan Of Treatment Next Appt Details Provider Name:Alberto Zambrano , 04/13/2025 03:15:00 PM, [address] [facility], [address] [facility], [place], [address], Progress Notes * Be REYESDOB:1964 (59 yo M)Acc No.[id number]:01/09/2025 Progress Note Patient: Nely RANDALLBe STEIN Provider: Bonny Zambrano DPM :1965 A ge:59 Y S ex:Male Date:01/09/2025 Address:[address], [id number] Pcp:Tony Patton MD Subjective: * Chief Complaints: * * Medical History: Objective: * Vitals: Assessment: Plan: * Treatment: * Images: * The named appointment provid er may or may not be the originator of this progress note, and it is not deemed complete until electronically signed by the appointment provider. Sign off status: Pending * Provider: Bonny Zambrano DPM Date: 0 01/09/2025 Generated for Willie west/Krista/Mohamud on: 1 11:00 AM EDT
[2025-03-12 09:58] LABS: MANUAL DIFF FLAG NO
[2025-03-12 10:38] LABS: Hematocrit 49.3 % (42.0-52.0); Hemoglobin 15.3 g/dl (14.0-18.0); Imm Gran Abs Auto 0.02 X10*3/uL (0.00-0.03); Imm Gran Pct Auto 0.2 % (0.0-0.4); Lymphocytes Absolute Auto 1.9 X10*3/uL (1.2-4.9); Mean Corpuscular HGB Conc 31.0 g/dl (31.0-36.0); Mean Corpuscular Hemoglobin 28.4 pg (27.0-33.0); Mean Corpuscular Volume 91.6 fL (80.0-98.0); NRBC Abs Auto 0.000 X10*3/uL (0.0-0.012); NRBC Pct Auto 0.0 /100WBC (0.0-0.2); Platelet Count 306 X10*3/uL (160-400); Red Blood Count 5.38 X10*6/uL (4.60-5.80); White Blood Count 9.1 X10*3/uL (4.8-10.8)
--- OUTSIDE RECORDS SUMMARY | 2025-03-12 11:00 | XMS_ITS | Clinical Summary ---
Author Organization [facility] Address [address] [place] [address] Phone Care Team Providers Care Poultry Farmer Egg Name Role Phone Becky Lobo DO Primary [...] Problem Noted Date Diagnosed Date Diabetes mellitus ([facility] V24, CMS/[facility] V28) Hypercholesterolemia 10/05/2015 Hypertension 10/05/2015 Asthma 10/05/2015 Sleep apnea 10/05/2015 Medical History Medical History Date Comments Diabetes mellitus type 2, co ntrolled, with complications (CMS/HCC V24, CMS/HCC V28) DX:Diabetes m ellitus type 2, controlled, with complications ([facility]) Essential hypertension DX:Essent ial hypertension Asthma DX:Asthma [...] Description 04/30/2025 10:30 AM EST Office Visit Pulmonology - [address] [place] [address] Char Sullivan MD [address] [place] [address] Health Maintenance Due Date Last Done Comments Colorectal Cancer Screening: Colonoscopy 1966 Diabetes: Annual Foot Exam 1976 Diabetes: Annual Retina Eye Exam 1976 Hepatitis B Vaccines (1 of 3 - 19+ 3-dose series) 1985 Pneumococcal Vaccine: 50+ Years (2 of 2 - PCV) 02/11/2016 02/10/2015, 12/25/2013 RSV Immunization Adult Patients (1 - Risk 50-74 years 1-dose series) 2016 Zoster Vaccines (1 of 2) 2016 Diabetes: Annual GFR (Glomerular Filtration Rate) 11/26/2019 11/25/2018 Cholesterol Screening (Lipid Panel) 04/11/2022 HIV Screening 04/11/2022 Hepatitis C Screening 04/11/2022 Social Influencers of Health Screening 04/11/2022 Diabetes: Annual Urine Albumin-Creatinine Ratio (uACR) 04/19/2022 Diabetes: Blood Sugar Control Test (HGBA1C) 04/19/2022 Hypertension/CHF/CAD Annual BMP Blood Test 04/19/2022 11/25/2018 Depression Screening 05/14/2024 COVID-19 Vaccine ( season) 2025 03/15/2021, 07/15/2020, 06/17/2020 Influenza Vaccine (#1) 2025 , 05/08/2023, 03/15/2021, [...] patient's age to complete this topic Insurance [facility] Member Subscriber Plan / Payer (Ef fective 2018-Present) Name:LISA REYES Relation to Subscriber:Self Name:Lisa Reyes Payer ID:[id number] Group ID:[id number] Type:Not on file Address: [address] [place] [address] Advance Directives Documents on File Type Date Recorded Patient Cloth Roll Winder Expl anation Health Care Decision (hx) 01/25/2016 AD HILL DIRECTIVE Health Care Decision (hx) 01/25/2016 AD HILL DIRECTIVE Care Teams Poultry Farmer Egg Relationship Specialty Start Date End Date Becky Lobo DO [address] [facility] [address] [place] [address] PCP - General 10/04/15
--- OUTSIDE RECORDS SUMMARY | 2025-03-12 11:00 | XMS_ITS | Patient Health Record ---
Author Organization [facility] Address [address] [place] [address] Care Team Providers Care Peer Financial Counselor Name Role Phone Abdi HENDERSON, Tony Primary Care Provider Unavaila Alberto Hopkins Unavailable [phone] Allergies Allergen (clinical drug ingredient) Drug/Non Drug [...] Problem Acquired hammer toe of right foot (55698473239135 05) Other hammer toe(s) (acquired), right foot (M20.41) Active confirmed Problem Type 2 diabetes mellitus with peripheral angiopathy (750827481) Type 2 diabetes mellitus with diabetic peripheral angiopathy without gangrene (E11.51) Active confirmed Problem Acquired hammer toe of left foot (50071009504538 03) Other hammer toe(s) (acquired), left foot (M20.42) Active confirmed Problem Plantar wart (98049984) Plantar wart (B07.0) Active confirmed Vital Signs Height 5ft2in in 06/10/2024 Weight 205 lbs 06/10/2024 BMI 37.49 kg/m2 06/10/2024 Procedures Procedure Date Ordered Date Performed Result Body Sit e 85866-SLLNMNG NAIL, 6 OR MORE 06/10/2024 N/A 90157-Ovkg Destruction, 1-14 06/10/2024 N/A 94592-ZLBL SKIN LESIONS, 2 TO 4 06/10/2024 N/A Encounters Encounter Location Date Provider Diagnosis [facility] [place] [address] [place] [address] 06/10/2024 Alberto Zambrano Type 2 diabetes mellitus with diabetic peripheral angiopathy without gangrene E11.51 ; Plantar wart B07.0 ; Tinea unguium B35.1 ; Pain in right toe(s) M79.674 ; Pain in left toe(s) M79.675 ; Left foot pain M79.672 and Xerosis of skin L85.[address] [facility] [address] 03/25/2024 [facility] [address] 10/01/2024 Albertochester Zambrano [facility] [address] 01/07/2025 Alberto Zambrano Assessments Encounter Date Diagnosis [...] Treatment Pending Test Test Name Order Date 71443-JSRWECF NAIL, 6 OR MORE 08/28/2023 59089-BZPRYHQ NAIL, 6 OR MORE 11/06/2023 90074-DFTQTFO NAIL, 6 OR MORE 01/15/2024 43092-EDIGJIU NAIL, 6 OR MORE 06/10/2024 71547-Llkl Destruction, 1-14 06/10/2024 05500-Pzou Destruction, 1-14 01/15/2024 05210-Fqjz Destruction, 1-14 11/06/2023 30755-Khbe Destruction, 1-14 08/28/2023 42352-TJKO SKIN LESIONS, 2 TO 4 08/28/19 88557-QTMT SKIN LESIONS, 2 TO 4 11/06/19 05290-JCOV SKIN LESIONS, 2 TO 4 01/15/20 24 68532-XSHS SKIN LESIONS, 2 TO 4 06/10/19 25 Next Appt Details Provider Name:Alberto Zambrano , 04/13/2025 03:15:00 PM, [address], [address], [place], [address], Insurance Providers Payer Name Payer Address Payer Phone Subscriber Number Group Number Insured Name Patient Relationship to Insured Coverage Start Date Coverage End Date [facility] [employer] Claims [address] [place] [address] [id number] Be Minaya Self - patient is the insured Medical (General) History Medical History History ICD Code asthma High blood pressure Hyperlipidemia Cognitive developmental delay Obesity Surgical History Surgery Date(Month/Year)
[2025-03-12 11:26] LABS: Alanine Aminotransferase 17 U/L (0-40); Albumin Level 4.6 g/dL (3.5-5.0); Alkaline Phosphatase 73 U/L (39-117); Anion Gap 12 (12-20); Aspartate Amino Transferase 24 U/L (5-37); Blood Urea Nitrogen 22 mg/dL (9-16); Calcium 10.2 mg/dL (8.4-10.2); Carbon Dioxide 32 mmol/L (22-29); Chloride 102 mmol/L (96-108); Cholesterol 191 mg/dL (<200); Estimated Glomerular Filt Rate > 60; HDL Cholesterol 39 mg/dL (>40); Potassium 4.3 mmol/L (3.3-5.1); Sodium 142 mmol/L (135-145); Total Protein 7.4 g/dL (6.5-8.0); Triglycerides 101 mg/dL (<150)
[2025-03-12 11:28] LABS: Appearance Urine Clear; Glucose Urine UA Negative (Negative); PH 6.0 (5.0-9.0); Specific Gravity - Urine 1.020 (1.005-1.025)
== END 2025-03-12 09:31 | disposition home or self-care (01) ==
LOC: HO.LAB 09:30
DX: E11.69 Type 2 diabetes mellitus with other specified complication (principal); E78.5 Hyperlipidemia, unspecified; E66.9 Obesity, unspecified; J45.909 Unspecified asthma, uncomplicated; F81.9 Developmental disorder of scholastic skills, unspecified; Z13.21 Encounter for screening for nutritional disorder
CPT/HCPCS: 36415; 80053; 80061; 81003; 82306; 83036; 84443; 85025

== ENCOUNTER 2025-04-06 10:35 | Outpatient (AMB) | payer OTHER, SELFPAY ==
--- NOTE | 2025-04-06 11:19 | A.OFFPC_ITS ---
Vital Signs 04/06/25 11:20 Height 5 ft 5 in Weight 206 lb 2 oz BMI 34.3 BP 170/82 H Blood Pressure Location Lt brachial Position Sitting Respiration 18 Pulse 115 H Pulse Source Pulse Oximeter Temp Source Temporal Artery Scan Pulse Oximetry (%) 94 Oxygen Delivery Method Room Air Intake Visit Reasons: DM/ASTHMA/A1C needed Real Estate Representative Required: No Accompanied by: Self / Same As Patient Allergies penicillin V Allergy (Unknown, Verified 04/06/25 11:34) vomiting Penicillins (PENICILLINS) Allergy (Unknown, Verified 04/06/25 11:34) vomitting Medication List - Last Reconciled 04/06/25 by FLAKITO Meza albuterol sulfate 90 mcg/actuation 2 puffs inhalation Q4H PRN aripiprazole lauroxil ER (Aristada) 882 mg IM Q28D atorvastatin 40 mg PO BEDTIME azithromycin 250 mg PO Q24H blood sugar diagnostic (FreeStyle Test strips) to check blood sugars once a day blood sugar diagnostic (OneTouch Ultra Test strips) USE 1 STRIP TO CHECK BLOOD GLUCOSE ONCE A DAY BEFORE A MEAL blood-glucose meter (Fast FiBRTouch Ultra2 Meter) USE DIRECTED TO CHECK BLOOD GLUCOSE dulaglutide (Trulicity) 0.75 mg (0.5 mL) subcut QWEEK escitalopram oxalate 5 mg PO DAILY fluticasone propion-salmeterol 250-50 mcg/dose (Wixela Inhub) 1 inh inhalation Q12H lancets (FreeStyle Lancets) test daily lancets check bood sugar once a day ac levalbuterol HCl 1.25 mg (3 mL) inhalation Q4H PRN prednisone 40 mg (2 x 20 mg) PO DAILY Tobacco use date assessed: 04/06/25 Dental Screening Dental Screen Date: 04/06/25 Did you have a dental visit in the last 12 months?: Yes Did you have a dental problem in the last 6 months where you did not have access to dental care?: No Was dental information given to patient?: Patient has dentist HPI DM/ASTHMA/A1C needed HPI Details The patient is a 59-year-old male with past medical history of cognitiv e developmental delay, obesity, asthma, DM, HLD. Patient presenting today for follow up appointment. The patient came to appointment by himself Per patient, he is feeling ok and wants to follow up 6 months Reports that the person who drove him here is outside and he does not want the person in his business Heart rate in the 120s, denies any symptoms are reports that he is just nervous The does have cognitive delay/schizophrenia and hx of tachardia He also wears oxygen at night, not sure if the ambulation in office causing his heart rate to increase more than before His blood pressure was elevated as well; he refusing to come back in a week to be check; states that he will make his visiting nurse check his blood pressure Reports that he sees a therapist once a month and a psychiatrist every 3 month at the [facility] in [place]. He is on Aristada 882MG IM Q 28 days and escitalopram 5 mg. Diabetes: A1c in office 6.4% decreased from 6.9% when it was last check. Currently on Trulicity 0.75 mg subQ weekly Asthma: Lungs are clear in office, heart rate continues to be tachycardic. States that he feels fine and it is related to walking in here. He is on albuterol sulfate 90 mcg/actuation 2 puffs inhalation Q 4 p.r.n., fluticasone propion-salmeterol 250-50 mcg dose 1 inhalation q.12 hours. The patient also has levalbuterol HCI 1.25 mg (3 ml) q.4 via nebulizer. HLD: LDL 132 decreased from 144, previous visit his atorvastatin was increased to 40mg. He is wants to follow every 6 months instead of recommended every 3 months Scalp-noted with Tinea capitis all over scalp, leaving patches of missing hair. [facility] Medical History Pressure ulcer Cognitive developmental delay Obesity Asthma Hyperlipidemia Surgical History Meatal stenosis S/P TURP (status post transurethral resection of prostate) History of foot surgery Family History Father Cancer Mother COPD (chronic obstructive pulmonary disease) Hypertension Maternal Aunt Liver cancer Social History Household Members: None Housing: House Do you presently have visiting nurse or other home services: Yes Alcohol intake: never Patient Tobacco Use Status: Never used Tobacco e-Cigarette/Vaping Use: Never Used Second Hand Smoke Exposure: No service: No Current occupational status: employed Cognitive needs: No Hearing needs: Yes (hearing aide) Vision needs: Yes (glasses) Questionnaire PHQ-9 Over the last 2 weeks, how often have you been bothered by any of the following problems? 1. Little interest or pleasure in doing things: not at all 2. Feeling down, depressed, or hopeless: not at all 3. Trouble falling or staying asleep, or sleeping too much: not at all 4. Feeling tired or having little energy: not at all 5. Poor appetite or overeating: not at all 6. Feeling bad about yourself - or that you are a failure or have let yourself or your family down: not at all 7. Trouble concentrating on things, such as reading the newspaper or watching television: not at all 8. Moving or speaking so slowly that other people could have noticed. Or the opposite - being so fidgety or restless that you have been moving around a lot more than usual: not at all 9. Thoughts that you would be better off or of hurting yourself in some way: not at all Total score: 0 Source: Developed by Drs. Alexandre Navarro, Angela Hannah, Palomo Hill and colleagues, with an educational julio from [employer]. Thrive Questionnaire Date Thrive assessed: 04/06/25 I am a: Patient What is your living situation today?: I have a steady place to live Within the past 12 months, did the food you bought not last and you didn't have the money to get more?: Never true Within the past 12 months, did you worry whether your food would run out before you got money to buy more?: Never true Do you have trouble paying for medicines?: No Do you have trouble getting transportation to medical appointments?: No Do you have trouble paying your heating and electricity bill?: No Do you have trouble taking care of your child, family member or friend?: No Do you have trouble with day-to-day activities such as bathing, preparing meals, shopping, managing finances, etc.?: No Are you currently unemployed and looking for a job?: Yes Are you interested in more education?: No Please select the resources that you would like help with: None Currently or been in a relationship where the following occur: No concerns reported THRIVE Score: 0 AUDIT C Alcohol Use Questionnaire (AUDIT-C) 1. How often do you have a drink containing alcohol?: Never Total Score: 0 MAR-7 AMB Questionnaire MAR-7 Date MAR - 7 assessed: 12/26/24 Feeling nervous, anxious, or on edge: 0 = Not at all Not being able to stop or control worryin = Not at all Worrying too much about different things: 0 = Not at all Trouble relaxin = Not at all Being so restless that it is hard to sit still: 0 = Not at all Becoming easily annoyed or irritable: 0 = Not at all Feeling afraid as if something awful might happen: 0 = Not at all Total MAR-7 score (0-4 normal; 5-9 mild; 10-14 moderate; 15-21 severe): 0 Source: Developed by Drs. Alexandre Navarro, Angela Hannah, Palomo Hill and colleagues, with an educational julio from [employer]. Review of Systems Narrative Review of Systems - General: Reports feeling chilly. - Cardiovascular: Acknowledges awareness of high blood pressure and a fast heart rate. - Psychiatric: Reports feeling nervous. - Integumentary: Reports a condition on the scalp. Const Denies headache(s) Eyes Denies loss of vision ENT Denies vertigo, Denies dizziness, Denies headache(s) and Denies sore throat Card Denies chest pain, Denies leg edema and Denies lightheadedness Resp Denies cough, Denies hemoptysis and Denies wheezing GI Denies abdominal pain, Denies melena, Denies constipation, Denies diarrhea and Denies vomiting Denies dysuria, Denies urinary frequency and Denies urinary urgency Musc Denies arthralgias, Denies joint swelling, Denies numbness and Denies tingling Neuro Denies Abnormal speech present, Denies behavioral changes, Denies vertigo, Denies dizziness, Denies headache(s), Denies loss of vision, Denies memory loss, Denies numbness and Denies tingling Psych Denies anxiety, Denies behavioral changes, Denies depression, Denies memory loss and Denies panic attacks Enmanuel/Lymph Denies easy bleeding and Denies easy bruising Aller/Immun Denies wheezing Physical exam (Primary Care) Vital Signs: Last Vital Signs Pulse 126 H 04/06/25 11:20 Resp 18 04/06/25 11:20 BP 170/82 H 04/06/25 11:20 Pulse Ox 94 04/06/25 11:20 Oxygen Delivery Method Room Air 04/06/25 11:20 BMI result Body Mass Index 34.3 Tobacco/Smoking Status: Tobacco use Status Tobacco use date assessed 04/06/25 04/06/25 11:26 Patient Tobacco Use Status Never used Tobacco 04/06/25 11:26 e-Cigarette/Vaping Use Never Used 04/06/25 11:26 PHQ-9: PHQ-9 Score PHQ-9: Total score 0 04/06/25 11:54 Thrive Assessment: Date of Thrive Assessment Date Thrive assessed 04/06/25 04/06/25 11:26 Currently or been in a relationship where the following occur: No concerns reported Narrative Physical Exam - Vitals: Blood pressure was elevated on initial and repeat checks. - Heart rate was tachycardic at 120 beats per minute, which later decreased to 118 beats per minute. - Respiratory: Lungs are clear to auscultation bilaterally. - Integumentary: Examination of the scalp was performed, with no findings detailed. Const General: healthy appearing, no acute distress, alert and awake Nutritional Appearance: well nourished Orientation/consciousness: oriented to person, oriented to place and oriented to time [facility] Head: Yes scalp lesion (tinea capitis) Ears: TM's normal bilaterally General nose exam: Normal nasal mucous membranes and turbinates present Eyes Conjunctivae: conjunctivae normal Sclerae: sclerae normal Pupils: Equal, round and reactive pupils present Neck Neck: Yes no lymphadenopathy and Yes no JVD Thyroid: Thyroid normal Carotids: no bruits Resp Effort & Inspection: normal respiratory effort and not tachypneic Auscultation: no crackles, no rales, no rhonchi and no wheezes Cardio Rate: regular rate Rhythm: regular rhythm Heart sounds: no murmurs and normal S1 and S2 GI Palpation (GI): Soft to palpation, nontender, no hepatomegaly and no splenomegaly Auscultation: normal bowel sounds Skin Rashes: rashes noted (tinea capitis) Neuro General: oriented to person, oriented to place and oriented to time Cranial nerves: Yes Equal, round and reactive pupils present Speech: No Abnormal speech present Gait exam (Neuro): Normal gait present Motor exam (neuro): no tremor noted Extrem Right upper extremity: full ROM Left upper extremity: full ROM Right lower extremity: full ROM; no edema Left lower extremity: full ROM; no edema Psych Mental Status: mental status grossly normal Speech and movement: Normal speech and movement present Affect: normal affect Attitude: cooperative Thought process: Normal thought process present Results Reviewed Results Reviewed: Laboratory Tests 03/12/25 03/12/25 08:32 09:56 WBC 9.1 RBC 5.38 Hgb 15.3 Hct 49.3 MCV 91.6 MCH 28.4 MCHC 31.0 RDW 12.7 Plt Count 306 Sodium 142 Potassium 4.3 Chloride 102 Carbon Dioxide 32 H Anion Gap 12 BUN 22 H Creatinine 0.85 Estimated GFR > 60 Fasting Glucose 145 H Estimat Average Glucose 137 Hemoglobin A1c % 6.4 H Calcium 10.2 D Total Bilirubin 0.3 AST 24 ALT 17 Alkaline Phosphatase 73 Total Protein 7.4 Albumin 4.6 Triglycerides 101 Cholesterol 191 LDL Cholesterol, Calc 132 H HDL Cholesterol 39 L 25-OH Vitamin D Total 30.8 TSH 1.02 Urine Color Yellow Urine Appearance Clear Urine pH 6.0 Ur Specific [place] 1.020 Urine Protein Negative Urine Glucose (UA) Negative Urine Ketones Negative Urine Blood Negative Urine Nitrite Negative Ur Leukocyte Esterase Negative Coding Level of Care Code Est Pt Level 4 (48268) Diagnoses Type 2 diabetes mellitus with hyperlipidemia E11.69; E78.5 Cognitive developmental delay F81.9 Obesity, unspecified class, unspecified obesity type, unspecified whether serious comorbidity present E66.9 Obesity type: unspecified obesity type Obesity classification: unspecified obesity classification Serious obesity comorbidity presence: unspecified whether serious comorbidity present Elevated BP without diagnosis of hypertension R03.0 Pure hypercholesterolemia E78.00 Hyperlipidemia type: pure hypercholesterolemia Tinea capitis B35.0 Time Spent (min) 36 Assessment & Plan Assessment & Plan (1) Type 2 diabetes mellitus with hyperlipidemia: Code(s): E11.69 - Type 2 diabetes mellitus with other specified complication; E78.5 - Hyperlipidemia, unspecified Category: Medical Plan: A1c checked in office was 6.4% within goal. However discussed with the patient that his A1c has slightly increased since last checked. Reinforced low sugar/carbohydrate diet and activity as tolerated Continue Trulicity 0.75 mg subQ q.week (2) Cognitive developmental delay: Code(s): F81.9 - Developmental disorder of scholastic skills, unspecified Category: Medical Plan: Encouraged the patient to maintain regular physical activity and to socially engage in group activities (3) Obesity: Code(s): E66.9 - Obesity, unspecified Category: Medical Qualifiers: Obesity type: unspecified obesity type Obesity classification: unspecified obesity classification Serious obesity comorbidity presence: unspecified whether serious comorbidity present Qualified Code(s): E66.9 - Obesity, unspecified Plan: Encouraged low-cholesterol diet and activity as tolerated (4) Elevated BP without diagnosis of hypertension: Comment: 20 min reviewing chart eval patient and documenting Code(s): R03.0 - Elevated blood-pressure reading, without diagnosis of hypertension Category: Medical Plan: BP 170/82, amlodipine 5 mg added Reinforced low-salt diet Continue monitoring blood pressure at home. Make sure blood pressure is checked by nurse weekly. Contact the office with elevated or decreased blood pressures (5) Hyperlipidemia: Code(s): E78.5 - Hyperlipidemia, unspecified Category: Medical Qualifiers: Hyperlipidemia type: pure hypercholesterolemia Qualified Code(s): E78.00 - Pure hypercholesterolemia, unspecified Plan: Triglycerides 101, total cholesterol 191, LDL 132, HDL 39. Total cholesterol 207, LDL 144, HDL 39 on 07/04/2024 Continue atorvastatin 40 mg at bedtime Encouraged low-cholesterol diet and activity as tolerated Lipid panel in ordered for the patient to repeat in 6 months due to the patient adamantly refusing to be seen earlier. (6) Tinea capitis: Code(s): B35.0 - Tinea barbae and tinea capitis Category: Medical Plan: The patient reports a scalp issue and has been using a shampoo cream. Clotrimazole 1% b.i.d. topical ordered Plan Plan Patient was informed and verbally consented to the use of an ambient scribe for clinic note documentation during this visit. 1. Hypertension The patient's blood pressure was noted to be elevated, which the patient attributes to nervousness. Although a small dose of antihypertensive medication was offered, the patient declined to start it today. The plan is for a home health nurse to monitor the patient's blood pressure and send the results to the clinic for review. 2. Tachycardia The patient's heart rate was elevated, measuring in the 120s and later dropping to 118 bpm, likely secondary to anxiety. The patient was advised to relax to help lower the heart rate. 3. Dermatitis Of The Scalp The patient reports a scalp issue and has been using a shampoo cream. A prescription cream was provided to be applied to the head twice daily. Discussion Notes I discussed the patient's elevated blood pressure, which the patient believes is due to nervousness. I offered a small dose of medication to lower it, but the patient declined at this time. We agreed that a home nurse would monitor the patient's blood pressure and send the readings to the office. I also observed a fast heart rate, likely related to anxiety, and advised the patient to relax. For a scalp condition, I prescribed a cream for twice-daily application. I confirmed that recent lab results were normal and arranged for a follow-up appointment in six months. Patient Instructions - Apply the prescribed cream to your head two times a day. - Arrange for your home nurse to check your blood pressure and send the results to our office. - Please make a follow-up appointment to be seen in six months. Orders: Orders Complete Blood Count Auto Diff 6 Months E11. - Type 2 diabetes mellitus with other specified complication, E66.9 - Obesity, unspecified, E78.00 - Pure hypercholesterolemia, unspecified, E78.5 - Hyperlipidemia, unspecified, F81.9 - Developmental disorder of scholastic skills, unspecified, J45.51 - Severe persistent asthma with (acute) exacerbation Comprehensive [place]. Panel Fast 6 Months E11. - Type 2 diabetes mellitus with other specified complication, E66.9 - Obesity, unspecified, E78.00 - Pure hypercholesterolemia, unspecified, E78.5 - Hyperlipidemia, unspecified, F81.9 - Developmental disorder of scholastic skills, unspecified, J45.51 - Severe persistent asthma with (acute) exacerbation Lipid Panel 6 Months E11. - Type 2 diabetes mellitus with other specified complication, E66.9 - Obesity, unspecified, E78.00 - Pure hypercholesterolemia, unspecified, E78.5 - Hyperlipidemia, unspecified, F81.9 - Developmental disorder of scholastic skills, unspecified, J45.51 - Severe persistent asthma with (acute) exacerbation Vitamin D 25-OH Total 6 Months . - Type 2 diabetes mellitus with other specified complication, E66.9 - Obesity, unspecified, E78.00 - Pure hypercholesterolemia, unspecified, E78.5 - Hyperlipidemia, unspecified, F81.9 - Developmental disorder of scholastic skills, unspecified, J45.51 - Severe persistent asthma with (acute) exacerbation UA CC w/rflx Micro + Cult 6 Months - Type 2 diabetes mellitus with other specified complication, E66.9 - Obesity, unspecified, E78.00 - Pure hypercholesterolemia, unspecified, E78.5 - Hyperlipidemia, unspecified, F81.9 - Developmental disorder of scholastic skills, unspecified, J45.51 - Severe persistent asthma with (acute) exacerbation TSH reflex Free T4 6 Months - Type 2 diabetes mellitus with other specified complication, E66.9 - Obesity, unspecified, E78.00 - Pure hypercholesterolemia, unspecified, E78.5 - Hyperlipidemia, unspecified, F81.9 - Developmental disorder of scholastic skills, unspecified, J45.51 - Severe persistent asthma with (acute) exacerbation Hemoglobin A1c 6 Months . - Type 2 diabetes mellitus with other specified complication, E66.9 - Obesity, unspecified, E78.00 - Pure hypercholesterolemia, unspecified, E78.5 - Hyperlipidemia, unspecified, F81.9 - Developmental disorder of scholastic skills, unspecified, J45.51 - Severe persistent asthma with (acute) exacerbation PSA,Total (Free>4and<10) 6 Months - Type 2 diabetes mellitus with other specified complication, E66.9 - Obesity, unspecified, E78.00 - Pure hypercholesterolemia, unspecified, E78.5 - Hyperlipidemia, unspecified, F81.9 - Developmental disorder of scholastic skills, unspecified, J45.51 - Severe persistent asthma with (acute) exacerbation Medications: New clotrimazole 1% 1 appl topical BID 45 grams 1RF amlodipine 5 mg PO DAILY 30 tabs 3RF
[2025-04-06 11:20] VITALS: BP 170/82; PULSE 115; RESP 18; O2SAT 94; BMI 34.3
--- OUTSIDE RECORDS SUMMARY | 2025-04-06 13:12 | XMS_ITS | Clinical Summary ---
Author Organization [facility] Address [address] [place] [address] Phone Care Team Providers Care Perioperative Assistant Name Role Phone Becky Lobo DO [...] Problem Noted Date Diagnosed Date Diabetes mellitus (CMS/[facility] V24, CMS/[facility] V28) Hypercholesterolemia 10/05/2015 Hypertension 10/05/2015 Asthma 10/05/2015 Sleep apnea 10/05/2015 Medical History Medical History Date Comments Diabetes mellitus type 2, co ntrolled, with complications (CMS/HCC V24, CMS/HCC V28) DX:Diabetes m ellitus type 2, controlled, with complications ([facility]) Essential hypertension DX:Essent ial hypertension Asthma [...] 10:30 AM EST Office Visit Pulmonology - [address] [place] [address] Char Sullivan MD [address] [place] [phone] Health Maintenance Due Date Last Done [...] patient's age to complete this topic Insurance [facility] Member Subscriber Plan / Payer (Ef fective 2018-Present) Name:LISA REYES Relation to Subscriber:Self Name:Lisa Reyes Payer ID:[id number] Group ID:[id number] Type:Not on file Address: [address] [place] [address] Advance Directives Documents on File Type Date Recorded Patient Aerotriangulation Specialist Expl anation Health Care Decision (hx) 01/25/2016 AD HILL DIRECTIVE Health Care Decision (hx) 01/25/2016 AD HILL DIRECTIVE Care Teams Perioperative Assistant Relationship Specialty Start Date End Date Becky Lobo DO [address] [facility] [address] [place] [address] PCP - General 10/04/15
== END 2025-04-06 12:00 | disposition home or self-care (01) ==
LOC: HO.HMCH 10:36
DX: E11.69 Type 2 diabetes mellitus with other specified complication (principal); E78.5 Hyperlipidemia, unspecified; F81.9 Developmental disorder of scholastic skills, unspecified; E66.9 Obesity, unspecified; R03.0 Elevated blood-pressure reading, without diagnosis of hypertension; E78.00 Pure hypercholesterolemia, unspecified; B35.0 Tinea barbae and tinea capitis; Z68.34 Body mass index [BMI] 34.0-34.9, adult

== ENCOUNTER → 2025-04-06 10:35 | Outpatient (BNVA) | payer OTHER, SELFPAY | DX: E11.69 Type 2 diabetes mellitus with other specified complication (principal); J45.909 Unspecified asthma, uncomplicated; E78.5 Hyperlipidemia, unspecified; F81.9 Developmental disorder of scholastic skills, unspecified; E66.9 Obesity, unspecified; R03.0 Elevated blood-pressure reading, without diagnosis of hypertension; E78.00 Pure hypercholesterolemia, unspecified; B35.0 Tinea barbae and tinea capitis; R00.0 Tachycardia, unspecified; L30.9 Dermatitis, unspecified; Z99.81 Dependence on supplemental oxygen; Z68.34 Body mass index [BMI] 34.0-34.9, adult | CPT/HCPCS: 96127; 99212 ==